=== PATIENT | male | born 1960 | race Caucasian/White ===

== ENCOUNTER 2019-05-14 07:06 | Inpatient (IN) | payer MEDICARE, MEDICAID ==
[~2019-05-14] VITALS: Ht 177.8 cm; Wt 61.2 kg
[~2019-05-14 07:06] MED LIST: ABILIFY5 MG ORAL; AMBIEN10 MG ORAL; ATORVASTATIN CA10 MG ORAL; BENZTROPINE MESY2 MG PO; CALCIUM 500 +1 EAC3 PO; CARNITINE ORAL; COLACE100 MG ORAL; DEPAKOTE SPRIN125 M1 ORAL; DULCOLAX10 MG RECTAL; DUONEB 0.5 MG-33 ML IH; FLUPHENAZINE HCL1 MG ORAL; KLONOPIN0.5 MG ORAL; LORAZEPAM1 MG ORAL; METOPROLOL SUCC25 MG ORAL; MILK OF MA400 MG/51 ORAL; MYLANTA30 M1 ORAL; QUETIAPINE FUMA50 MG ORAL; ROBITUSSIN DM5 ML PO; SERTRALINE HCL50 MG ORAL; TRAVATAN Z5 ML BOTH EYES; TYLENOL100 MG/11 PO
[2019-05-14] MEDS ORDERED: FERROUS SULFAT325 MG ORAL (07:19)
[2019-05-14] MEDS ORDERED: ACTOS15 MG ORAL (07:19)
[2019-05-14] MEDS ORDERED: ASPIRIN81 MG ORAL (07:19)
[2019-05-14] MEDS ORDERED: LACTULOSE20 GM/301 ORAL (07:19)
[2019-05-14] MEDS ORDERED: MIDODRINE HCL5 MG ORAL (07:19)
[2019-05-14] MEDS ORDERED: FLEET ENEMA133 ML RECTAL (07:19)
[2019-05-14] MEDS ORDERED: NOVOLIN R100 UNIT/1 SUBQ (07:19)
[2019-05-14] MEDS ORDERED: Sodium Chloride 550 ML IV SCH (07:30)
[2019-05-14] MEDS ORDERED: Albuterol ud Inhalation HHN ONE (07:30)
[2019-05-14] MEDS ORDERED: Ipratropium 0.02% Inh Soln 2.5ml UD HHN ONE (07:30)
[2019-05-14] MEDS ORDERED: Lidocaine 1% 10mg/ml/Epi 0.005mg/ml 30ml vial INJ ONE (07:30)
[2019-05-14] MEDS ORDERED: Bacitracin Oint UD TOPIC ONE (07:30)
[2019-05-14] MEDS ORDERED: Solu-MEDROL 125mg Inj IVP ONE (07:30)
[2019-05-14 07:45] VITALS: BP 98/76
--- NOTE | 2019-05-14 07:45 | Emergency Room Report ---
History of Present Illness General Chief Complaint: Multiple Trauma/Fall Source: Medical Record, EMS Present Illness HPI The patient fell and hit his left eyebrow. The patient is unable to give medical history at this time. Apparently has a history of COPD. In addition to that as O2 saturation was 89% at the [facility] facility. They increased his oxygen saturation by increase his oxygen to 5 L by nasal cannula. EMS transported the patient on a mask and stated that O2 sat saturation was 96%. History of bipolar disorder, diabetes, seizures. The patient is supposed be on valproic acid. The patient was admitted in 2012. Discharge diagnoses: 1. Encephalopathy. 2. Dehydration. 3. Scabies. 4. Psychiatric history. 5. Dysphagia. 6. Leukocytosis. 7. Sepsis. Allergies: Coded Allergies: NO KNOWN DRUG ALLERGIES (Verified Allergy, Unknown, 05/14/19) Patient History Limited by: medical condition Past Medical History: see triage record, old chart reviewed Past Surgical History: other - g tube [facility] Nursing Documentation: PMH: Agreed; PSxH: Agreed Nursing Documentation-PMH Past Medical History: No History, Except For Hx Cardiac Problems: Yes Hx Hypertension: Yes Hx COPD: Yes Hx Diabetes: Yes Hx Cancer: No Hx Gastrointestinal Problems: No History Of Psychiatric Problem: Yes - dementia Hx Neurological Problems: No Hx Seizures: Yes Review of Systems All Other Systems: limited Physical Exam Vital Signs Date Time Temp Pulse Resp B/P (MAP) Pulse Ox O2 Delivery O2 Flow Rate FiO2 05/14/19 07:14 97.5 87 20 96/61 (73) 91 Room Air 05/14/19 07:37 21 Sp02 EP Interpretation: reviewed, abnormal - Interpreted as low by me General Appearance: alert, other - rambling speech, Chronically Ill Head: normocephalic, other - Laceration left eyebrow Eyes: right eye other - large dilated pupil, L = small; bilateral eye EOMI ENT: dry mucus membranes Neck: supple, no bony tend Respiratory: chest non-tender, rhonchi, wheezing, expiration Cardiovascular #1: regular rate, rhythm Cardiovascular #2: 2+ radial (L) Gastrointestinal: non tender, soft, other - g tube, decreased bowel sounds Genitourinary: no CVA tenderness Musculoskeletal: digits/nails normal, normal range of motion Neurologic: alert, DTRs symmetric, sensory intact - not respond to pain LE, no Babinski, other - Random grumbling and unintelligible speech, moves all 4 Psychiatric: mood/affect normal Skin: warm/dry, laceration - Left eyebrow 2 cm Procedures Laceration/Wound Repair Laceration/Wound Repair : Consent: Verbal Wound Location: face Wound's Depth, Shape: superficial Wound Length (cm): 2 Wound Explored: clean Irrigated w/ Saline (ccs): 20 Betadine Prep?: Yes Anesthesia: Lidocaine w/ Epi Volume Anesthetic (ccs): 1 Wound Debrided: minimal Wound Repaired With: sutures Suture Size/Type: 6:0, proline Layer Closure?: No Sterile Dressing Applied?: Yes Patient Tolerated: Well Complications: None Medical Decision Making Diagnostic Impression: Primary Impression: Hypoxia Additional Impressions: LLL pneumonia Qualified Codes: J18.9 - Pneumonia, unspecified organism COPD exacerbation Laceration Head injury Qualified Codes: S09.90XA - Unspecified injury of head, initial encounter Elevated lactic acid level Dehydration [facility] ER Course Patient presents post head injury with history of C OPD and hypoxia. Differential includes brain bleed, laceration, pneumonia, exacerbation of COPD amongst others. Evaluation with EKG, CT of the head, chest x-ray and labs. Tetanus is indicated. The laceration needs to be sutured. Breathing treatments are ordered along with Solu-Medrol. EKG with sinus rhythm nonspecific ST-T wave changes and P pulmonale. Chest x- ray with COPD and new left lower lobe infiltrate. Based on the x-ray blood cultures and antibiotics are ordered. WBC normal but left shift. Elevated CO2. Lactic acid 2.1. Bolus NS ordered. O2 sats improved after breathing treatment. Laceration repaired. Repeat lactic acid improved and normal. Contact Dr. Ng for admission. Valproic acid late return is low. Laboratory Tests Test 05/14/19 07:50 05/14/19 08:30 05/14/19 09:30 White Blood Count 7.2 K/UL (4.8-10.8) Red Blood Count 4.56 M/UL (4.70-6.10) L Hemoglobin 13.7 G/DL (14.2-18.0) L Hematocrit 42.8 % (42.0-52.0) Mean Corpuscular Volume 94 FL (80-99) Mean Corpuscular Hemoglobin 30.0 PG (27.0-31.0) Mean Corpuscular Hemoglobin Concent 32.0 G/DL (32.0-36.0) Red Cell Distribution Width 13.1 % (11.6-14.8) Platelet Count 249 K/UL (150-450) Mean Platelet Volume 5.0 FL (6.5-10.1) L Neutrophils (%) (Auto) % (45.0-75.0) Lymphocytes (%) (Auto) % (20.0-45.0) Monocytes (%) (Auto) % (1.0-10.0) Eosinophils (%) (Auto) % (0.0-3.0) Basophils (%) (Auto) % (0.0-2.0) Differential Total Cells Counted 100 Neutrophils % (Manual) 85 % (45-75) H Lymphocytes % (Manual) 7 % (20-45) L Monocytes % (Manual) 7 % (1-10) Eosinophils % (Manual) 1 % (0-3) Basophils % (Manual) 0 % (0-2) Band Neutrophils 0 % (0-8) Platelet Estimate Adequate Platelet Morphology Normal Red Blood Cell Morphology Normal Prothrombin Time 10.0 SEC (9.30-11.50) Prothrombin Time INR 0.9 (0.9-1.1) PTT 22 SEC (23-33) L Sodium Level 140 MMOL/L (136-145) Potassium Level 4.3 MMOL/L (3.5-5.1) Chloride Level 106 MMOL/L (98-107) Carbon Dioxide Level 34 MMOL/L (21-32) H Anion Gap 0 mmol/L (5-15) L Blood Urea Nitrogen 24 mg/dL (7-18) H Creatinine 0.9 MG/DL (0.55-1.30) Estimate Glomerular Filtration Rate > 60 mL/min (>60) Glucose Level 114 MG/DL (74-106) H Lactic Acid Level 2.10 mmol/L (0.4-2.0) H 2.00 mmol/L (0.66-2.22) Calcium Level 8.2 MG/DL (8.5-10.1) L Total Bilirubin 0.2 MG/DL (0.2-1.0) Aspartate Amino Transferase (AST) 18 U/L (15-37) Alanine Aminotransferase (ALT) 17 U/L (12-78) Alkaline Phosphatase 82 U/L (46-116) Total Creatine Kinase 41 U/L (26-308) Troponin I 0.000 ng/mL (0.000-0.056) Pro-B-Type Natriuretic Peptide 48 pg/mL (0-125) Total Protein 7.3 G/DL (6.4-8.2) Albumin 3.3 G/DL (3.4-5.0) L Globulin 4.0 g/dL Albumin/Globulin Ratio 0.8 (1.0-2.7) L Valproic Acid Level 10 MCG/ML (50-100) L Urine Color Yellow Urine Appearance Clear Urine pH 7 (4.5-8.0) Urine Specific [place] 1.010 (1.005-1.035) Urine Protein 1+ (NEGATIVE) H Urine Glucose (UA) Negative (NEGATIVE) Urine Ketones Negative (NEGATIVE) Urine Blood Negative (NEGATIVE) Urine Nitrite Negative (NEGATIVE) Urine Bilirubin Negative (NEGATIVE) Urine Urobilinogen 1 MG/DL (0.0-1.0) H Urine Leukocyte Esterase 1+ (NEGATIVE) H Urine RBC 0 /HPF (0 - 0) Urine WBC 0-2 /HPF (0 - 0) Urine Squamous Epithelial Cells Occasional /LPF Urine Bacteria Occasional /HPF (NONE) Microbiology Date/Time Source Procedure Growth Status 05/14/19 07:50 Nasal Nares - Final Complete 05/14/19 07:50 Nasal Nares - Final Complete EKG Diagnostic Results Rate: normal Rhythm: NSR ST Segments: no acute changes - Nonspecific ST-T wave changes P pulmonale Rhythm Strip Diag. Results EP Interpretation: yes Rhythm: NSR, no PVC's, no ectopy Chest X-Ray Diagnostic Results Chest X-Ray Diagnostic Results : Chest X-Ray Ordered: Yes # of Views/Limited/Complete: 1 View Indication: Other EP Interpretation: Yes Interpretation: no effusion, no pneumothorax, other - COPD and LLL infiltrate = new Impression: Other Electronically Signed by: Electronically signed by Natanael Caputo MD CT/MRI/US Diagnostic Results CT/MRI/US Diagnostic Results : Imaging Test Ordered: head Impression L frontal infarct Last Vital Signs Date Time Temp Pulse Resp B/P (MAP) Pulse Ox O2 Delivery O2 Flow Rate FiO2 05/14/19 09:42 111/55 05/14/19 09:11 98.0 95 18 97 Room Air 05/14/19 08:00 97 Status: improved Disposition: ADMITTED INPATIENT Condition: Serious Referrals: Silas Ng DO (PCP) Natanael Caputo MD May 14, 2019 07:45
--- NOTE | 2019-05-14 07:45 | NUR ---
ED Nurse Note: Pt arrived by ambulance Am Pr 170. EMT states pt has history of DM. EMT states pt had a fall last night at SNF and got a laceration above L eye. Pt vital signs 98/60, R 22, HR 87. 98% RA. Patient is put on ECG monitor. Patient is A&ox2. Pt is inconent. Pt has G tube.
[2019-05-14] MEDS ORDERED: Vancomycin 1 GM in NS 275 ML IVPB ONE (08:00)
[2019-05-14] MEDS ORDERED: Piperacillin/Tazobactam 3.375 GM in NS 110 ML IVPB ONE (08:00)
--- NOTE | 2019-05-14 08:05 | NUR ---
Pt left for CT via gurney.
--- NOTE | 2019-05-14 08:15 | NUR ---
Pt returned from CT via [facility].
[2019-05-14 08:21] LABS: HEMATOCRIT 42.8 % (42.0-52.0); HEMOGLOBIN 13.7 G/DL (14.2-18.0); MEAN CORPUSCULAR VOLUME 94 FL (80-99); PLATELET COUNT 249 K/UL (150-450); RED BLOOD COUNT 4.56 M/UL (4.70-6.10); RED CELL DISTRIBUTION WIDTH 13.1 % (11.6-14.8); WHITE BLOOD COUNT 7.2 K/UL (4.8-10.8)
[2019-05-14 08:28] LABS: INR 0.9 (0.9-1.1)
--- NOTE | 2019-05-14 08:40 | NUR ---
Dr. Caputo saw pt and put sutures above pt's R eye.
[2019-05-14 08:44] LABS: ALANINE AMINOTRANSFERASE 17 U/L (12-78); ALBUMIN 3.3 G/DL (3.4-5.0); ALBUMIN/GLOBULIN RATIO 0.8 (1.0-2.7); ALKALINE PHOSPHATASE 82 U/L (46-116); ANION GAP 0 mmol/L (5-15); ASPARTATE AMINO TRANSFERASE 18 U/L (15-37); BILIRUBIN,TOTAL 0.2 MG/DL (0.2-1.0); CALCIUM 8.2 MG/DL (8.5-10.1); CARBON DIOXIDE 34 MMOL/L (21-32); CHLORIDE 106 MMOL/L (98-107); CREATINE KINASE 41 U/L (26-308); CREATININE 0.9 MG/DL (0.55-1.30); POTASSIUM 4.3 MMOL/L (3.5-5.1); SODIUM 140 MMOL/L (136-145)
--- NOTE | 2019-05-14 08:47 | Diagnostic Imaging Report ---
Indication: Headache. Head trauma Technique: Contiguous 5 mm thick transaxial imaging of the head obtained in a Siemens Sensation [address] scanner. Soft tissue and bone windows generated. Automatic Exposure Control was utilized. Total Dose length Product (DLP): 1489.[address] Dose Index Volume (CTDIvol): 62.7 mGy Comparison: 03/14/2013 Findings: There is mild prominence of the ventricles, basal cisterns, and cerebral sulci consistent with cerebral atrophy. Moderate cerebellar atrophy demonstrated also. Mild, nonspecific, white matter hypoattenuation is noted throughout the brain consistent with chronic small vessel disease. Focus of encephalomalacia demonstrated in the left frontal lobe. There is a mild compensatory dilatation of the anterior horn of the left lateral ventricle. There is no midline shift, edema, acute hemorrhage, mass effect, or abnormal extra-axial fluid collections. Bones are unremarkable. Impression: No acute intracranial bleed, mass effect or edema. Left frontal encephalomalacia probably on the basis of previous infarct. Mild atrophy of the brain. Nonspecific white matter hypoattenuation probably due to chronic small vessel disease. No change from the previous study The CT scanner at [facility] is accredited by the [employer] and the scans are performed using dose optimization techniques as appropriate to a performed exam including Automatic Exposure control.
[2019-05-14 08:53] LABS: BLOOD UREA NITROGEN 24 mg/dL (7-18)
[2019-05-14 08:59] LABS: APPEARANCE,URINE CLEAR; BILIRUBIN, URINE NEGATIVE (NEGATIVE); GLUCOSE, URINE (UA) NEGATIVE (NEGATIVE); KETONES,URINE NEGATIVE (NEGATIVE); LEUKOCYTE ESTERASE ,URINE 1+ (NEGATIVE); NITRITE,URINE NEGATIVE (NEGATIVE); PH,URINE 7 (4.5-8.0); PROTEIN,URINE 1+ (NEGATIVE); UROBILINOGEN,URINE 1 MG/DL (0.0-1.0)
[2019-05-14 09:09] LABS: COLOR,URINE YELLOW
[2019-05-14 09:11] VITALS: BP 109/60
[2019-05-14] MEDS ORDERED: Vancomycin 1gm vial IVPB ONE (09:13)
[2019-05-14] MEDS ORDERED: NS 275 ML ONE (09:15)
[2019-05-14] MEDS ORDERED: Albuterol/Ipratropium 3ml neb HHN PRN (09:15)
[2019-05-14] MEDS ORDERED: Morphine Sulfate 4mg/ml Inj (IV USE ONLY) IVP PRN (09:15)
[2019-05-14] MEDS ORDERED: Miralax 17gm pkt ORAL PRN (09:15)
--- NOTE | 2019-05-14 09:36 | NUR ---
ED Nurse Note: pt pulling out intial iv site, bleeding controlled. iv restarted as noted. pt with ns and abx infusion restarted. pt tolerates well. iv site wrapped to discourage dislodgement.
--- NOTE | 2019-05-14 09:37 | NUR ---
ED Nurse Note: pictures done and to be uploaded. dr suha arcos here to delbert pt.
[2019-05-14 09:42] VITALS: BP 111/55
--- NOTE | 2019-05-14 10:30 | NUR ---
NURSE NOTES: Received patient from [facility] Patient transported via gurney from ED. patient is lethargic but arousable. VSS>. transferred to bed without difficulty. oriented to room and safety call bourgeois within patients reached. bed locked to lowest position side rails X3 up for safety. initial assessment initiated. patient denies pain or discomfort at this time. will follow.
[2019-05-14 12:00] VITALS: BP 120/68
[2019-05-14] MEDS ORDERED: Metoprolol Tartrate 12.5mg TAB ORAL PRN (12:00)
[2019-05-14] MEDS: Cefepime HCl 2 GM in D5W 110 ML IV SCH ×2 (12:00→20:02)
[2019-05-14] MEDS: Heparin 5000 units/ml inj SUBQ SCH ×2 (12:01→20:45)
--- NOTE | 2019-05-14 12:10 | Consultation ---
History of Present Illness General Date patient seen: May 14, 2019 Chief Complaint: Multiple Trauma/Fall Present Illness HPI 59 year old male with a history of bipolar disorder, diabetes, seizures, COPD., Gtube, senior care resident He fell and hit his left eyebrow in the senior care The patient is unable to give medical history at this time. His O2 saturation was 89% at the senior care facility. EMS transported the patient on a mask and stated that O2 sat saturation was 96%. He is admitted for exacerbation of COPD and failure to thrive. Allergies: Coded Allergies: NO KNOWN DRUG ALLERGIES (Verified Allergy, Unknown, 05/14/19) Medication History Scheduled Acetaminophen (Tylenol), 325 MG PO NEEDED, (Reported) Al Hydroxide/mg Hydroxide (Mag-Al Liquid), 30 ML ORAL NEEDED, (Reported) Aripiprazole* (Abilify*), 5 MG ORAL BID, (Reported) Aspirin* (Aspirin*), 81 MG ORAL DAILY, (Reported) Atorvastatin Calcium* (Lipitor*), 10 MG ORAL BEDTIME, (Reported) Benztropine Mesylate* (Benztropine Mesylate*), 2 MG PO BID, (Reported) Bisacodyl (Dulcolax), 10 MG RECTAL NEEDED, (Reported) Clonazepam* (Klonopin*), 0.5 MG ORAL EVERY 8 HOURS, (Reported) Divalproex Sodium (Divalproex Sodium), 750 MG ORAL THREE TIMES A DAY, (Reported) Docusate Sodium* (Colace*), 100 MG ORAL BEDTIME, (Reported) Ferrous Sulfate* (Ferrous Sulfate*), 325 MG ORAL DAILY, (Reported) Fluphenazine HCl (Fluphenazine HCl), 5 MG ORAL THREE TIMES A DAY, (Reported) Insulin Regular, Human* (Novolin R*), 0 SUBQ .SLIDING SCALE, (Reported) Levocarnitine (Carnitor), 330 MG ORAL THREE TIMES A DAY, (Reported) Lorazepam* (Lorazepam*), 1 MG ORAL NEEDED, (Reported) Magnesium Hydroxide* (Milk Of Magnesia*), 30 ML ORAL DAILY, (Reported) Midodrine* (Proamatine*), 5 MG ORAL THREE TIMES A DAY, (Reported) Na Phos,M-B/Na Phos,Di-Ba* (Fleet Enema*), 133 ML RECTAL DAILY, (Reported) Pioglitazone Hcl* (Actos*), 15 MG ORAL DAILY, (Reported) Quetiapine Fumarate* (Quetiapine Fumarate*), 50 MG ORAL DAILY, (Reported) Scheduled PRN Metoprolol Succinate* (Metoprolol Succinate*), 12.5 MG ORAL BID PRN, (Reported) Sertraline Hcl* (Zoloft*), 50 MG ORAL BID PRN, (Reported) Zolpidem Tartrate* (Ambien*), 10 MG ORAL BEDTIME PRN for Insomnia, (Reported) Miscellaneous Medications Calcium Carbonate/Vitamin D3 (Calcium 500 + D Tablet), 1 EACH PO, (Reported) Guaifenesin/Dextromethorphan (Guaifenesin Dm Syrup), 10 ML PO, (Reported) Ipratropium/Albuterol Sulfate (Duoneb 0.5 Mg-3 Mg/3 Ml Soln), 3 ML IH, (Reported ) Lactulose (Lactulose*), 30 ML ORAL, (Reported) Travoprost (Travatan Z), 5 ML BOTH EYES, (Reported) Patient History Healthcare decision maker Resuscitation status Advanced Directive on File Past Medical/Surgical History Past Medical/Surgical History: (1) COPD exacerbation (2) Feeding by G-tube (3) At high risk for aspiration (4) Diabetes mellitus (5) Schizophrenia (6) CAD (coronary artery disease) (7) Alzheimer's dementia (8) COPD (chronic obstructive pulmonary disease) Review of Systems Constitutional: Reports: no symptoms All Other Systems: negative except mentioned in HPI Physical Exam General Appearance: WD/WN, no apparent distress Lines, tubes and drains: peripheral HEENT: normocephalic, atraumatic Neck: non-tender, normal alignment, normal inspection Respiratory/Chest: chest wall non-tender, lungs clear, normal breath sounds Breasts: no masses Cardiovascular/Chest: normal peripheral pulses, normal rate Abdomen: normal bowel sounds Genitourinary/Rectal: normal genital exam Extremities: non-tender Last 24 Hour Vital Signs Date Time Temp Pulse Resp B/P (MAP) Pulse Ox O2 Delivery O2 Flow Rate FiO2 05/14/19 09:42 111/55 05/14/19 09:11 98.0 95 18 109/60 97 Room Air 05/14/19 08:50 98.6 68 17 111/55 97 Room Air 05/14/19 08:00 68 18 Room Air 97 05/14/19 07:45 98.7 87 18 98/76 98 Room Air 05/14/19 07:37 89 18 100 Room Air 21 84 22 96 05/14/19 07:37 84 22 96 Room Air 21 05/14/19 07:14 97.5 87 20 96/61 (73) 91 Room Air Laboratory Tests Test 05/14/19 07:50 05/14/19 08:30 05/14/19 09:30 White Blood Count 7.2 K/UL (4.8-10.8) Red Blood Count 4.56 M/UL (4.70-6.10) L Hemoglobin 13.7 G/DL (14.2-18.0) L Hematocrit 42.8 % (42.0-52.0) Mean Corpuscular Volume 94 FL (80-99) Mean Corpuscular Hemoglobin 30.0 PG (27.0-31.0) Mean Corpuscular Hemoglobin Concent 32.0 G/DL (32.0-36.0) Red Cell Distribution Width 13.1 % (11.6-14.8) Platelet Count 249 K/UL (150-450) Mean Platelet Volume 5.0 FL (6.5-10.1) L Neutrophils (%) (Auto) % (45.0-75.0) Lymphocytes (%) (Auto) % (20.0-45.0) Monocytes (%) (Auto) % (1.0-10.0) Eosinophils (%) (Auto) % (0.0-3.0) Basophils (%) (Auto) % (0.0-2.0) Differential Total Cells Counted 100 Neutrophils % (Manual) 85 % (45-75) H Lymphocytes % (Manual) 7 % (20-45) L Monocytes % (Manual) 7 % (1-10) Eosinophils % (Manual) 1 % (0-3) Basophils % (Manual) 0 % (0-2) Band Neutrophils 0 % (0-8) Platelet Estimate Adequate Platelet Morphology Normal Red Blood Cell Morphology Normal Prothrombin Time 10.0 SEC (9.30-11.50) Prothromb Time International Ratio 0.9 (0.9-1.1) Activated Partial Thromboplast Time 22 SEC (23-33) L Sodium Level 140 MMOL/L (136-145) Potassium Level 4.3 MMOL/L (3.5-5.1) Chloride Level 106 MMOL/L (98-107) Carbon Dioxide Level 34 MMOL/L (21-32) H Anion Gap 0 mmol/L (5-15) L Blood Urea Nitrogen 24 mg/dL (7-18) H Creatinine 0.9 MG/DL (0.55-1.30) Estimat Glomerular Filtration Rate > 60 mL/min (>60) Glucose Level 114 MG/DL (74-106) H Lactic Acid Level 2.10 mmol/L (0.4-2.0) H 2.00 mmol/L (0.66-2.22) Calcium Level 8.2 MG/DL (8.5-10.1) L Total Bilirubin 0.2 MG/DL (0.2-1.0) Aspartate Amino Transf (AST/SGOT) 18 U/L (15-37) Alanine Aminotransferase (ALT/SGPT) 17 U/L (12-78) Alkaline Phosphatase 82 U/L (46-116) Total Creatine Kinase 41 U/L (26-308) Troponin I 0.000 ng/mL (0.000-0.056) Pro-B-Type Natriuretic Peptide 48 pg/mL (0-125) Total Protein 7.3 G/DL (6.4-8.2) Albumin 3.3 G/DL (3.4-5.0) L Globulin 4.0 g/dL Albumin/Globulin Ratio 0.8 (1.0-2.7) L Valproic Acid (Depakene) Level 10 MCG/ML (50-100) L Urine Color Yellow Urine Appearance Clear Urine pH 7 (4.5-8.0) Urine Specific [place] 1.010 (1.005-1.035) Urine Protein 1+ (NEGATIVE) H Urine Glucose (UA) Negative (NEGATIVE) Urine Ketones Negative (NEGATIVE) Urine Blood Negative (NEGATIVE) Urine Nitrite Negative (NEGATIVE) Urine Bilirubin Negative (NEGATIVE) Urine Urobilinogen 1 MG/DL (0.0-1.0) H Urine Leukocyte Esterase 1+ (NEGATIVE) H Urine RBC 0 /HPF (0 - 0) Urine WBC 0-2 /HPF (0 - 0) Urine Squamous Epithelial Cells Occasional /LPF Urine Bacteria Occasional /HPF (NONE) Microbiology Date/Time Source Procedure Growth Status 05/14/19 07:50 Nasal Nares - Final Complete 05/14/19 07:50 Nasal Nares - Final Complete 05/14/19 00:00 Rectum Ordered Height (Feet): 5 Height (Inches): 10.00 Weight (Pounds): 160 Medications Current Medications Medications (Trade) Dose Ordered Sig/Barry Route PRN Reason Start Time Stop Time Status Last Admin Dose Admin Acetaminophen (Tylenol) 650 mg Q4H PRN ORAL FEVER 05/14/19 09:15 06/13/19 09:14 Albuterol/ Ipratropium (Albuterol/ Ipratropium) 3 ml Q4H PRN HHN Shortness of Breath 05/14/19 09:15 05/19/19 09:14 Cefepime HCl 2 gm/ Dextrose 110 ml @ 220 mls/hr EVERY 12 HOURS IV 05/14/19 10:00 05/21/19 09:59 Dextrose (Dextrose 50%) 25 ml Q30M PRN IV Hypoglycemia 05/14/19 09:15 06/13/19 09:14 Dextrose (Dextrose 50%) 50 ml Q30M PRN IV Hypoglycemia 05/14/19 09:15 06/13/19 09:14 Heparin Sodium (Porcine) (Heparin 5000 units/ml) 5,000 units EVERY 12 HOURS SUBQ 05/14/19 10:00 06/13/19 09:59 Morphine Sulfate (Morphine Sulfate) 2 mg Q4H PRN IVP Severe Pain (Pain Scale 7-10) 05/14/19 09:15 05/21/19 09:14 Ondansetron HCl (Zofran) 4 mg Q6H PRN IVP Nausea & Vomiting 05/14/19 09:15 06/13/19 09:14 Polyethylene Glycol (Miralax) 17 gm DAILYPRN PRN ORAL Constipation 05/14/19 09:15 06/13/19 09:14 Sodium Chloride 550 ml @ 150 mls/hr Q3H40M IV 05/14/19 07:30 06/13/19 07:29 05/14/19 08:25 Vancomycin HCl (Vanco rx to dose) 1 ea DAILY PRN MISC . 05/14/19 09:30 06/13/19 09:29 Vancomycin/Sodium Chloride 275 ml @ 183.333 mls/hr Q12HR IVPB 05/14/19 21:00 05/19/19 20:59 Assessment/Plan Problem List: (1) COPD exacerbation ICD Codes: J44.1 - Chronic obstructive pulmonary disease with (acute) exacerbation SNOMED: 778231368 (2) At high risk for aspiration ICD Codes: Z91.89 - Other specified personal risk factors, not elsewhere classified SNOMED: 047447393 (3) Alzheimer's dementia ICD Codes: G30.9 - Alzheimer's disease, unspecified; F02.80 - Dementia in other diseases classified elsewhere without behavioral disturbance SNOMED: 86047746 (4) CAD (coronary artery disease) ICD Codes: I25.10 - Atherosclerotic heart disease of [place] coronary artery without angina pectoris SNOMED: 47894703 (5) Seizure disorder ICD Codes: G40.909 - Epilepsy, unspecified, not intractable, without status epilepticus SNOMED: 968265201 (6) Schizophrenia ICD Codes: F20.9 - Schizophrenia, unspecified SNOMED: 81374725 (7) Diabetes mellitus ICD Codes: E11.9 - Type 2 diabetes mellitus without complications SNOMED: 78409561 (8) Feeding by G-tube ICD Codes: Z93.1 - Gastrostomy status SNOMED: 702300917, 013089560, 658501043 (9) COPD (chronic obstructive pulmonary disease) ICD Codes: J44.9 - Chronic obstructive pulmonary disease, unspecified SNOMED: 62995978 Assessment/Plan: senior care meds reviewed, essential ones reordered respiratory treatment check sputum iv abx swallow evaluation. Anusha Richmond MD May 14, 2019 12:10
--- NOTE | 2019-05-14 12:58 | NUR ---
ST NOTES: REFERRAL FOR SWALLOW EVALUATION RECEIVED, PATIENT NEEDS MOD BARIUM SWALLOW STUDY PRIOR TO PO GIVEN HIS H/O OLD CVAS, HEAD TRAUMA, COPD WITH EXACERBATION, AND ACUTE LEFT LOWER LOBE PNA AND RECENT FALL. PER RN, THE PATIENT IS LETHARGIC AND NOT READY FOR SWALLOW EVAL. D/W RN, HANG WHO SAID HE HAS A GT AND HAS BEEN ON A PO DIET. REFERRED RN TO [facility] DIETITIAN ABOUT TUBE FEEDING FORMULA. PLAN: SEE TOMORROW FOR SWALLOW EVAL AND MOD BARIUM SWALLOW STUDY IF READY AND ALERT.
[2019-05-14] MEDS: clonazePAM 0.5mg tab ORAL SCH ×2 (13:52→21:05)
--- NOTE | 2019-05-14 13:55 | Diagnostic Imaging Report ---
Indication: Dyspnea Comparison: 03/14/2013 A single view chest radiograph was obtained. Findings: There is a ill-defined density at the left lung base which may be pneumonia. Correlate clinically. I size is normal. Bones are osteopenic. No pleural effusion seen. IMPRESSION: Suspected infiltrate left lung base. Correlate clinically
[2019-05-14] MEDS: LORazepam 1mg tab ORAL PRN ×2 (14:22→21:05)
--- NOTE | 2019-05-14 15:00 | NUR ---
NURSE NOTES: Patient very restless getting up in bed unable to redirect patient. PRN ativan given. will follow
--- NOTE | 2019-05-14 15:42 | Consultation ---
Consult Note Consult Note HPI: 59yo gentleman with PMH below presents from retirement after fall. Pt was very agitated and getting out of bed, pulling IVs so nurse gave him benzo. Pt unable to provide history. ROS: per HPI PMH: Bipolar DM Seizure COPD Schizophrenia Alzheimer CAD h/o scabies 2102 Meds: reviewed All: NKDA Shx: retirement resident Fhx: noncontributory VS: reviewed Gen: NAD CV: RRR. no rubs or gallop Resp: RRR. coarse. no wheezes or crackles. Abd: soft. nondistended. normoactive BS+ Neuro: sedated Skin: warm and dry Labs: reviewed Assessment: Afebrile No leukocytosis Lactic acidosis, SP Unlikely UTI UA negative Possible PNA flu swab negative CXR: Suspected infiltrate left lung base. Correlate clinically Bipolar DM Seizure COPD Schizophrenia Alzheimer CAD h/o scabies 2102 Plan: continue cefepime and vancomycin #1 05/14 SP Zosyn #1 sputum cx blood cx Thank you for this consult. [facility] will continue to follow the patient with you. Craig Song MD May 14, 2019 15:42
[2019-05-14 16:00] VITALS: BP 125/72
--- NOTE | 2019-05-14 16:00 | NUR ---
NURSE NOTES: Patient resting comfortably at this time. will follow.
[2019-05-14] MEDS: D5 1/2NS 1,000 ML IV SCH (16:23)
--- NOTE | 2019-05-14 17:00 | History and Physical Report ---
DATE OF ADMISSION: 05/14/2019 TIME SEEN: 9 a.m. CONSULTANTS: 1. Antony Berger M.D. 2. Anusha Richmond M.D. 3. Shyla Fleming M.D. CHIEF COMPLAINT: COPD exacerbation, pneumonia, left brow laceration. BRIEF HISTORY: This is a 59-year-old male from [facility], presented with above-mentioned diagnoses. Apparently he says he tripped and stuck his left side of head and sustained left brow laceration, came to [place], diagnosed with the above and repaired. He also found to have COPD exacerbation, pneumonia, and sepsis, and being admitted to medical floor for further treatment. Currently, slightly confused in bed. No complaint. REVIEW OF SYSTEMS: No chest pain. Slight short of breath. No nausea, vomiting, or diarrhea. PAST MEDICAL HISTORY: Include COPD, altered mental status. PAST SURGICAL HISTORY: Unknown. MEDICATIONS: Include vancomycin, heparin, cefepime, Zofran, Tylenol, ibuprofen, and Zosyn. ALLERGIES: Denies. SOCIAL HISTORY: Unable to obtain secondary to the patient not very forthcoming. OBJECTIVE: GENERAL: Calm in bed, oriented x1, in no acute distress. VITAL SIGNS: Temperature 98 degrees, pulse 95, respiratory rate 18, blood pressure 101/60. CARDIOVASCULAR: No murmurs. LUNGS: Distant and clear. ABDOMEN: Bowel sound positive. Nontender. Nondistended. EXTREMITIES: No cyanosis, clubbing, or edema. NEUROLOGIC: The patient moves all extremities, slightly weak. Slight tremors bilateral upper extremity. SKIN: Left brow area laceration repaired, clean and dry. LABORATORY AND DIAGNOSTIC DATA: Labs at this time show hemoglobin 13.7 otherwise CBC is normal. CO2 34, BUN and creatinine 24 and 0.9, glucose 114. Troponin 0.00. Albumin 3.3. INR is 0.9. PTT is 22. Urine tox, valproic is 10. Urinalysis show 1+ leukocyte esterase. ASSESSMENT: 1. COPD exacerbation. 2. UTI. 3. Pneumonia. 4. Sepsis. 5. Left brow laceration, repaired. 6. Malnutrition. 7. Altered mental status. 8. PLAN: 1. O2 and pulmonary treatment. 2. Antibiotics per Infectious Disease. 3. Wound care. 4. Blood pressure and pain control. 5. Dietary followup. 6. PT and dietary evaluation. 7. Check laboratories in the morning. 8. Continue to follow the patient medically . Silas Ng D.O. DR: Je JOB#: [id number] CC:
--- NOTE | 2019-05-14 17:45 | NUR ---
NURSE NOTES:WOUND CARE NOTES:Pt presented on admission with non-blanching erythema without induration sacrum. R heel boggy with non-blanching erythema. Non-blanching erythema without fluctuance L heel. No other areas of skin concerns noted. Tx.plan: Apply Moisture Barrier Paste to sacrum. Cover with Optifoam drsg. Change every 3 days and prn. Apply Cavilon Skin Barrier to both heels. Cover each heel with Optifoam drsg.Changee very 7 days and prn. Reposition at least every 2hours or as tolerated. Off-load heels with pillow
--- NOTE | 2019-05-14 19:09 | NUR ---
NURSE NOTE: Patient very restless and agitated unable to redirect. getting up in bed and pulling tubings and ressings out. Dr. Fleming made aware new order obtained to put patient on B/L wrist restraints will follow protocol.
--- NOTE | 2019-05-14 19:21 | NUR ---
HAND-OFF: Report given to Vazquez Quiros. Plan of care endorsed
--- NOTE | 2019-05-14 19:30 | NUR ---
NURSE NOTES: Received patient in no apparent distress. PIV in right forearm intact and patent. Condom catheter in place. Soft wrist restraints on bilat wrists, skin is warm. Patient denies pain at this time. Bed rails up x2 for safety. Call light is within reach.
[2019-05-14 20:00] VITALS: BP 98/67
[2019-05-14] MEDS: Vancomycin 1.25gm/NS Premix q24h IVPB SCH (20:38)
--- NOTE | 2019-05-14 22:19 | NUR ---
NURSE NOTES: Collected sputum and sent to the lab.
[2019-05-14] MEDS ORDERED: Vancomycin 1 GM in D5W 275 ML IV SCH (23:00)
[2019-05-15] VITALS (7 sets, daily range): BP systolic 103–125; BP diastolic 67–114
[2019-05-15] MEDS: LORazepam 1mg tab ORAL PRN ×2 (04:04→18:06)
[2019-05-15] MEDS: clonazePAM 0.5mg tab ORAL SCH ×3 (05:04→21:43)
--- NOTE | 2019-05-15 07:26 | NUR ---
HAND-OFF: Report given to Rene LEUNG.
--- NOTE | 2019-05-15 07:30 | NUR ---
NURSE NOTES: Received pt in bed, awake, confused and agitated. Room air. No s/s of distress/pain. IV on R FA 22g intact and patent, running D5 1/2 NS @ 60 ml/hr. Bilateral restraints noted. Pulse present. Side rail padded for seizure precaution. Bed in the lowest, locked, and alarm on. Call light within reach. Will continue to monitor
--- NOTE | 2019-05-15 07:34 | NUR ---
RD ASSESSMENT & RECOMMENDATIONS SEE CARE ACTIVITY FOR COMPLETE ASSESSMENT DAILY ESTIMATED NEEDS: Needs based on Pulmonary 62 25-30 kcals/kg 6744-4423 total kcals 1-1.5 g protein/kg 62-93 g total protein 25-30 mL/kg 7478-5945 total fluid mLs NUTRITION DIAGNOSIS: Swallowing difficulty r/t dysphagia as evidenced by pt is GT dep. ENTERAL NUTRITION RECOMMENDATIONS: TwoCal: BOLUS FEEDS, 150ml /hr x2 hrs TID to provide 900ml, 1800 kcal, 75g pro, 630ml free H2O - FOR BOLUS FEEDS rec Two Krzysztof goal of 150ml/hr for 2 hrs TID (recommended start times of @0600, 1200, 1800). - TF to meet 100% est needs - Flush per MD/ HOB over 30 degrees ALTERNATIVELY FOR A 24 HR INFUSION: - Rec Osmolite 1.5 @50ml/hr x24 hrs to provide 1200ml, 1800 kcal, 75g pro, 914ml free H2O. - Will meet 100% est needs. ADDITIONAL RECOMMENDATIONS: 1) TF recs as above 2) Monitor lytes / BG w/ TF 3) F/up w/ NECK BAND SETTER eval and ability to take po and / or reduce TF 4) PER SNF-->> HT: 5'7" and 136#
[2019-05-15 08:38] LABS: BASOPHILS % (AUTO) 0.3 % (0.0-2.0); EOSINOPHILS % (AUTO) 0.3 % (0.0-3.0); HEMATOCRIT 38.2 % (42.0-52.0); HEMOGLOBIN 12.7 G/DL (14.2-18.0); LYMPHOCYTES % (AUTO) 19.6 % (20.0-45.0); MEAN CORPUSCULAR VOLUME 93 FL (80-99); MONOCYTES % (AUTO) 5.9 % (1.0-10.0); NEUTROPHILS % (AUTO) 73.8 % (45.0-75.0); PLATELET COUNT 261 K/UL (150-450); RED BLOOD COUNT 4.09 M/UL (4.70-6.10); RED CELL DISTRIBUTION WIDTH 12.9 % (11.6-14.8); WHITE BLOOD COUNT 10.1 K/UL (4.8-10.8)
[2019-05-15 08:52] LABS: ALBUMIN 3.4 G/DL (3.4-5.0); ANION GAP 3 mmol/L (5-15); BLOOD UREA NITROGEN 14 mg/dL (7-18); CALCIUM 8.3 MG/DL (8.5-10.1); CARBON DIOXIDE 34 MMOL/L (21-32); CHLORIDE 104 MMOL/L (98-107); CREATININE 0.8 MG/DL (0.55-1.30); PHOSPHORUS 2.8 MG/DL (2.5-4.9); POTASSIUM 3.6 MMOL/L (3.5-5.1); SODIUM 141 MMOL/L (136-145)
[2019-05-15 08:54] LABS: ANION GAP 3 mmol/L (5-15); BLOOD UREA NITROGEN 14 mg/dL (7-18); CALCIUM 8.3 MG/DL (8.5-10.1); CARBON DIOXIDE 35 MMOL/L (21-32); CHLORIDE 104 MMOL/L (98-107); CREATININE 0.8 MG/DL (0.55-1.30); POTASSIUM 3.8 MMOL/L (3.5-5.1); SODIUM 142 MMOL/L (136-145)
[2019-05-15] MEDS: Cefepime HCl 2 GM in D5W 110 ML IV SCH ×2 (09:23→23:18)
[2019-05-15] MEDS: Vancomycin 1.25gm/NS Premix q24h IVPB SCH ×2 (09:23→23:18)
[2019-05-15] MEDS: Heparin 5000 units/ml inj SUBQ SCH ×2 (09:24→21:58)
[2019-05-15] MEDS: D5 1/2NS 1,000 ML IV SCH (09:25)
--- NOTE | 2019-05-15 09:55 | NUR ---
PT EVALUATION NOTE Patient seen for initial evaluation, see complete evaluation for details. Patient presents with generalized weakness, impaired cognition and impaired balance which affects patient's ability to perform mobility tasks safely. Patient requires min/mod assist for bed mobility and transfers with FWW. Patient able to ambulate 50 ft with mod assist to manage FWW as patient is very unsteady and impulsive. Patient will benefit from skilled inpatient PT intervention to address balance, strength and safety to improve level of functional mobility. Recommend discharge to SNF once medically cleared by MD. Addendum: 05/15/19 at 1047 by EVA SILVERMAN PT Amended: Links added.
--- NOTE | 2019-05-15 10:00 | Consultation ---
DATE OF CONSULTATION: 05/15/2019 INITIAL PSYCHIATRIC EVALUATION CONSULTING PHYSICIAN: Shyla Fleming M.D. REQUESTING PHYSICIAN: Silas Ng D.O. HISTORY OF PRESENT ILLNESS: This is a 59-year-old male patient came in with COPD, but the patient has extreme mood lability, agitation, irritability. He has been trying to get out of bed, trying to strike out at the staff, not following redirection. He is very disorganized, confused, became labile and that is why he does require daily psychiatric consultation at this time. He has got feelings of helplessness, hopelessness, low energy, poor appetite, and loss of interest in activity. mood labile, confused, disorganized. That is why, he does require acute inpatient treatment at this time. PAST MEDICAL HISTORY: He has a history of pneumonia. ALLERGIES: He has no known drug allergies. SUBSTANCE ABUSE HISTORY: Denies. PAIN ASSESSMENT: 0/10. DEVELOPMENTAL PROBLEMS: Denies. PSYCHOTROPIC MEDICATIONS ON ADMISSION: Currently, he takes daily psychotropic medication regimen consisting of Abilify, Depakote, and Seroquel. FAMILY PSYCHIATRIC HISTORY: Denies. SOCIAL HISTORY: The patient is currently living in [facility]. Financially supported by [facility] and Medicare. MENTAL STATUS EXAMINATION: This is a male patient, who is 59 years old. Appearance is disheveled. Attitude, irritable and agitated. Affect, guarded and restricted. Intellect poor. Mood, depressed and anxious. Motor activity, psychomotor agitation. Attention span is poor. Orientation x2. Speech is pressured. Thought process, disorganized. Insight and judgment is poor. DIAGNOSES: 1. Paranoid schizophrenia with acute exacerbation, rule out dementia with psychosis. 2. Medical, COPD. 3. Psychosocial stressors, financial. 4. Function impairment, severe. PLAN: I will start the patient on Risperdal 1 mg three times a day and Ativan 1 every 6 hours p.r.n. anxiety, agitation. Continue Abilify. Continue Seroquel 50 mg daily. A 20 minutes of cognitive behavioral therapy to help his identify automatic negative thoughts and help his convert those negative thoughts to more positive thoughts to reduce depression, anxiety, and suicidality. Chart reviewed. Discussed with staff. Seen and assessed at bedside. A 20 minutes of cognitive behavioral therapy provided. Shyla Fleming M.D. DR: BRIAN JOB#: [id number] CC:
--- NOTE | 2019-05-15 10:40 | NUR ---
NOTES: REFERRED FOR SWALLOW EVALUATION BY DR MELO, SEE FULL REPORT. 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 ADVANCE DIRECTIVE BLANK AND NO POLST LOCATED BUT HAS PEG ? HOW LONG. PER PATIENT, HE HAD SWALLOW TEST YEARS AGO ? RELIABLE. AT SNF ON PEG FEEDINGS AND ORAL GRAT OF PUREED AND MILDLY THICK LIQUIDS TSP LEVEL AND ENSURE SUPPLEMENT. SEEN AT [facility] [address] [place]IE DIET TYPE BUT ON CARDIAC PUREED AND NECTAR THICK LIQUIDS ENSURE SUPPLEMENTS, NOT SEEN BY BREWER HELPER. NOW THE PATIENT IS NPO UNTIL SWALLOW EVAL. HE WILL START TO GET TUBE FEEDINGS. HE IS ALERT AND ABLE TO EXPRESS BASIC NEEDS. SPEECH IS HIGHLY UNINTELLIGIBLE DUE TO REDUCED LOUDNESS AND IMPRECISE ARTICULATION. HE DOES NOT ALWAYS ANSWER SPECIFIC QUESTIONS AND WILL TALK TO HIMSELF. INITIAL IMPRESSIONS: HIGH RISK FOR A PERSISTENT SIGNIFICANT, AND WORSENED OROPHARYNGEAL DYSPHAGIA AND SILENT ASPIRATION EVEN FOR ORAL SECRETIONS. TONGUE SURFACE IS WHITISH AND NEEDS ORAL CARE. TONGUE MOVEMENTS ARE SLOW, STRENGTH FEELS MILDLY REDUCED BUT ROM IS FUNCTIONAL. LIPS ARE GROSSLY FUNCTIONAL. HE HAD A WET VOICE QUALITY AND A CONGESTED COUGH W/O PO INTAKE AND SWALLOWED SOME SECRETIONS AND ALSO REQUIRED MILD AMOUNTS OF SALIVA SUCTIONED OUT FROM THE BACK OF HIS THROAT. RECOMMENDATIONS: CONSIDER KEEPING HIM NPO AND INITIATING PEG FEEDINGS AND ORAL CARE/SUCTION PRN. GIVEN CURRENT CONGESTION AND PNA AND H/O PNEUMONIAS WILL HOLD ON PO TRIALS UNTIL MOD BARIUM SWALLOW STUDY COMPLETED. SKILLED DYSPHAGIA MANAGEMENT AND TX AND COG-COM EVAL/TX FOR HIS DYSARTHRIA AND DYSPHONIA AND COG-COM DEFICITS (COMMUNICATION TIPS) EDUCATED/TRAINED FLATBED TRUCK DRIVER JAIME IN POSTED PRECAUTIONS.
--- NOTE | 2019-05-15 11:08 | Pulmonology Progress Note ---
Assessment/Plan Problems: (1) COPD exacerbation (2) At high risk for aspiration (3) Alzheimer's dementia (4) CAD (coronary artery disease) (5) Seizure disorder (6) Schizophrenia (7) Diabetes mellitus (8) Feeding by G-tube (9) COPD (chronic obstructive pulmonary disease) Assessment/Plan doing better less short of breath check sputum continue abx f/u labs dvt prophylaxis. Subjective ROS Limited/Unobtainable: No Constitutional: Reports: no symptoms HEENT: Repors: no symptoms Respiratory: Reports: no symptoms Allergies: Coded Allergies: NO KNOWN DRUG ALLERGIES (Verified Allergy, Unknown, 05/14/19) Objective Last 24 Hour Vital Signs Date Time Temp Pulse Resp B/P (MAP) Pulse Ox O2 Delivery O2 Flow Rate FiO2 05/15/19 09:00 Room Air Room Air 05/15/19 08:15 70 21 98 Room Air 21 05/15/19 08:00 97.2 69 19 108/72 (84) 99 05/15/19 04:00 97.8 75 20 103/70 (81) 97 05/15/19 00:00 97.9 73 20 106/67 (80) 99 05/14/19 21:00 Room Air Room Air 05/14/19 20:00 97.6 78 18 98/67 (77) 97 05/14/19 16:00 98.2 89 18 125/72 (89) 95 05/14/19 12:00 97.7 85 18 120/68 (85) 95 Intake and Output 05/14/19 05/15/19 19:00 07:00 Intake Total 2410 ml 480 ml Output Total 300 ml Balance 2110 ml 480 ml Intake Oral 0 ml IV Total 2410 ml 480 ml Output Urine Total 300 ml # Voids 3 2 # Bowel Movements 1 General Appearance: WD/WN HEENT: normocephalic, atraumatic Respiratory/Chest: chest wall non-tender, lungs clear Cardiovascular: normal peripheral pulses, regular rhythm Abdomen: normal bowel sounds, soft, non tender Genitourinary: normal external genitalia Extremities: no clubbing Skin: no rash Microbiology Date/Time Source Procedure Growth Status 05/14/19 07:50 Nasal Nares - Final Complete 05/14/19 07:50 Nasal Nares - Final Complete 05/14/19 09:30 Rectum Received Laboratory Tests 05/15/19 08:05: White Blood Count 10.1, Red Blood Count 4.09L, Hemoglobin 12.7L, Hematocrit 38.2L, Mean Corpuscular Volume 93, Mean Corpuscular Hemoglobin 31.0, Mean Corpuscular Hemoglobin Concent 33.2, Red Cell Distribution Width 12.9, Platelet Count 261, Mean Platelet Volume 5.6L, Neutrophils (%) (Auto) 73.8, Lymphocytes ( %) (Auto) 19.6L, Monocytes (%) (Auto) 5.9, Eosinophils (%) (Auto) 0.3, Basophils (%) (Auto) 0.3, Sodium Level 142, Potassium Level 3.8, Chloride Level 104, Carbon Dioxide Level 35H, Anion Gap 3L, Blood Urea Nitrogen 14, Creatinine 0.8, Estimat Glomerular Filtration Rate > 60, Glucose Level 83, Calcium Level 8.3L, Phosphorus Level 2.8, Albumin 3.4 Current Medications Medications (Trade) Dose Ordered Sig/Barry Route PRN Reason Start Time Stop Time Status Last Admin Dose Admin Acetaminophen (Tylenol) 650 mg Q4H PRN ORAL FEVER 05/14/19 09:15 06/13/19 09:14 Albuterol/ Ipratropium (Albuterol/ Ipratropium) 3 ml Q4H PRN HHN Shortness of Breath 05/14/19 09:15 05/19/19 09:14 Aripiprazole (Abilify) 5 mg BID ORAL 05/14/19 18:00 06/13/19 17:59 05/15/19 09:24 Cefepime HCl 2 gm/ Dextrose 110 ml @ 220 mls/hr EVERY 12 HOURS IV 05/14/19 10:00 05/21/19 09:59 05/15/19 09:23 Clonazepam (KlonoPIN) 0.5 mg EVERY 8 HOURS ORAL 05/14/19 14:00 05/21/19 13:59 05/15/19 05:04 Dextrose (Dextrose 50%) 25 ml Q30M PRN IV Hypoglycemia 05/14/19 09:15 06/13/19 09:14 Dextrose (Dextrose 50%) 50 ml Q30M PRN IV Hypoglycemia 05/14/19 09:15 06/13/19 09:14 Dextrose/Sodium Chloride 1,000 ml @ 60 mls/hr [id number] IV 05/14/19 16:15 06/13/19 16:14 05/15/19 09:25 Divalproex Sodium (Depakote) 750 mg Q8HR ORAL 05/14/19 14:00 06/13/19 13:59 05/15/19 05:06 Heparin Sodium (Porcine) (Heparin 5000 units/ml) 5,000 units EVERY 12 HOURS SUBQ 05/14/19 10:00 06/13/19 09:59 05/15/19 09:24 Lorazepam (Ativan 2mg/ml 1ml) 1 mg Q4H PRN IV For Anxiety 05/15/19 11:00 05/22/19 10:59 Lorazepam (Ativan) 1 mg Q6H PRN ORAL agitation 05/14/19 12:15 05/21/19 12:14 05/15/19 04:04 Metoprolol Tartrate (Lopressor) 12.5 mg BIDPRN PRN ORAL heart rate more than 120 05/14/19 12:00 06/13/19 11:59 Morphine Sulfate (Morphine Sulfate) 2 mg Q4H PRN IVP Severe Pain (Pain Scale 7-10) 05/14/19 09:15 05/21/19 09:14 Ondansetron HCl (Zofran) 4 mg Q6H PRN IVP Nausea & Vomiting 05/14/19 09:15 06/13/19 09:14 Polyethylene Glycol (Miralax) 17 gm DAILYPRN PRN ORAL Constipation 05/14/19 09:15 06/13/19 09:14 Quetiapine Fumarate (SEROquel) 50 mg DAILY ORAL 05/15/19 09:00 06/14/19 08:59 05/15/19 09:24 Risperidone (RisperDAL) 1 mg TID ORAL 05/15/19 09:00 06/14/19 08:59 05/15/19 09:24 Vancomycin HCl (Vanco rx to dose) 1 ea DAILY PRN MISC . 05/14/19 09:30 06/13/19 09:29 Vancomycin/Sodium Chloride 275 ml @ 183.333 mls/hr Q12HR IVPB 05/14/19 21:00 05/19/19 20:59 05/15/19 09:23 Anusha Richmond MD May 15, 2019 11:08
--- NOTE | 2019-05-15 13:58 | Infectious Diseases Prog Note ---
Assessment/Plan Assessment/Plan 59yo gentleman with PMH below [facility]. Pt was very agitated and getting out of bed, pulling IVs so nurse gave him benzo. Pt unable to provide history. Afebrile No leukocytosis Lactic acidosis, SP Unlikely UTI UA negative Possible PNA flu swab negative CXR: Suspected infiltrate left lung base. Correlate clinically sputum cx: P r/o bacteremia 05/14 Bcx: P Bipolar DM Seizure COPD Schizophrenia Alzheimer CAD h/o scabies 2102 Plan: continue cefepime and vancomycin #2 05/14 SP Zosyn #1 f/u sputum cx f/u blood cx f/u MRSA screen aspiration precaution, elevate HOB Thank you for this consult. [facility] will continue to follow the patient with you. Subjective Allergies: Coded Allergies: NO KNOWN DRUG ALLERGIES (Verified Allergy, Unknown, 05/14/19) Subjective Afebrile. RA. No leukocytosis. Per nurse, pt is coughing and speech pathologist says lots of secretions in the back of his mouth Agitated and cannot follow commands Objective Vital Signs Last 24 Hour Vital Signs Date Time Temp Pulse Resp B/P (MAP) Pulse Ox O2 Delivery O2 Flow Rate FiO2 05/15/19 12:09 97.0 64 16 118/75 (89) 96 05/15/19 12:00 97.2 64 16 118/75 (89) 96 05/15/19 11:35 Room Air Room Air Room Air 05/15/19 09:00 Room Air Room Air 05/15/19 08:15 70 21 98 Room Air 21 05/15/19 08:00 97.2 69 19 108/72 (84) 99 05/15/19 04:00 97.8 75 20 103/70 (81) 97 05/15/19 00:00 97.9 73 20 106/67 (80) 99 05/14/19 21:00 Room Air Room Air 05/14/19 20:00 97.6 78 18 98/67 (77) 97 05/14/19 16:00 98.2 89 18 125/72 (89) 95 Height (Feet): 5 Height (Inches): 10.00 Weight (Pounds): 137 Objective Gen: NAD CV: RRR. no rubs or gallop Resp: RRR. coarse. no wheezes or crackles. Abd: soft. nondistended. normoactive BS+ Neuro: sedated Skin: warm and dry Microbiology Date/Time Source Procedure Growth Status 05/14/19 07:50 Nasal Nares - Final Complete 05/14/19 07:50 Nasal Nares - Final Complete 05/14/19 09:30 Rectum Received Laboratory Tests Test 05/15/19 08:05 White Blood Count 10.1 K/UL (4.8-10.8) Red Blood Count 4.09 M/UL (4.70-6.10) L Hemoglobin 12.7 G/DL (14.2-18.0) L Hematocrit 38.2 % (42.0-52.0) L Mean Corpuscular Volume 93 FL (80-99) Mean Corpuscular Hemoglobin 31.0 PG (27.0-31.0) Mean Corpuscular Hemoglobin Concent 33.2 G/DL (32.0-36.0) Red Cell Distribution Width 12.9 % (11.6-14.8) Platelet Count 261 K/UL (150-450) Mean Platelet Volume 5.6 FL (6.5-10.1) L Neutrophils (%) (Auto) 73.8 % (45.0-75.0) Lymphocytes (%) (Auto) 19.6 % (20.0-45.0) L Monocytes (%) (Auto) 5.9 % (1.0-10.0) Eosinophils (%) (Auto) 0.3 % (0.0-3.0) Basophils (%) (Auto) 0.3 % (0.0-2.0) Sodium Level 142 MMOL/L (136-145) Potassium Level 3.8 MMOL/L (3.5-5.1) Chloride Level 104 MMOL/L (98-107) Carbon Dioxide Level 35 MMOL/L (21-32) H Anion Gap 3 mmol/L (5-15) L Blood Urea Nitrogen 14 mg/dL (7-18) Creatinine 0.8 MG/DL (0.55-1.30) Estimat Glomerular Filtration Rate > 60 mL/min (>60) Glucose Level 83 MG/DL (74-106) Calcium Level 8.3 MG/DL (8.5-10.1) L Phosphorus Level 2.8 MG/DL (2.5-4.9) Albumin 3.4 G/DL (3.4-5.0) Current Medications Medications (Trade) Dose Ordered Sig/Barry Route PRN Reason Start Time Stop Time Status Last Admin Dose Admin Acetaminophen (Tylenol) 650 mg Q4H PRN ORAL FEVER 05/14/19 09:15 06/13/19 09:14 Albuterol/ Ipratropium (Albuterol/ Ipratropium) 3 ml Q4H PRN HHN Shortness of Breath 05/14/19 09:15 05/19/19 09:14 Aripiprazole (Abilify) 5 mg BID ORAL 05/14/19 18:00 06/13/19 17:59 05/15/19 09:24 Cefepime HCl 2 gm/ Dextrose 110 ml @ 220 mls/hr EVERY 12 HOURS IV 05/14/19 10:00 05/21/19 09:59 05/15/19 09:23 Clonazepam (KlonoPIN) 0.5 mg EVERY 8 HOURS ORAL 05/14/19 14:00 05/21/19 13:59 05/15/19 13:20 Dextrose (Dextrose 50%) 25 ml Q30M PRN IV Hypoglycemia 05/14/19 09:15 06/13/19 09:14 Dextrose (Dextrose 50%) 50 ml Q30M PRN IV Hypoglycemia 05/14/19 09:15 06/13/19 09:14 Dextrose/Sodium Chloride 1,000 ml @ 60 mls/hr [id number] IV 05/14/19 16:15 06/13/19 16:14 05/15/19 09:25 Divalproex Sodium (Depakote) 750 mg Q8HR ORAL 05/14/19 14:00 06/13/19 13:59 05/15/19 13:20 Heparin Sodium (Porcine) (Heparin 5000 units/ml) 5,000 units EVERY 12 HOURS SUBQ 05/14/19 10:00 06/13/19 09:59 05/15/19 09:24 Lorazepam (Ativan 2mg/ml 1ml) 1 mg Q4H PRN IV For Anxiety 05/15/19 11:00 05/22/19 10:59 Lorazepam (Ativan) 1 mg Q6H PRN ORAL agitation 05/14/19 12:15 05/21/19 12:14 05/15/19 04:04 Metoprolol Tartrate (Lopressor) 12.5 mg BIDPRN PRN ORAL heart rate more than 120 05/14/19 12:00 06/13/19 11:59 Morphine Sulfate (Morphine Sulfate) 2 mg Q4H PRN IVP Severe Pain (Pain Scale 7-10) 05/14/19 09:15 05/21/19 09:14 Ondansetron HCl (Zofran) 4 mg Q6H PRN IVP Nausea & Vomiting 05/14/19 09:15 06/13/19 09:14 Polyethylene Glycol (Miralax) 17 gm DAILYPRN PRN ORAL Constipation 05/14/19 09:15 06/13/19 09:14 Quetiapine Fumarate (SEROquel) 50 mg DAILY ORAL 05/15/19 09:00 06/14/19 08:59 05/15/19 09:24 Risperidone (RisperDAL) 1 mg TID ORAL 05/15/19 09:00 06/14/19 08:59 05/15/19 12:18 Vancomycin HCl (Vanco rx to dose) 1 ea DAILY PRN MISC . 05/14/19 09:30 06/13/19 09:29 Vancomycin/Sodium Chloride 275 ml @ 183.333 mls/hr Q12HR IVPB 05/14/19 21:00 05/19/19 20:59 05/15/19 09:23 Craig Song MD May 15, 2019 13:58
[2019-05-15] MEDS: LORazepam Inj 2mg/ml 1ml IV PRN (14:09)
--- NOTE | 2019-05-15 14:27 | General Progress Note ---
Assessment/Plan Problem List: (1) Laceration SNOMED: 221518606 (2) Head injury ICD Codes: S09.90XA - Unspecified injury of head, initial encounter SNOMED: 36458703 Qualifiers: Qualified Codes: S09.90XA - Unspecified injury of head, initial encounter (3) Altered mental status (4) COPD exacerbation ICD Codes: J44.1 - Chronic obstructive pulmonary disease with (acute) exacerbation SNOMED: 975447302 (5) LLL pneumonia ICD Codes: J18.9 - Pneumonia, unspecified organism SNOMED: 087039985 Qualifiers: Qualified Codes: J18.9 - Pneumonia, unspecified organism (6) Feeding by G-tube ICD Codes: Z93.1 - Gastrostomy status SNOMED: 437034675, 015595357, 214844633 (7) COPD (chronic obstructive pulmonary disease) ICD Codes: J44.9 - Chronic obstructive pulmonary disease, unspecified SNOMED: 29097163 Status: stable, progressing Assessment/Plan: o2 pulm tx abx opt diet cbc bmp am psyc transfer Subjective Constitutional: Reports: weakness Allergies: Coded Allergies: NO KNOWN DRUG ALLERGIES (Verified Allergy, Unknown, 05/14/19) All Systems: reviewed and negative except above Subjective confused in bed Objective Last 24 Hour Vital Signs Date Time Temp Pulse Resp B/P (MAP) Pulse Ox O2 Delivery O2 Flow Rate FiO2 05/15/19 12:09 97.0 64 16 118/75 (89) 96 05/15/19 12:00 97.2 64 16 118/75 (89) 96 05/15/19 11:35 Room Air Room Air Room Air 05/15/19 09:00 Room Air Room Air 05/15/19 08:15 70 21 98 Room Air 21 05/15/19 08:00 97.2 69 19 108/72 (84) 99 05/15/19 04:00 97.8 75 20 103/70 (81) 97 05/15/19 00:00 97.9 73 20 106/67 (80) 99 05/14/19 21:00 Room Air Room Air 05/14/19 20:00 97.6 78 18 98/67 (77) 97 05/14/19 16:00 98.2 89 18 125/72 (89) 95 Intake and Output 05/14/19 05/15/19 19:00 07:00 Intake Total 2410 ml 480 ml Output Total 300 ml Balance 2110 ml 480 ml Intake Oral 0 ml IV Total 2410 ml 480 ml Output Urine Total 300 ml # Voids 3 2 # Bowel Movements 1 Laboratory Tests 05/15/19 08:05: White Blood Count 10.1, Red Blood Count 4.09L, Hemoglobin 12.7L, Hematocrit 38.2L, Mean Corpuscular Volume 93, Mean Corpuscular Hemoglobin 31.0, Mean Corpuscular Hemoglobin Concent 33.2, Red Cell Distribution Width 12.9, Platelet Count 261, Mean Platelet Volume 5.6L, Neutrophils (%) (Auto) 73.8, Lymphocytes ( %) (Auto) 19.6L, Monocytes (%) (Auto) 5.9, Eosinophils (%) (Auto) 0.3, Basophils (%) (Auto) 0.3, Sodium Level 142, Potassium Level 3.8, Chloride Level 104, Carbon Dioxide Level 35H, Anion Gap 3L, Blood Urea Nitrogen 14, Creatinine 0.8, Estimat Glomerular Filtration Rate > 60, Glucose Level 83, Calcium Level 8.3L, Phosphorus Level 2.8, Albumin 3.4 Height (Feet): 5 Height (Inches): 10.00 Weight (Pounds): 137 General Appearance: lethargic EENT: normal ENT inspection Neck: normal alignment Cardiovascular: normal peripheral pulses, normal rate, regular rhythm Respiratory/Chest: chest wall non-tender, lungs clear, normal breath sounds Abdomen: normal bowel sounds, non tender, soft Extremities: normal inspection Edema: no edema noted Arm (L), no edema noted Arm (R), no edema noted Leg (L), no edema noted Leg (R), no edema noted Pedal (L), no edema noted Pedal (R), no edema noted Generalized Neurologic: motor weakness Skin: normal pigmentation, warm/dry Silas Ng DO May 15, 2019 14:27
--- NOTE | 2019-05-15 19:00 | NUR ---
NURSE NOTES: Pt lost IV access. RNs and charge nurse tried but was not able to get it. made aware. Will endorse PM nurse to get IV access
--- NOTE | 2019-05-15 19:30 | NUR ---
NURSE NOTES: Received patient in no apparent distress. Soft wrist restraints intact bilaterally. Call light within reach. Patient denies pain at this time.
--- NOTE | 2019-05-15 20:06 | NUR ---
HAND-OFF: Report given to XOCHITL Krueger and XOCHITL Lassiter.
[2019-05-15] MEDS ORDERED: Lidocaine 1% Plain 30 ml INJ PRN (20:15)
[2019-05-15] MEDS ORDERED: Heparin1,000 units/500ml Premix(Conc:2 units/ml) IV PRN (20:15)
--- NOTE | 2019-05-15 20:15 | NUR ---
NURSE NOTES: Got order to get PRN PICC line
--- NOTE | 2019-05-15 23:30 | NUR ---
NURSE NOTES: Able to get IV access successfully.
[2019-05-16] VITALS: BP_SYST 131; BP_SYST 137; BP_DIAS 70; BP_DIAS 78
[2019-05-16] MEDS: LORazepam Inj 2mg/ml 1ml IV PRN ×3 (01:14→19:33)
[2019-05-16] MEDS: D5 1/2NS 1,000 ML IV SCH ×2 (01:35→17:19)
[2019-05-16 04:00] VITALS: BP 137/70
[2019-05-16] MEDS: clonazePAM 0.5mg tab ORAL SCH ×3 (05:07→22:15)
--- NOTE | 2019-05-16 07:15 | NUR ---
NURSE NOTES: Received patient in bed , patient awake, confused , no sign of distress, no fascial grimace noted , On bilateral soft wrist restraint noted to prevent from pulling necessary device, IV on Right FA 22g intact and patent, running D5 1/2 NS @ 60 ml/hr. on fall aspiration , seizure precautions maintained, side rails padded for seizure precaution. Bed in the lowest, locked, and alarm on. Call light within reach. Will continue to monitor wilbur deshpande
--- NOTE | 2019-05-16 07:32 | NUR ---
HAND-OFF: Report given to XOCHITL Saldana.
[2019-05-16 08:00] VITALS: BP 143/53
[2019-05-16 08:26] LABS: BASOPHILS % (AUTO) 0.5 % (0.0-2.0); EOSINOPHILS % (AUTO) 1.8 % (0.0-3.0); HEMATOCRIT 42.8 % (42.0-52.0); HEMOGLOBIN 14.1 G/DL (14.2-18.0); LYMPHOCYTES % (AUTO) 23.1 % (20.0-45.0); MEAN CORPUSCULAR VOLUME 93 FL (80-99); MONOCYTES % (AUTO) 9.8 % (1.0-10.0); NEUTROPHILS % (AUTO) 64.7 % (45.0-75.0); PLATELET COUNT 275 K/UL (150-450); RED BLOOD COUNT 4.61 M/UL (4.70-6.10); RED CELL DISTRIBUTION WIDTH 12.7 % (11.6-14.8); WHITE BLOOD COUNT 5.1 K/UL (4.8-10.8)
[2019-05-16 08:32] LABS: ANION GAP 3 mmol/L (5-15); BLOOD UREA NITROGEN 11 mg/dL (7-18); CALCIUM 8.7 MG/DL (8.5-10.1); CARBON DIOXIDE 34 MMOL/L (21-32); CHLORIDE 99 MMOL/L (98-107); CREATININE 0.6 MG/DL (0.55-1.30); POTASSIUM 4.2 MMOL/L (3.5-5.1); SODIUM 136 MMOL/L (136-145)
--- NOTE | 2019-05-16 09:12 | General Progress Note ---
Assessment/Plan Problem List: (1) Laceration SNOMED: 693082071 (2) Head injury ICD Codes: S09.90XA - Unspecified injury of head, initial encounter SNOMED: 07340281 Qualifiers: Qualified Codes: S09.90XA - Unspecified injury of head, initial encounter (3) Altered mental status (4) COPD exacerbation ICD Codes: J44.1 - Chronic obstructive pulmonary disease with (acute) exacerbation SNOMED: 573881889 (5) LLL pneumonia ICD Codes: J18.9 - Pneumonia, unspecified organism SNOMED: 259466094 Qualifiers: Qualified Codes: J18.9 - Pneumonia, unspecified organism (6) Feeding by G-tube ICD Codes: Z93.1 - Gastrostomy status SNOMED: 099381033, 547477989, 227483378 (7) COPD (chronic obstructive pulmonary disease) ICD Codes: J44.9 - Chronic obstructive pulmonary disease, unspecified SNOMED: 82212325 Status: stable, progressing Assessment/Plan: o2 pulm tx abx opt diet cbc bmp am psyc transfer Subjective Allergies: Coded Allergies: NO KNOWN DRUG ALLERGIES (Verified Allergy, Unknown, 05/14/19) All Systems: reviewed and negative except above Subjective confused in bed Objective Last 24 Hour Vital Signs Date Time Temp Pulse Resp B/P (MAP) Pulse Ox O2 Delivery O2 Flow Rate FiO2 05/16/19 08:20 Room Air Room Air Room Air 05/16/19 08:00 97.1 75 12 143/53 (83) 97 05/16/19 04:00 98.0 75 21 137/70 (92) 97 05/16/19 00:00 96.9 71 21 131/78 (95) 96 05/15/19 20:51 Room Air Room Air Room Air 05/15/19 20:00 97.0 68 19 125/114 (118) 95 05/15/19 16:00 97.8 69 18 120/77 (91) 97 05/15/19 12:09 97.0 64 16 118/75 (89) 96 05/15/19 12:00 97.2 64 16 118/75 (89) 96 05/15/19 11:35 Room Air Room Air Room Air Intake and Output 05/15/19 05/16/19 19:00 07:00 Intake Total 240 ml 2485 ml Output Total 300 ml Balance 240 ml 2185 ml Intake Oral 0 ml IV Total 2435 ml Tube Feeding 240 ml 50 ml Output Urine Total 300 ml # Bowel Movements 1 Laboratory Tests 05/16/19 08:00: White Blood Count 5.1, Red Blood Count 4.61L, Hemoglobin 14.1L, Hematocrit 42.8 , Mean Corpuscular Volume 93, Mean Corpuscular Hemoglobin 30.6, Mean Corpuscular Hemoglobin Concent 33.0, Red Cell Distribution Width 12.7, Platelet Count 275, Mean Platelet Volume 5.7L, Neutrophils (%) (Auto) 64.7, Lymphocytes ( %) (Auto) 23.1, Monocytes (%) (Auto) 9.8, Eosinophils (%) (Auto) 1.8, Basophils (%) (Auto) 0.5, Sodium Level 136, Potassium Level 4.2, Chloride Level 99, Carbon Dioxide Level 34H, Anion Gap 3L, Blood Urea Nitrogen 11, Creatinine 0.6, Estimat Glomerular Filtration Rate > 60, Glucose Level 129H, Calcium Level 8.7, Vancomycin Level Trough 16.8H Height (Feet): 5 Height (Inches): 10.00 Weight (Pounds): 135 General Appearance: lethargic EENT: normal ENT inspection Neck: normal alignment Cardiovascular: normal peripheral pulses, normal rate, regular rhythm Respiratory/Chest: chest wall non-tender, lungs clear, normal breath sounds Abdomen: normal bowel sounds, non tender, soft Extremities: normal inspection Edema: no edema noted Arm (L), no edema noted Arm (R), no edema noted Leg (L), no edema noted Leg (R), no edema noted Pedal (L), no edema noted Pedal (R), no edema noted Generalized Neurologic: motor weakness Skin: normal pigmentation, warm/dry Silas Ng DO May 16, 2019 09:12
[2019-05-16] MEDS: Heparin 5000 units/ml inj SUBQ SCH ×2 (09:35→22:20)
[2019-05-16] MEDS: Vancomycin 1.25gm/NS Premix q24h IVPB SCH (09:37)
[2019-05-16] MEDS: Cefepime HCl 2 GM in D5W 110 ML IV SCH ×2 (09:38→20:08)
[2019-05-16 12:14] VITALS: BP 125/62
--- NOTE | 2019-05-16 12:16 | Pulmonology Progress Note ---
Assessment/Plan Problems: (1) COPD exacerbation (2) At high risk for aspiration (3) Alzheimer's dementia (4) CAD (coronary artery disease) (5) Seizure disorder (6) Schizophrenia (7) Diabetes mellitus (8) Feeding by G-tube (9) COPD (chronic obstructive pulmonary disease) Assessment/Plan doing better less short of breath check sputum continue abx f/u labs dvt prophylaxis. Subjective ROS Limited/Unobtainable: No Interval Events: comfortable Allergies: Coded Allergies: NO KNOWN DRUG ALLERGIES (Verified Allergy, Unknown, 05/14/19) Objective Last 24 Hour Vital Signs Date Time Temp Pulse Resp B/P (MAP) Pulse Ox O2 Delivery O2 Flow Rate FiO2 05/16/19 11:00 Room Air Room Air Room Air 05/16/19 08:20 Room Air Room Air Room Air 05/16/19 08:00 97.1 75 12 143/53 (83) 97 05/16/19 04:00 98.0 75 21 137/70 (92) 97 05/16/19 00:00 96.9 71 21 131/78 (95) 96 05/15/19 20:51 Room Air Room Air Room Air 05/15/19 20:00 97.0 68 19 125/114 (118) 95 05/15/19 16:00 97.8 69 18 120/77 (91) 97 Intake and Output 05/15/19 05/16/19 19:00 07:00 Intake Total 240 ml 2485 ml Output Total 300 ml Balance 240 ml 2185 ml Intake Oral 0 ml IV Total 2435 ml Tube Feeding 240 ml 50 ml Output Urine Total 300 ml # Bowel Movements 1 General Appearance: WD/WN HEENT: normocephalic, atraumatic Respiratory/Chest: chest wall non-tender, lungs clear Cardiovascular: normal peripheral pulses, normal rate Abdomen: normal bowel sounds, soft, non tender Extremities: no cyanosis Skin: no rash Microbiology Date/Time Source Procedure Growth Status 05/14/19 08:30 Blood Blood Culture - Preliminary NO GROWTH AFTER 24 HOURS Resulted 05/14/19 07:50 Blood Blood Culture - Preliminary NO GROWTH AFTER 24 HOURS Resulted 05/14/19 22:05 Sputum Gram Stain - Final Resulted 05/14/19 22:05 Sputum Sputum Culture Pending Resulted 05/14/19 08:50 Nasal Nares MRSA Culture - Final Staphylococcus Aureus - Mrsa Complete 05/14/19 07:50 Nasal Nares - Final Complete 05/14/19 07:50 Nasal Nares - Final Complete 05/14/19 09:30 Rectum VRE Culture - Final NO VANCOMYCIN RESISTANT ENTEROCOCCUS ... Complete 05/14/19 09:30 Rectum - Final NO CARBAPENEM-RESISTANT ENTEROBACTERI... Complete Laboratory Tests 05/16/19 08:00: White Blood Count 5.1, Red Blood Count 4.61L, Hemoglobin 14.1L, Hematocrit 42.8 , Mean Corpuscular Volume 93, Mean Corpuscular Hemoglobin 30.6, Mean Corpuscular Hemoglobin Concent 33.0, Red Cell Distribution Width 12.7, Platelet Count 275, Mean Platelet Volume 5.7L, Neutrophils (%) (Auto) 64.7, Lymphocytes ( %) (Auto) 23.1, Monocytes (%) (Auto) 9.8, Eosinophils (%) (Auto) 1.8, Basophils (%) (Auto) 0.5, Sodium Level 136, Potassium Level 4.2, Chloride Level 99, Carbon Dioxide Level 34H, Anion Gap 3L, Blood Urea Nitrogen 11, Creatinine 0.6, Estimat Glomerular Filtration Rate > 60, Glucose Level 129H, Calcium Level 8.7, Vancomycin Level Trough 16.8H Current Medications Medications (Trade) Dose Ordered Sig/Barry Route PRN Reason Start Time Stop Time Status Last Admin Dose Admin Acetaminophen (Tylenol) 650 mg Q4H PRN ORAL FEVER 05/14/19 09:15 06/13/19 09:14 Albuterol/ Ipratropium (Albuterol/ Ipratropium) 3 ml Q4H PRN HHN Shortness of Breath 05/14/19 09:15 05/19/19 09:14 Aripiprazole (Abilify) 5 mg BID ORAL 05/14/19 18:00 06/13/19 17:59 05/16/19 09:27 Cefepime HCl 2 gm/ Dextrose 110 ml @ 220 mls/hr EVERY 12 HOURS IV 05/14/19 10:00 05/21/19 09:59 05/16/19 09:38 Chlorhexidine Gluconate (Aptricia-Hex 2%) 1 applic DAILY@2000 TOPIC 05/16/19 20:00 06/15/19 19:59 Clonazepam (KlonoPIN) 0.5 mg EVERY 8 HOURS ORAL 05/14/19 14:00 05/21/19 13:59 05/16/19 05:07 Dextrose (Dextrose 50%) 25 ml Q30M PRN IV Hypoglycemia 05/14/19 09:15 06/13/19 09:14 Dextrose (Dextrose 50%) 50 ml Q30M PRN IV Hypoglycemia 05/14/19 09:15 06/13/19 09:14 Dextrose/Sodium Chloride 1,000 ml @ 60 mls/hr [id number] IV 05/14/19 16:15 06/13/19 16:14 05/15/19 09:25 Divalproex Sodium (Depakote) 750 mg Q8HR ORAL 05/14/19 14:00 06/13/19 13:59 05/16/19 05:07 Heparin Sodium (Porcine) (Heparin 5000 units/ml) 5,000 units EVERY 12 HOURS SUBQ 05/14/19 10:00 06/13/19 09:59 05/16/19 09:35 Heparin Sodium/ Sodium Chloride (Heparin 1000 units/500ml Premix) 1,000 unit ONCE PRN IV PICC LINE 05/15/19 20:15 05/16/19 23:59 Lidocaine HCl (Xylocaine 1% 30ml) 30 ml ONCE PRN INJ PICC LINE 05/15/19 20:15 05/16/19 23:59 Lorazepam (Ativan 2mg/ml 1ml) 1 mg Q4H PRN IV For Anxiety 05/15/19 11:00 05/22/19 10:59 05/16/19 05:23 Lorazepam (Ativan) 1 mg Q6H PRN ORAL agitation 05/14/19 12:15 05/21/19 12:14 05/15/19 18:06 Metoprolol Tartrate (Lopressor) 12.5 mg BIDPRN PRN ORAL heart rate more than 120 05/14/19 12:00 06/13/19 11:59 Morphine Sulfate (Morphine Sulfate) 2 mg Q4H PRN IVP Severe Pain (Pain Scale 7-10) 05/14/19 09:15 05/21/19 09:14 Ondansetron HCl (Zofran) 4 mg Q6H PRN IVP Nausea & Vomiting 05/14/19 09:15 06/13/19 09:14 Polyethylene Glycol (Miralax) 17 gm DAILYPRN PRN ORAL Constipation 05/14/19 09:15 06/13/19 09:14 Quetiapine Fumarate (SEROquel) 50 mg DAILY ORAL 05/15/19 09:00 06/14/19 08:59 05/16/19 09:29 Risperidone (RisperDAL) 1 mg TID ORAL 05/15/19 09:00 06/14/19 08:59 05/16/19 09:28 Vancomycin HCl (Vanco rx to dose) 1 ea DAILY PRN MISC . 05/14/19 09:30 06/13/19 09:29 Vancomycin/Sodium Chloride 275 ml @ 183.333 mls/hr Q12HR IVPB 05/14/19 21:00 05/19/19 20:59 05/16/19 09:37 Anusha Richmond MD May 16, 2019 12:16
--- NOTE | 2019-05-16 13:29 | NUR ---
DISCHARGE PLANNING Discharge order noted Patient has been referred to: [facility] Acceptance denied
--- NOTE | 2019-05-16 14:36 | Infectious Diseases Prog Note ---
Assessment/Plan Assessment/Plan 59yo gentleman with PMH below presents from retirement after fall. Pt was very agitated and getting out of bed, pulling IVs so nurse gave him benzo. Pt unable to provide history. Afebrile No leukocytosis Lactic acidosis, SP Unlikely UTI UA negative Possible PNA flu swab negative CXR: Suspected infiltrate left lung base. Correlate clinically sputum cx: P MRSA nares positive r/o bacteremia 05/14 Bcx: P Bipolar DM Seizure COPD Schizophrenia Alzheimer CAD h/o scabies 2102 Plan: continue cefepime and vancomycin #3/5-7 05/14 SP Zosyn #1 f/u sputum cx f/u blood cx aspiration precaution, elevate HOB Thank you for this consult. [facility] will continue to follow the patient with you. Subjective Allergies: Coded Allergies: NO KNOWN DRUG ALLERGIES (Verified Allergy, Unknown, 05/14/19) Subjective Afebrile. RA. No leukocytosis. Pt is coughing. Agitated. Does not follow commands. Objective Vital Signs Last 24 Hour Vital Signs Date Time Temp Pulse Resp B/P (MAP) Pulse Ox O2 Delivery O2 Flow Rate FiO2 05/16/19 12:14 97.7 77 18 125/62 (83) 96 05/16/19 11:00 Room Air Room Air Room Air 05/16/19 08:20 Room Air Room Air Room Air 05/16/19 08:00 97.1 75 12 143/53 (83) 97 05/16/19 04:00 98.0 75 21 137/70 (92) 97 05/16/19 00:00 96.9 71 21 131/78 (95) 96 05/15/19 20:51 Room Air Room Air Room Air 05/15/19 20:00 97.0 68 19 125/114 (118) 95 05/15/19 16:00 97.8 69 18 120/77 (91) 97 Height (Feet): 5 Height (Inches): 10.00 Weight (Pounds): 135 Objective Gen: NAD CV: RRR. no rubs or gallop Resp: RRR. coarse. no wheezes or crackles. Abd: soft. nondistended. normoactive BS+ Neuro: sedated Skin: warm and dry Microbiology Date/Time Source Procedure Growth Status 05/14/19 08:30 Blood Blood Culture - Preliminary NO GROWTH AFTER 24 HOURS Resulted 05/14/19 07:50 Blood Blood Culture - Preliminary NO GROWTH AFTER 24 HOURS Resulted 05/14/19 22:05 Sputum Gram Stain - Final Resulted 05/14/19 22:05 Sputum Sputum Culture Pending Resulted 05/14/19 08:50 Nasal Nares MRSA Culture - Final Staphylococcus Aureus - Mrsa Complete 05/14/19 07:50 Nasal Nares - Final Complete 05/14/19 07:50 Nasal Nares - Final Complete 05/14/19 09:30 Rectum VRE Culture - Final NO VANCOMYCIN RESISTANT ENTEROCOCCUS ... Complete 05/14/19 09:30 Rectum - Final NO CARBAPENEM-RESISTANT ENTEROBACTERI... Complete Laboratory Tests Test 05/16/19 08:00 White Blood Count 5.1 K/UL (4.8-10.8) Red Blood Count 4.61 M/UL (4.70-6.10) L Hemoglobin 14.1 G/DL (14.2-18.0) L Hematocrit 42.8 % (42.0-52.0) Mean Corpuscular Volume 93 FL (80-99) Mean Corpuscular Hemoglobin 30.6 PG (27.0-31.0) Mean Corpuscular Hemoglobin Concent 33.0 G/DL (32.0-36.0) Red Cell Distribution Width 12.7 % (11.6-14.8) Platelet Count 275 K/UL (150-450) Mean Platelet Volume 5.7 FL (6.5-10.1) L Neutrophils (%) (Auto) 64.7 % (45.0-75.0) Lymphocytes (%) (Auto) 23.1 % (20.0-45.0) Monocytes (%) (Auto) 9.8 % (1.0-10.0) Eosinophils (%) (Auto) 1.8 % (0.0-3.0) Basophils (%) (Auto) 0.5 % (0.0-2.0) Sodium Level 136 MMOL/L (136-145) Potassium Level 4.2 MMOL/L (3.5-5.1) Chloride Level 99 MMOL/L (98-107) Carbon Dioxide Level 34 MMOL/L (21-32) H Anion Gap 3 mmol/L (5-15) L Blood Urea Nitrogen 11 mg/dL (7-18) Creatinine 0.6 MG/DL (0.55-1.30) Estimat Glomerular Filtration Rate > 60 mL/min (>60) Glucose Level 129 MG/DL (74-106) H Calcium Level 8.7 MG/DL (8.5-10.1) Vancomycin Level Trough 16.8 ug/mL (5.0-12.0) H Current Medications Medications (Trade) Dose Ordered Sig/Barry Route PRN Reason Start Time Stop Time Status Last Admin Dose Admin Acetaminophen (Tylenol) 650 mg Q4H PRN ORAL FEVER 05/14/19 09:15 06/13/19 09:14 Albuterol/ Ipratropium (Albuterol/ Ipratropium) 3 ml Q4H PRN HHN Shortness of Breath 05/14/19 09:15 05/19/19 09:14 Aripiprazole (Abilify) 5 mg BID ORAL 05/14/19 18:00 06/13/19 17:59 05/16/19 09:27 Cefepime HCl 2 gm/ Dextrose 110 ml @ 220 mls/hr EVERY 12 HOURS IV 05/14/19 10:00 05/21/19 09:59 05/16/19 09:38 Chlorhexidine Gluconate (Patricia-Hex 2%) 1 applic DAILY@2000 TOPIC 05/16/19 20:00 06/15/19 19:59 Clonazepam (KlonoPIN) 0.5 mg EVERY 8 HOURS ORAL 05/14/19 14:00 05/21/19 13:59 05/16/19 13:31 Dextrose (Dextrose 50%) 25 ml Q30M PRN IV Hypoglycemia 05/14/19 09:15 06/13/19 09:14 Dextrose (Dextrose 50%) 50 ml Q30M PRN IV Hypoglycemia 05/14/19 09:15 06/13/19 09:14 Dextrose/Sodium Chloride 1,000 ml @ 60 mls/hr [id number] IV 05/14/19 16:15 06/13/19 16:14 05/15/19 09:25 Divalproex Sodium (Depakote) 750 mg Q8HR ORAL 05/14/19 14:00 06/13/19 13:59 05/16/19 13:31 Heparin Sodium (Porcine) (Heparin 5000 units/ml) 5,000 units EVERY 12 HOURS SUBQ 05/14/19 10:00 06/13/19 09:59 05/16/19 09:35 Heparin Sodium/ Sodium Chloride (Heparin 1000 units/500ml Premix) 1,000 unit ONCE PRN IV PICC LINE 05/15/19 20:15 05/16/19 23:59 Lidocaine HCl (Xylocaine 1% 30ml) 30 ml ONCE PRN INJ PICC LINE 05/15/19 20:15 05/16/19 23:59 Lorazepam (Ativan 2mg/ml 1ml) 1 mg Q4H PRN IV For Anxiety 05/15/19 11:00 05/22/19 10:59 05/16/19 05:23 Lorazepam (Ativan) 1 mg Q6H PRN ORAL agitation 05/14/19 12:15 05/21/19 12:14 05/15/19 18:06 Metoprolol Tartrate (Lopressor) 12.5 mg BIDPRN PRN ORAL heart rate more than 120 05/14/19 12:00 06/13/19 11:59 Morphine Sulfate (Morphine Sulfate) 2 mg Q4H PRN IVP Severe Pain (Pain Scale 7-10) 05/14/19 09:15 05/21/19 09:14 Ondansetron HCl (Zofran) 4 mg Q6H PRN IVP Nausea & Vomiting 05/14/19 09:15 06/13/19 09:14 Polyethylene Glycol (Miralax) 17 gm DAILYPRN PRN ORAL Constipation 05/14/19 09:15 06/13/19 09:14 Quetiapine Fumarate (SEROquel) 50 mg DAILY ORAL 05/15/19 09:00 06/14/19 08:59 05/16/19 09:29 Risperidone (RisperDAL) 1 mg TID ORAL 05/15/19 09:00 06/14/19 08:59 05/16/19 12:27 Vancomycin HCl (Vanco rx to dose) 1 ea DAILY PRN MISC . 05/14/19 09:30 06/13/19 09:29 Vancomycin/Sodium Chloride 275 ml @ 183.333 mls/hr Q12HR IVPB 05/14/19 21:00 05/19/19 20:59 05/16/19 09:37 Craig Song MD May 16, 2019 14:36
[2019-05-16 16:00] VITALS: BP 139/72
--- NOTE | 2019-05-16 16:45 | Progress Note ---
DATE: 05/16/2019 SUBJECTIVE: This is a 59-year-old male with COPD, still has some confusion, altered mental status, disorganized thought process. He has lot of psychomotor agitation as well, very irritable, slightly combative with nurses. DIAGNOSIS: Paranoid schizophrenia with acute exacerbation, rule out dementia with psychosis. PLAN: Treat this patient with medication regimen consisting of Risperdal 1 mg three times a day, Seroquel 50 mg daily, Ativan 1 mg every 6 hours p.r.n. anxiety and agitation, Depakote 750 mg q.8 h, Klonopin 0.5 mg q.8 hours, Abilify 5 mg twice a day. A 20 minutes of cognitive behavioral therapy to help him identify automatic negative thoughts and help him convert those negative thoughts to more positive thoughts to reduce depression, anxiety, and mood lability. Chart reviewed. Discussed with staff. Seen and assessed at bedside. Shyla Fleming M.D. DR: Kirt JOB#: [id number] CC:
--- NOTE | 2019-05-16 17:15 | NUR ---
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 97.6 HR 87 RR 20 B/P 96/[address]= NO ACUTE BLEED OR EDEMA CXR= SUSPECT INFILTRATION LEFT LUNG IS: SOLU MEDROL IV IV BOLUS NS X 500ML ZOSYN IV VANCO IV ALB HHN ADMITTED TO MED/SURG@ 0950 MED/SURG STATUS DCP RETURN TO [facility]
--- NOTE | 2019-05-16 19:16 | NUR ---
HAND-OFF: Report given to XOCHITL Krueger PATIENT RESTING COMFORTABLY, FREE FROM INJURY XOCHITL CHILEL.
--- NOTE | 2019-05-16 19:18 | NUR ---
NURSE NOTES: Received patient in bed in no apparent distress. Left upper arm IV site intact and patent, right upper arm IV site intact and patent. GT feeding running. Patient is laying supine in semi-Fitzpatrick's. Soft wrist restraints in place bilaterally, skin is warm.
[2019-05-16 20:00] VITALS: BP 129/56
[2019-05-16] MEDS ORDERED: Dyna-Hex 2% Top Sol 2oz TOPIC SCH (20:00)
[2019-05-17] VITALS: BP 140/50
[2019-05-17] MEDS: Vancomycin 1.25gm/NS Premix q24h IVPB SCH ×2 (00:36→09:47)
[2019-05-17] MEDS: LORazepam Inj 2mg/ml 1ml IV PRN (02:11)
[2019-05-17 04:00] VITALS: BP 145/60
[2019-05-17] MEDS: clonazePAM 0.5mg tab ORAL SCH ×2 (05:40→14:27)
--- NOTE | 2019-05-17 07:22 | NUR ---
HAND-OFF: Report given to XOCHITL Pak.
--- NOTE | 2019-05-17 07:59 | NUR ---
NURSE NOTES: received report from XOCHITL Byrnes. patient in bed. alert/ confused, limited verbal communication. no respiratory distress noted. no facial grimacing during care. two IV's on lt upper arm 24g. intact. GTF @50/hr. HOB at all times. gt site intact. no s/sx of infection. non behavioral restraint on both wrists for prevention pulling out medical devices. skin intact. aspiration precaution. fall precaution. the bed in the lowest position. call light within reach. alarm on. will continue to provide plan of care.
[2019-05-17 08:00] VITALS: BP 130/56
[2019-05-17 08:00] LABS: BASOPHILS % (AUTO) 0.4 % (0.0-2.0); EOSINOPHILS % (AUTO) 4.3 % (0.0-3.0); HEMOGLOBIN 13.4 G/DL (14.2-18.0); LYMPHOCYTES % (AUTO) 16.1 % (20.0-45.0); MEAN CORPUSCULAR VOLUME 90 FL (80-99); MONOCYTES % (AUTO) 6.7 % (1.0-10.0); NEUTROPHILS % (AUTO) 72.5 % (45.0-75.0); PLATELET COUNT 267 K/UL (150-450); RED BLOOD COUNT 4.42 M/UL (4.70-6.10); RED CELL DISTRIBUTION WIDTH 12.5 % (11.6-14.8); WHITE BLOOD COUNT 7.5 K/UL (4.8-10.8)
[2019-05-17 08:10] LABS: ANION GAP 7 mmol/L (5-15); BLOOD UREA NITROGEN 10 mg/dL (7-18); CALCIUM 8.5 MG/DL (8.5-10.1); CARBON DIOXIDE 28 MMOL/L (21-32); CHLORIDE 105 MMOL/L (98-107); CREATININE 0.5 MG/DL (0.55-1.30); POTASSIUM 4.1 MMOL/L (3.5-5.1); SODIUM 140 MMOL/L (136-145)
[2019-05-17] MEDS: Heparin 5000 units/ml inj SUBQ SCH (08:44)
[2019-05-17] MEDS: Cefepime HCl 2 GM in D5W 110 ML IV SCH (08:44)
[2019-05-17 12:00] VITALS: BP 125/80
--- NOTE | 2019-05-17 12:03 | NUR ---
RD ASSESSMENT & RECOMMENDATIONS SEE CARE ACTIVITY FOR COMPLETE ASSESSMENT DAILY ESTIMATED NEEDS: Needs based on Pulmonary 62 25-30 kcals/kg 2700-0522 total kcals 1-1.5 g protein/kg 62-93 g total protein 25-30 mL/kg 7996-1093 total fluid mLs NUTRITION DIAGNOSIS: Swallowing difficulty r/t dysphagia as evidenced by pt is GT dep. ENTERAL NUTRITION RECOMMENDATIONS: Osmolite 1.5 @50ml/hr x24 hrs to provide 1200ml, 1800 kcal, 75g pro, 914ml free H2O. Maintain Osmolite 1.5 @50ml/hr x24 hrs to meet 100% est needs. * Flush per . HOB over 30 degrees. * With continued elevated BG rec TF change to Glucerna 1.5 w/ goal of 50ml/hr x24 hrs to provide 1200ml, 1800 kcal, 99g pro, 911ml free H2O. ------ ADDITIONAL RECOMMENDATIONS: 1) TF recs as above 2) Monitor lytes / BG w/ TF 3) F/up w/ AIR [facility] [facility] eval and ability to take po and / or reduce TF 4) PER SNF-->> HT: 5'7" and 136#
[2019-05-17] MEDS: D5 1/2NS 1,000 ML IV SCH (12:10)
--- NOTE | 2019-05-17 13:58 | General Progress Note ---
Assessment/Plan Problem List: (1) Laceration SNOMED: 941721584 (2) Head injury ICD Codes: S09.90XA - Unspecified injury of head, initial encounter SNOMED: 71563100 Qualifiers: Qualified Codes: S09.90XA - Unspecified injury of head, initial encounter (3) Altered mental status (4) COPD exacerbation ICD Codes: J44.1 - Chronic obstructive pulmonary disease with (acute) exacerbation SNOMED: 781884033 (5) LLL pneumonia ICD Codes: J18.9 - Pneumonia, unspecified organism SNOMED: 246820729 Qualifiers: Qualified Codes: J18.9 - Pneumonia, unspecified organism (6) Feeding by G-tube ICD Codes: Z93.1 - Gastrostomy status SNOMED: 290925133, 045111829, 864656028 (7) COPD (chronic obstructive pulmonary disease) ICD Codes: J44.9 - Chronic obstructive pulmonary disease, unspecified SNOMED: 15323032 Status: stable, progressing Assessment/Plan: o2 pulm tx abx pt diet dc if clear Subjective Constitutional: Reports: weakness Allergies: Coded Allergies: NO KNOWN DRUG ALLERGIES (Verified Allergy, Unknown, 05/14/19) All Systems: reviewed and negative except above Subjective confused in bed Objective Last 24 Hour Vital Signs Date Time Temp Pulse Resp B/P (MAP) Pulse Ox O2 Delivery O2 Flow Rate FiO2 05/17/19 12:00 97.0 90 20 125/80 (95) 99 05/17/19 09:00 Room Air Room Air Room Air 05/17/19 08:00 97.5 79 21 130/56 (80) 94 05/17/19 04:00 97.3 84 18 145/60 (88) 99 05/17/19 00:00 97.3 83 20 140/50 (80) 97 05/16/19 21:54 76 18 96 Room Air 21 05/16/19 21:00 Room Air Room Air Room Air 05/16/19 20:00 97.3 92 20 129/56 (80) 95 05/16/19 16:00 97.9 82 20 139/72 (94) 99 Intake and Output 05/16/19 05/17/19 19:00 07:00 Intake Total 1645.00 ml 800 ml Balance 1645.00 ml 800 ml Free Water 200 ml 200 ml IV Total 845.00 ml Tube Feeding 600 ml 600 ml # Voids 4 Laboratory Tests 05/17/19 07:50: White Blood Count 7.5, Red Blood Count 4.42L, Hemoglobin 13.4L, Hematocrit 40.0L , Mean Corpuscular Volume 90, Mean Corpuscular Hemoglobin 30.3, Mean Corpuscular Hemoglobin Concent 33.5, Red Cell Distribution Width 12.5, Platelet Count 267, Mean Platelet Volume 5.4L, Neutrophils (%) (Auto) 72.5, Lymphocytes ( %) (Auto) 16.1L, Monocytes (%) (Auto) 6.7, Eosinophils (%) (Auto) 4.3H, Basophils (%) (Auto) 0.4, Sodium Level 140, Potassium Level 4.1, Chloride Level 105, Carbon Dioxide Level 28, Anion Gap 7, Blood Urea Nitrogen 10, Creatinine 0.5L, Estimat Glomerular Filtration Rate > 60, Glucose Level 152H, Calcium Level 8.5 Height (Feet): 5 Height (Inches): 10.00 Weight (Pounds): 135 General Appearance: lethargic EENT: normal ENT inspection Neck: normal alignment Cardiovascular: normal peripheral pulses, normal rate, regular rhythm Respiratory/Chest: chest wall non-tender, lungs clear, normal breath sounds Abdomen: normal bowel sounds, non tender, soft Extremities: normal inspection Edema: no edema noted Arm (L), no edema noted Arm (R), no edema noted Leg (L), no edema noted Leg (R), no edema noted Pedal (L), no edema noted Pedal (R), no edema noted Generalized Neurologic: motor weakness Skin: normal pigmentation, warm/dry Silas Ng DO May 17, 2019 13:58
[2019-05-17] MEDS ORDERED: Varibar Nectar 240ml MC PRN (14:15)
[2019-05-17] MEDS ORDERED: Varibar Pudding 230ml MC PRN (14:15)
[2019-05-17] MEDS ORDERED: Varibar Honey 250ml MC PRN (14:15)
--- NOTE | 2019-05-17 15:03 | NUR ---
ST NOTES: COMPLETED MODIFIED BARIUM SWALLOW STUDY, SEE FULL REPORT TO FOLLOW. LIMITED STUDY DUE TO PATIENT'S POOR ABILITY TO FOLLOW COMMANDS. FIRST 3 SWALLOWS ( THIN LIQUID TSP X2 AND NECTAR THICK LIQUID TSP) NOT RECORDED, ONLY ONE IMAGE OF NECTAR THICK TSP RECORDED. AFTER THESE TRIALS THE PT THEN BEGAN TO GET MORE AGITATED AND TALK A LOT OR FALL ASLEEP AT TIMES. STUDY TERMINATED SINCE HE HAD SIGNIFICANT ASPIRATION ON ALL 4 TRIALS. INITIAL IMPRESSIONS: SEVERE OROPHARYNGEAL DYSPHAGIA (LEVEL 1 ON THE DYSPHAGIA OUTCOME SEVERITY SCALE OR JADON) WITH SIGNIFICANT INCREASE IN OVERALL OROPHARYNGEAL TRANSIT TIMES DUE TO SENSORIMOTOR DEFICITS AND COMPOUNDED BY ESOPHAGEAL DYSPHAGIA (BACKFLOW THROUGH THE PHARYNGOESOPHAGEAL SEGMENT OPENING). AUDIBLE AND SIGNFICANT (10% OR MORE) ASPIRATION WITH ALL TRIALS OF THIN LIQUIDS (TSP X2) AND NECTAR THICK LIQUIDS (TSP X2) DUE TO DELAYED SWALLOW AND PHARYNGEAL DYSMOTILITY AND STRENGTH (REDUCED HYOLARYNGEAL EXCURSION, REDUCED TONGUE BASE RETRACTION, AND REDUCED PHARYNGEAL STRIPPING WAVE),AND POOR POSTERIOR LINGUAL PROPULSION. HIGH RISK FOR SIGNIFICANT ASPIRATION/PENETRATION DUE TO THE FOLLOWING COMPONENTS AND DEFICITS: Oral Impairment Lip Closure Posterior Lingual Propulsion (Tongue Control amd Bolus transport/lingual motion) Oral residue with poor sensation Initiation pharyngeal swallow (cued and delayed consecutive swallows to clear oropharyngeal residue) Pharyngeal Impairment Laryngeal elevation (LE) Ant. hyoid excursion Epiglottic movement Laryngeal vestibule closure Pharyngeal stripping wave Pharyngoesophageal segment opening Tongue base retraction Pharyngeal residue Decreased pharyngeal sensation Esophageal Impairment Esophageal Clearance retrograde flow through the pes opening TRIAL TX: SOME BENEFIT WITH EXTRA SWALLOWS BUT POOR ABILITY TO FOLLOW COMMANDS. REQUIRED OROPHARYNGEAL SUCTION FOR MILD RESIDUE AFTER THE STUDY AND 10 MINUTES LATER REMOVED ADDITIONAL AND MILD RESIDUE FROM THE BACK OF HIS THROAT (? ESOPHAGEAL BACKFLOW RELATED). RECOMMENDATIONS: CONTINUE WITH NONORAL FEEDINGS AND ORAL CARE/SUCTION PRN. SKILLED DYSPHAGIA MANAGEMENT AND TRIAL TX. IF TX APPEARS SUCCESSFUL AND PO CONSIDERED IN FUTURE , MUST HAVE A REPEAT MODIFIED BARIUM SWALLOW STUDY PRIOR TO ANY PO TRIALS AND MEALS GIVEN HIS HISTORY OF RECURRENT ASPIRATION PNA. CONSIDER GI CONSULT REGARDING ESOPHAGEAL RETENTION WITH BACKFLOW THROUGH THE PES OPENING. D/W DR MELO, RN QUIRINO, AND PATIENT (WHO IS CONFUSED).
[2019-05-17] MEDS ORDERED: RISPERDAL1 MG ORAL (15:09)
--- NOTE | 2019-05-17 15:10 | Pulmonology Progress Note ---
Assessment/Plan Problems: (1) COPD exacerbation (2) At high risk for aspiration (3) Alzheimer's dementia (4) CAD (coronary artery disease) (5) Seizure disorder (6) Schizophrenia (7) Diabetes mellitus (8) Feeding by G-tube (9) COPD (chronic obstructive pulmonary disease) Assessment/Plan doing better less short of breath check sputum continue abx f/u labs dvt prophylaxis. ok to dc dc meds done Subjective ROS Limited/Unobtainable: No Constitutional: Reports: no symptoms HEENT: Repors: no symptoms Respiratory: Reports: no symptoms Allergies: Coded Allergies: NO KNOWN DRUG ALLERGIES (Verified Allergy, Unknown, 05/14/19) Objective Last 24 Hour Vital Signs Date Time Temp Pulse Resp B/P (MAP) Pulse Ox O2 Delivery O2 Flow Rate FiO2 05/17/19 12:00 97.0 90 20 125/80 (95) 99 05/17/19 09:00 Room Air Room Air Room Air 05/17/19 08:00 97.5 79 21 130/56 (80) 94 05/17/19 04:00 97.3 84 18 145/60 (88) 99 05/17/19 00:00 97.3 83 20 140/50 (80) 97 05/16/19 21:54 76 18 96 Room Air 21 05/16/19 21:00 Room Air Room Air Room Air 05/16/19 20:00 97.3 92 20 129/56 (80) 95 05/16/19 16:00 97.9 82 20 139/72 (94) 99 Intake and Output 05/16/19 05/17/19 19:00 07:00 Intake Total 1645.00 ml 800 ml Balance 1645.00 ml 800 ml Free Water 200 ml 200 ml IV Total 845.00 ml Tube Feeding 600 ml 600 ml # Voids 4 General Appearance: WD/WN HEENT: normocephalic, atraumatic Respiratory/Chest: chest wall non-tender, lungs clear Cardiovascular: normal peripheral pulses, normal rate Abdomen: normal bowel sounds, no organomegaly Genitourinary: normal external genitalia Skin: no lesions Neurologic/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: 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 normal Microbiology Date/Time Source Procedure Growth Status 05/14/19 22:05 Sputum Gram Stain - Final Resulted 05/14/19 22:05 Sputum Culture - Preliminary Staphylococcus Aureus Streptococcus Group B Usual Respiratory Hodan Resulted Laboratory Tests 05/17/19 07:50: White Blood Count 7.5, Red Blood Count 4.42L, Hemoglobin 13.4L, Hematocrit 40.0L , Mean Corpuscular Volume 90, Mean Corpuscular Hemoglobin 30.3, Mean Corpuscular Hemoglobin Concent 33.5, Red Cell Distribution Width 12.5, Platelet Count 267, Mean Platelet Volume 5.4L, Neutrophils (%) (Auto) 72.5, Lymphocytes ( %) (Auto) 16.1L, Monocytes (%) (Auto) 6.7, Eosinophils (%) (Auto) 4.3H, Basophils (%) (Auto) 0.4, Sodium Level 140, Potassium Level 4.1, Chloride Level 105, Carbon Dioxide Level 28, Anion Gap 7, Blood Urea Nitrogen 10, Creatinine 0.5L, Estimat Glomerular Filtration Rate > 60, Glucose Level 152H, Calcium Level 8.5 Current Medications Medications (Trade) Dose Ordered Sig/Barry Route PRN Reason Start Time Stop Time Status Last Admin Dose Admin Acetaminophen (Tylenol) 650 mg Q4H PRN ORAL FEVER 05/14/19 09:15 06/13/19 09:14 Albuterol/ Ipratropium (Albuterol/ Ipratropium) 3 ml Q4H PRN HHN Shortness of Breath 05/14/19 09:15 05/19/19 09:14 Aripiprazole (Abilify) 5 mg BID ORAL 05/14/19 18:00 06/13/19 17:59 05/17/19 08:43 Barium Sulfate (Varibar Honey) 250 ml NOW PRN RAD 05/17/19 14:15 05/20/19 14:07 Barium Sulfate (Varibar [place]) 240 ml NOW PRN MC RAD 05/17/19 14:15 05/20/19 14:07 Barium Sulfate (Varibar Pudding) 230 ml NOW PRN RAD 05/17/19 14:15 05/20/19 14:07 Cefepime HCl 2 gm/ Dextrose 110 ml @ 220 mls/hr EVERY 12 HOURS IV 05/14/19 10:00 05/21/19 09:59 05/17/19 08:44 Chlorhexidine Gluconate (Patricia-Hex 2%) 1 applic DAILY@2000 TOPIC 05/16/19 20:00 06/15/19 19:59 Clonazepam (KlonoPIN) 0.5 mg EVERY 8 HOURS ORAL 05/14/19 14:00 05/21/19 13:59 05/17/19 14:27 Dextrose (Dextrose 50%) 25 ml Q30M PRN IV Hypoglycemia 05/14/19 09:15 06/13/19 09:14 Dextrose (Dextrose 50%) 50 ml Q30M PRN IV Hypoglycemia 05/14/19 09:15 06/13/19 09:14 Dextrose/Sodium Chloride 1,000 ml @ 60 mls/hr [id number] IV 05/14/19 16:15 06/13/19 16:14 05/17/19 12:10 Divalproex Sodium (Depakote) 750 mg Q8HR ORAL 05/14/19 14:00 06/13/19 13:59 05/17/19 14:27 Heparin Sodium (Porcine) (Heparin 5000 units/ml) 5,000 units EVERY 12 HOURS SUBQ 05/14/19 10:00 06/13/19 09:59 05/17/19 08:44 Lorazepam (Ativan 2mg/ml 1ml) 1 mg Q4H PRN IV For Anxiety 05/15/19 11:00 05/22/19 10:59 05/17/19 02:11 Lorazepam (Ativan) 1 mg Q6H PRN ORAL agitation 05/14/19 12:15 05/21/19 12:14 05/15/19 18:06 Metoprolol Tartrate (Lopressor) 12.5 mg BIDPRN PRN ORAL heart rate more than 120 05/14/19 12:00 06/13/19 11:59 Morphine Sulfate (Morphine Sulfate) 2 mg Q4H PRN IVP Severe Pain (Pain Scale 7-10) 05/14/19 09:15 05/21/19 09:14 Ondansetron HCl (Zofran) 4 mg Q6H PRN IVP Nausea & Vomiting 05/14/19 09:15 06/13/19 09:14 Polyethylene Glycol (Miralax) 17 gm DAILYPRN PRN ORAL Constipation 05/14/19 09:15 06/13/19 09:14 Quetiapine Fumarate (SEROquel) 50 mg DAILY ORAL 05/15/19 09:00 06/14/19 08:59 05/17/19 08:42 Risperidone (RisperDAL) 1 mg TID ORAL 05/15/19 09:00 06/14/19 08:59 05/17/19 12:41 Vancomycin HCl (Vanco rx to dose) 1 ea DAILY PRN MISC . 05/14/19 09:30 06/13/19 09:29 Vancomycin/Sodium Chloride 275 ml @ 183.333 mls/hr Q12HR IVPB 05/14/19 21:00 05/19/19 20:59 05/17/19 09:47 Anusha Richmond MD May 17, 2019 15:10
[2019-05-17] MEDS ORDERED: MAXIPIME2 G1 IV (15:20)
[2019-05-17] MEDS ORDERED: VANCOMYCIN1.5 GM/300 IV (15:22)
--- NOTE | 2019-05-17 15:24 | NUR ---
NURSE NOTES: patient cleared by DAYDAY Song for discharge with cefepime 2gm q12hrs x4days. vanco 1.25mg q12hrs x4days. order noted and carried out.
[2019-05-17 16:00] VITALS: BP 113/69
--- NOTE | 2019-05-17 16:01 | Progress Note ---
DATE: 05/17/2019 SUBJECTIVE: This is a 59-year-old male patient. The patient does have COPD. He has got some confusion, some disorganized thought process, and he has got chronic obstructive pulmonary disease at this time. That is why, he does require inpatient treatment at this time. loss of interest in activity. This patient is a 59-year-old male with COPD, confusion, altered mental status, disorganized thought process, psychomotor agitation, very irritable, slightly combative with the nurses as well. MENTAL STATUS EXAMINATION: This is a 59-year-old male. His appearance is disheveled. Attitude, irritable and agitated. Affect, guarded and restricted. Intellect poor. Mood, depressed and anxious. Motor activity, psychomotor agitation. Attention span is poor. Orientation x2. Speech is pressured. Thought process, disorganized and illogical. Insight and judgment is poor. DIAGNOSIS: Paranoid schizophrenia with acute exacerbation, rule out dementia with psychosis. PLAN: For this patient, treat him with Seroquel 50 mg at bedtime, Risperdal 1 mg three times a day, Ativan 1 every 6 hours p.r.n. anxiety and agitation, Abilify 5 mg twice a day. A 20 minutes of cognitive behavioral therapy to help identify his automatic negative thoughts, help him convert those negative thoughts to more positive thoughts to reduce depression, anxiety, and mood lability. Transfer this patient to and see Psych when medically cleared for agitation and combativeness. Chart reviewed. Discussed with staff. Seen and assessed at the bedside. Shyla Fleming M.D. DR: SOBEIDA JOB#: [id number] CC:
--- NOTE | 2019-05-17 16:08 | NUR ---
DISCHARGE PLANNING DISCHARGE ORDER NOTED Patient has been accepted to; [facility] [address] [place] [address] Bed: 8b Skilled [phone] for Nurse to Nurse report [facility] ETA for transportation: 17:30
--- NOTE | 2019-05-17 16:34 | NUR ---
NURSE NOTES: per [facility] [place] , they did not give flu shot , spoke meño ho for flu, aware , received order, conservator cannot be reached
--- NOTE | 2019-05-17 16:40 | NUR ---
NURSE NOTES: RN notified discharge plan to the family. spoke to Maria Del Carmen Tinsley,Mother.
--- NOTE | 2019-05-17 16:56 | NUR ---
NURSE NOTES: RN gave patient report to Andrea Hicks. spoke to Gladys Cox RN
--- NOTE | 2019-05-17 17:43 | NUR ---
NURSE NOTES: RN administered flu shot 0.5ml on left deltoid IM.
--- NOTE | 2019-05-17 18:14 | Infectious Diseases Prog Note ---
Assessment/Plan Assessment/Plan 59yo gentleman with PMH below [facility]. Pt was very agitated and getting out of bed, pulling IVs. Afebrile No leukocytosis Lactic acidosis, SP Unlikely UTI UA negative Possible PNA flu swab negative CXR: Suspected infiltrate left lung base. Correlate clinically sputum cx: Staph aureus, GBS MRSA nares positive r/o bacteremia 05/14 Bcx: P Bipolar DM Seizure COPD Schizophrenia Alzheimer CAD h/o scabies 2102 Plan: continue cefepime and vancomycin #/. pt is at high risk for aspiration pneumonitis/pneumonia. recommend exercising caution. 05/14 SP Zosyn #1 f/u sputum cx f/u blood cx aspiration precaution, elevate HOB Thank you for this consult. [facility] will continue to follow the patient with you. Subjective Allergies: Coded Allergies: NO KNOWN DRUG ALLERGIES (Verified Allergy, Unknown, 05/14/19) Subjective Afebrile. RA. No leukocytosis. Pt is calmer today but still not following commands Objective Vital Signs Last 24 Hour Vital Signs Date Time Temp Pulse Resp B/P (MAP) Pulse Ox O2 Delivery O2 Flow Rate FiO2 05/17/19 16:00 96.6 84 20 113/69 (84) 97 05/17/19 12:00 97.0 90 20 125/80 (95) 99 05/17/19 09:00 Room Air Room Air Room Air 05/17/19 08:00 97.5 79 21 130/56 (80) 94 05/17/19 04:00 97.3 84 18 145/60 (88) 99 05/17/19 00:00 97.3 83 20 140/50 (80) 97 05/16/19 21:54 76 18 96 Room Air 21 05/16/19 21:00 Room Air Room Air Room Air 05/16/19 20:00 97.3 92 20 129/56 (80) 95 Height (Feet): 5 Height (Inches): 10.00 Weight (Pounds): 135 Objective Gen: NAD CV: RRR. no rubs or gallop Resp: RRR. coarse. no wheezes or crackles. Abd: soft. nondistended. normoactive BS+ Neuro: sedated Skin: warm and dry Microbiology Date/Time Source Procedure Growth Status 05/14/19 22:05 Sputum Gram Stain - Final Resulted 05/14/19 22:05 Sputum Culture - Preliminary Staphylococcus Aureus Streptococcus Group B Usual Respiratory Hodan Resulted Laboratory Tests Test 05/17/19 07:50 White Blood Count 7.5 K/UL (4.8-10.8) Red Blood Count 4.42 M/UL (4.70-6.10) L Hemoglobin 13.4 G/DL (14.2-18.0) L Hematocrit 40.0 % (42.0-52.0) L Mean Corpuscular Volume 90 FL (80-99) Mean Corpuscular Hemoglobin 30.3 PG (27.0-31.0) Mean Corpuscular Hemoglobin Concent 33.5 G/DL (32.0-36.0) Red Cell Distribution Width 12.5 % (11.6-14.8) Platelet Count 267 K/UL (150-450) Mean Platelet Volume 5.4 FL (6.5-10.1) L Neutrophils (%) (Auto) 72.5 % (45.0-75.0) Lymphocytes (%) (Auto) 16.1 % (20.0-45.0) L Monocytes (%) (Auto) 6.7 % (1.0-10.0) Eosinophils (%) (Auto) 4.3 % (0.0-3.0) H Basophils (%) (Auto) 0.4 % (0.0-2.0) Sodium Level 140 MMOL/L (136-145) Potassium Level 4.1 MMOL/L (3.5-5.1) Chloride Level 105 MMOL/L (98-107) Carbon Dioxide Level 28 MMOL/L (21-32) Anion Gap 7 mmol/L (5-15) Blood Urea Nitrogen 10 mg/dL (7-18) Creatinine 0.5 MG/DL (0.55-1.30) L Estimat Glomerular Filtration Rate > 60 mL/min (>60) Glucose Level 152 MG/DL (74-106) H Calcium Level 8.5 MG/DL (8.5-10.1) Current Medications Medications (Trade) Dose Ordered Sig/Barry Route PRN Reason Start Time Stop Time Status Last Admin Dose Admin Acetaminophen (Tylenol) 650 mg Q4H PRN ORAL FEVER 05/14/19 09:15 06/13/19 09:14 Albuterol/ Ipratropium (Albuterol/ Ipratropium) 3 ml Q4H PRN HHN Shortness of Breath 05/14/19 09:15 05/19/19 09:14 Aripiprazole (Abilify) 5 mg BID ORAL 05/14/19 18:00 06/13/19 17:59 05/17/19 17:35 Barium Sulfate (Varibar Honey) 250 ml NOW PRN RAD 05/17/19 14:15 05/20/19 14:07 Barium Sulfate (Varibar [place]) 240 ml NOW PRN RAD 05/17/19 14:15 05/20/19 14:07 Barium Sulfate (Varibar Pudding) 230 ml NOW PRN RAD 05/17/19 14:15 05/20/19 14:07 Cefepime HCl 2 gm/ Dextrose 110 ml @ 220 mls/hr EVERY 12 HOURS IV 05/14/19 10:00 05/21/19 09:59 05/17/19 08:44 Chlorhexidine Gluconate (Patricia-Hex 2%) 1 applic DAILY@2000 TOPIC 05/16/19 20:00 06/15/19 19:59 Clonazepam (KlonoPIN) 0.5 mg EVERY 8 HOURS ORAL 05/14/19 14:00 05/21/19 13:59 05/17/19 14:27 Dextrose (Dextrose 50%) 25 ml Q30M PRN IV Hypoglycemia 05/14/19 09:15 06/13/19 09:14 Dextrose (Dextrose 50%) 50 ml Q30M PRN IV Hypoglycemia 05/14/19 09:15 06/13/19 09:14 Dextrose/Sodium Chloride 1,000 ml @ 60 mls/hr [id number] IV 05/14/19 16:15 06/13/19 16:14 05/17/19 12:10 Divalproex Sodium (Depakote) 750 mg Q8HR ORAL 05/14/19 14:00 06/13/19 13:59 05/17/19 14:27 Heparin Sodium (Porcine) (Heparin 5000 units/ml) 5,000 units EVERY 12 HOURS SUBQ 05/14/19 10:00 06/13/19 09:59 05/17/19 08:44 Lorazepam (Ativan 2mg/ml 1ml) 1 mg Q4H PRN IV For Anxiety 05/15/19 11:00 05/22/19 10:59 05/17/19 02:11 Lorazepam (Ativan) 1 mg Q6H PRN ORAL agitation 05/14/19 12:15 05/21/19 12:14 05/15/19 18:06 Metoprolol Tartrate (Lopressor) 12.5 mg BIDPRN PRN ORAL heart rate more than 120 05/14/19 12:00 06/13/19 11:59 Morphine Sulfate (Morphine Sulfate) 2 mg Q4H PRN IVP Severe Pain (Pain Scale 7-10) 05/14/19 09:15 05/21/19 09:14 Ondansetron HCl (Zofran) 4 mg Q6H PRN IVP Nausea & Vomiting 05/14/19 09:15 06/13/19 09:14 Polyethylene Glycol (Miralax) 17 gm DAILYPRN PRN ORAL Constipation 05/14/19 09:15 06/13/19 09:14 Quetiapine Fumarate (SEROquel) 50 mg DAILY ORAL 05/15/19 09:00 06/14/19 08:59 05/17/19 08:42 Risperidone (RisperDAL) 1 mg TID ORAL 05/15/19 09:00 06/14/19 08:59 05/17/19 17:35 Vancomycin HCl (Vanco rx to dose) 1 ea DAILY PRN MISC . 05/14/19 09:30 06/13/19 09:29 Vancomycin/Sodium Chloride 275 ml @ 183.333 mls/hr Q12HR IVPB 05/14/19 21:00 05/19/19 20:59 05/17/19 09:47 Craig Song MD May 17, 2019 18:13
--- NOTE | 2019-05-17 18:57 | NUR ---
NURSE NOTES: Patient discharged to [facility] with stable condition via ambulance. No respiratory distress noted. no facial grimacing noted. two IVs on left upper arm intact. will keep the IVs for continuous IV [facility]B tx [facility]. Rn removed ID band. dc packet provided to ambulance personnel. patient is not able to sign. no belongings. GT intact. tube in place. flushed with water as ordered. Abdominal binder in place.
--- NOTE | 2019-05-18 13:18 | Discharge Summary ---
Discharge Summary Discharge Summary _ DATE OF ADMISSION: 05/14/2019 DATE OF DISCHARGE: 05/17/2019 DISCHARGED BY: Dr. Ng REASON FOR ADMISSION: 59 years old male, [facility] the prison facility, with past medical history of COPD, diabetes mellitus, seizure disorder, bipolar disorder, apparently fell and hit his left eyebrow. Patient was not able to provide any medical history. Patient apparently was hypoxic at the facility . Paramedics placed patient on mask, and oxygen saturation was 96%. Upon evaluation patient was afebrile, pulse oximeter on room air was 91%. Blood pressure was on the low side 96/61. Laboratory work-up revealed no leukocytosis , stable hemoglobin and hematocrit. Stable electrolytes . BUN 24, creatinine 0.9. CO2 - 34 . Glucose 114. Lactic acid 2.1 , repeated 2.0. Stable LFT . Valproic acid subtherapeutic -10 . Urinalysis revealed no evidence of urinary tract infection. EKG reveals sinus rhythm with nonspecific ST-T wave changes. Troponin negative. CT of the head revealed no acute intracranial bleeding , mass-effect or edema. Left frontal encephalomalacia, probably in the basis of previous infarct noted along with a mild atrophy of the brain. Chest x-ray revealed evidence of COPD and suspected new left lower lobe infiltrate. In the emergency department patient received nebulizing treatment with bronchodilator and one dose of Solumedrol. Tetanus prophylaxis given. Laceration of the left eyebrow was repaired. Patient subsequently admitted for further management. CONSULTANTS: pulmonary Dr. Richmond ID specialist Dr. Song psychiatrist Dr. Fleming [facility] COURSE: [] Patient admitted . Shampoo Technician closely follow. Supplemental oxygen titrated d to keep pulse oximetry above 90%. Pulmonary toilet via hand held nebulizing therapy with bronchodilators provided around the clock and as needed. DVT prophylaxis provided Bedside swallow evaluation revealed high risk for silent aspiration. Diet texture provided as per speech therapist recommendation with strict aspiration /reflux precautions. Tube feeding formula with goal rate and protein supplements implemented in plan of care as per emergency room registered nurse recommendation. ID specialist followed. Blood cultures were negative. Influenza swab was negative. Sputum culture revealed MRSA and Strep group B. Patient remained afebrile , no leukocytosis . Antibiotic regimen for pneumonia provided as per ID specialist recommendation. Patient will need to continue antibiotic at the facility to complete the course. Influenza vaccine was given prior to discharge. Blood pressure was managed with the current antihypertensive regimen and remained stable. Seizure precaution maintained. No evidence of seizure activity while in the hospital. Depakote continued. Psychiatrist follow. Psychotic medication regimen was optimized. Patient clinically stabilized and was ready for transfer back to prison facility for continuation of care. FINAL DIAGNOSES: COPD exacerbation High aspiration risk Possible pneumonia Lactic acidosis Left brow laceration , status post repair Protein calorie malnutrition Dysphagia, feeding by G tube Alzheimer dementia Seizure disorder Paranoid schizophrenia with acute exacerbation DISCHARGE MEDICATIONS: See Medication Reconciliation list. DISCHARGE INSTRUCTIONS: Patient was discharged to the prison facility. Follow up with medical doctor at the facility. I have been assigned to dictate discharge summary for this account. I was not involved in the patient's management. Radha Lerma NP May 18, 2019 13:18
== END 2019-05-17 18:57 | DRG 190 ==
LOC: EDBD 07:06 → EMR 07:30 → 4E 08:03 → EDBEDREQ 08:37 → 4E 10:13
PROC: 0HQ1XZZ Repair Face Skin, External Approach (ICD-10-PCS; principal; 2019-05-14)
DX: J44.0 Chronic obstructive pulmonary disease with (acute) lower respiratory infection (principal); J18.9 Pneumonia, unspecified organism; E87.2 Acidosis; E46 Unspecified protein-calorie malnutrition; Z68.1 Body mass index [BMI] 19.9 or less, adult; F20.0 Paranoid schizophrenia; Z43.1 Encounter for attention to gastrostomy; J44.1 Chronic obstructive pulmonary disease with (acute) exacerbation; G30.9 Alzheimer's disease, unspecified; F02.80 Dementia in other diseases classified elsewhere, unspecified severity, without behavioral disturbance, psychotic disturbance, mood disturbance, and anxiety; S01.112A Laceration without foreign body of left eyelid and periocular area, initial encounter; W01.0XXA Fall on same level from slipping, tripping and stumbling without subsequent striking against object, initial encounter; R13.10 Dysphagia, unspecified; R62.7 Adult failure to thrive; I25.10 Atherosclerotic heart disease of native coronary artery without angina pectoris; G40.909 Epilepsy, unspecified, not intractable, without status epilepticus; F31.9 Bipolar disorder, unspecified; E11.9 Type 2 diabetes mellitus without complications
CPT/HCPCS: 36415; 70450; 71045; 74230; 80048; 80053; 80069; 80164; 80202; 81003; 82550; 82962; 83605; 83880; 84484; 85007; 85025; 85610; 85730; 86710; 87040; 87070; 87081; 87181; 87205; 90689; 93005; 94640; 94664; 96361; 96365; 96368; 96375; 97803; 99285; J7030; J7620

== ENCOUNTER 2019-09-02 11:38 | Emergency (ER) | payer MEDICARE, OTHER ==
[~2019-09-02] VITALS: Ht 167.6 cm; Wt 64.9 kg
[~2019-09-02 11:38] MED LIST changes: +ACTOS15 MG ORAL; +ASPIRIN81 MG ORAL; +FERROUS SULFAT325 MG ORAL; +FLEET ENEMA133 ML RECTAL; +LACTULOSE20 GM/301 ORAL; +MAXIPIME2 G1 IV; +MIDODRINE HCL5 MG ORAL; +NOVOLIN R100 UNIT/1 SUBQ; +RISPERDAL1 MG ORAL; +VANCOMYCIN1.5 GM/300 IV
--- NOTE | 2019-09-02 11:50 | NUR ---
ED Nurse Note: G tube placed at [address] Mathew. 18 F. XR notified.
--- NOTE | 2019-09-02 11:51 | NUR ---
ED Nurse Note: Pt brought into ED by ambulance from SNF. Pt G tube was displaced per ambulance and SNF replaced g tube w/ f/c temporarily. Pt came w/ 18F butler in g tube site. Pt is alert and orientedx3, ambulatory with assist. Pt has cognitive impairment, but is cooperative. has seen pt.
[2019-09-02 11:55] VITALS: BP 119/84
--- NOTE | 2019-09-02 12:42 | NUR ---
ED Nurse Note: report given to radu from [facility]
[2019-09-02 12:50] VITALS: BP 124/85
--- NOTE | 2019-09-02 12:50 | NUR ---
ER DISCHARGE NOTE: Patient is cleared to be discharged per ERMD, pt is confused, on room air, with stable vital signs. ambulance personnel was given dc instructions,report given to radu from [facility]
--- NOTE | 2019-09-02 13:30 | Diagnostic Imaging Report ---
EXAM: XR Abdomen, 2 Views CLINICAL HISTORY: TUBE PLCMT TECHNIQUE: Frontal view of the abdomen/pelvis with upright view of the abdomen. COMPARISON: None FINDINGS: Hardware: G-tube projected over the left upper quadrant. Abdomen: Nonobstructive bowel gas pattern. No free air. Contrast injected through the G-tube is noted in the stomach and proximal duodenum. Moderate to large amount of stool. Bones: Normal. Soft tissues: Normal. Lower chest: Mild elevation of the right hemidiaphragm. IMPRESSION: Contrast injected through the G-tube is noted in the stomach and proximal duodenum, suggesting correct placement.
--- NOTE | 2019-09-02 13:42 | Emergency Room Report ---
History of Present Illness General Chief Complaint: Malfunctioning Gastric Tube Source: EMS Present Illness HPI Patient was sent from alf after G-tube was accidentally removed. The patient was sent in for G-tube replacement. There was no drainage from the G- tube. Patient had not been vomiting. There was no fever. Patient had a Norman catheter placed. Allergies: Coded Allergies: NO KNOWN DRUG ALLERGIES (Verified Allergy, Unknown, 05/14/19) Patient History Past Medical History: see triage record Reviewed Nursing Documentation: PMH: Agreed; PSxH: Agreed Nursing Documentation-PMH Hx Cardiac Problems: Yes Hx Hypertension: Yes Hx COPD: Yes Hx Diabetes: Yes Hx Cancer: No Hx Gastrointestinal Problems: No Hx Neurological Problems: No Hx Cerebrovascular Accident: Yes Hx Dementia: Yes Hx Seizures: Yes Hx Dysphasia: Yes Review of Systems All Other Systems: negative except mentioned in HPI Physical Exam Vital Signs Date Time Temp Pulse Resp B/P (MAP) Pulse Ox O2 Delivery O2 Flow Rate FiO2 09/02/19 11:40 98.1 77 18 114/77 (89) 100 Room Air General Appearance: well appearing, no apparent distress, alert Head: normocephalic, atraumatic ENT: hearing grossly normal, normal voice Neck: full range of motion, supple Respiratory: no respiratory distress, speaking full sentences Cardiovascular #1: normal inspection, regular rate, rhythm, no edema Gastrointestinal: normal inspection, normal bowel sounds, non tender, other - Stoma site patent. Musculoskeletal: normal inspection Neurologic: alert, motor strength/tone normal, agronomy technician III-XII nml as tested, oriented x3, normal gait Psychiatric: mood/affect normal Skin: no rash Medical Decision Making Diagnostic Impression: Primary Impression: PEG (percutaneous endoscopic gastrostomy) adjustment/replaceme... ER Course Patient presented for G-tube replacement. Gastrostomy tube was replaced with sterile technique. Tube is secured at 4 cm, balloon was inflated to 10cc of with sterile water post procedure x-ray showed adequate gastrostomy tube placement. Patient tolerated well without complications. The patient was discharged back to alf. Patient was return for persistent vomiting, other concerns. Last Vital Signs Date Time Temp Pulse Resp B/P (MAP) Pulse Ox O2 Delivery O2 Flow Rate FiO2 09/02/19 12:50 98.0 78 20 124/85 99 Room Air Status: improved Disposition: [facility] Condition: Stable Patient Instructions: Gastrostomy Tube Home Guide, Adult Pato Mathew MD Sep 02, 2019 13:42
== END 2019-09-02 12:50 ==
LOC: EDBD 11:38 → EMR 11:59
DX: Z43.1 Encounter for attention to gastrostomy (principal); J44.9 Chronic obstructive pulmonary disease, unspecified; E11.9 Type 2 diabetes mellitus without complications; G40.909 Epilepsy, unspecified, not intractable, without status epilepticus; R13.10 Dysphagia, unspecified; I11.9 Hypertensive heart disease without heart failure; Z86.73 Personal history of transient ischemic attack (TIA), and cerebral infarction without residual deficits
CPT/HCPCS: 74018; 99284

== ENCOUNTER 2020-03-13 00:23 | Inpatient (IN) | payer MEDICARE, OTHER ==
[~2020-03-13] VITALS: Ht 180.3 cm; Wt 68.0 kg
--- NOTE | 2020-03-13 00:25 | NUR ---
ED Nurse Note: Pt brought in by ambulance from [facility] for coffee ground emesis x2 starting at 2300. Pt is not actively vomiting. Pt with soft non-tender abdomen, g tube upper quad. Pt is awake, uncomprehensible speech, audible gurgling heard, spo2 94% on room air. pt with weak intermittent cough, pt placed on sheet hanger.
[2020-03-13] MEDS ORDERED: cefTRIAXone 1 GM in NS 55 ML IVPB ONE (00:30)
[2020-03-13] MEDS ORDERED: Pantoprazole 80 MG in NS 250 ML IV ONE (00:30)
--- NOTE | 2020-03-13 00:35 | Emergency Room Report ---
History of Present Illness General Chief Complaint: Vomiting Source: Patient, EMS Present Illness HPI Disclaimer: Please note that this report is being documented using DRAGON technology. This can lead to erroneous entry secondary to incorrect interpretation by the dictating instrument. HPI: 60-year-old male history of COPD, diabetes, seizure disorder, bipolar disorder, PEG dependent presents for evaluation of cough and hematemesis. Per EMS, [facility] staff witnessed 2 episodes of coffee-ground emesis earlier today as well as a worsening productive cough. Denied fever. No recent COVID test. The patient is denying any complaints at this time. He states he has not sick and does not know why he is in the ED. He is calm and cooperative. Denies pain, palpitations, abdominal pain, recent diarrhea, vomiting. It appears he takes 81 mg aspirin no other anticoagulants. PMH: Bipolar disorder, seizure disorder, diabetes, COPD PSH: PEG tube Allergies: Reviewed Social Hx: Reviewed Allergies: Coded Allergies: NO KNOWN DRUG ALLERGIES (Verified Allergy, Unknown, 05/14/19) COVID-19 Screening Contact w/high risk pt: Yes Experienced COVID-19 symptoms?: Yes COVID-19 Testing Source: UNK Nursing Documentation-PMH Hx Cardiac Problems: Yes Hx Hypertension: Yes Hx COPD: Yes Hx Diabetes: Yes Hx Cancer: No Hx Gastrointestinal Problems: No Hx Neurological Problems: No Hx Cerebrovascular Accident: Yes Hx Dementia: Yes Hx Seizures: Yes Hx Dysphasia: Yes Review of Systems All Other Systems: negative except mentioned in HPI Physical Exam Vital Signs Date Time Temp Pulse Resp B/P (MAP) Pulse Ox O2 Delivery O2 Flow Rate FiO2 03/13/20 00:18 91 20 129/64 (85) 91 Room Air General: Awake, Pleasant, cooperative, no acute distress HEENT: NC/AT. EOMI. edentulous. Cardiovascular: RRR. S1 and S2 normal. No murmur appreciated Resp: Productive cough in the room. No respiratory distress. Abdomen: Abdomen is soft, nondistended. Nontender. PEG tube in place. No evidence surrounding edema erythema or infection Skin: Intact. No abrasions, laceration or rash over the exposed skin MSK: Normal tone and bulk. Moving all extremities. No obvious deformity. Neuro: Awake and alert. Somewhat confused but pleasant and cooperative. Able to hold a conversation provide some history. Medical Decision Making Diagnostic Impression: Primary Impression: Bloody emesis ER Course 58-year-old male presents for evaluation of productive cough and reported hematemesis. There is a stable vital signs. Oxygenation in the low 90s however the history of COPD is likely patient baseline. No respiratory distress. He does have a cough. Concern for pneumonia, COVID-19, GI bleed, peptic ulcer, gastritis, post tussive emesis among others. Labs were obtained showing stable hemoglobin. No indication for transfusion at this time. Other labs within normal limits. Chest x-ray does not show infiltrate. No evidence of obstruction or other significant findings on abdominal x-ray. Patient be admitted to his PMD, Dr. Ng 0410: Patient found out of bed and having ripped out his IV line. Agitated and combative with staff. Ordered his nightly Seroquel however this was ineffective. Ordered intramuscular Haldol for sedation. Laboratory Tests Test 03/13/20 01:25 03/13/20 01:40 White Blood Count 16.9 K/UL (4.8-10.8) H Red Blood Count 4.66 M/UL (4.70-6.10) L Hemoglobin 14.0 G/DL (14.2-18.0) L Hematocrit 42.3 % (42.0-52.0) Mean Corpuscular Volume 91 FL (80-99) Mean Corpuscular Hemoglobin 30.0 PG (27.0-31.0) Mean Corpuscular Hemoglobin Concent 33.0 G/DL (32.0-36.0) Red Cell Distribution Width 13.0 % (11.6-14.8) Platelet Count 291 K/UL (150-450) Mean Platelet Volume 5.5 FL (6.5-10.1) L Neutrophils (%) (Auto) % (45.0-75.0) Lymphocytes (%) (Auto) % (20.0-45.0) Monocytes (%) (Auto) % (1.0-10.0) Eosinophils (%) (Auto) % (0.0-3.0) Basophils (%) (Auto) % (0.0-2.0) Prothrombin Time 10.7 SEC (9.30-11.50) Prothrombin Time INR 1.0 (0.9-1.1) Activated Partial Thromboplast Time 24 SEC (23-33) Sodium Level 141 MMOL/L (136-145) Potassium Level 3.6 MMOL/L (3.5-5.1) Chloride Level 106 MMOL/L (98-107) Carbon Dioxide Level 30 MMOL/L (21-32) Anion Gap 5 mmol/L (5-15) Blood Urea Nitrogen 12 mg/dL (7-18) Creatinine 1.0 MG/DL (0.55-1.30) Estimated Glomerular Filtration Rate > 60 mL/min (>60) Glucose Level 134 MG/DL (74-106) H Calcium Level 9.0 MG/DL (8.5-10.1) Total Bilirubin 0.3 MG/DL (0.2-1.0) Aspartate Amino Transferase (AST) 20 U/L (15-37) Alanine Aminotransferase (ALT) 20 U/L (12-78) Alkaline Phosphatase 107 U/L (46-116) Troponin I 0.000 ng/mL (0.000-0.056) Total Protein 8.2 G/DL (6.4-8.2) Albumin 3.9 G/DL (3.4-5.0) Globulin 4.3 g/dL Albumin/Globulin Ratio 0.9 (1.0-2.7) L Lipase 82 U/L (73-393) Urine Color Yellow Urine Appearance Clear Urine pH 8 (4.5-8.0) Urine Specific [place] 1.010 (1.005-1.035) Urine Protein Negative (NEGATIVE) Urine Glucose (UA) Negative (NEGATIVE) Urine Ketones 1+ (NEGATIVE) H Urine Blood Negative (NEGATIVE) Urine Nitrite Negative (NEGATIVE) Urine Bilirubin Negative (NEGATIVE) Urine Urobilinogen 1 MG/DL (0.0-1.0) H Urine Leukocyte Esterase Negative (NEGATIVE) Microbiology Date/Time Source Procedure Growth Status 03/13/20 01:40 Nasopharynx SARS-CoV-2 RdRp Gene Assay - Final Complete EKG Diagnostic Results EKG Time: 01:13 Rate: normal Rhythm: NSR ST Segments: no acute changes Other Impression Sinus rhythm, left axis, normal intervals, no ST segment changes Rhythm Strip Diag. Results Rhythm Strip Time: 01:13 EP Interpretation: yes Rate: 90s Rhythm: NSR, no PVC's, no ectopy Chest X-Ray Diagnostic Results Chest X-Ray Diagnostic Results : Chest X-Ray Ordered: Yes # of Views/Limited/Complete: 1 View Indication: Shortness of Breath EP Interpretation: Yes Interpretation: no consolidation, no effusion, no pneumothorax, no acute cardiopulmonary disease Impression: No acute disease Electronically Signed by: Electronically signed by Dr. Chai Bueno Other X-Ray Diagnostic Results Other X-Ray Diagnostic Results : X-Ray ordered: Abdomen # of Views/Limited Vs Complete: 1 View Indication: Pain Interpretation: nonspecific bowel gas, no sbo, other Impression: No acute disease Electronically Signed by: Electronically signed by Dr. Chai Bueno Last Vital Signs Date Time Temp Pulse Resp B/P (MAP) Pulse Ox O2 Delivery O2 Flow Rate FiO2 03/13/20 00:18 91 20 129/64 (85) 91 Room Air Disposition: ADMITTED INPATIENT Condition: Stable Chai Bueno MD Mar 13, 2020 00:35
[2020-03-13] MEDS ORDERED: ASPIRIN81 MG GT (00:39)
[2020-03-13] MEDS ORDERED: RISPERDAL1 MG GT ×2 (00:39→09:26)
[2020-03-13] MEDS ORDERED: KLONOPIN0.5 MG GT (00:39)
[2020-03-13] MEDS ORDERED: ACTOS15 MG GT ×3 (00:39→08:30)
[2020-03-13] MEDS ORDERED: FERROUS SULFAT325 MG GT (00:39)
[2020-03-13] MEDS ORDERED: VALPROATE500 MG/5 M GT (00:39)
[2020-03-13] MEDS ORDERED: SENNA8.6 M2 GT (00:39)
[2020-03-13] MEDS ORDERED: METOPROLOL TART25 MG GT (00:39)
[2020-03-13] MEDS ORDERED: ABILIFY2 MG GT (00:39)
[2020-03-13] MEDS ORDERED: HUMULIN R100 UNIT/1 SUBQ (00:39)
[2020-03-13] MEDS ORDERED: ACIDOPHILUS1 EAC6 GT (00:39)
[2020-03-13] MEDS ORDERED: LACTULOSE20 GM/301 GT ×2 (00:39→09:22)
[2020-03-13 01:50] VITALS: BP 129/64
[2020-03-13 01:58] LABS: APPEARANCE,URINE CLEAR; BILIRUBIN, URINE NEGATIVE (NEGATIVE); GLUCOSE, URINE (UA) NEGATIVE (NEGATIVE); KETONES,URINE 1+ (NEGATIVE); LEUKOCYTE ESTERASE ,URINE NEGATIVE (NEGATIVE); NITRITE,URINE NEGATIVE (NEGATIVE); PH,URINE 8 (4.5-8.0); PROTEIN,URINE NEGATIVE (NEGATIVE); UROBILINOGEN,URINE 1 MG/DL (0.0-1.0)
[2020-03-13 01:58] LABS: HEMATOCRIT 42.3 % (42.0-52.0); MEAN CORPUSCULAR VOLUME 91 FL (80-99); PLATELET COUNT 291 K/UL (150-450); RED BLOOD COUNT 4.66 M/UL (4.70-6.10); WHITE BLOOD COUNT 16.9 K/UL (4.8-10.8)
[2020-03-13 01:59] LABS: COLOR,URINE YELLOW
--- NOTE | 2020-03-13 02:00 | NUR ---
ED Nurse Note: xray at bedside
[2020-03-13 02:10] LABS: ANION GAP 5 mmol/L (5-15); BLOOD UREA NITROGEN 12 mg/dL (7-18); CARBON DIOXIDE 30 MMOL/L (21-32); CHLORIDE 106 MMOL/L (98-107); POTASSIUM 3.6 MMOL/L (3.5-5.1); SODIUM 141 MMOL/L (136-145)
[2020-03-13 02:15] LABS: ALANINE AMINOTRANSFERASE 20 U/L (12-78); ALBUMIN 3.9 G/DL (3.4-5.0); ALBUMIN/GLOBULIN RATIO 0.9 (1.0-2.7); ALKALINE PHOSPHATASE 107 U/L (46-116); ASPARTATE AMINO TRANSFERASE 20 U/L (15-37); BILIRUBIN,TOTAL 0.3 MG/DL (0.2-1.0)
[2020-03-13 03:00] VITALS: BP 132/68
[2020-03-13] MEDS ORDERED: Haloperidol 5mg/ml Inj ONE (03:59)
[2020-03-13] MEDS ORDERED: Haloperidol 5mg/ml Inj IM ONE (04:00)
--- NOTE | 2020-03-13 04:35 | NUR ---
ED Nurse Note: Pt with multiple episodes of removing leads and trying to get out of bed, medications given effective, pt not resting in bed with eyes closed, no signs of distress, within sight of this RN, will continue to monitor
[2020-03-13 05:00] VITALS: BP 128/65
--- NOTE | 2020-03-13 06:15 | NUR ---
ED Nurse Note: pt changed and repositioned for comfort
--- NOTE | 2020-03-13 06:30 | NUR ---
TRANSFER TO FLOOR: Patient transferred to as ordered, per DR Ng. Report given to XOCHITL Raymundo. Belongings and medications given to . Family and or S/O informed of transfer.
--- NOTE | 2020-03-13 06:40 | NUR ---
Received pt from ER via [facility]. Transferred to bed from [facility]. Pt. awake, eyes open, No resp distress noted. nuclear monitoring technician in place. Noted slight gurgling. Belongings list checked, body check done. Left fore arm 20 G IV saline locked in place &patent. Bed in low position & locked, side rails up x3. Bed alarm on. Call light with in reach. V/S 127/67, p 88, temp 99.5, RR 20, O2 sat at room air 95%. No s./s pain noted.
[2020-03-13] MEDS ORDERED: Nitroglycerin Subl 0.4mg tab SL PRN (07:15)
[2020-03-13] MEDS ORDERED: clonazePAM 0.5mg tab GT PRN ×2 (07:15→09:00)
[2020-03-13] MEDS ORDERED: DiphenhydrAMINE 25mg/10ml Elixir GT PRN (07:45)
[2020-03-13] MEDS ORDERED: Acetaminophen 650mg/20.3ml GT PRN (07:45)
--- NOTE | 2020-03-13 08:11 | NUR ---
NURSE NOTES: received report from XOCHITL Kimble. Pt is AOx0, stable, and on RA. Nonverbal. pt has no s/s or complaints of distress at this time. Pt IV on LFA 20g SL, asymptomatic and intact. Pt bed low and locked, call light in reach and bed alarm on. Pt instructed to call for help when getting up. pt could not verbalize understanding. Will continue to monitor.
[2020-03-13] MEDS ORDERED: ABILIFY5 MG ORAL (08:17)
[2020-03-13] MEDS ORDERED: FERROUS SU300 MG/5 M ORAL (08:27)
[2020-03-13] MEDS ORDERED: DUONEB 0.5-3(2.53 ML HHN (08:55)
[2020-03-13] MEDS ORDERED: levOCARNitine 330mg tab ORAL SCH (09:00)
[2020-03-13] MEDS ORDERED: Valproic Acid 250mg/5ml Liquid GT SCH (09:00)
[2020-03-13] MEDS ORDERED: KLONOPIN0.5 MG ORAL (09:20)
[2020-03-13] MEDS ORDERED: MILK OF MA400 MG/51 ORAL (09:24)
[2020-03-13] MEDS ORDERED: MULTI-DELYN237 ML GT (09:25)
[2020-03-13] MEDS ORDERED: SEN-O-TAB8.6 MG ORAL (09:31)
[2020-03-13] MEDS ORDERED: ACETAMINOP160 MG/5 M GT (09:33)
[2020-03-13] MEDS: Metoprolol Tartrate 12.5mg TAB ORAL SCH ×2 (09:56→21:16)
[2020-03-13] MEDS: Ferrous Sulfate 300 MG/5 ML UDC GT SCH (09:57)
[2020-03-13] MEDS: D5 1/2NS 1,000 ML IV SCH ×2 (10:02→20:50)
[2020-03-13] MEDS ORDERED: Pantoprazole 80 MG in NS 250ml IV SCH (10:30)
[2020-03-13] MEDS: NovoLOG Insulin Flexpen SUBQ SCH ×3 (11:30→21:00)
--- NOTE | 2020-03-13 11:33 | Diagnostic Imaging Report ---
EXAM: XRAY Abdomen 1v HISTORY: Reason For Exam: ABD PAIN COMPARISON: None. TECHNIQUE: Frontal view of the abdomen obtained. FINDINGS: There is a G-tube in place. There is a nonobstructive bowel gas pattern. Mild increased stool lucencies noted in the descending and sigmoid colon. There is no mass or mass effect noted. No definite pathologic calcifications identified. There is no sign of free air. Degenerative changes of the right hip noted. IMPRESSION: G-TUBE IN PLACE. NO SIGN OF ACUTE DISEASE.
--- NOTE | 2020-03-13 11:34 | Diagnostic Imaging Report ---
Procedure: XRAY Chest 1v Reason for study: Chest pain. Comparison films: None. FINDINGS: A single one view chest is obtained. Vascularity is normal. The lung macdonald are clear bilaterally. Cardiac and mediastinal silhouette are within normal limits. CP angles are sharp. The bony thorax appear unremarkable. IMPRESSION: NO ACUTE CARDIOPULMONARY DISEASE.
[2020-03-13 12:00] VITALS: BP 124/83
--- NOTE | 2020-03-13 13:14 | Consultation ---
History of Present Illness General Chief Complaint: Vomiting Present Illness HPI 59 year old male with a history of bipolar disorder, diabetes, seizures, COPD., Gtube, [facility] resident, unable to give medical history at this time. EMS transported the patient to ER because of reported upper GI Bleeding. Patient looks comfortable and awake. Allergies: Coded Allergies: NO KNOWN DRUG ALLERGIES (Verified Allergy, Unknown, 05/14/19) Medication History Scheduled Al Hydroxide/mg Hydroxide (Mag-Al Liquid), 30 ML ORAL NEEDED, (Reported) Aripiprazole* (Abilify*), 5 MG ORAL BID, (Reported) Aspirin* (Aspirin*), 81 MG GT DAILY, (Reported) Bisacodyl (Dulcolax), 10 MG RECTAL NEEDED, (Reported) Clonazepam* (Klonopin*), 0.5 MG ORAL Q12H, (Reported) Docusate Sodium* (Colace*), 100 MG ORAL BEDTIME, (Reported) Ferrous Sulfate (Ferrous Sulfate), 5 ML ORAL DAILY, (Reported) Insulin Regular, Human* (Novolin R*), 0 SUBQ .SLIDING SCALE, (Reported) Ipratropium/Albuterol Sulfate (DuoNeb 0.5-3(2.5)mg/3ml), 3 ML HHN Q4H, (Reported ) Lactulose (Lactulose*), 30 ML GT DAILY, (Reported) Magnesium Hydroxide* (Milk Of Magnesia*), 30 ML ORAL DAILY, (Reported) Metoprolol Tartrate* (Metoprolol Tartrate*), 12.5 MG GT EVERY 12 HOURS, ( Reported) Multivitamin Liquid* (Multi-Delyn*), 5 ML GT DAILY, (Reported) Pioglitazone Hcl* (Actos*), 15 MG GT DAILY, (Reported) Risperidone* (Risperdal*), 1 MG GT TWICE A DAY, (Reported) Scheduled PRN Acetaminophen 160MG/5ML* (Acetaminophen*), 650 MG GT Q4HR PRN for MILD PAIN/T> 100.5, (Reported) Sennosides* (Sen-O-Tab*), 17.2 MG ORAL DAILY PRN for Constipation, (Reported) Miscellaneous Medications Lactobacillus Acidophilus (Acidophilus), 1 EACH GT, (Reported) Discontinued Medications Acetaminophen (Tylenol), 325 MG PO NEEDED, (Reported) Discontinued Reason: Medication dose changed Aripiprazole* (Abilify*), 5 MG ORAL BID, (Reported) Discontinued Reason: Medication dose changed Aripiprazole* (Abilify*), 5 MG GT DAILY, (Reported) Discontinued Reason: Medication dose changed Aspirin* (Aspirin*), 81 MG ORAL DAILY, (Reported) Discontinued Reason: Medication dose changed Atorvastatin Calcium* (Lipitor*), 10 MG ORAL BEDTIME, (Reported) Discontinued Reason: Pt stopped taking med Benztropine Mesylate* (Benztropine Mesylate*), 2 MG PO BID, (Reported) Discontinued Reason: MD discontinued med Calcium Carbonate/Vitamin D3 (Calcium 500 + D Tablet), 1 EACH PO, (Reported) Discontinued Reason: Pt stopped taking med Cefepime Hcl (Maxipime), 2 GM IV Q12HR, (Reported) Discontinued Reason: Pt stopped taking med Clonazepam* (Klonopin*), 0.5 MG ORAL EVERY 8 HOURS, (Reported) Discontinued Reason: Medication dose changed Clonazepam* (Klonopin*), 0.5 MG GT Q6H, (Reported) Discontinued Reason: Medication dose changed Divalproex Sodium (Divalproex Sodium), 750 MG ORAL THREE TIMES A DAY, (Reported) Discontinued Reason: Pt stopped taking med Ferrous Sulfate* (Ferrous Sulfate*), 325 MG ORAL DAILY, (Reported) Discontinued Reason: Pt stopped taking med Ferrous Sulfate* (Ferrous Sulfate*), 325 MG GT DAILY, (Reported) Discontinued Reason: Pt stopped taking med Fluphenazine HCl (Fluphenazine HCl), 5 MG ORAL THREE TIMES A DAY, (Reported) Discontinued Reason: Therapy completed Guaifenesin/Dextromethorphan (Guaifenesin Dm Syrup), 10 ML PO, (Reported) Discontinued Reason: Pt stopped taking med Insulin Regular, Human (Humulin R), 0 SUBQ, (Reported) Discontinued Reason: Therapy completed Ipratropium/Albuterol Sulfate (Duoneb 0.5 Mg-3 Mg/3 Ml Soln), 3 ML IH, (Reported ) Discontinued Reason: Medication dose changed Lactulose (Lactulose*), 30 ML ORAL, (Reported) Discontinued Reason: Medication dose changed Lactulose (Lactulose*), 30 ML GT, (Reported) Discontinued Reason: Medication dose changed Levocarnitine (Carnitor), 330 MG ORAL THREE TIMES A DAY, (Reported) Discontinued Reason: Pt stopped taking med Lorazepam* (Lorazepam*), 1 MG ORAL NEEDED, (Reported) Discontinued Reason: Pt stopped taking med Magnesium Hydroxide* (Milk Of Magnesia*), 30 ML ORAL DAILY, (Reported) Discontinued Reason: Medication dose changed Metoprolol Succinate* (Metoprolol Succinate*), 12.5 MG ORAL BID PRN, (Reported) Discontinued Reason: Medication dose changed Midodrine* (Proamatine*), 5 MG ORAL THREE TIMES A DAY, (Reported) Discontinued Reason: Pt stopped taking med Na Phos,M-B/Na Phos,Di-Ba* (Fleet Enema*), 133 ML RECTAL DAILY, (Reported) Discontinued Reason: Pt stopped taking med Pioglitazone Hcl* (Actos*), 15 MG ORAL DAILY, (Reported) Discontinued Reason: Medication dose changed Pioglitazone Hcl* (Actos*), 15 MG GT DAILY, (Reported) Discontinued Reason: Medication dose changed Pioglitazone Hcl* (Actos*), 15 MG GT DAILY, (Reported) Discontinued Reason: Medication dose changed Quetiapine Fumarate* (Quetiapine Fumarate*), 50 MG ORAL DAILY, (Reported) Discontinued Reason: Pt stopped taking med Risperidone* (Risperdal*), 1 MG ORAL TID Discontinued Reason: Medication dose changed Risperidone* (Risperdal*), 1 MG GT DAILY, (Reported) Discontinued Reason: Medication dose changed Sennosides (Senna), 8.6 MG GT, (Reported) Discontinued Reason: Medication dose changed Sertraline Hcl* (Zoloft*), 50 MG ORAL BID PRN, (Reported) Discontinued Reason: Pt stopped taking med Travoprost (Travatan Z), 5 ML BOTH EYES, (Reported) Discontinued Reason: Therapy completed Valproate Sodium (Valproate Sodium), 1,000 MG GT BID, (Reported) Discontinued Reason: Pt stopped taking med Vancomycin/Water For Inj (Vancomycin 1.5 Gram/300 ml Bag), 1.25 GM IV Q12HR, ( Reported) Discontinued Reason: Therapy completed Zolpidem Tartrate* (Ambien*), 10 MG ORAL BEDTIME PRN for Insomnia, (Reported) Discontinued Reason: Pt stopped taking med Patient History Healthcare decision maker Resuscitation status Advanced Directive on File Past Medical/Surgical History Past Medical/Surgical History: (1) Feeding by G-tube (2) Diabetes mellitus (3) Schizophrenia (4) Seizure disorder (5) Alzheimer's dementia (6) CAD (coronary artery disease) (7) COPD (chronic obstructive pulmonary disease) (8) PEG (percutaneous endoscopic gastrostomy) adjustment/replacement/removal Review of Systems All Other Systems: negative except mentioned in HPI Physical Exam General Appearance: thin Lines, tubes and drains: peripheral HEENT: normocephalic, atraumatic Neck: non-tender, normal alignment Respiratory/Chest: chest wall non-tender, lungs clear Cardiovascular/Chest: normal peripheral pulses, normal rate Abdomen: normal bowel sounds, non tender Genitourinary/Rectal: normal rectal exam, normal prostate exam Extremities: non-tender Skin Exam: normal pigmentation Neurologic: treater helper II-XII grossly normal Last 24 Hour Vital Signs Date Time Temp Pulse Resp B/P (MAP) Pulse Ox O2 Delivery O2 Flow Rate FiO2 03/13/20 12:00 97.6 86 19 124/83 (97) 98 03/13/20 12:00 78 03/13/20 10:27 97.9 03/13/20 09:56 97 128/65 03/13/20 06:30 99.4 97 18 128/65 97 Room Air 03/13/20 05:00 99.4 97 18 128/65 97 Room Air 03/13/20 03:00 99.0 102 22 132/68 94 Room Air 03/13/20 01:50 91 20 Room Air 03/13/20 01:50 91 20 129/64 91 Room Air 03/13/20 00:18 91 20 129/64 (85) 91 Room Air Laboratory Tests Test 03/13/20 01:25 03/13/20 01:40 03/13/20 11:42 White Blood Count 16.9 K/UL (4.8-10.8) H Red Blood Count 4.66 M/UL (4.70-6.10) L Hemoglobin 14.0 G/DL (14.2-18.0) L Hematocrit 42.3 % (42.0-52.0) Mean Corpuscular Volume 91 FL (80-99) Mean Corpuscular Hemoglobin 30.0 PG (27.0-31.0) Mean Corpuscular Hemoglobin Concent 33.0 G/DL (32.0-36.0) Red Cell Distribution Width 13.0 % (11.6-14.8) Platelet Count 291 K/UL (150-450) Mean Platelet Volume 5.5 FL (6.5-10.1) L Neutrophils (%) (Auto) % (45.0-75.0) Lymphocytes (%) (Auto) % (20.0-45.0) Monocytes (%) (Auto) % (1.0-10.0) Eosinophils (%) (Auto) % (0.0-3.0) Basophils (%) (Auto) % (0.0-2.0) Prothrombin Time 10.7 SEC (9.30-11.50) Prothromb Time International Ratio 1.0 (0.9-1.1) Activated Partial Thromboplast Time 24 SEC (23-33) Sodium Level 141 MMOL/L (136-145) Potassium Level 3.6 MMOL/L (3.5-5.1) Chloride Level 106 MMOL/L (98-107) Carbon Dioxide Level 30 MMOL/L (21-32) Anion Gap 5 mmol/L (5-15) Blood Urea Nitrogen 12 mg/dL (7-18) Creatinine 1.0 MG/DL (0.55-1.30) Estimat Glomerular Filtration Rate > 60 mL/min (>60) Glucose Level 134 MG/DL (74-106) H Calcium Level 9.0 MG/DL (8.5-10.1) Total Bilirubin 0.3 MG/DL (0.2-1.0) Aspartate Amino Transf (AST/SGOT) 20 U/L (15-37) Alanine Aminotransferase (ALT/SGPT) 20 U/L (12-78) Alkaline Phosphatase 107 U/L (46-116) Troponin I 0.000 ng/mL (0.000-0.056) Total Protein 8.2 G/DL (6.4-8.2) Albumin 3.9 G/DL (3.4-5.0) Globulin 4.3 g/dL Albumin/Globulin Ratio 0.9 (1.0-2.7) L Lipase 82 U/L (73-393) Urine Color Yellow Urine Appearance Clear Urine pH 8 (4.5-8.0) Urine Specific [place] 1.010 (1.005-1.035) Urine Protein Negative (NEGATIVE) Urine Glucose (UA) Negative (NEGATIVE) Urine Ketones 1+ (NEGATIVE) H Urine Blood Negative (NEGATIVE) Urine Nitrite Negative (NEGATIVE) Urine Bilirubin Negative (NEGATIVE) Urine Urobilinogen 1 MG/DL (0.0-1.0) H Urine Leukocyte Esterase Negative (NEGATIVE) POC Whole Blood Glucose 105 MG/DL (74-106) Microbiology Date/Time Source Procedure Growth Status 03/13/20 01:40 Nasopharynx SARS-CoV-2 RdRp Gene Assay - Final Complete Height (Feet): 6 Height (Inches): 0.00 Weight (Pounds): 170 Medications Current Medications Medications (Trade) Dose Ordered Sig/Barry Route PRN Reason Start Time Stop Time Status Last Admin Dose Admin Acetaminophen (Tylenol) 650 mg Q4H PRN GT T>100.5 03/13/20 07:45 04/12/20 07:44 03/13/20 09:57 Aripiprazole (Abilify) 5 mg BID ORAL 03/13/20 10:00 04/27/20 09:59 03/13/20 10:09 Clonazepam (KlonoPIN) 0.5 mg Q12H PRN GT ANXIETY 03/13/20 09:00 03/20/20 08:59 Dextrose (Dextrose 50%) 25 ml Q30M PRN IV Hypoglycemia 03/13/20 08:00 06/11/20 07:59 Dextrose (Dextrose 50%) 50 ml Q30M PRN IV Hypoglycemia 03/13/20 07:15 06/11/20 07:14 Dextrose/Sodium Chloride 1,000 ml @ 75 mls/hr [id number] IV 03/13/20 07:30 04/12/20 07:29 03/13/20 10:02 Diphenhydramine HCl (Benadryl) 25 mg Q6H PRN GT Itching 03/13/20 07:45 04/12/20 07:44 Ferrous Sulfate (Feosol) 300 mg DAILY GT 03/13/20 09:00 06/11/20 08:59 03/13/20 09:57 Insulin Aspart (NovoLOG) BEFORE MEALS AND HS SUBQ 03/13/20 11:30 06/11/20 11:29 Metoprolol Tartrate (Lopressor) 12.5 mg Q12HR ORAL 03/13/20 09:00 06/11/20 08:59 03/13/20 09:56 Nitroglycerin (Ntg) 0.4 mg Q5M X 3 DOSES PRN SL Prn Chest Pain 03/13/20 07:15 04/12/20 07:14 Ondansetron HCl (Zofran) 4 mg Q6H PRN IVP Nausea & Vomiting 03/13/20 07:15 04/12/20 07:14 Pantoprazole (Protonix) 40 mg EVERY 12 HOURS IV 03/13/20 21:00 04/12/20 20:59 UNV Pantoprazole 80 mg/Sodium Chloride 250 ml @ 25 mls/hr Q10H IV 03/13/20 10:30 04/12/20 10:29 03/13/20 10:01 Pioglitazone HCl (Actos) 15 mg DAILY GT 03/13/20 09:00 04/12/20 08:59 03/13/20 09:58 Polyethylene Glycol (Miralax) 17 gm HSPRN PRN GT Constipation 03/13/20 21:00 04/12/20 20:59 Risperidone (RisperDAL) 1 mg Q12HR GT 03/13/20 09:00 04/27/20 08:59 03/13/20 10:02 Assessment/Plan Problem List: (1) Upper GI bleeding ICD Codes: K92.2 - Gastrointestinal hemorrhage, unspecified SNOMED: 78953800 (2) COPD (chronic obstructive pulmonary disease) ICD Codes: J44.9 - Chronic obstructive pulmonary disease, unspecified SNOMED: 51273634 (3) CAD (coronary artery disease) ICD Codes: I25.10 - Atherosclerotic heart disease of [place] coronary artery without angina pectoris SNOMED: 10703589 (4) Alzheimer's dementia ICD Codes: G30.9 - Alzheimer's disease, unspecified; F02.80 - Dementia in other diseases classified elsewhere without behavioral disturbance SNOMED: 54135818 (5) Seizure disorder ICD Codes: G40.909 - Epilepsy, unspecified, not intractable, without status epilepticus SNOMED: 487849474 (6) Schizophrenia ICD Codes: F20.9 - Schizophrenia, unspecified SNOMED: 84301430 (7) Diabetes mellitus ICD Codes: E11.9 - Type 2 diabetes mellitus without complications SNOMED: 34569198 (8) Feeding by G-tube ICD Codes: Z93.1 - Gastrostomy status SNOMED: 884847975, 674070024, 714135224 Assessment/Plan: NPO iv fluids H2 blockers watch h/h check electrolytes sliding scale GI evaluation dvt prophylaxis. Anusha Richmond MD Mar 13, 2020 13:13
--- NOTE | 2020-03-13 14:38 | Consultation ---
History of Present Illness General Date patient seen: Mar 13, 2020 Chief Complaint: Vomiting Present Illness HPI 60 y/o M with hx of Bipolar disorder, CVA, Dementia, Dm2, CAD, scabies 2012, HTN , seizure disorder, COPD, dysphagia s/p GT, [place] resident (Tawanda Ackerman) presented to ED on 03/13/20 with productive cough and hematemesis (2 episodes of cofee-ground emesis) No fever Allergies: Coded Allergies: NO KNOWN DRUG ALLERGIES (Verified Allergy, Unknown, 05/14/19) Medication History Scheduled Al Hydroxide/mg Hydroxide (Mag-Al Liquid), 30 ML ORAL NEEDED, (Reported) Aripiprazole* (Abilify*), 5 MG ORAL BID, (Reported) Aspirin* (Aspirin*), 81 MG GT DAILY, (Reported) Bisacodyl (Dulcolax), 10 MG RECTAL NEEDED, (Reported) Clonazepam* (Klonopin*), 0.5 MG ORAL Q12H, (Reported) Docusate Sodium* (Colace*), 100 MG ORAL BEDTIME, (Reported) Ferrous Sulfate (Ferrous Sulfate), 5 ML ORAL DAILY, (Reported) Insulin Regular, Human* (Novolin R*), 0 SUBQ .SLIDING SCALE, (Reported) Ipratropium/Albuterol Sulfate (DuoNeb 0.5-3(2.5)mg/3ml), 3 ML HHN Q4H, (Reported ) Lactulose (Lactulose*), 30 ML GT DAILY, (Reported) Magnesium Hydroxide* (Milk Of Magnesia*), 30 ML ORAL DAILY, (Reported) Metoprolol Tartrate* (Metoprolol Tartrate*), 12.5 MG GT EVERY 12 HOURS, ( Reported) Multivitamin Liquid* (Multi-Delyn*), 5 ML GT DAILY, (Reported) Pioglitazone Hcl* (Actos*), 15 MG GT DAILY, (Reported) Risperidone* (Risperdal*), 1 MG GT TWICE A DAY, (Reported) Scheduled PRN Acetaminophen 160MG/5ML* (Acetaminophen*), 650 MG GT Q4HR PRN for MILD PAIN/T> 100.5, (Reported) Sennosides* (Sen-O-Tab*), 17.2 MG ORAL DAILY PRN for Constipation, (Reported) Miscellaneous Medications Lactobacillus Acidophilus (Acidophilus), 1 EACH GT, (Reported) Discontinued Medications Acetaminophen (Tylenol), 325 MG PO NEEDED, (Reported) Discontinued Reason: Medication dose changed Aripiprazole* (Abilify*), 5 MG ORAL BID, (Reported) Discontinued Reason: Medication dose changed Aripiprazole* (Abilify*), 5 MG GT DAILY, (Reported) Discontinued Reason: Medication dose changed Aspirin* (Aspirin*), 81 MG ORAL DAILY, (Reported) Discontinued Reason: Medication dose changed Atorvastatin Calcium* (Lipitor*), 10 MG ORAL BEDTIME, (Reported) Discontinued Reason: Pt stopped taking med Benztropine Mesylate* (Benztropine Mesylate*), 2 MG PO BID, (Reported) Discontinued Reason: MD discontinued med Calcium Carbonate/Vitamin D3 (Calcium 500 + D Tablet), 1 EACH PO, (Reported) Discontinued Reason: Pt stopped taking med Cefepime Hcl (Maxipime), 2 GM IV Q12HR, (Reported) Discontinued Reason: Pt stopped taking med Clonazepam* (Klonopin*), 0.5 MG ORAL EVERY 8 HOURS, (Reported) Discontinued Reason: Medication dose changed Clonazepam* (Klonopin*), 0.5 MG GT Q6H, (Reported) Discontinued Reason: Medication dose changed Divalproex Sodium (Divalproex Sodium), 750 MG ORAL THREE TIMES A DAY, (Reported) Discontinued Reason: Pt stopped taking med Ferrous Sulfate* (Ferrous Sulfate*), 325 MG ORAL DAILY, (Reported) Discontinued Reason: Pt stopped taking med Ferrous Sulfate* (Ferrous Sulfate*), 325 MG GT DAILY, (Reported) Discontinued Reason: Pt stopped taking med Fluphenazine HCl (Fluphenazine HCl), 5 MG ORAL THREE TIMES A DAY, (Reported) Discontinued Reason: Therapy completed Guaifenesin/Dextromethorphan (Guaifenesin Dm Syrup), 10 ML PO, (Reported) Discontinued Reason: Pt stopped taking med Insulin Regular, Human (Humulin R), 0 SUBQ, (Reported) Discontinued Reason: Therapy completed Ipratropium/Albuterol Sulfate (Duoneb 0.5 Mg-3 Mg/3 Ml Soln), 3 ML IH, (Reported ) Discontinued Reason: Medication dose changed Lactulose (Lactulose*), 30 ML ORAL, (Reported) Discontinued Reason: Medication dose changed Lactulose (Lactulose*), 30 ML GT, (Reported) Discontinued Reason: Medication dose changed Levocarnitine (Carnitor), 330 MG ORAL THREE TIMES A DAY, (Reported) Discontinued Reason: Pt stopped taking med Lorazepam* (Lorazepam*), 1 MG ORAL NEEDED, (Reported) Discontinued Reason: Pt stopped taking med Magnesium Hydroxide* (Milk Of Magnesia*), 30 ML ORAL DAILY, (Reported) Discontinued Reason: Medication dose changed Metoprolol Succinate* (Metoprolol Succinate*), 12.5 MG ORAL BID PRN, (Reported) Discontinued Reason: Medication dose changed Midodrine* (Proamatine*), 5 MG ORAL THREE TIMES A DAY, (Reported) Discontinued Reason: Pt stopped taking med Na Phos,M-B/Na Phos,Di-Ba* (Fleet Enema*), 133 ML RECTAL DAILY, (Reported) Discontinued Reason: Pt stopped taking med Pioglitazone Hcl* (Actos*), 15 MG ORAL DAILY, (Reported) Discontinued Reason: Medication dose changed Pioglitazone Hcl* (Actos*), 15 MG GT DAILY, (Reported) Discontinued Reason: Medication dose changed Pioglitazone Hcl* (Actos*), 15 MG GT DAILY, (Reported) Discontinued Reason: Medication dose changed Quetiapine Fumarate* (Quetiapine Fumarate*), 50 MG ORAL DAILY, (Reported) Discontinued Reason: Pt stopped taking med Risperidone* (Risperdal*), 1 MG ORAL TID Discontinued Reason: Medication dose changed Risperidone* (Risperdal*), 1 MG GT DAILY, (Reported) Discontinued Reason: Medication dose changed Sennosides (Senna), 8.6 MG GT, (Reported) Discontinued Reason: Medication dose changed Sertraline Hcl* (Zoloft*), 50 MG ORAL BID PRN, (Reported) Discontinued Reason: Pt stopped taking med Travoprost (Travatan Z), 5 ML BOTH EYES, (Reported) Discontinued Reason: Therapy completed Valproate Sodium (Valproate Sodium), 1,000 MG GT BID, (Reported) Discontinued Reason: Pt stopped taking med Vancomycin/Water For Inj (Vancomycin 1.5 Gram/300 ml Bag), 1.25 GM IV Q12HR, ( Reported) Discontinued Reason: Therapy completed Zolpidem Tartrate* (Ambien*), 10 MG ORAL BEDTIME PRN for Insomnia, (Reported) Discontinued Reason: Pt stopped taking med Patient History Healthcare decision maker Resuscitation status Advanced Directive on File Patient History Narrative Pmhx: as above Shx: reviewed Fhx: non contributory Review of Systems All Other Systems: negative except mentioned in HPI Physical Exam Physical Exam Narrative General: Awake, Pleasant, cooperative, no acute distress HEENT: NC/AT. EOMI. edentulous. Cardiovascular: RRR. S1 and S2 normal. No murmur appreciated Resp: Productive cough in the room. No respiratory distress. Abdomen: Abdomen is soft, nondistended. Nontender. PEG tube in place. No evidence surrounding edema erythema or infection Skin: Intact. No abrasions, laceration or rash over the exposed skin Last 24 Hour Vital Signs Date Time Temp Pulse Resp B/P (MAP) Pulse Ox O2 Delivery O2 Flow Rate FiO2 03/13/20 12:00 97.6 86 19 124/83 (97) 98 03/13/20 12:00 78 03/13/20 11:30 Room Air 03/13/20 10:27 97.9 03/13/20 09:56 97 128/65 03/13/20 06:30 99.4 97 18 128/65 97 Room Air 03/13/20 05:00 99.4 97 18 128/65 97 Room Air 03/13/20 03:00 99.0 102 22 132/68 94 Room Air 03/13/20 01:50 91 20 Room Air 03/13/20 01:50 91 20 129/64 91 Room Air 03/13/20 00:18 91 20 129/64 (85) 91 Room Air Laboratory Tests Test 03/13/20 01:25 03/13/20 01:40 03/13/20 11:42 White Blood Count 16.9 K/UL (4.8-10.8) H Red Blood Count 4.66 M/UL (4.70-6.10) L Hemoglobin 14.0 G/DL (14.2-18.0) L Hematocrit 42.3 % (42.0-52.0) Mean Corpuscular Volume 91 FL (80-99) Mean Corpuscular Hemoglobin 30.0 PG (27.0-31.0) Mean Corpuscular Hemoglobin Concent 33.0 G/DL (32.0-36.0) Red Cell Distribution Width 13.0 % (11.6-14.8) Platelet Count 291 K/UL (150-450) Mean Platelet Volume 5.5 FL (6.5-10.1) L Neutrophils (%) (Auto) % (45.0-75.0) Lymphocytes (%) (Auto) % (20.0-45.0) Monocytes (%) (Auto) % (1.0-10.0) Eosinophils (%) (Auto) % (0.0-3.0) Basophils (%) (Auto) % (0.0-2.0) Prothrombin Time 10.7 SEC (9.30-11.50) Prothromb Time International Ratio 1.0 (0.9-1.1) Activated Partial Thromboplast Time 24 SEC (23-33) Sodium Level 141 MMOL/L (136-145) Potassium Level 3.6 MMOL/L (3.5-5.1) Chloride Level 106 MMOL/L (98-107) Carbon Dioxide Level 30 MMOL/L (21-32) Anion Gap 5 mmol/L (5-15) Blood Urea Nitrogen 12 mg/dL (7-18) Creatinine 1.0 MG/DL (0.55-1.30) Estimat Glomerular Filtration Rate > 60 mL/min (>60) Glucose Level 134 MG/DL (74-106) H Calcium Level 9.0 MG/DL (8.5-10.1) Total Bilirubin 0.3 MG/DL (0.2-1.0) Aspartate Amino Transf (AST/SGOT) 20 U/L (15-37) Alanine Aminotransferase (ALT/SGPT) 20 U/L (12-78) Alkaline Phosphatase 107 U/L (46-116) Troponin I 0.000 ng/mL (0.000-0.056) Total Protein 8.2 G/DL (6.4-8.2) Albumin 3.9 G/DL (3.4-5.0) Globulin 4.3 g/dL Albumin/Globulin Ratio 0.9 (1.0-2.7) L Lipase 82 U/L (73-393) Urine Color Yellow Urine Appearance Clear Urine pH 8 (4.5-8.0) Urine Specific Donora 1.010 (1.005-1.035) Urine Protein Negative (NEGATIVE) Urine Glucose (UA) Negative (NEGATIVE) Urine Ketones 1+ (NEGATIVE) H Urine Blood Negative (NEGATIVE) Urine Nitrite Negative (NEGATIVE) Urine Bilirubin Negative (NEGATIVE) Urine Urobilinogen 1 MG/DL (0.0-1.0) H Urine Leukocyte Esterase Negative (NEGATIVE) POC Whole Blood Glucose 105 MG/DL (74-106) Microbiology Date/Time Source Procedure Growth Status 03/13/20 01:40 Nasopharynx SARS-CoV-2 RdRp Gene Assay - Final Complete Height (Feet): 6 Height (Inches): 0.00 Weight (Pounds): 170 Medications Current Medications Medications (Trade) Dose Ordered Sig/Barry Route PRN Reason Start Time Stop Time Status Last Admin Dose Admin Acetaminophen (Tylenol) 650 mg Q4H PRN GT T>100.5 03/13/20 07:45 04/12/20 07:44 03/13/20 09:57 Aripiprazole (Abilify) 5 mg BID ORAL 03/13/20 10:00 04/27/20 09:59 03/13/20 10:09 Clonazepam (KlonoPIN) 0.5 mg Q12H PRN GT ANXIETY 03/13/20 09:00 03/20/20 08:59 Dextrose (Dextrose 50%) 25 ml Q30M PRN IV Hypoglycemia 03/13/20 08:00 06/11/20 07:59 Dextrose (Dextrose 50%) 50 ml Q30M PRN IV Hypoglycemia 03/13/20 07:15 06/11/20 07:14 Dextrose/Sodium Chloride 1,000 ml @ 75 mls/hr [id number] IV 03/13/20 07:30 04/12/20 07:29 03/13/20 10:02 Diphenhydramine HCl (Benadryl) 25 mg Q6H PRN GT Itching 03/13/20 07:45 04/12/20 07:44 Ferrous Sulfate (Feosol) 300 mg DAILY GT 03/13/20 09:00 06/11/20 08:59 03/13/20 09:57 Insulin Aspart (NovoLOG) BEFORE MEALS AND HS SUBQ 03/13/20 11:30 06/11/20 11:29 Metoprolol Tartrate (Lopressor) 12.5 mg Q12HR ORAL 03/13/20 09:00 06/11/20 08:59 03/13/20 09:56 Nitroglycerin (Ntg) 0.4 mg Q5M X 3 DOSES PRN SL Prn Chest Pain 03/13/20 07:15 04/12/20 07:14 Ondansetron HCl (Zofran) 4 mg Q6H PRN IVP Nausea & Vomiting 03/13/20 07:15 04/12/20 07:14 Pantoprazole (Protonix) 40 mg EVERY 12 HOURS IV 03/13/20 21:00 04/12/20 20:59 Pioglitazone HCl (Actos) 15 mg DAILY GT 03/13/20 09:00 04/12/20 08:59 03/13/20 09:58 Polyethylene Glycol (Miralax) 17 gm HSPRN PRN GT Constipation 03/13/20 21:00 04/12/20 20:59 Risperidone (RisperDAL) 1 mg Q12HR GT 03/13/20 09:00 04/27/20 08:59 03/13/20 10:02 Assessment/Plan Assessment/Plan: Abx: Ceftriaxone 03/13 x1 Assessment: COVID 19 neg x1 (03/13 Rapid COVID PCR neg) Sepsis vs SIRS Afebrile leukocytosis -?reactive -CXR: no acute disease -u/a neg Coffee-ground emesis Bipolar disorder CVA Dementia Dm2 CAD scabies 2012 HTN seizure disorde COPD dysphagia s/p [place] resident (Tawanda Ackerman) Plan: -Continue empiric Ceftriaxone #1 for now -f/u cx -Monitor CBC/CMP, temperatures -GI f/u -aspiration precautions Thank you for this consultation. Will continue to follow along with you. Discussed with Teri Perkins M.D. Mar 13, 2020 14:38
--- NOTE | 2020-03-13 14:45 | Consultation ---
DATE OF CONSULTATION: 03/13/2020 CONSULTING PHYSICIAN: Prince Hines MD. CHIEF COMPLAINT: Coffee-ground emesis. HISTORY OF PRESENT ILLNESS: Most of history per chart. This is a 60-year-old male with past medical history of COPD, diabetes, seizure disorder, bipolar disorder, status post PEG placement, came to the [facility] for coffee-ground emesis. PAST MEDICAL HISTORY: 1. COPD. 2. Diabetes. 3. Seizure disorder. 4. Bipolar disorder. 5. History of dysphagia requiring PEG placement. ALLERGIES: No known allergies. MEDICATIONS: Please see medication reconciliation list. FAMILY HISTORY: Noncontributory. SOCIAL HISTORY: Currently lives in a [facility]. No history of recent tobacco, alcohol, or drug abuse. REVIEW OF SYSTEMS: Limited. PHYSICAL EXAMINATION: VITAL SIGNS: Temperature 97.6, pulse 78, respirations 19, blood pressure is 124/83. HEENT: Normocephalic, atraumatic. Sclerae anicteric. NECK: Supple. No evidence of obvious lymphadenopathy. CARDIOVASCULAR: Rhythm rate and rhythm. Plus S1 and S2. LUNGS: Decreased breath sounds bilaterally and diffusely based on the supine exam. ABDOMEN: Soft, nontender. No rebound. No guarding. No peritoneal sign. G-tube in place. EXTREMITIES: No cyanosis. No clubbing. No edema. LABORATORY DATA: White count 16,000, hemoglobin 14, hematocrit 42, platelet count is 291. ASSESSMENT AND PLAN: This is a 60-year-old male with numerous medical problems admitted to the hospital with coffee-ground emesis. Plan to keep him NPO for today, start him on Protonix 40 mg q.12h. Plan to do an endoscopy tomorrow for evaluation of upper GI bleeding. Prince Hines M.D. DR: ROCKY JOB#: [id number] CC:
[2020-03-13] MEDS ORDERED: LORazepam 1mg tab GT PRN (15:00)
--- NOTE | 2020-03-13 15:44 | History and Physical Report ---
DATE OF ADMISSION: 03/13/2020 TIME SEEN: At 12 noon. CONSULTANTS: 1. Prince Hines MD. 2. Antony Berger MD. 3. Anusha Richmond MD. 4. Shyla Fleming MD. CHIEF COMPLAINT: Coffee-ground emesis, cough. BRIEF HISTORY: This is a 60-year-old male from [facility], who presented with above-mentioned diagnoses, diagnosed with GI bleed and cough, admitted to telemetry for further care. Currently, slightly confused in bed, calm, not talking much. REVIEW OF SYSTEMS: Unavailable. PAST MEDICAL HISTORY: Includes epilepsy, diabetes, hypertension, weakness, schizophrenia, COPD, asthma, dementia, GERD, and failure to thrive. PAST SURGICAL HISTORY: Unknown. ALLERGIES: Denies. MEDICATIONS: Include MiraLAX, Protonix, NovoLog, pantoprazole, Abilify, Risperdal, Klonopin, Lopressor, ferrous sulfate, pioglitazone, and Tylenol. SOCIAL HISTORY: Positive smoke. Positive alcohol. No intravenous drug abuse. FAMILY HISTORY: Noncontributory. PHYSICAL EXAMINATION: GENERAL: Calm in bed, oriented x2, in no acute distress. VITAL SIGNS: Temperature is 97 degrees, pulse 78, respirations 19, and blood pressure 124/83. CARDIOVASCULAR: No murmurs. LUNGS: Distant and clear. ABDOMEN: Bowel sound positive. Nontender. Nondistended. EXTREMITIES: No cyanosis, clubbing, or edema. NEUROLOGIC: The patient moves all extremities, but very weak. LABORATORY AND DIAGNOSTIC DATA: Labs at this time show white count 16.9, hemoglobin and hematocrit 14/42, and platelets 291,000. BMP shows glucose 134. Troponin 0.00, otherwise normal. Urinalysis show 1+ ketone. ASSESSMENT: 1. GI bleed. 2. Cough. 3. Epilepsy. 4. Diabetes. 5. Hypertension. 6. Weakness. 7. Schizophrenia. 8. COPD. 9. Dementia. 10. GERD. 11. Failure to thrive. PLAN: 1. NPO. 2. IV fluids. 3. Diet per GI. 4. Blood pressure, blood sugar, and pain control. 5. Dietary followup. 6. Resume home medications. 7. CBC and BMP in the morning. 8. PT and dietary evaluation. Silas Ng D.O. DR: RACHEL JOB#: [id number] CC:
[2020-03-13 16:00] VITALS: BP 128/82
--- NOTE | 2020-03-13 16:29 | Consultation ---
DATE OF CONSULTATION: 03/13/2020 CONSULTING PHYSICIAN: Shyla Fleming MD. HISTORY OF PRESENT ILLNESS: This is a 60-year-old male patient who has a history of GI bleeding. This patient actually came to the hospital because of GI bleeding, but he has lot of other medical problems. Because he has a diagnosis of paranoid schizophrenia, rule out schizoaffective bipolar type, daily psychiatric consultation requested by this patient's attending physician. I saw and assessed the patient at bedside. He does have some mood lability paranoia. He is slightly resistant to interview; however, he has some psychomotor agitation while interview. MEDICAL PROBLEMS: He has history of COPD, diabetes, seizure disorder. This patient has overlying diagnosis of upper GI bleed, Alzheimer's, coronary artery disease, dehydration. ALLERGIES: No known drug allergies. PSYCHOTROPIC MEDICATIONS ON ADMISSION: According to the documentation, he is on Abilify 5 mg twice a day and he is on a medication regimen of Risperdal 1 mg per G-tube twice a day. PAIN ASSESSMENT: 09/10 pain. SUBSTANCE ABUSE HISTORY: Patient is denying use of any drugs or alcohol at this time. DEVELOPMENTAL PROBLEMS: Denies. FAMILY PSYCHIATRIC HISTORY: Denies. SOCIAL HISTORY: Patient lives in [facility]. Financially supported by [employer] and Medicare. PSYCHIATRIC HISTORY: Paranoid schizophrenia. Patient denies any previous psychiatric admissions. STRENGTHS: He is motivated to get better and he is healthy. WEAKNESSES: He is impulsive, minimal support system. MENTAL STATUS EXAMINATION: This is a 60-year-old male. Appearance is disheveled. Attitude, irritable and agitated. Affect, guarded and restricted. Intellect poor. Mood, depressed and anxious. Motor activity, psychomotor agitation. Attention span is poor because he cannot do serial sevens or spell world backwards. Orientation x2. He is oriented to person and place, not time or situation. Speech is pressured, nonsensical. Thought process, disorganized and illogical. Thought content, auditory hallucinations and paranoid delusions. Perception is poor because of perceptual disturbance such as auditory hallucinations and paranoid delusions. Abstract reasoning is poor because he does not understand proverbs and only has concrete thinking. Insight is poor because he does not recognize having any psychiatric disorder. Judgment is poor. He does not accept consequences for his actions. He denies any current suicidal or homicidal thoughts. Short-term memory, 0/3 of 3-word recall, so poor short-term memory. Long-term memory is intact based on the knowledge of long-term events in his life such as high school that he went to. DIAGNOSES: 1. Paranoid schizophrenia with acute exacerbation, rule out schizoaffective bipolar type. 2. There is no secondary. 3. Medical diagnoses include COPD, diabetes, seizure disorder. 4. Psychosocial stressors, financial. 5. Function impairment, severe. PLAN: Plan for this patient is I am going to start this patient on a medication regimen of Risperdal 1 mg per G-tube twice a day and Abilify 5 mg twice a day. Also I am going to add a dose of Ativan at a dose of 1 mg every 6 hours p.r.n. anxiety and agitation. Twenty minutes of cognitive behavioral therapy to help him identify his automatic negative thoughts, help him convert his negative thoughts to more positive thoughts to reduce depression, anxiety, and mood lability. Chart reviewed. Discussed with staff. Seen and assessed at the bedside. Twenty minutes of cognitive behavioral therapy provided. Shyla Fleming M.D. DR: SOBEIDA JOB#: [id number] CC:
--- NOTE | 2020-03-13 19:20 | NUR ---
NURSE NOTES: Report received from Sharon LEUNG. Patient is awake alert and oriented x2. No SOB or acute distress. Patient makes garbled inappropriate noises. Received endorsement from Sharon that Dr. Hines unable to contact [facility] to explain procedure and obtain consent for EGD with possible biopsy for AM, stating that office is now closed. Charge nurse, [place] made aware. Bed at lowest position locked with side rails up and bed alarm activated. Call light and bed side table within reach. cafeteria monitor intact. Will continue to follow with patient's plan of care.
--- NOTE | 2020-03-13 19:30 | NUR ---
NURSE HAND-OFF REPORT: Important Events on Shift: admitted from ER , EGD w possible biopsy planned for tmr Patient Status: fc, stable Diet: NPO except meds Pending Orders: Pending Results/Labs: Pending MD notification: AWAITING MD TO CALL CONSERVATOR TO EXPLAIN PROCEDURE TO GET CONSENT. Latest Vital Signs: Temperature 97.5 , Pulse 70 , B/P 128 /82 , Respiratory Rate 18 , O2 SAT 98 , Room Air, O2 Flow Rate . Vital Sign Comment: EKG Rhythm: Sinus Rhythm Rhythm change?: N MD Notified?: - MD Response: Latest Vargas Fall Score: 95 Fall Risk: High Risk Safety Measures: Call light Within Reach, Bed Alarm Zone 2, Side Rails Side Rails x2, Bed position Low and Locked. Fall Precautions: Yellow Socks Yellow Gown Door Sign Patient Fall Education Report given to []. Addendum: 03/13/20 at 1946 by Sharon Saeed RN RN report given to Slime LEUNG
[2020-03-13 20:00] VITALS: BP 153/82
[2020-03-13] MEDS ORDERED: Miralax 17gm pkt GT PRN (21:00)
[2020-03-13] MEDS: Pantoprazole Inj IV SCH (21:16)
[2020-03-14] VITALS (7 sets, daily range): BP systolic 118–160; BP diastolic 68–91
[2020-03-14] MEDS: NovoLOG Insulin Flexpen SUBQ SCH ×4 (06:30→21:00)
--- NOTE | 2020-03-14 06:55 | Anethesia Preoperative Eval ---
Anesthesia Pre-op PMH/ROS General Date of Evaluation: Mar 14, 2020 Anesthesiologist: Andres ASA Score: ASA 4 Mallampati Score Class I : Soft palate, uvula, fauces, pillars visible Class II: Soft palate, uvula, fauces visible Class III: Soft palate, base of uvula visible Class IV: Only hard plate visible Mallampati Classification: Class II Surgeon: Donny Diagnosis: Rule out GI bleed Surgical Procedure: EGD Anesthesia History: none Family History: no anesthesia problems Allergies: Coded Allergies: NO KNOWN DRUG ALLERGIES (Verified Allergy, Unknown, 05/14/19) Medications: see eMAR Patient NPO?: Yes NPO Date: Mar 14, 2020 NPO Time: 00:00 Past Medical History Cardiovascular: Reports: HTN, CAD; Denies: [place], valve dz, arrhythmia, other Pulmonary: Reports: COPD; Denies: asthma, DENISE, other Gastrointestinal/Genitourinary: Reports: GERD; Denies: CRI, ESRD, other Neurologic/Psychiatric: Reports: dementia - alzheimers, CVA, other - Bipolar, h /o seizures; Denies: depression/anxiety, TIA Endocrine: Reports: DM; Denies: hypothyroidism, steroids, other HEENT: Reports: cataract (L), cataract (R), glaucoma; Denies: [place] (L), [place] (R), other Hematology/Immune: Reports: anemia - acute on chronic; Denies: DVT, bleeding disorder, other Musculoskeletal/Integumentary: Denies: OA, RA, DJD, DDD, edema, other PSxH Narrative: Unable to assess Anesthesia Pre-op Phys. Exam Physician Exam Last Vital Signs Date Time Temp Pulse Resp B/P (MAP) Pulse Ox O2 Delivery O2 Flow Rate FiO2 03/14/20 04:00 71 03/14/20 04:00 97.9 20 152/91 (111) 98 03/13/20 21:00 Room Air Constitutional: NAD Cardiovascular: RRR Respiratory: CTA Airway Exam Mallampati Score: Class II MO: full ROM: full Anesthesia Pre-op A/P Labs Chemistry Test 03/13/20 11:42 03/13/20 17:04 POC Whole Blood Glucose 105 MG/DL (74-106) 104 MG/DL (74-106) Risk Assessment & Plan Assessment: ASA IV Plan: MAC Status Change Before Surgery: No Pre-Antibiotics Drug: N/A Marisa Campos MD Mar 14, 2020 06:55
[2020-03-14] MEDS ORDERED: DiphenhydrAMINE 50mg/ml Inj IVP PRN (07:00)
[2020-03-14] MEDS ORDERED: LORazepam Inj 2mg/ml 1ml IV PRN (07:00)
--- NOTE | 2020-03-14 07:15 | NUR ---
NURSE HAND-OFF REPORT: Important Events on Shift:[No consent received yet from [facility]. Dr. Hines aware, Spoke with GI lab, Slim, stated that she will contact Dr. Hines, Patient has been NPO since midnight. Left EJ IV line started, by nursing staff because patient removed previous IV site. IV site intact.] Patient Status: [Alert oriented x2, periods of confusion and rambling, Stable] Diet: [NPO midnight] Pending Orders: [Consent for EGD with possible biopsy] Pending Results/Labs:[] Pending MD notification:[] Latest Vital Signs: Temperature 97.9 , Pulse 71 , B/P 152 /91 , Respiratory Rate 20 , O2 SAT 98 , Room Air, O2 Flow Rate . Vital Sign Comment: [] EKG Rhythm: Sinus Rhythm Rhythm change?: N MD Notified?: - MD Response: Latest Vargas Fall Score: 95 Fall Risk: High Risk Safety Measures: Call light Within Reach, Bed Alarm Zone 2, Side Rails Side Rails x2, Bed position Low and Locked. Fall Precautions: Yellow Socks Yellow Gown Door Sign Patient Fall Education Report given to [XOCHITL Ojeda].
--- NOTE | 2020-03-14 07:30 | NUR ---
NURSE NOTES: Received report from XOCHITL Palencia. Patient AAO x1, speech delayed, garbled. Patient opens eyes spontaneously. Denies pain. No acute distress. Breathing regular, unlabored. Patient has intermittent cough, orally suctioned thin, white secretions. Radial pulses palpable, equal. Abdomen soft, non-tender. IV patent, no redness or edema. Sacrum, bilateral heel, and scrotal redness noted. Sacrum and heels covered with optifoam. Side rails raised x3, bed low and locked, alarm on, call light in reach.
[2020-03-14] MEDS ORDERED: cefTRIAXone 1 GM in D5W 55 ML IVPB SCH (09:00)
--- NOTE | 2020-03-14 09:08 | General Progress Note ---
Assessment/Plan Problem List: (1) Upper GI bleeding ICD Codes: K92.2 - Gastrointestinal hemorrhage, unspecified SNOMED: 00818005 (2) Leukocytosis ICD Codes: D72.829 - Elevated white blood cell count, unspecified SNOMED: 246239839, [id number] (3) Schizophrenia ICD Codes: F20.9 - Schizophrenia, unspecified SNOMED: 16682908 (4) Diabetes mellitus ICD Codes: E11.9 - Type 2 diabetes mellitus without complications SNOMED: 64721386 (5) Seizure disorder ICD Codes: G40.909 - Epilepsy, unspecified, not intractable, without status epilepticus SNOMED: 520224345 (6) Alzheimer's dementia ICD Codes: G30.9 - Alzheimer's disease, unspecified; F02.80 - Dementia in other diseases classified elsewhere without behavioral disturbance SNOMED: 59310267 (7) COPD (chronic obstructive pulmonary disease) ICD Codes: J44.9 - Chronic obstructive pulmonary disease, unspecified SNOMED: 95430505 Status: unchanged Assessment/Plan: pt diet abx gi f/u cbc bmp am aru eval Subjective Constitutional: Reports: weakness Allergies: Coded Allergies: NO KNOWN DRUG ALLERGIES (Verified Allergy, Unknown, 05/14/19) All Systems: reviewed and negative except above Subjective sleepy calm Objective Last 24 Hour Vital Signs Date Time Temp Pulse Resp B/P (MAP) Pulse Ox O2 Delivery O2 Flow Rate FiO2 03/14/20 08:00 96.8 87 20 132/79 (96) 96 03/14/20 08:00 Room Air 03/14/20 04:00 71 03/14/20 04:00 97.9 83 20 152/91 (111) 98 03/14/20 00:00 98.1 81 20 118/76 (90) 97 03/14/20 00:00 71 03/13/20 21:16 81 151/87 03/13/20 21:00 Room Air 03/13/20 20:00 97.9 81 20 153/82 (105) 97 03/13/20 20:00 83 03/13/20 16:00 70 03/13/20 16:00 97.5 86 18 128/82 (97) 98 03/13/20 12:00 97.6 86 19 124/83 (97) 98 9/10/20 12:00 78 03/13/20 11:30 Room Air 03/13/20 10:27 97.9 03/13/20 09:56 97 128/65 Intake and Output 03/13/20 03/14/20 19:00 07:00 Intake Total 150 ml 100 ml Output Total 750 ml Balance -600 ml 100 ml Intake Oral 0 ml 100 ml Free Water 150 ml Output Urine Total 750 ml # Voids 4 1 Laboratory Tests 03/13/20 11:42: POC Whole Blood Glucose 105 03/13/20 17:04: POC Whole Blood Glucose 104 03/14/20 08:20: White Blood Count [Pending], Red Blood Count [Pending], Hemoglobin [Pending], Hematocrit [Pending], Mean Corpuscular Volume [Pending], Mean Corpuscular Hemoglobin [Pending], Mean Corpuscular Hemoglobin Concent [Pending], Red Cell Distribution Width [Pending], Platelet Count [Pending], Mean Platelet Volume [ Pending], Neutrophils (%) (Auto) [Pending], Lymphocytes (%) (Auto) [Pending], Monocytes (%) (Auto) [Pending], Eosinophils (%) (Auto) [Pending], Basophils (%) (Auto) [Pending], Prothrombin Time [Pending], Prothromb Time International Ratio [Pending], Activated Partial Thromboplast Time [Pending], Sodium Level [ Pending], Potassium Level [Pending], Chloride Level [Pending], Carbon Dioxide Level [Pending], Blood Urea Nitrogen [Pending], Creatinine [Pending], Estimat Glomerular Filtration Rate [Pending], Glucose Level [Pending], Calcium Level [ Pending], Total Bilirubin [Pending], Aspartate Amino Transf (AST/SGOT) [Pending] , Alanine Aminotransferase (ALT/SGPT) [Pending], Alkaline Phosphatase [Pending] , Total Protein [Pending], Albumin [Pending], Globulin [Pending], Amylase Level [Pending], Lipase [Pending] Height (Feet): 5 Height (Inches): 11.00 Weight (Pounds): 151 General Appearance: lethargic EENT: normal ENT inspection Neck: normal alignment Cardiovascular: normal peripheral pulses, normal rate, regular rhythm Respiratory/Chest: chest wall non-tender, lungs clear, normal breath sounds Abdomen: normal bowel sounds, non tender, soft Extremities: normal inspection Edema: no edema noted Arm (L), no edema noted Arm (R), no edema noted Leg (L), no edema noted Leg (R), no edema noted Pedal (L), no edema noted Pedal (R), no edema noted Generalized Neurologic: motor weakness Skin: normal pigmentation, warm/dry Silas Ng DO Mar 14, 2020 09:08
[2020-03-14 09:11] LABS: BASOPHILS % (AUTO) 1.5 % (0.0-2.0); EOSINOPHILS % (AUTO) 1.3 % (0.0-3.0); HEMATOCRIT 38.8 % (42.0-52.0); HEMOGLOBIN 12.8 G/DL (14.2-18.0); LYMPHOCYTES % (AUTO) 7.9 % (20.0-45.0); MEAN CORPUSCULAR VOLUME 90 FL (80-99); MONOCYTES % (AUTO) 7.1 % (1.0-10.0); NEUTROPHILS % (AUTO) 82.2 % (45.0-75.0); PLATELET COUNT 238 K/UL (150-450); RED BLOOD COUNT 4.29 M/UL (4.70-6.10); RED CELL DISTRIBUTION WIDTH 12.7 % (11.6-14.8); WHITE BLOOD COUNT 10.9 K/UL (4.8-10.8)
[2020-03-14] MEDS: Ferrous Sulfate 300 MG/5 ML UDC GT SCH (09:16)
[2020-03-14] MEDS: Pantoprazole Inj IV SCH ×2 (09:16→21:14)
[2020-03-14] MEDS: Metoprolol Tartrate 12.5mg TAB ORAL SCH ×2 (09:17→21:15)
[2020-03-14 09:39] LABS: ALANINE AMINOTRANSFERASE 18 U/L (12-78); ALBUMIN 3.1 G/DL (3.4-5.0); ALBUMIN/GLOBULIN RATIO 0.8 (1.0-2.7); ALKALINE PHOSPHATASE 93 U/L (46-116); AMYLASE 85 U/L (25-115); ANION GAP 8 mmol/L (5-15); ASPARTATE AMINO TRANSFERASE 21 U/L (15-37); BILIRUBIN,TOTAL 0.4 MG/DL (0.2-1.0); BLOOD UREA NITROGEN 4 mg/dL (7-18); CALCIUM 8.9 MG/DL (8.5-10.1); CARBON DIOXIDE 26 MMOL/L (21-32); CHLORIDE 106 MMOL/L (98-107); CREATININE 0.6 MG/DL (0.55-1.30); POTASSIUM 3.6 MMOL/L (3.5-5.1); SODIUM 140 MMOL/L (136-145)
--- NOTE | 2020-03-14 09:48 | General Progress Note ---
Assessment/Plan Status: unchanged Assessment/Plan: 1. COPD. 2. Diabetes. 3. Seizure disorder. 4. Bipolar disorder. 5. History of dysphagia requiring PEG placement. 6. GIB unable to get consent for EGD given stable H&H will hold ogg resume GTF ppi EGD on Tuesday if needed Subjective ROS Limited/Unobtainable: No Allergies: Coded Allergies: NO KNOWN DRUG ALLERGIES (Verified Allergy, Unknown, 05/14/19) Objective Last 24 Hour Vital Signs Date Time Temp Pulse Resp B/P (MAP) Pulse Ox O2 Delivery O2 Flow Rate FiO2 03/14/20 09:17 87 132/79 03/14/20 08:00 96.8 87 20 132/79 (96) 96 03/14/20 08:00 Room Air 03/14/20 04:00 71 03/14/20 04:00 97.9 83 20 152/91 (111) 98 03/14/20 00:00 98.1 81 20 118/76 (90) 97 03/14/20 00:00 71 03/13/20 21:16 81 151/87 03/13/20 21:00 Room Air 03/13/20 20:00 97.9 81 20 153/82 (105) 97 03/13/20 20:00 83 03/13/20 16:00 70 03/13/20 16:00 97.5 86 18 128/82 (97) 98 03/13/20 12:00 97.6 86 19 124/83 (97) 98 03/13/20 12:00 78 03/13/20 11:30 Room Air 03/13/20 10:27 97.9 03/13/20 09:56 97 128/65 Intake and Output 03/13/20 03/14/20 19:00 07:00 Intake Total 150 ml 100 ml Output Total 750 ml Balance -600 ml 100 ml Intake Oral 0 ml 100 ml Free Water 150 ml Output Urine Total 750 ml # Voids 4 1 Laboratory Tests 03/13/20 11:42: POC Whole Blood Glucose 105 03/13/20 17:04: POC Whole Blood Glucose 104 03/14/20 08:20: White Blood Count 10.9H, Red Blood Count 4.29L, Hemoglobin 12.8L, Hematocrit 38.8L, Mean Corpuscular Volume 90, Mean Corpuscular Hemoglobin 29.7, Mean Corpuscular Hemoglobin Concent 32.9, Red Cell Distribution Width 12.7, Platelet Count 238, Mean Platelet Volume 5.2L, Neutrophils (%) (Auto) 82.2H, Lymphocytes (%) (Auto) 7.9L, Monocytes (%) (Auto) 7.1, Eosinophils (%) (Auto) 1.3, Basophils (%) (Auto) 1.5, Prothrombin Time 11.2, Prothromb Time International Ratio 1.0, Activated Partial Thromboplast Time 27, Sodium Level 140, Potassium Level 3.6, Chloride Level 106, Carbon Dioxide Level 26, Anion Gap 8, Blood Urea Nitrogen 4L, Creatinine 0.6, Estimat Glomerular Filtration Rate > 60, Glucose Level 133H, Calcium Level 8.9, Total Bilirubin 0.4, Aspartate Amino Transf (AST/ SGOT) 21, Alanine Aminotransferase (ALT/SGPT) 18, Alkaline Phosphatase 93, Total Protein 7.1, Albumin 3.1L, Globulin 4.0, Albumin/Globulin Ratio 0.8L, Amylase Level 85, Lipase 51L Height (Feet): 5 Height (Inches): 11.00 Weight (Pounds): 151 General Appearance: no apparent distress EENT: TMs normal Neck: supple Cardiovascular: normal rate Respiratory/Chest: decreased breath sounds Abdomen: hypoactive bowel sounds Extremities: non-tender Prince Hines MD Mar 14, 2020 09:48
--- NOTE | 2020-03-14 10:03 | NUR ---
P.T Note: P.T evaluation completed and tx initiated. Pt is alert, oriented to self/person but not to time and place. Pt however able to verbalized needs and follows commands appropriately. Pt had no c/o pain nor discomfort during the entire P.T evaluation. Pt appeared generally weak and deconditioned which requires MOD A X 1 and verbal/manual cues in bed mobilities and transfer activities. Pt was able to sit unsupported , was able to stand with Mod support using the FWW however to weak to take steps. Pt will benefit from skilled P.T service to improve his strength, balance and endurance to increase mobility independence and safety. Recommend DC to prior living arrangement with continued P.T. intervention when ready to DC from this hospital. Thank you for this referral.
[2020-03-14] MEDS: D5 1/2NS 1,000 ML IV SCH (10:10)
--- NOTE | 2020-03-14 11:40 | NUR ---
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 CURRENT TF:Glucerna 1.2 @ 60ml/hr x 24 hrs ENTERAL NUTRITION RECOMMENDATIONS: Glucerna 1.2 @ 60ml/hr x 24 hrs to provide 1440ml, 1728kcal, 86g prot. 1159mL free water * Maintain current TF order, advance TF slowly as tolerated to goal -> meets 100% est kcal/prot needs * HOB over 30 degrees/ water flush per MD ADDITIONAL RECOMMENDATIONS: 1) STORAGE ARCHITECT rec for possible oral diet: pt on pureed w/ mildly thick liquids GRINDING WHEEL DRESSER GT used for water flushes only GRINDING WHEEL DRESSER 2) Per SNF: HT=5'7", last Wt on 01/082=708xoh -> monitor wt trend, h/o significant wt gain -> wt gain of 15lbs/9.9% in 3 months, 32lbs/23.7% in 6 months 3) Monitor lytes, replete as needed 4) Rec WC eval: sacral wound photo TF @ goal provides 100% RDI
--- NOTE | 2020-03-14 11:44 | Progress Note ---
DATE: 03/14/2020 SUBJECTIVE: This is a 60-year-old male patient with GI bleeding, but he is very confused, disorganized, and continues to have some mood lability. He seems to have poor insight into his medical and psychiatric condition. He has altered mental status and confusion. He admits to having some auditory hallucinations and paranoid delusions. MENTAL STATUS EXAMINATION: This is a 60-year-old male. His appearance is disheveled. Attitude, irritable and agitated. Affect, guarded and restricted. Intellect, poor. Mood, depressed and anxious. Motor activity, psychomotor agitation. Attention span is poor. Orientation x2. Speech is pressured. Thought process, disorganized and illogical. Thought content, auditory hallucinations and paranoid delusions. Insight and judgment is poor. DIAGNOSIS: Major depressive disorder, mild, recurrent with psychotic features, rule out dementia with psychosis. PLAN: Continue titrating up on his medications to stabilize his mood. Continue Abilify. Provide him with 20 minutes of cognitive behavioral therapy will help him identify his automatic negative thoughts and help convert those negative thoughts to more positive thoughts to reduce depression, anxiety, and mood lability. Chart reviewed. Discussed with staff. Seen and assessed in his room. Shyla Fleming M.D. DR: CHAPIS JOB#: [id number] CC:
--- NOTE | 2020-03-14 12:00 | NUR ---
NURSE NOTES: I was alerted by [place] Wolfe for assistance. Found patient crawling on hands and knees in hallway with IV removed. No trauma observed. Patient denies pain. Assisted patient to bed with wildlife biology technician Joel, [place] Wolfe, and XOCHITL Arias. Patient remains at neurological baseline: eyes open spontaneously, moves all extremities spontaneously without difficulty. AAO x1, patient unable to state time, place or purpose. Vitals stable: HR 78, BP 136/81. Provided redirection to patient, TV on for distraction, bilateral soft wrist restraints applied. Bed low and locked, call light in reach, side rails raised x3. MD Richmond at bedside, updated that pt. requires frequent oral/deep suction, adventitious lung sounds. Per , d/c IV fluids. Addendum: 03/14/20 at 1655 by Lynette Samuels RN NURSE NOTES: Per wildlife biology technician Joel, will not proceed with completing fall intervention as there was no indication of fall and patient was found crawling on the floor.
[2020-03-14] MEDS ORDERED: Varibar Pudding 230ml MC PRN (12:15)
[2020-03-14] MEDS ORDERED: Varibar Nectar 240ml MC PRN (12:15)
[2020-03-14] MEDS ORDERED: Varibar Thin Liquid powder 148gm MC PRN (12:15)
[2020-03-14] MEDS ORDERED: Varibar Honey 250ml MC PRN (12:15)
--- NOTE | 2020-03-14 13:00 | NUR ---
NURSE NOTES: Observed patient with legs hanging over side rails. Repositioned patient and redirected. TV on for distraction. Bilateral soft wrist restraints in place. Addendum: 03/14/20 at 1656 by Lynette Samuels RN NURSE NOTES: Patient talkative, AAO to person, place, time, and location. Follows commands. Equal grasps bilaterally. Moves all extremities equally.
--- NOTE | 2020-03-14 13:00 | Pulmonology Progress Note ---
Subjective ROS Limited/Unobtainable: No Allergies: Coded Allergies: NO KNOWN DRUG ALLERGIES (Verified Allergy, Unknown, 05/14/19) All Systems: reviewed and negative except above Objective Last 24 Hour Vital Signs Date Time Temp Pulse Resp B/P (MAP) Pulse Ox O2 Delivery O2 Flow Rate FiO2 03/14/20 09:17 87 132/79 03/14/20 08:00 89 03/14/20 08:00 96.8 87 20 132/79 (96) 96 03/14/20 08:00 Room Air 03/14/20 04:00 71 03/14/20 04:00 97.9 83 20 152/91 (111) 98 03/14/20 00:00 98.1 81 20 118/76 (90) 97 03/14/20 00:00 71 03/13/20 21:16 81 151/87 03/13/20 21:00 Room Air 03/13/20 20:00 97.9 81 20 153/82 (105) 97 03/13/20 20:00 83 03/13/20 16:00 70 03/13/20 16:00 97.5 86 18 128/82 (97) 98 Intake and Output 03/13/20 03/14/20 19:00 07:00 Intake Total 150 ml 100 ml Output Total 750 ml Balance -600 ml 100 ml Intake Oral 0 ml 100 ml Free Water 150 ml Output Urine Total 750 ml # Voids 4 1 General Appearance: WD/WN Respiratory: chest wall non-tender, lungs clear Cardiovascular: normal peripheral pulses, normal rate Abdomen: normal bowel sounds, soft, non tender Genitourinary: normal external genitalia Skin: no rash Neurologic: 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 organ 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 and 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 II-XII grossly normal Microbiology Date/Time Source Procedure Growth Status 03/13/20 01:40 Nasopharynx SARS-CoV-2 RdRp Gene Assay - Final Complete Laboratory Tests 03/13/20 17:04: POC Whole Blood Glucose 104 03/13/20 21:25: POC Whole Blood Glucose [Pending] 03/14/20 05:45: POC Whole Blood Glucose 110H 03/14/20 08:20: White Blood Count 10.9H, Red Blood Count 4.29L, Hemoglobin 12.8L, Hematocrit 38.8L, Mean Corpuscular Volume 90, Mean Corpuscular Hemoglobin 29.7, Mean Corpuscular Hemoglobin Concent 32.9, Red Cell Distribution Width 12.7, Platelet Count 238, Mean Platelet Volume 5.2L, Neutrophils (%) (Auto) 82.2H, Lymphocytes (%) (Auto) 7.9L, Monocytes (%) (Auto) 7.1, Eosinophils (%) (Auto) 1.3, Basophils (%) (Auto) 1.5, Prothrombin Time 11.2, Prothromb Time International Ratio 1.0, Activated Partial Thromboplast Time 27, Sodium Level 140, Potassium Level 3.6, Chloride Level 106, Carbon Dioxide Level 26, Anion Gap 8, Blood Urea Nitrogen 4L, Creatinine 0.6, Estimat Glomerular Filtration Rate > 60, Glucose Level 133H, Calcium Level 8.9, Total Bilirubin 0.4, Aspartate Amino Transf (AST/ SGOT) 21, Alanine Aminotransferase (ALT/SGPT) 18, Alkaline Phosphatase 93, Total Protein 7.1, Albumin 3.1L, Globulin 4.0, Albumin/Globulin Ratio 0.8L, Amylase Level 85, Lipase 51L 03/14/20 10:36: POC Whole Blood Glucose 114H Current Medications Medications (Trade) Dose Ordered Sig/Barry Route PRN Reason Start Time Stop Time Status Last Admin Dose Admin Acetaminophen (Tylenol) 650 mg Q4H PRN GT T>100.5 03/13/20 07:45 04/12/20 07:44 03/13/20 09:57 Acetaminophen (Tylenol) 650 mg Q4H PRN ORAL Mild Pain (Pain Scale 1-3) 03/14/20 07:00 03/14/20 15:00 Aripiprazole (Abilify) 5 mg BID ORAL 03/13/20 10:00 04/27/20 09:59 03/14/20 09:16 Barium Sulfate (Varibar Honey) 250 ml NOW PRN MC RAD 03/14/20 12:15 03/17/20 12:05 Barium Sulfate (Varibar Enlow) 240 ml NOW PRN MC RAD 03/14/20 12:15 03/17/20 12:05 Barium Sulfate (Varibar Pudding) 230 ml NOW PRN MC RAD 03/14/20 12:15 03/17/20 12:05 Barium Sulfate (Varibar Thin Liquid powder) 148 gm NOW PRN MC RAD 03/14/20 12:15 03/17/20 12:05 Ceftriaxone Sodium 1 gm/ Dextrose 55 ml @ 110 mls/hr Q24H IVPB 03/14/20 09:00 03/21/20 08:59 03/14/20 09:16 Clonazepam (KlonoPIN) 0.5 mg Q12H PRN GT ANXIETY 03/13/20 09:00 03/20/20 08:59 Dextrose (Dextrose 50%) 25 ml Q30M PRN IV Hypoglycemia 03/13/20 08:00 06/11/20 07:59 Dextrose (Dextrose 50%) 50 ml Q30M PRN IV Hypoglycemia 03/13/20 07:15 06/11/20 07:14 Dextrose/Sodium Chloride 1,000 ml @ 75 mls/hr [id number] IV 03/13/20 07:30 04/12/20 07:29 03/13/20 20:50 Diphenhydramine HCl (Benadryl) 25 mg Q15M PRN IVP Itching 03/14/20 07:00 03/14/20 15:00 Diphenhydramine HCl (Benadryl) 25 mg Q6H PRN GT Itching 03/13/20 07:45 04/12/20 07:44 Ferrous Sulfate (Feosol) 300 mg DAILY GT 03/13/20 09:00 06/11/20 08:59 03/14/20 09:16 Hydralazine HCl (Apresoline) 5 mg Q30M PRN IV SBP>160 OR___/DBP>90 OR___ 03/14/20 07:00 03/14/20 15:00 Insulin Aspart (NovoLOG) BEFORE MEALS AND HS SUBQ 03/13/20 11:30 06/11/20 11:29 Lorazepam (Ativan 2mg/ml 1ml) 0.5 mg Q15M PRN IV For Anxiety 03/14/20 07:00 03/14/20 15:00 Lorazepam (Ativan) 1 mg Q6H PRN GT For Anxiety 03/13/20 15:00 03/20/20 14:59 Metoprolol Tartrate (Lopressor) 12.5 mg Q12HR ORAL 03/13/20 09:00 06/11/20 08:59 03/14/20 09:17 Nitroglycerin (Ntg) 0.4 mg Q5M X 3 DOSES PRN SL Prn Chest Pain 03/13/20 07:15 04/12/20 07:14 Ondansetron HCl (Zofran) 4 mg Q1H PRN IVP Nausea & Vomiting 03/14/20 07:00 03/14/20 15:00 Ondansetron HCl (Zofran) 4 mg Q6H PRN IVP Nausea & Vomiting 03/13/20 07:15 04/12/20 07:14 Pantoprazole (Protonix) 40 mg EVERY 12 HOURS IV 03/13/20 21:00 04/12/20 20:59 03/14/20 09:16 Pioglitazone HCl (Actos) 15 mg DAILY GT 03/13/20 09:00 04/12/20 08:59 03/14/20 09:16 Polyethylene Glycol (Miralax) 17 gm HSPRN PRN GT Constipation 03/13/20 21:00 04/12/20 20:59 Risperidone (RisperDAL) 1 mg Q12HR GT 03/13/20 09:00 04/27/20 08:59 03/14/20 09:16 Assessment/Plan Problems: (1) Upper GI bleeding (2) COPD (chronic obstructive pulmonary disease) (3) CAD (coronary artery disease) (4) Alzheimer's dementia (5) Seizure disorder (6) Schizophrenia (7) Diabetes mellitus (8) Feeding by G-tube Assessment/Plan family refused EGD NPO iv fluids, H2 blockers watch h/h check electrolytes sliding scale GI evaluation dvt prophylaxis. Anusha Richmond MD Mar 14, 2020 13:00
--- NOTE | 2020-03-14 13:18 | NUR ---
FLEXBOARD OPERATOR SWALLOW EVALUATION PATIENT REFERRED TO FLEXBOARD OPERATOR BY DR. RIVERA. DYSPHAGIA RISK FACTORS FOR THIS 60 Y.O. MALE: ACUTE: Upper GI Bleed, Leukocytosis, Cough, Major depressive disorder, recurrent with psychotic features, COPD. H/O: Hypertension, weakness, Schizophrenia, Asthma, Alzheimer's dementia, GERD, and failure to thrive, Epilepsy, DM2, Dysphagia, Bipolar d/o, GIB, polyneuropathy, anxiety. RAD: CXR 03/13/20; FINDINGS: A single one view chest is obtained. Vascularity is normal. The lung macdonald are clear bilaterally. Cardiac and mediastinal silhouette are within normal limits. CP angles are sharp. The bony thorax appear unremarkable. IMPRESSION: NO ACUTE CARDIOPULMONARY DISEASE. PLOF: Patient has PEG for primary means of nutrition/hydration. Patient does also consume oral gratification of puree solids and takes PO mediations crushed in apple sauce at [facility]. VITALS ON ROOM AIR: HR: 87; RR: 20; SP02 96% PER RN: recommended initiation PEG feedings, family/conservator denied EGD procedure. Patient has been having excessive secretions which require deep oral and deep nasal suctioning. Patient seen at bedside, has bilateral UE restraints due to Patient being found crawling on the ground out of bed right before swallow evaluation. Patient seen moaning, vocal quality is wet and gurgled due to poor secretion management. Patient is able to verbally communication simple wants and needs with cues and assistance from communication partner. Patient is able to follow simple 1-step directions with visual cues. Patient's communication characterized by echolalia, poor lingual ROM/coordination during speech resulting in speech being intelligible in context with approx 55%. Patient was re-positioned for PO trials, noted with baseline open-mouth position and provided verbal and tactile cues to close lips for swallowing. Provided oral hygiene. INITIAL IMPRESSIONS: Moderately Severe Oropharyngeal Dysphagia (oral phase appears worse due to oral apraxia) compounded by cognitive behavioral deficits (Alzheimer's dementia, Schizophrenia, psychotic features) and exacerbated by h/o dysphagia with need for PEG placement. Patient's swallowing ability also likely impacted by GI bleed. Patient is a high risk for aspiration at this time, even with NPO and PEG due to poor and ineffective secretion management. Patient attempted to complete secretion management s/p laryngeal tactile/verbal cues which resulted in increasingly wet gurgled vocal quality, coughing, and appears ineffective. Patient given trace PO trial of thin liquids (<2cc) to determine if this would facilitate Patient in initiating a effective swallow for secretion management. Oral phase characterized by adequate labial seal around the spoon, functional labial closure, lingual pumping x5, moderate to severely prolonged A-P bolus transit. Upon palpation, Patient noted with multiple attempts to initiation swallow prior to having success. Laryngeal elevation upon palpation appears moderately delayed, and incomplete in elevation feel. Patient presented with ongoing wet gurgled vocal quality, coughing, and FLEXBOARD OPERATOR suctioned PO trial from Patient's oral cavity/BOT. Patient is not safe for PO intake given poor ability to manage own secretions at this time and severity of dysphagia compounded by cognitive behavioral deficits, Patient is a high aspiration risk. RECOMMENDATIONS: 1.Patient remained NPO with PEG as primary means of nutrition/hydration. 2. FLEXBOARD OPERATOR will f/u with Patient for dysphagia tx and management 3-5x per week with jail goal for safety with oral gratification of puree solids (Baseline diet). 3. Patient require FREQUENT oral suctioning due to inability to safely manage own secretions. FLEXBOARD OPERATOR will f/u per POC. Educated RN on results and recommendations. Thank you for this referral! FLEXBOARD OPERATOR [phone]
--- NOTE | 2020-03-14 14:00 | NUR ---
NURSE NOTES: Patient talkative, AAO to person, place, time, and location. Follows commands. Equal grasps bilaterally. Moves all extremities equally.
--- NOTE | 2020-03-14 15:27 | NUR ---
NURSE NOTES: Left message for MD Ng with [facility]/Answering Service to update that pt. in restraints for safety and pulling devices. Patient R pupil ovoid, dilated, fixed. L pupil 2 mm, reactive, brisk. No other change in baseline neurological status. Patient talkative, AAO to person, place, time, and location. Follows commands. Equal grasps bilaterally. Moves all extremities equally. Awaiting call back.
--- NOTE | 2020-03-14 15:27 | NUR ---
CASE MANAGEMENT: INITIAL REVIEW 60YR OLD MALE BIBA FROM [facility] CC:VOMITING ; COFFEE GROUND EMESIS ; WEAKNESS PMHX:TRACH T-PIECE; COPD, diabetes, seizure disorder, bipolar disorder, PEG dependent SI:GI BLEED 99.0 102 22 132/68 94% ON RA WBC 16.9 BG 134 Hgb 14 IS:IV ROCEPHIN X1 IV PROTONIX X1 CHEST X-RAY-NO ACUTE CARDIOPULMONARY DISEASE. XRAY [id number] IN PLACE. NO SIGN OF ACUTE DISEASE. \: 2E TELE UNIT DCP: [facility] WHEN STABLE PLAN: PT EVAL ~HX FALL GI CONSULT CASE MANAGEMENT:REVIEW 03/14/20 SI:GI BLEED 96.8 87 20 132/79 96% ON RA WBC 10.9 H/H 12.8/38.8 ALB 133 ALB 3.1 IS:IV ROCEPHIN QD IVF NS @10ML/HR LOPRESSOR GT BID RISPERDAL GT BID ACTOS GT QD \: 2E TELE UNIT DCP: [facility] WHEN STABLE PLAN: PT EVAL GI CONSULT NEURO CHECKS MONITOR ON RESTRAINTS ~NON COMPLIANT REFER TO ACUTE REHAB OXYGEN THERAPY NPO ~SPEECH EVAL
--- NOTE | 2020-03-14 16:12 | NUR ---
NURSE NOTES: Francisco/motor and generator assembler aware of pupil change and that message was left for MD Ng, response from pending. Addendum: 03/14/20 at 1659 by Lynette Samuels RN NURSE NOTES: Patient talkative, AAO to person, place, time, and location. Follows commands. Equal grasps bilaterally. Moves all extremities equally.
--- NOTE | 2020-03-14 16:52 | NUR ---
*-*DISCHARGE PLANNED*-* PATIENT HAS BEEN BEEN ACCEPTED AND WILL BE DISCHARGE TO: [facility] P: [phone] FOR NURSE TO NURSE REPORT ROOM# 405.SKILLED [facility]SP[facility] SET FOR 1850PM S/W INOCENCIO [id number]
--- NOTE | 2020-03-14 16:52 | Infectious Diseases Prog Note ---
Assessment/Plan Assessment: COVID 19 neg x1 (03/13 Rapid COVID PCR neg) Sepsis vs SIRS Afebrile leukocytosis; resolving -?reactive -CXR: no acute disease -u/a neg Coffee-ground emesis Bipolar disorder CVA Dementia Dm2 CAD scabies 2012 HTN seizure disorde COPD dysphagia s/p GT [place] resident (Tawanda Ackerman) Plan: -Continue empiric Ceftriaxone #2 for now -f/u cx -Monitor CBC/CMP, temperatures -GI f/u -aspiration precautions Thank you for this consultation. Will continue to follow along with you. Discussed with RN. Subjective Allergies: Coded Allergies: NO KNOWN DRUG ALLERGIES (Verified Allergy, Unknown, 05/14/19) All Systems: reviewed and negative except above afebrile leukocytosis resolving Objective Last 24 Hour Vital Signs Date Time Temp Pulse Resp B/P (MAP) Pulse Ox O2 Delivery O2 Flow Rate FiO2 03/14/20 12:30 98.1 78 18 136/81 (99) 96 03/14/20 12:00 86 03/14/20 09:17 87 132/79 03/14/20 08:00 89 03/14/20 08:00 96.8 87 20 132/79 (96) 96 03/14/20 08:00 Room Air 03/14/20 04:00 71 03/14/20 04:00 97.9 83 20 152/91 (111) 98 03/14/20 00:00 98.1 81 20 118/76 (90) 97 03/14/20 00:00 71 03/13/20 21:16 81 151/87 03/13/20 21:00 Room Air 03/13/20 20:00 97.9 81 20 153/82 (105) 97 03/13/20 20:00 83 Height (Feet): 5 Height (Inches): 11.00 Weight (Pounds): 151 General: Awake, Pleasant, cooperative, no acute distress HEENT: NC/AT. EOMI. edentulous. Cardiovascular: RRR. S1 and S2 normal. No murmur appreciated Resp: Productive cough in the room. No respiratory distress. Abdomen: Abdomen is soft, nondistended. Nontender. PEG tube in place. No evidence surrounding edema erythema or infection Skin: Intact. No abrasions, laceration or rash over the exposed skin Microbiology Date/Time Source Procedure Growth Status 03/13/20 01:40 Nasopharynx SARS-CoV-2 RdRp Gene Assay - Final Complete Laboratory Tests Test 03/13/20 17:04 03/13/20 21:25 03/14/20 05:45 03/14/20 08:20 POC Whole Blood Glucose 104 MG/DL (74-106) Pending 110 MG/DL (74-106) H White Blood Count 10.9 K/UL (4.8-10.8) H Red Blood Count 4.29 M/UL (4.70-6.10) L Hemoglobin 12.8 G/DL (14.2-18.0) L Hematocrit 38.8 % (42.0-52.0) L Mean Corpuscular Volume 90 FL (80-99) Mean Corpuscular Hemoglobin 29.7 PG (27.0-31.0) Mean Corpuscular Hemoglobin Concent 32.9 G/DL (32.0-36.0) Red Cell Distribution Width 12.7 % (11.6-14.8) Platelet Count 238 K/UL (150-450) Mean Platelet Volume 5.2 FL (6.5-10.1) L Neutrophils (%) (Auto) 82.2 % (45.0-75.0) H Lymphocytes (%) (Auto) 7.9 % (20.0-45.0) L Monocytes (%) (Auto) 7.1 % (1.0-10.0) Eosinophils (%) (Auto) 1.3 % (0.0-3.0) Basophils (%) (Auto) 1.5 % (0.0-2.0) Prothrombin Time 11.2 SEC (9.30-11.50) Prothromb Time International Ratio 1.0 (0.9-1.1) Activated Partial Thromboplast Time 27 SEC (23-33) Sodium Level 140 MMOL/L (136-145) Potassium Level 3.6 MMOL/L (3.5-5.1) Chloride Level 106 MMOL/L (98-107) Carbon Dioxide Level 26 MMOL/L (21-32) Anion Gap 8 mmol/L (5-15) Blood Urea Nitrogen 4 mg/dL (7-18) L Creatinine 0.6 MG/DL (0.55-1.30) Estimat Glomerular Filtration Rate > 60 mL/min (>60) Glucose Level 133 MG/DL (74-106) H Calcium Level 8.9 MG/DL (8.5-10.1) Total Bilirubin 0.4 MG/DL (0.2-1.0) Aspartate Amino Transf (AST/SGOT) 21 U/L (15-37) Alanine Aminotransferase (ALT/SGPT) 18 U/L (12-78) Alkaline Phosphatase 93 U/L (46-116) Total Protein 7.1 G/DL (6.4-8.2) Albumin 3.1 G/DL (3.4-5.0) L Globulin 4.0 g/dL Albumin/Globulin Ratio 0.8 (1.0-2.7) L Amylase Level 85 U/L (25-115) Lipase 51 U/L (73-393) L Test 03/14/20 10:36 03/14/20 16:24 POC Whole Blood Glucose 114 MG/DL (74-106) H 93 MG/DL (74-106) Current Medications Medications (Trade) Dose Ordered Sig/Barry Route PRN Reason Start Time Stop Time Status Last Admin Dose Admin Acetaminophen (Tylenol) 650 mg Q4H PRN GT T>100.5 03/13/20 07:45 04/12/20 07:44 03/13/20 09:57 Aripiprazole (Abilify) 5 mg BID ORAL 03/13/20 10:00 04/27/20 09:59 03/14/20 09:16 Barium Sulfate (Varibar Honey) 250 ml NOW PRN MC RAD 03/14/20 12:15 03/17/20 12:05 Barium Sulfate (Varibar [place]) 240 ml NOW PRN MC RAD 03/14/20 12:15 03/17/20 12:05 Barium Sulfate (Varibar Pudding) 230 ml NOW PRN MC RAD 03/14/20 12:15 03/17/20 12:05 Barium Sulfate (Varibar Thin Liquid powder) 148 gm NOW PRN RAD 03/14/20 12:15 03/17/20 12:05 Ceftriaxone Sodium 1 gm/ Dextrose 55 ml @ 110 mls/hr Q24H IVPB 03/14/20 09:00 03/21/20 08:59 03/14/20 09:16 Clonazepam (KlonoPIN) 0.5 mg Q12H PRN GT ANXIETY 03/13/20 09:00 03/20/20 08:59 Dextrose (Dextrose 50%) 25 ml Q30M PRN IV Hypoglycemia 03/13/20 08:00 06/11/20 07:59 Dextrose (Dextrose 50%) 50 ml Q30M PRN IV Hypoglycemia 03/13/20 07:15 06/11/20 07:14 Diphenhydramine HCl (Benadryl) 25 mg Q6H PRN GT Itching 03/13/20 07:45 04/12/20 07:44 Ferrous Sulfate (Feosol) 300 mg DAILY GT 03/13/20 09:00 06/11/20 08:59 03/14/20 09:16 Insulin Aspart (NovoLOG) BEFORE MEALS AND HS SUBQ 03/13/20 11:30 06/11/20 11:29 Lorazepam (Ativan) 1 mg Q6H PRN GT For Anxiety 03/13/20 15:00 03/20/20 14:59 Metoprolol Tartrate (Lopressor) 12.5 mg Q12HR ORAL 03/13/20 09:00 06/11/20 08:59 03/14/20 09:17 Nitroglycerin (Ntg) 0.4 mg Q5M X 3 DOSES PRN SL Prn Chest Pain 03/13/20 07:15 04/12/20 07:14 Ondansetron HCl (Zofran) 4 mg Q6H PRN IVP Nausea & Vomiting 03/13/20 07:15 04/12/20 07:14 Pantoprazole (Protonix) 40 mg EVERY 12 HOURS IV 03/13/20 21:00 04/12/20 20:59 03/14/20 09:16 Pioglitazone HCl (Actos) 15 mg DAILY GT 03/13/20 09:00 04/12/20 08:59 03/14/20 09:16 Polyethylene Glycol (Miralax) 17 gm HSPRN PRN GT Constipation 03/13/20 21:00 04/12/20 20:59 Risperidone (RisperDAL) 1 mg Q12HR GT 03/13/20 09:00 04/27/20 08:59 03/14/20 09:16 Teri aJuregui M.D. Mar 14, 2020 16:52
--- NOTE | 2020-03-14 17:02 | NUR ---
NURSE NOTES: Left message for MD Ng with Brandon/Answering Service re: incident in which patient was found crawling on all fours on the floor without obvious trauma. Informed Brandon that pt. experienced pupillary change with no further change in baseline neurological status. Brandon updated that the pt. is due to be transferred to [facility] today. Awaiting response from
--- NOTE | 2020-03-14 17:15 | NUR ---
NURSE NOTES: Spoke with MD Ng via phone. Received TORB for STAT CT Head w/o contrast and to consult with MD Wells. Kathleen/KARAN aware. Per Kathleen, if CT Head negative, likely ok to proceed with transfer to [facility]. hay sorter Francisco aware.
--- NOTE | 2020-03-14 17:21 | NUR ---
NURSE NOTES: Left message for MD Wells with Barb/Answering Service. Updated Barb that pt. got out of bed (unwitnessed) this afternoon, and was found by staff crawling on all fours on the floor. No obvious trauma. Currently, AAO x4. R pupil dilated, fixed. L pupil 2 mm, brisk. Movement equal on all extremities. Equal hand grasps. No facial droop. No N/V. Denies pain. Hemodynamically stable. Barb states to call MD Wells with CT Head results: [phone]. Addendum: 03/14/20 at 1726 by Lynette Samuels RN NURSE NOTES: supervisor counseling and guidance Joel updated on the above.
--- NOTE | 2020-03-14 17:38 | NUR ---
NURSE NOTES: Per MD Wells, hold off on CT Head until he sees patient. MD Wells ETA to hospital 10 minutes. Updated December in [place].
--- NOTE | 2020-03-14 18:04 | NUR ---
NURSE NOTES: Called [facility] and spoke to Katalina they stated they have not received any paper work yet and left them out number to call us back, rescheduled [facility] for 2000hrs
--- NOTE | 2020-03-14 18:24 | NUR ---
NURSE NOTES: Gave report to Nerissa Darden, pt is ready for discharge, Md Wells stated that the patient has some type of nastigmas of left eye and has cleared the pt to go regardless of CT. Stated that he seems normal or at his baseline.
--- NOTE | 2020-03-14 19:02 | Diagnostic Imaging Report ---
EXAM: CT Head Without Intravenous Contrast CLINICAL HISTORY: ALOC TECHNIQUE: Axial computed tomography images of the head/brain without intravenous contrast. CTDI is 53.4 mGy and DLP is 1098.9 mGy-cm. One or more of the following dose reduction techniques were used: automated exposure control, adjustment of the mA and/or kV according to patient size, use of iterative reconstruction technique. COMPARISON: 05/14/2019. FINDINGS: Brain: Area of chronic infarction with encephalomalacia of the left frontal lobe is again noted. No abnormal extra-axial collection. No hemorrhage. Ventricles: There is prominence of the ventricular system, cortical sulci, basilar cisterns, compatible with age related atrophy. Bones/joints: Calvarium is unremarkable. No acute fracture. Soft tissues: Unremarkable. Vasculature: Atherosclerotic disease. Sinuses: Moderate chronic ethmoid and right maxillary sinusitis. Mild chronic sphenoid and left maxillary sinusitis. Mastoid air cells: Mastoid air cells are well pneumatized. Other findings: Axial and coronal images are provided. IMPRESSION: 1. Chronic sinusitis. 2. Chronic infarct left frontal lobe, unchanged from the previous study. 3. Age-related changes and small vessel disease of aging. 4. No acute intracranial pathology is detected. 5. If there is concern for etiology such as early acute lacunar infarcts, magnetic resonance imaging of the brain with diffusion-weighted sequences should be performed.
--- NOTE | 2020-03-14 19:04 | NUR ---
NURSE NOTES: CT Head completed.
--- NOTE | 2020-03-14 19:39 | NUR ---
NURSE HAND-OFF REPORT: Important Events on Shift: Patient found crawling on hands on knees in hallway. No trauma observed. Denies pain, no headache, nausea or vomiting. R pupil dilated, fixed. L pupil 2 mm brisk. AAO x4. Bilateral upper extremity and lower extremity spontaneous movement. Bilateral hand grasps, equal. CT head completed, report pending. Patient seen by MD Wells. Per machine cloth examiner Joel, patient cleared by Neurology to [facility]. Plan is to discharge to [facility] this evening. Patient Status: See above Diet: Tube feeding Pending Orders: N/A Pending Results/Labs:CT Head Pending notification:N/A Latest Vital Signs: Temperature 98.7 , Pulse 87 , B/P 138 /68 , Respiratory Rate 20 , O2 SAT 98 , Room Air, O2 Flow Rate . Vital Sign Comment: N/A EKG Rhythm: Sinus Rhythm Rhythm change?: N MD Notified?: - MD Response: Latest Vargas Fall Score: 95 Fall Risk: High Risk Safety Measures: Call light Within Reach, Bed Alarm Zone 2, Side Rails Side Rails x2, Bed position Low and Locked. Fall Precautions: Yellow Socks Yellow Gown Door Sign Patient Fall Education Report given to XOCHITL Kaplan.
--- NOTE | 2020-03-14 19:50 | NUR ---
NURSE NOTES: Received pt from XOCHITL Ojeda. Pt awake, alert, and coughing/crying. Bed in lowest position. GTF running at 10 cc/hr. Call light within reach. One restraint on R. wrist. Will continue to monitor.
--- NOTE | 2020-03-14 22:15 | NUR ---
HAND-OFF: Report given to Ambulance julian. Pt in route to [facility].
--- NOTE | 2020-03-15 22:29 | Consultation ---
DATE OF CONSULTATION: 03/14/2020 CONSULTING PHYSICIAN: Dane Padron PsyD TREATING ATTENDING: Silas Ng DO HISTORY OF PRESENT ILLNESS: The patient is a 60-year-old male patient. This patient is from [facility]. The patient was brought to the hospital for GI bleed and cough. The patient has been confused, restless, and anxious, and for these reasons was referred for psychotherapeutic services. He has a history of schizophrenia. I assessed this patient. The patient is able to communicate, speaking very slowly. He takes some time to communicate his words. However, he is very confused and disorganized. Extensive review of records was also done as the patient is a poor historian. The patient indicated he is feeling anxious and restless. There is no indication of auditory or visual hallucinations at this time. There is no indication of suicidal or homicidal thoughts or ideation at this time. He does require assistance from nursing staff as well for treatment. PAST MEDICAL HISTORY: History of GERD, COPD, asthma, hypertension, diabetes, and failure to thrive. ALLERGIES: The patient has no known drug allergies. SUBSTANCE HISTORY: The patient has a history of alcohol use and smoking cigarettes. There is no indication of illicit substance use. PSYCHIATRIC HISTORY: The patient has a history of schizophrenia. He has been taking psychotrophic medications in the past. SOCIAL HISTORY: The patient is a 60-year-old male patient from [facility]. Financially sustained through [facility]. MENTAL STATUS EXAMINATION: He is alert and oriented to person. Mood is irritable. Affect is congruent. Thought process is disorganized. Poor attention and concentration. Poor insight, judgment, and impulse control. The patient is in care home facility and appears to be disorganized and anxious. DIAGNOSES: 1. Schizophrenia. 2. Diabetes. 3. Hypertension. 4. Weakness. 5. COPD. 6. Asthma. 7. GERD. 8. Failure to thrive. 9. Psychosocial stressors are moderate. I assessed the patient and provided the patient with reality orientation, which is focused on improving the cognitive level of function as the patient is very confused and disorganized, oriented to person, place, time, and situation. I attempted to provide the patient with supportive psychotherapy, encouraging positive thoughts and and positive communication skills. Plan is to maintain medication compliance with positive coping skills with an extensive review of records. Psychotherapy service 45 minutes. Dane Padron PsyD. DR: CLAUDIO JOB#: [id number] CC:
--- NOTE | 2020-03-16 15:36 | Discharge Summary ---
Discharge Summary Discharge Summary _ DATE OF ADMISSION: 03/13/2020 DATE OF DISCHARGE: 03/14/2020 DISCHARGED BY: Dr. Silas Ng CONSULTANTS: Dr. Teri Padron [facility] BRIEF HOSPITAL COURSE: The patient is a 60-year-old male, from [facility], who presented to ED due to coffee-ground emesis and cough. He has medical history of diabetes, epilepsy, hypertension, weakness, schizophrenia, COPD, asthma, dementia, GERD and failure to thrive. Upon evaluation at ED, vital signs were stable. He was agitated and combative with staff. He was given IM Haldol for sedation. Blood work showed WBC elevated to 17. Hemoglobin and hematocrit were stable. CMP negative. Urinalysis essentially negative. EKG showed sinus rhythm with no ST segment changes. Chest x-ray did not show any acute disease. KUB showed nonspecific bowel gas pattern. Rapid COVID-19 was negative. He was then admitted for evaluation of GI bleed. He was placed on n.p.o. He was given IV fluid. He was given proton pump inhibitors. H&H was trended. He was given empiric ceftriaxone. He was planned to undergo EGD. Patient had mood lability and paranoia. He has some psychomotor agitation. He was diagnosed with paranoid schizophrenia. He was given Risperdal and Abilify. He was given Ativan for anxiety and agitation. He was given cognitive behavioral therapy. Family refused EGD. H&H was stable. There was no recurrence of bleeding. [facility]. FINAL DIAGNOSES: Coffee-ground emesis Leukocytosis, possible reactive; SIRS versus sepsis Paranoid schizophrenia Bipolar disorder CVA Dementia Type 2 diabetes mellitus CAD Hypertension Seizure disorder COPD Dysphagia with G-tube long-term resident DISPOSITION: [facility] was [facility] to [facility]. DISCHARGE MEDICATIONS: Refer to Discharge Medication List. I have been assigned to complete a discharge summary on this account, I was not involved with the patient's management.--TYLER Tyler Jacqueline Robles NP Mar 16, 2020 15:36
--- NOTE | 2020-03-17 07:15 | Consultation ---
DATE OF CONSULTATION: 03/14/2020 NEUROLOGIC CONSULTATION CONSULTING PHYSICIAN: Valdemar Wells MD HISTORY OF PRESENT ILLNESS: The patient is a 60-year-old man who was transferred from [facility] with a history of coffee-ground emesis and cough. He was diagnosed with GI bleed and admitted to telemetry for further care. I was asked to see the patient because he was found on the floor. There was no specific head injury and his right pupil was dilated. He has had a history of epilepsy, hypertension, AODM type 2, schizophrenia, COPD, asthma, dementia, GERD, and "failure to thrive." Patient himself cannot history. The patient was brought to this hospital. CBC revealed white count of almost 17,000, slightly low hemoglobin, with normal platelets. Today, his white count is almost 11,000. His hemoglobin has dropped to 12.8 and 13. His PT and PTT were normal. Chemistries were normal although he had a low BUN . The albumin was low . Urinalysis was normal except for +1 urine ketones and +1 urobilinogen. His 12-lead was negative. Chest x-ray revealed no acute cardiopulmonary disease. His abdominal x-ray again done on 07/13/2019. There was a G-tube in place. No any acute finding of any disease. The patient was admitted on 03/14/2013 for altered mental status. A brain MRI done on 03/14/2013 for altered mental status noted in the left frontal lobe, likely from an old infarct. atrophy. Moderate periventricular chronic ischemic changes. There was a questionable infarct in the left cerebellum. Head CT on 05/14/2019 revealed no acute infarction encephalomalacia, mild atrophy in the brain, nonspecific white matter hypoattenuation with chronic small vessel disease. No change from previous study. The patient did have a on 05/17/2019. aspiration . However, no currently not achieved. There is no known family history. . The patient was placed on Abilify, clonazepam, Benadryl, and ferrous sulfate. He also was given hydralazine, insulin, lorazepam, metoprolol, Zofran, nitroglycerin, Protonix, , and Risperdal 1 mg. There is no family history of neurologic disease. PAST MEDICAL HISTORY/PAST MEDICAL ILLNESSES: 1. Schizophrenia. 2. See above. 3. He was diagnosed acute exacerbation, rule out schizoaffective bipolar type. 4. Acute GI bleed. Dr. Hines before. The patient had an endoscopy today for GI bleeding . 5. in 2012. 6. COPD. 7. AODM type 2. 8. Hyperlipidemia. . 9. Seizure disorder. Currently on no anticonvulsant. ALLERGIES: No known allergies. HABITS: The patient apparently is not a drinker or a smoker. He cannot give a history. FAMILY HISTORY: Unavailable. REVIEW OF SYSTEMS: Cannot be obtained. MEDICATIONS: See the reconciled medications. He is also on lactulose for constipation. PHYSICAL EXAMINATION: GENERAL: He is a well-developed obese man, lying in bed. He is alert, somewhat agitated, otherwise in no acute distress. VITAL SIGNS: Temperature 98.7 degrees, pulse is 77, respiratory rate 20 with a lot of coughing, blood pressure 138/68. HEENT: Examination of the head reveals he is edentulous. RESPIRATORY: Generally, he continued to cough . NEUROLOGIC EXAMINATION: MENTAL STATUS: He is awake. Date, he did not know the date. Place, he thought he was in the hospital. Person, he knows name. He could follow 1-step commands such as stick out his tongue, close his eyes. . His speech was nonfluent, unintelligible, probably due to dysarthria, but there is . CRANIAL NERVE EXAMINATION: CRANIAL NERVE II: Visual macdonald intact to confrontation. CRANIAL NERVES III, IV, AND : Extraocular motility was full. nonreactive. Left pupil is 4 mm, round, reactive to light. CRANIAL NERVE V: Corneals appear to be intact bilaterally. CRANIAL NERVE VII: Facial strength appeared to be symmetrical. CRANIAL NERVE VIII: Auditory acuity is partially intact. CRANIAL NERVES IX AND X: Not tested. CRANIAL NERVE XI: Could not be tested. CRANIAL NERVE XII: His tongue did protrude in the midline. MUSCLE EXAMINATION: Muscle bulk is slightly decreased. Tone, there is paratonia. Strength, he can move all 4 extremities. He had good on air director strength bilaterally. The patient has basically good leg movement, especially proximally. REFLEXES: +2 in upper extremities, knees, +1.5 at the ankles. He had probably downgoing toe on the right and on the left. GAIT AND STATION: Could not be tested. SENSORY EXAMINATION: . IMPRESSION: The patient has paranoid schizophrenia with previous evidence of stroke. due to his stroke. on exam, there is no evidence of at this point; however, it will be noncontrast CT scan of the brain. to me with regular borders, the cause of which cannot be determined. Left pupil is reactive. PLAN: CT scan of the brain. Thank you for this interesting case. Valdemar Wells MD DR: FAUSTINO JOB#: [id number] CC:
--- NOTE | 2020-03-21 12:15 | Cardiology Report ---
APPROVED REPORT EKG Measurement Heart [id number] ID [id number] <Conclusion> Normal sinus rhythm Normal ECG
--- NOTE | 2020-03-26 21:22 | Coder Physician Query ---
Clarification is required for compliance, coding accuracy, and to reflect severity of illness for this patient. Dear Dr. Silas Ng Date:03/26/20 BRIEF HOSPITAL COURSE: The patient is a 60-year-old male, from [facility], who presented to ED due to coffee-ground emesis and cough. He has medical history of diabetes, epilepsy, hypertension, weakness, schizophrenia, COPD, asthma, dementia, GERD and failure to thrive. There is a stable vital signs. Oxygenation in the low 90s however the history of COPD is likely patient baseline. No respiratory distress Afebrile leukocytosis; resolving -?reactive -CXR: no acute disease -u/a neg Abx: Ceftriaxone 03/13 x1 White count 16.9 03/13 White count 10.9 03/14 FINAL DIAGNOSES: Coffee-ground emesis Leukocytosis, possible reactive; SIRS versus sepsis A posssible diagnois of_SEPSIS_VS SIRS ( REACTIVE) was made in the medical record. Upon review, it is difficult to determine whether this diagnosis has been ruled in, ruled out,or is still being worked up. Please indicate below the status of the aforementioned diagnosis. [] SEPSIS Ruled out, likely SIRS reaction [] Treated and resolve [] Presumed and treated [] Currently under treatment [] Still being worked-up Physician signature Date Please also document in your Progress Notes and/or Discharge Summary and indicate if the condition was present on admission. JOSE ROBERTO
== END 2020-03-14 22:30 | DRG 378 ==
LOC: EDBD 00:23 → EMR 00:44 → 2E 00:50 → EDBEDREQ 04:29 → 2E 05:56
DX: K92.2 Gastrointestinal hemorrhage, unspecified (principal); F20.0 Paranoid schizophrenia; Z43.1 Encounter for attention to gastrostomy; F33.0 Major depressive disorder, recurrent, mild; R65.10 Systemic inflammatory response syndrome (SIRS) of non-infectious origin without acute organ dysfunction; G40.909 Epilepsy, unspecified, not intractable, without status epilepticus; E11.9 Type 2 diabetes mellitus without complications; I10 Essential (primary) hypertension; F20.9 Schizophrenia, unspecified; J44.9 Chronic obstructive pulmonary disease, unspecified; F03.90 Unspecified dementia, unspecified severity, without behavioral disturbance, psychotic disturbance, mood disturbance, and anxiety; K21.9 Gastro-esophageal reflux disease without esophagitis; J45.909 Unspecified asthma, uncomplicated; Z79.4 Long term (current) use of insulin; F02.80 Dementia in other diseases classified elsewhere, unspecified severity, without behavioral disturbance, psychotic disturbance, mood disturbance, and anxiety; R13.10 Dysphagia, unspecified
CPT/HCPCS: 36415; 70450; 71045; 74018; 80053; 81003; 82150; 82962; 83690; 84484; 85025; 85610; 85730; 86850; 86900; 86901; 87081; 92610; 93005; 96365; 96366; 96368; 96372; 97803; 99285; J1815; J7030; U0002

== ENCOUNTER 2020-06-09 20:15 | Inpatient (IN) | payer MEDICARE, OTHER ==
[~2020-06-09] VITALS: Ht 182.9 cm; Wt 63.5 kg
[~2020-06-09 20:15] MED LIST changes: +ABILIFY2 MG GT; +ABILIFY5 MG GT; +ACETAMINOP160 MG/5 M GT; +ACIDOPHILUS1 EAC6 GT; +ACTOS15 MG GT; +ASPIRIN81 MG GT; +DUONEB 0.5-3(2.53 ML HHN; +FERROUS SU300 MG/5 M ORAL; +FERROUS SULFAT325 MG GT; +HUMULIN R100 UNIT/1 SUBQ; +KLONOPIN0.5 MG GT; +LACTULOSE20 GM/301 GT; +METOPROLOL TART25 MG GT; +MULTI-DELYN237 ML GT; +RISPERDAL1 MG GT; +SEN-O-TAB8.6 MG ORAL; +SENNA8.6 M2 GT; +VALPROATE500 MG/5 M GT
--- NOTE | 2020-06-09 20:15 | NUR ---
ED Nurse Note: PT BROUGHT IN BY RA 66 FROM [facility] CO SOB WITH SPO2 88% ON RA, 98% ON 6L WITH NEW ONSET OF PNEUMONIA. CHANGED INTO GOWN; ATTACHED TO MONITOR. PATIENT AO3 WITH NO ACUTE DISTRESS. VITALS STABLE. ALL SAFETY MEASURES MET.
[2020-06-09 20:30] VITALS: BP 102/59
--- NOTE | 2020-06-09 20:30 | NUR ---
ED Nurse Note: IV ACCESS ESTABLISHED. BLOOD, INITIAL LACTIC, BLOOD CULTURES, URINE, MRSA VRE CRE COVID SWAB COLLECTED; SENT DOWN TO LAB.
[2020-06-09 21:13] LABS: APPEARANCE,URINE CLEAR; BASOPHILS % (AUTO) 0.9 % (0.0-2.0); BILIRUBIN, URINE NEGATIVE (NEGATIVE); EOSINOPHILS % (AUTO) 0.1 % (0.0-3.0); GLUCOSE, URINE (UA) NEGATIVE (NEGATIVE); HEMATOCRIT 36.7 % (42.0-52.0); HEMOGLOBIN 12.3 G/DL (14.2-18.0); KETONES,URINE 3+ (NEGATIVE); LEUKOCYTE ESTERASE ,URINE NEGATIVE (NEGATIVE); MEAN CORPUSCULAR VOLUME 90 FL (80-99); MONOCYTES % (AUTO) 8.4 % (1.0-10.0); NEUTROPHILS % (AUTO) 82.7 % (45.0-75.0); NITRITE,URINE NEGATIVE (NEGATIVE); PH,URINE 6 (4.5-8.0); PLATELET COUNT 311 K/UL (150-450); PROTEIN,URINE 2+ (NEGATIVE); RED BLOOD COUNT 4.06 M/UL (4.70-6.10); RED CELL DISTRIBUTION WIDTH 14.7 % (11.6-14.8); UROBILINOGEN,URINE 12 MG/DL (0.0-1.0)
[2020-06-09 21:15] LABS: COLOR,URINE YELLOW
[2020-06-09] MEDS ORDERED: Azithromycin 500 MG in NS 275 ML IV ONE (21:30)
[2020-06-09] MEDS ORDERED: Piperacillin/Tazobactam 3.375 GM in NS 110 ML IVPB ONE (21:30)
[2020-06-09 21:33] LABS: INR 1.1 (0.9-1.1)
[2020-06-09 21:34] LABS: ANION GAP 4 mmol/L (5-15); BLOOD UREA NITROGEN 17 mg/dL (7-18); CALCIUM 8.8 MG/DL (8.5-10.1); CARBON DIOXIDE 34 MMOL/L (21-32); CHLORIDE 103 MMOL/L (98-107); CREATININE 0.8 MG/DL (0.55-1.30); POTASSIUM 4.8 MMOL/L (3.5-5.1); SODIUM 140 MMOL/L (136-145)
[2020-06-09 21:51] LABS: ALANINE AMINOTRANSFERASE 12 U/L (12-78); ALBUMIN 2.1 G/DL (3.4-5.0); ALBUMIN/GLOBULIN RATIO 0.4 (1.0-2.7); ALKALINE PHOSPHATASE 90 U/L (46-116); ASPARTATE AMINO TRANSFERASE 17 U/L (15-37); BILIRUBIN,TOTAL 0.5 MG/DL (0.2-1.0); FERRITIN 347 NG/ML (8-388); LACTATE DEHYDROGENASE 200 U/L (81-234)
[2020-06-09] MEDS ORDERED: LORazepam Inj 2mg/ml 1ml IV PRN (22:00)
[2020-06-09] MEDS ORDERED: Miralax 17gm pkt ORAL PRN (22:00)
[2020-06-09] MEDS ORDERED: Albuterol/Ipratropium 3ml neb HHN PRN (22:00)
--- NOTE | 2020-06-09 22:26 | Emergency Room Report ---
History of Present Illness General Chief Complaint: Dyspnea/Respdistress Source: Patient, Medical Record Present Illness HPI 60-year-old male presents for evaluation. [facility]2 sat today. Recently diagnosed with pneumonia. O2 sat low. Started on oxygen. Patient has dementia. Limited history provided. No signs of distress on arrival. No reported fevers or chills. Recent Covid negative. No other aggravating relieving factors. 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 COVID-19 Screening: Negative COVID-19 COVID-19 Testing Source: NO 06/02/2020 Patient History Past Medical History: DM, COPD, CVA/TIA, dementia Social History: Denies: smoking, alcohol use, drug use Immunizations: UTD Reviewed Nursing Documentation: PMH: Agreed; PSxH: Agreed Nursing Documentation-PMH Past Medical History: No History, Except For Hx Cardiac Problems: No Hx Hypertension: Yes Hx COPD: Yes Hx Diabetes: Yes Hx Cancer: No Hx Gastrointestinal Problems: No Hx Neurological Problems: Yes Hx Cerebrovascular Accident: Yes Hx Dementia: Yes Hx Alzheimer's Disease: Yes Hx Seizures: Yes Hx Dysphasia: Yes Hx Weakness: Yes Review of Systems All Other Systems: limited Physical Exam Vital Signs Date Time Temp Pulse Resp B/P (MAP) Pulse Ox O2 Delivery O2 Flow Rate FiO2 06/09/20 20:08 97.9 88 18 102/59 (73) 98 Nasal Cannula 2.0 Sp02 EP Interpretation: reviewed, normal General Appearance: no apparent distress, other - nonverbal Head: normocephalic, atraumatic Eyes: bilateral eye normal inspection, bilateral eye PERRL ENT: hearing grossly normal, normal pharynx, no angioedema, normal voice Neck: full range of motion, supple/symm/no masses Respiratory: chest non-tender, crackles, speaking full sentences Cardiovascular #1: regular rate, rhythm, no edema Cardiovascular #2: 2+ carotid (R), 2+ carotid (L), 2+ radial (R), 2+ radial (L), 2+ dorsalis pedis (R), 2+ dorsalis pedis (L) Gastrointestinal: normal bowel sounds, non tender, soft, non-distended, no guarding, no rebound Rectal: deferred Genitourinary: normal inspection, no CVA tenderness Musculoskeletal: back normal, normal range of motion, non-tender Neurologic: other - nonverbal Psychiatric: other - nonverbal Reflexes: 3+ bicep (R), 3+ bicep (L), 3+ tricep (R), 3+ tricep (L), 3+ knee (R), 3+ knee (L) Skin: other - see nursing notes Lymphatic: no adenopathy Procedures Critical Care Time Critical Care Time i. I feel this is a highly complex case requiring extensive working including EKG/Rhythm strip, Xray/CT/US, Blood/urine lab work, repeat exams while in ED, and administration of strong opiates/narcotics for pain control, admission to hospital or close patient follow up. Total time: 30 min bedside evaluation and treatment excludes procedures (EKG). Reason for critical care: hypoxia, PNA Possible complications: hypotension, hypertension, IN, shock, arrhythmias, metabolic acidosis, end organ damage, respiratory failure. Interventions: labs, EKG, CXR, IVFS, abx, oxygen, cardiac monitoring Course: Patient with shortness of breath. O2 sat low. Placed on oxygen. Chest x-ray shows right-sided infiltrate. Recent Covid test negative. Rapid Covid here negative. Noted leukocytosis. Lactic okay. Given broad-spectrum antibiotics. O2 sats improved with oxygen. Given IV fluids. Consultations: nursing staff, EMS, family Performed by: Dr Luo Tolerated well condition = serious j. because of unstable vital signs this patient had a condition that could potentially threaten life or limb. I feel this is a critical patient who required my full attention while patient was considered critical. Total Critical Care Time excluding procedures was greater than 35 minutes Medical Decision Making Diagnostic Impression: Primary Impression: Pneumonia Qualified Codes: J18.9 - Pneumonia, unspecified organism Additional Impressions: Schizophrenia Qualified Codes: F20.9 - Schizophrenia, unspecified Respiratory distress ER Course Hospital Course 60 year-old male presents with recent diagnosis of pneumonia. O2 sats low Differential diagnoses include: Pneumonia, CHF exacerbation, pneumothorax, fluid overload Clinical course Patient placed on stretcher. In isolation. I wore full PPE. On electronic device monitor with hypoxia on room air. After initial history and physical, I ordered labs, IV fluids, EKG, chest x-ray, blood cultures, UA. Patient placed on nasal cannula with O2 saturation improving Labs -leukocytosis noted, hemoglobin/hematocrit stable, electrolytes okay, lactate okay troponins negative CXR - R lobe infiltrate EKG - NSR no acute ischemic change sinterpreted by me Patient O2 sat remains above 90% on nasal cannula. give 30 cc/kg fluid bolus. Given broad-spectrum antibiotics. Case discussed with Dr. Ng and he agreed to the patient to his service for further care and support I feel this is a highly complex case requiring extensive working including EKG/Rhythm strip, Xray/CT/US, Blood/urine lab work, repeat exams while in ED, and administration of strong opiates/narcotics for pain control, admission to hospital or close patient follow up. Diagnosis - pneumonia, schizphrenia, respiratory distress Patient admitted to telemetry in serious condition Laboratory Tests Test 06/09/20 20:30 White Blood Count 16.0 K/UL (4.8-10.8) H Red Blood Count 4.06 M/UL (4.70-6.10) L Hemoglobin 12.3 G/DL (14.2-18.0) L Hematocrit 36.7 % (42.0-52.0) L Mean Corpuscular Volume 90 FL (80-99) Mean Corpuscular Hemoglobin 30.2 PG (27.0-31.0) Mean Corpuscular Hemoglobin Concent 33.5 G/DL (32.0-36.0) Red Cell Distribution Width 14.7 % (11.6-14.8) Platelet Count 311 K/UL (150-450) Mean Platelet Volume 5.6 FL (6.5-10.1) L Neutrophils (%) (Auto) 82.7 % (45.0-75.0) H Lymphocytes (%) (Auto) 8.0 % (20.0-45.0) L Monocytes (%) (Auto) 8.4 % (1.0-10.0) Eosinophils (%) (Auto) 0.1 % (0.0-3.0) Basophils (%) (Auto) 0.9 % (0.0-2.0) Prothrombin Time 11.7 SEC (9.30-11.50) H Prothromb Time International Ratio 1.1 (0.9-1.1) Activated Partial Thromboplast Time 27 SEC (23-33) D-Dimer 1.39 mg/L FEU (0.00-0.49) H Urine Color Yellow Urine Appearance Clear Urine pH 6 (4.5-8.0) Urine Specific [place] 1.020 (1.005-1.035) Urine Protein 2+ (NEGATIVE) H Urine Glucose (UA) Negative (NEGATIVE) Urine Ketones 3+ (NEGATIVE) H Urine Blood Negative (NEGATIVE) Urine Nitrite Negative (NEGATIVE) Urine Bilirubin Negative (NEGATIVE) Urine Urobilinogen 12 MG/DL (0.0-1.0) H Urine Leukocyte Esterase Negative (NEGATIVE) Urine RBC 0-2 /HPF (0 - 0) H Urine WBC 0-2 /HPF (0 - 0) Urine Squamous Epithelial Cells Occasional /LPF Urine Bacteria Few /HPF (NONE) Urine Mucus Few /LPF (NONE/OCC) H Sodium Level 140 MMOL/L (136-145) Potassium Level 4.8 MMOL/L (3.5-5.1) Chloride Level 103 MMOL/L (98-107) Carbon Dioxide Level 34 MMOL/L (21-32) H Anion Gap 4 mmol/L (5-15) L Blood Urea Nitrogen 17 mg/dL (7-18) Creatinine 0.8 MG/DL (0.55-1.30) Estimat Glomerular Filtration Rate > 60 mL/min (>60) Glucose Level 107 MG/DL (74-106) H Lactic Acid Level 1.10 mmol/L (0.4-2.0) Calcium Level 8.8 MG/DL (8.5-10.1) Ferritin 347 NG/ML (8-388) Total Bilirubin 0.5 MG/DL (0.2-1.0) Aspartate Amino Transf (AST/SGOT) 17 U/L (15-37) Alanine Aminotransferase (ALT/SGPT) 12 U/L (12-78) Alkaline Phosphatase 90 U/L (46-116) Lactate Dehydrogenase 200 U/L (81-234) Troponin I 0.000 ng/mL (0.000-0.056) C-Reactive Protein, Quantitative Pending Pro-B-Type Natriuretic Peptide 378 pg/mL (0-125) H Total Protein 7.2 G/DL (6.4-8.2) Albumin 2.1 G/DL (3.4-5.0) L Globulin 5.1 g/dL Albumin/Globulin Ratio 0.4 (1.0-2.7) L Lipase 67 U/L (73-393) L EKG Diagnostic Results Troponin ordered: Yes Rate: normal Rhythm: NSR ST Segments: no acute changes ASA given to the pt in ED: No Rhythm Strip Diag. Results EP Interpretation: yes Rhythm: NSR, no PVC's, no ectopy Chest X-Ray Diagnostic Results Chest X-Ray Diagnostic Results : Chest X-Ray Ordered: Yes # of Views/Limited/Complete: 1 View Indication: Shortness of Breath EP Interpretation: Yes Interpretation: no pneumothorax, other - R sided infiltrate Impression: Other - PNA Electronically Signed by: Electronically signed by Riccardo Luo MD Last Vital Signs Date Time Temp Pulse Resp B/P (MAP) Pulse Ox O2 Delivery O2 Flow Rate FiO2 06/09/20 20:30 97.9 76 18 102/59 98 Nasal Cannula 6.0 Status: improved Disposition: ADMITTED INPATIENT Condition: Serious Referrals: Silas Ng DO (PCP) Riccardo Luo MD Jun 09, 2020 22:26
[2020-06-09 23:00] VITALS: BP 115/61
[2020-06-10] VITALS (7 sets, daily range): BP systolic 92–106; BP diastolic 56–61
--- NOTE | 2020-06-10 00:50 | NUR ---
TRANSFER TO FLOOR: Patient transferred to med surg 404-2 as ordered, per isrrael quigley. Report given to wilbur sanchez. patient stable for transport. transferred to er via gurney with jennifer and rn. belongings and admission packet sent with patient.
--- NOTE | 2020-06-10 01:30 | NUR ---
NURSE NOTES: Pt admitted from ED at 0100. Patient confused but able to follow simple commands. Noted GT. Sacral redness, wound care protocol initiated. On o2 via NC at 6LPM sat 96%. Productive cough oral suction provided. Made comfortable in bed. High fall risk. Communicated with charge nurse. [id number], frequent rounding. Patient currently on-off asleep and awake,grabbing siderails but to weak to get out of bed at this time. Therapeutic communication to calm patient down. Unable to give ativan d/t BP of 97/60. Patient asymptomatic. Will continue plan of care. Left message to Dr. Ng re: GT feed order. Awaiting call back.
[2020-06-10] MEDS ORDERED: VITAMIN C500 M1 GT (02:10)
[2020-06-10] MEDS ORDERED: MULTIVITAMINS1 EAC8 GT (02:10)
[2020-06-10] MEDS ORDERED: ACETAMINOPHEN325 M1 GT (02:10)
[2020-06-10] MEDS ORDERED: PANTOPRAZOLE SO40 M2 GT (02:10)
[2020-06-10] MEDS ORDERED: ROCEPHIN250 MG IM (02:10)
[2020-06-10] MEDS ORDERED: ZITHROMAX250 MG ORAL (02:10)
[2020-06-10] MEDS ORDERED: ROBITUSSIN COU237 M2 GT (02:10)
[2020-06-10] MEDS ORDERED: TRIAMCINOLONE A15 G2 TP (02:10)
[2020-06-10] MEDS ORDERED: VALPROIC A250 MG/5 M GT (02:10)
[2020-06-10] MEDS: Vancomycin 1 GM in NS 275 ML IVPB SCH ×2 (03:05→14:52)
--- NOTE | 2020-06-10 05:55 | NUR ---
NURSE NOTES: Patient pulled out IV, removing nasal canula and attempted to get out of bed multiple times. RN attempted to redirect patient, siderailsx3 up, bed alarm on, diversional activities not effective. Unable to give ativan prn for anxiety because systolic BP runs in the 90's. Dr. Ng made aware. Received order for nonviolent restraints of soft wrist on bilateral wrist. Restraints applied as order. Skin on wrist is intact, pulses present, patient able to actively move arms as well. New IV access obtained, resumed IVF. Addendum: 06/10/20 at 0652 by SIN FOSTER RN RN New IV became infiltrated. Charge nurse to attempt to re-start IV.
[2020-06-10] MEDS: NovoLOG Insulin Flexpen SUBQ SCH ×5 (06:02→21:00)
--- NOTE | 2020-06-10 07:44 | NUR ---
NURSE HAND-OFF: Important Events on Shift:[new admit, restraints applied, BP on the low side, BS low juice given, asymptomatic, need IV access] Patient Status: [stable] Diet: [2cal q4hr] Pending Orders: [] Pending Results/Labs:[] Pending MD notification:[need to continue valproic acid from SNF for sz] Latest Vital Signs: Temperature 96.7 , Pulse 72 , B/P 92 /57 , Respiratory Rate 22 , O2 SAT 97 , Nasal Cannula, O2 Flow Rate 6.0 . Vital Sign Comment: [] Latest Vargas Fall Score: 75 Fall Risk: High Risk Safety Measures: Call light Within Reach, Bed Alarm Zone 2, Side Rails Side Rails x3, Bed position Low and Locked. Fall Precautions: Yellow Socks Yellow Gown Door Sign Patient Fall Education Report given to [Gemma Esqueda RN].
--- NOTE | 2020-06-10 08:30 | NUR ---
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 * Swallowing difficulty r/t dysphagia as evidenced by PEG dep. CURRENT TF:SENIOR HEALTH EDUCATOR TF ORDER -> 2cal HN 1 can 6x/day, not yet initiated, bolus cans not available ENTERAL NUTRITION RECOMMENDATIONS: Glucerna 1.5 @ 65ml/hr x 24 hrs to provide 1560ml, 2340kcal, 129g prot, 1134ml free water * Rec continuous TF at this time, monitor TF tolerance closely. Rec carb controlled TF given h/o DM. * Initiate Glucerna 1.5 @ 35ml/hr x 6hrs, advance 10ml q 4-6 hrs as tolerated to goal rate * HOB over 30 degrees * Without IVF, H2O flush of 120ml q 4hrs ADDITIONAL RECOMMENDATIONS: 1) Maintain calibrated bedscale wt Monitor wt trend to assess adequacy of TF- h/o wt loss 2) Per SNF: HT=5'7" 3) D5 IVF when NPO to prevent hypoglycemia 4) Monitor lytes, replete as needed 5) WC eval for sacral wound photo/ TF @ goal provides 100% RDI 6) Check A1C for eval of BG control .
--- NOTE | 2020-06-10 08:51 | Consultation ---
History of Present Illness General Date patient seen: Jun 10, 2020 Time patient seen: 12:16 Chief Complaint: Dyspnea/Respdistress Referring physician: Dr. Ng Reason for Consultation: Sepsis Present Illness HPI 60yo M who presents from SNF with low O2 sat, recently diagnosed w/ pna, started on O2. Per ED notes, "No signs of distress on arrival. No reported fevers or chills. Recent Covid negative." Pt is awake and alert, interactive. On NC. Denies any issues breathing, no pain. No fevers/chills. Reports "I'm getting out of here". Allergies: Coded Allergies: NO KNOWN DRUG ALLERGIES (Verified Allergy, Unknown, 05/14/19) Medication History Scheduled Aripiprazole* (Abilify*), 5 MG GT BID, (Reported) Ascorbic Acid* (Vitamin C*), 500 MG GT DAILY, (Reported) Aspirin* (Aspirin*), 81 MG GT DAILY, (Reported) Azithromycin* (Zithromax*), 250 MG ORAL DAILY, (Reported) Ceftriaxone Sod (Rocephin), 1 MG IM DAILY, (Reported) Clonazepam* (Klonopin*), 0.5 MG ORAL Q12H, (Reported) Ferrous Sulfate (Ferrous Sulfate), 330 ML ORAL DAILY, (Reported) Guaifenesin/Dextromethorphan (Robitussin Cough-Chest Dm Liq), 15 ML GT TID, (Reported) Lactobacillus Acidophilus (Acidophilus), 1 EACH GT DAILY, (Reported) Lactulose (Lactulose*), 30 ML GT DAILY, (Reported) Metoprolol Tartrate* (Metoprolol Tartrate*), 12.5 MG GT EVERY 12 HOURS, (Reported) Multivitamin With Minerals (Multivitamins With Minerals*), 1 TAB GT DAILY, (Reported) Pantoprazole Sodium (Pantoprazole Sodium), 40 MG GT DAILY, (Reported) Pioglitazone Hcl* (Actos*), 15 MG GT DAILY, (Reported) Risperidone* (Risperdal*), 1 MG GT TWICE A DAY, (Reported) Triamcinolone Acetonide (Triamcinolone Acetonide 0.1% Oint*), 0 TP DAILY, (Reported) Valproate Sodium (Valproic Acid), 1,000 MG GT BID, (Reported) Scheduled PRN Acetaminophen* (Acetaminophen 325MG Tablet*), 650 MG GT Q4H PRN for Mild Pain (Pain Scale 1-3), (Reported) Acetaminophen* (Acetaminophen 325MG Tablet*), 650 MG GT Q4H PRN for Temp >100.5, (Reported) Ipratropium/Albuterol Sulfate (DuoNeb 0.5-3(2.5)mg/3ml), 3 ML HHN Q4H PRN for Shortness of Breath, (Reported) Sennosides* (Sen-O-Tab*), 17.2 MG ORAL DAILY PRN for Constipation, (Reported) Discontinued Medications Al Hydroxide/mg Hydroxide (Mag-Al Liquid), 30 ML ORAL NEEDED, (Reported) Discontinued Reason: MD discontinued med Bisacodyl (Dulcolax), 10 MG RECTAL NEEDED, (Reported) Discontinued Reason: MD discontinued med Docusate Sodium* (Colace*), 100 MG ORAL BEDTIME, (Reported) Discontinued Reason: MD discontinued med Patient History Limited by: medical condition Healthcare decision maker Resuscitation status Advanced Directive on File Review of Systems ROS Narrative 10-point ROS neg except as noted in HPI Physical Exam Physical Exam Narrative Gen: NAD HEENT: NCAT Pulm: BL chest rise on NC Abd: Soft, NTND Ext: No c/c/e Skin: No visible rashes Neuro: Awake, interactive Last 24 Hour Vital Signs Date Time Temp Pulse Resp B/P (MAP) Pulse Ox O2 Delivery O2 Flow Rate FiO2 06/10/20 04:00 96.7 72 22 92/57 (69) 97 06/10/20 01:30 97.0 73 22 97/60 (72) 99 06/10/20 01:30 Nasal Cannula 6.0 06/10/20 00:50 97.9 72 16 115/61 98 Nasal Cannula 6.0 06/09/20 23:00 97.9 72 16 115/61 98 Nasal Cannula 6.0 06/09/20 20:30 97.9 76 18 102/59 98 Nasal Cannula 6.0 06/09/20 20:30 88 18 Nasal Cannula 6.0 06/09/20 20:08 97.9 88 18 102/59 (73) 98 Nasal Cannula 2.0 Intake and Output 06/09/20 06/10/20 19:00 07:00 Intake Total 445.000 ml Balance 445.000 ml Intake Oral 120 ml IV Total 325.000 ml # Voids 1 Laboratory Tests Test 06/09/20 20:30 06/10/20 05:56 06/10/20 06:01 06/10/20 06:43 White Blood Count 16.0 K/UL (4.8-10.8) H Red Blood Count 4.06 M/UL (4.70-6.10) L Hemoglobin 12.3 G/DL (14.2-18.0) L Hematocrit 36.7 % (42.0-52.0) L Mean Corpuscular Volume 90 FL (80-99) Mean Corpuscular Hemoglobin 30.2 PG (27.0-31.0) Mean Corpuscular Hemoglobin Concent 33.5 G/DL (32.0-36.0) Red Cell Distribution Width 14.7 % (11.6-14.8) Platelet Count 311 K/UL (150-450) Mean Platelet Volume 5.6 FL (6.5-10.1) L Neutrophils (%) (Auto) 82.7 % (45.0-75.0) H Lymphocytes (%) (Auto) 8.0 % (20.0-45.0) L Monocytes (%) (Auto) 8.4 % (1.0-10.0) Eosinophils (%) (Auto) 0.1 % (0.0-3.0) Basophils (%) (Auto) 0.9 % (0.0-2.0) Prothrombin Time 11.7 SEC (9.30-11.50) H Prothromb Time International Ratio 1.1 (0.9-1.1) Activated Partial Thromboplast Time 27 SEC (23-33) D-Dimer 1.39 mg/L FEU (0.00-0.49) H Urine Color Yellow Urine Appearance Clear Urine pH 6 (4.5-8.0) Urine Specific [place] 1.020 (1.005-1.035) Urine Protein 2+ (NEGATIVE) H Urine Glucose (UA) Negative (NEGATIVE) Urine Ketones 3+ (NEGATIVE) H Urine Blood Negative (NEGATIVE) Urine Nitrite Negative (NEGATIVE) Urine Bilirubin Negative (NEGATIVE) Urine Urobilinogen 12 MG/DL (0.0-1.0) H Urine Leukocyte Esterase Negative (NEGATIVE) Urine RBC 0-2 /HPF (0 - 0) H Urine WBC 0-2 /HPF (0 - 0) Urine Squamous Epithelial Cells Occasional /LPF Urine Bacteria Few /HPF (NONE) Urine Mucus Few /LPF (NONE/OCC) H Sodium Level 140 MMOL/L (136-145) Potassium Level 4.8 MMOL/L (3.5-5.1) Chloride Level 103 MMOL/L (98-107) Carbon Dioxide Level 34 MMOL/L (21-32) H Anion Gap 4 mmol/L (5-15) L Blood Urea Nitrogen 17 mg/dL (7-18) Creatinine 0.8 MG/DL (0.55-1.30) Estimat Glomerular Filtration Rate > 60 mL/min (>60) Glucose Level 107 MG/DL (74-106) H Lactic Acid Level 1.10 mmol/L (0.4-2.0) Calcium Level 8.8 MG/DL (8.5-10.1) Ferritin 347 NG/ML (8-388) Total Bilirubin 0.5 MG/DL (0.2-1.0) Aspartate Amino Transf (AST/SGOT) 17 U/L (15-37) Alanine Aminotransferase (ALT/SGPT) 12 U/L (12-78) Alkaline Phosphatase 90 U/L (46-116) Lactate Dehydrogenase 200 U/L (81-234) Troponin I 0.000 ng/mL (0.000-0.056) C-Reactive Protein, Quantitative 31.9 mg/dL (0.00-0.90) H Pro-B-Type Natriuretic Peptide 378 pg/mL (0-125) H Total Protein 7.2 G/DL (6.4-8.2) Albumin 2.1 G/DL (3.4-5.0) L Globulin 5.1 g/dL Albumin/Globulin Ratio 0.4 (1.0-2.7) L Lipase 67 U/L (73-393) L POC Whole Blood Glucose 60 MG/DL (74-106) L 56 MG/DL (74-106) L 73 MG/DL (74-106) L Microbiology Date/Time Source Procedure Growth Status 06/09/20 21:25 Nasopharynx SARS-CoV-2 RdRp Gene Assay - Final Complete Height (Feet): 6 Height (Inches): 0.00 Weight (Pounds): 140 Medications Current Medications Medications (Trade) Dose Ordered Sig/Barry Route PRN Reason Start Time Stop Time Status Last Admin Dose Admin Acetaminophen (Tylenol) 650 mg Q4H PRN ORAL FEVER 06/09/20 22:00 07/09/20 21:59 Albuterol/ Ipratropium (Albuterol/ Ipratropium) 3 ml Q4H PRN HHN Shortness of Breath 06/09/20 22:00 06/14/20 21:59 Aripiprazole (Abilify) 5 mg BID ORAL 06/10/20 09:00 07/25/20 08:59 Cefepime HCl 2 gm/ Dextrose 110 ml @ 220 mls/hr EVERY 12 HOURS IV 06/10/20 09:00 06/17/20 08:59 Dextrose (Dextrose 50%) 25 ml Q30M PRN IV Hypoglycemia 06/09/20 22:00 09/07/20 21:59 Dextrose (Dextrose 50%) 50 ml Q30M PRN IV Hypoglycemia 06/09/20 22:00 09/07/20 21:59 Heparin Sodium (Porcine) (Heparin 5000 units/ml) 5,000 units EVERY 12 HOURS SUBQ 06/10/20 09:00 07/25/20 08:59 Insulin Aspart (NovoLOG) BEFORE MEALS AND HS SUBQ 06/10/20 06:30 09/08/20 06:29 Lorazepam (Ativan 2mg/ml 1ml) 2 mg Q2H PRN IV For Anxiety 06/09/20 22:00 06/16/20 21:59 Metoprolol Tartrate (Lopressor) 12.5 mg EVERY 12 HOURS GT 06/10/20 09:00 09/08/20 08:59 Ondansetron HCl (Zofran) 4 mg Q6H PRN IVP Nausea & Vomiting 06/09/20 22:00 07/09/20 21:59 Polyethylene Glycol (Miralax) 17 gm DAILYPRN PRN ORAL Constipation 06/09/20 22:00 07/09/20 21:59 Promethazine HCl/ Codeine (Phenergan with Codeine) 5 ml Q4H PRN ORAL For Cough 06/09/20 22:00 07/09/20 21:59 Risperidone (RisperDAL) 1 mg TWICE A DAY GT 06/10/20 09:00 07/25/20 08:59 UNV Sodium Chloride 1,000 ml @ 50 mls/hr Q20H IV 06/09/20 23:00 07/09/20 22:59 06/10/20 01:25 Vancomycin HCl 1 gm/Sodium Chloride 275 ml @ 183.299 mls/hr Q12H IVPB 06/10/20 03:00 06/15/20 02:59 06/10/20 03:05 Assessment/Plan Assessment/Plan: 60yo M with: Afebrile Leukocytosis to 16 Lymphopenia Hypoxia on 6L NC Pneumonia 06/09 BCx p UA neg Resp cx p COVID rapid test neg, PCR p MRSA nares p CXR: p Bipolar disorder CVA Dementia DM2 CAD Scabies 2012 HTN Seizure disorde COPD Dysphagia s/p GT [facility] resident Plan: Cont empiric cefepime/vanco IV #2 F/u BCx, Resp cx, COVID PCR Monitor CBC/CMP Monitor temp curve, hemodynamics Monitor resp status D/w RN Thank you for this consult. [facility] will continue to follow. Nicole Casillas M.D. Jun 10, 2020 08:51
[2020-06-10] MEDS: Metoprolol Tartrate 12.5mg TAB GT SCH ×2 (09:00→21:00)
--- NOTE | 2020-06-10 10:10 | NUR ---
NURSE NOTES: RN spoke to RD regarding bolus feeding. per RD, formula in cans not available and RD recommended glucerna 1.5 @65cc/hr continuous feeding. RN relayed RD's recommendation to Dr. Ng who agreed. Carried out the order and endorsed to the primary nurse.
[2020-06-10] MEDS: Cefepime HCl 2 GM in D5W 110 ML IV SCH ×2 (10:32→21:14)
[2020-06-10] MEDS: Heparin 5000 units/ml inj SUBQ SCH ×2 (10:35→21:16)
--- NOTE | 2020-06-10 10:51 | NUR ---
NURSE NOTES: Patient alert to name, respirations unlabored 02 on 2L N/C .Noted bilateral soft wrist restraints, will provide ROM and skin care.Condom catheter on with ayaz color urine noted.Patient has G-tube in place.Clarification needed on G-tube feedings will followup. Bed alarm on,call light within reach.
--- NOTE | 2020-06-10 10:59 | Diagnostic Imaging Report ---
Procedure: XRAY Chest 1v Reason for study: Reason For Exam: SOB Comparison films: 03/13/2020. FINDINGS: A single one view chest is obtained. Vascularity is normal. There is right upper lobe infiltrate. Cardiac and mediastinal silhouette are within normal limits. CP angles are sharp. The bony thorax appear unremarkable. IMPRESSION: Right upper lobe infiltrate.
[2020-06-10 12:39] LABS: HEMATOCRIT 36.9 % (42.0-52.0); HEMOGLOBIN 11.6 G/DL (14.2-18.0); MEAN CORPUSCULAR VOLUME 94 FL (80-99); PLATELET COUNT 303 K/UL (150-450); RED BLOOD COUNT 3.91 M/UL (4.70-6.10); RED CELL DISTRIBUTION WIDTH 14.3 % (11.6-14.8); WHITE BLOOD COUNT 14.4 K/UL (4.8-10.8)
[2020-06-10 12:59] LABS: ALBUMIN 1.8 G/DL (3.4-5.0); ANION GAP 3 mmol/L (5-15); BLOOD UREA NITROGEN 13 mg/dL (7-18); CALCIUM 8.2 MG/DL (8.5-10.1); CARBON DIOXIDE 31 MMOL/L (21-32); CHLORIDE 107 MMOL/L (98-107); CREATININE 0.6 MG/DL (0.55-1.30); PHOSPHORUS 2.7 MG/DL (2.5-4.9); POTASSIUM 4.1 MMOL/L (3.5-5.1); SODIUM 141 MMOL/L (136-145)
--- NOTE | 2020-06-10 12:59 | NUR ---
NURSE NOTES:WOUND CARE NOTES:Pt. presented on admission with multiple Pressure Injuries.Non-Blanching erythema L ear (L)1cm x (W)0.3cm. Non-Blanching erythema R ear.(L)1.5cm x (W)0.4cm. Sacrum is pink and Blanchable. Non erythema R Heel and Plantar R heel.(L)5.5cm (W)5.6cm. Non- Blanchable erythema L Heel (L)3cm x (W)5cm. No other skin concerns noted. Tx.Plan:Apply Cavilon to both ears Daily. Apply Moisture Barrier Paste to Sacrum. Cover with Optifoam drsg. Change every 3 days and prn. Apply Cavilon Skin Barrier to both heels. Cover each heel with Optifoam drsg.Change every 3 days and prn. Reposition at least every 2hours or as tolerated. Off-load heels with pillow.
--- NOTE | 2020-06-10 13:20 | Consultation ---
History of Present Illness General Date patient seen: Jun 10, 2020 Chief Complaint: Dyspnea/Respdistress Referring physician: Dr. Ng Reason for Consultation: Sepsis Present Illness HPI 60-year-old male with hx of DM, COPD, CVA/TIA, dementia, schizophrenia, seizures, G-tube, [facility] resident presented to ER for evaluation of low O2 sat today. Patient was recently diagnosed with pneumonia. Recent Covid negative. His CXR on admission showed extensive RML infiltrate. He is awake an d comfortable. Very poor historian. He is admitted for further evaluation and treatment. Allergies: Coded Allergies: NO KNOWN DRUG ALLERGIES (Verified Allergy, Unknown, 05/14/19) Medication History Scheduled Aripiprazole* (Abilify*), 5 MG GT BID, (Reported) Ascorbic Acid* (Vitamin C*), 500 MG GT DAILY, (Reported) Aspirin* (Aspirin*), 81 MG GT DAILY, (Reported) Azithromycin* (Zithromax*), 250 MG ORAL DAILY, (Reported) Ceftriaxone Sod (Rocephin), 1 MG IM DAILY, (Reported) Clonazepam* (Klonopin*), 0.5 MG ORAL Q12H, (Reported) Ferrous Sulfate (Ferrous Sulfate), 330 ML ORAL DAILY, (Reported) Guaifenesin/Dextromethorphan (Robitussin Cough-Chest Dm Liq), 15 ML GT TID, (Reported) Lactobacillus Acidophilus (Acidophilus), 1 EACH GT DAILY, (Reported) Lactulose (Lactulose*), 30 ML GT DAILY, (Reported) Metoprolol Tartrate* (Metoprolol Tartrate*), 12.5 MG GT EVERY 12 HOURS, (Reported) Multivitamin With Minerals (Multivitamins With Minerals*), 1 TAB GT DAILY, (Reported) Pantoprazole Sodium (Pantoprazole Sodium), 40 MG GT DAILY, (Reported) Pioglitazone Hcl* (Actos*), 15 MG GT DAILY, (Reported) Risperidone* (Risperdal*), 1 MG GT TWICE A DAY, (Reported) Triamcinolone Acetonide (Triamcinolone Acetonide 0.1% Oint*), 0 TP DAILY, (Reported) Valproate Sodium (Valproic Acid), 1,000 MG GT BID, (Reported) Scheduled PRN Acetaminophen* (Acetaminophen 325MG Tablet*), 650 MG GT Q4H PRN for Mild Pain (Pain Scale 1-3), (Reported) Acetaminophen* (Acetaminophen 325MG Tablet*), 650 MG GT Q4H PRN for Temp >100.5, (Reported) Ipratropium/Albuterol Sulfate (DuoNeb 0.5-3(2.5)mg/3ml), 3 ML HHN Q4H PRN for Shortness of Breath, (Reported) Sennosides* (Sen-O-Tab*), 17.2 MG ORAL DAILY PRN for Constipation, (Reported) Discontinued Medications Al Hydroxide/mg Hydroxide (Mag-Al Liquid), 30 ML ORAL NEEDED, (Reported) Discontinued Reason: MD discontinued med Bisacodyl (Dulcolax), 10 MG RECTAL NEEDED, (Reported) Discontinued Reason: MD discontinued med Docusate Sodium* (Colace*), 100 MG ORAL BEDTIME, (Reported) Discontinued Reason: MD discontinued med Patient History Healthcare decision maker Resuscitation status Advanced Directive on File Past Medical/Surgical History Past Medical/Surgical History: (1) COPD (chronic obstructive pulmonary disease) (2) CAD (coronary artery disease) (3) Alzheimer's dementia (4) Schizophrenia (5) Diabetes mellitus (6) Feeding by G-tube Review of Systems All Other Systems: negative except mentioned in HPI Physical Exam General Appearance: cachetic, thin Lines, tubes and drains: peripheral HEENT: normocephalic, atraumatic Neck: non-tender, normal alignment, supple Respiratory/Chest: chest wall non-tender, lungs clear, normal breath sounds Cardiovascular/Chest: normal peripheral pulses, regular rhythm Abdomen: normal bowel sounds, non tender Genitourinary/Rectal: normal genital exam, normal rectal exam Extremities: normal range of motion Last 24 Hour Vital Signs Date Time Temp Pulse Resp B/P (MAP) Pulse Ox O2 Delivery O2 Flow Rate FiO2 06/10/20 12:00 97.7 79 18 106/58 (74) 99 06/10/20 10:30 78 105/56 (72) 06/10/20 09:00 78 105/56 06/10/20 09:00 Nasal Cannula 2.0 06/10/20 08:00 97.9 77 18 99/59 (72) 100 06/10/20 07:55 76 16 96 Nasal Cannula 3.0 32 06/10/20 04:00 96.7 72 22 92/57 (69) 97 06/10/20 01:30 97.0 73 22 97/60 (72) 99 06/10/20 01:30 Nasal Cannula 6.0 06/10/20 00:50 97.9 72 16 115/61 98 Nasal Cannula 6.0 06/09/20 23:00 97.9 72 16 115/61 98 Nasal Cannula 6.0 06/09/20 20:30 97.9 76 18 102/59 98 Nasal Cannula 6.0 06/09/20 20:30 88 18 Nasal Cannula 6.0 06/09/20 20:08 97.9 88 18 102/59 (73) 98 Nasal Cannula 2.0 Intake and Output 06/09/20 06/10/20 19:00 07:00 Intake Total 445.000 ml Balance 445.000 ml Intake Oral 120 ml IV Total 325.000 ml # Voids 1 Laboratory Tests Test 06/09/20 20:30 06/10/20 05:56 06/10/20 06:01 06/10/20 06:43 White Blood Count 16.0 K/UL (4.8-10.8) H Red Blood Count 4.06 M/UL (4.70-6.10) L Hemoglobin 12.3 G/DL (14.2-18.0) L Hematocrit 36.7 % (42.0-52.0) L Mean Corpuscular Volume 90 FL (80-99) Mean Corpuscular Hemoglobin 30.2 PG (27.0-31.0) Mean Corpuscular Hemoglobin Concent 33.5 G/DL (32.0-36.0) Red Cell Distribution Width 14.7 % (11.6-14.8) Platelet Count 311 K/UL (150-450) Mean Platelet Volume 5.6 FL (6.5-10.1) L Neutrophils (%) (Auto) 82.7 % (45.0-75.0) H Lymphocytes (%) (Auto) 8.0 % (20.0-45.0) L Monocytes (%) (Auto) 8.4 % (1.0-10.0) Eosinophils (%) (Auto) 0.1 % (0.0-3.0) Basophils (%) (Auto) 0.9 % (0.0-2.0) Prothrombin Time 11.7 SEC (9.30-11.50) H Prothromb Time International Ratio 1.1 (0.9-1.1) Activated Partial Thromboplast Time 27 SEC (23-33) D-Dimer 1.39 mg/L FEU (0.00-0.49) H Urine Color Yellow Urine Appearance Clear Urine pH 6 (4.5-8.0) Urine Specific [place] 1.020 (1.005-1.035) Urine Protein 2+ (NEGATIVE) H Urine Glucose (UA) Negative (NEGATIVE) Urine Ketones 3+ (NEGATIVE) H Urine Blood Negative (NEGATIVE) Urine Nitrite Negative (NEGATIVE) Urine Bilirubin Negative (NEGATIVE) Urine Urobilinogen 12 MG/DL (0.0-1.0) H Urine Leukocyte Esterase Negative (NEGATIVE) Urine RBC 0-2 /HPF (0 - 0) H Urine WBC 0-2 /HPF (0 - 0) Urine Squamous Epithelial Cells Occasional /LPF Urine Bacteria Few /HPF (NONE) Urine Mucus Few /LPF (NONE/OCC) H Sodium Level 140 MMOL/L (136-145) Potassium Level 4.8 MMOL/L (3.5-5.1) Chloride Level 103 MMOL/L (98-107) Carbon Dioxide Level 34 MMOL/L (21-32) H Anion Gap 4 mmol/L (5-15) L Blood Urea Nitrogen 17 mg/dL (7-18) Creatinine 0.8 MG/DL (0.55-1.30) Estimat Glomerular Filtration Rate > 60 mL/min (>60) Glucose Level 107 MG/DL (74-106) H Lactic Acid Level 1.10 mmol/L (0.4-2.0) Calcium Level 8.8 MG/DL (8.5-10.1) Ferritin 347 NG/ML (8-388) Total Bilirubin 0.5 MG/DL (0.2-1.0) Aspartate Amino Transf (AST/SGOT) 17 U/L (15-37) Alanine Aminotransferase (ALT/SGPT) 12 U/L (12-78) Alkaline Phosphatase 90 U/L (46-116) Lactate Dehydrogenase 200 U/L (81-234) Troponin I 0.000 ng/mL (0.000-0.056) C-Reactive Protein, Quantitative 31.9 mg/dL (0.00-0.90) H Pro-B-Type Natriuretic Peptide 378 pg/mL (0-125) H Total Protein 7.2 G/DL (6.4-8.2) Albumin 2.1 G/DL (3.4-5.0) L Globulin 5.1 g/dL Albumin/Globulin Ratio 0.4 (1.0-2.7) L Lipase 67 U/L (73-393) L POC Whole Blood Glucose 60 MG/DL (74-106) L 56 MG/DL (74-106) L 73 MG/DL (74-106) L Test 06/10/20 11:49 06/10/20 12:30 POC Whole Blood Glucose 81 MG/DL (74-106) White Blood Count 14.4 K/UL (4.8-10.8) H Red Blood Count 3.91 M/UL (4.70-6.10) L Hemoglobin 11.6 G/DL (14.2-18.0) L Hematocrit 36.9 % (42.0-52.0) L Mean Corpuscular Volume 94 FL (80-99) Mean Corpuscular Hemoglobin 29.8 PG (27.0-31.0) Mean Corpuscular Hemoglobin Concent 31.5 G/DL (32.0-36.0) L Red Cell Distribution Width 14.3 % (11.6-14.8) Platelet Count 303 K/UL (150-450) Mean Platelet Volume 5.7 FL (6.5-10.1) L Neutrophils (%) (Auto) % (45.0-75.0) Lymphocytes (%) (Auto) % (20.0-45.0) Monocytes (%) (Auto) % (1.0-10.0) Eosinophils (%) (Auto) % (0.0-3.0) Basophils (%) (Auto) % (0.0-2.0) Neutrophils % (Manual) Pending Lymphocytes % (Manual) Pending Platelet Estimate Pending Platelet Morphology Pending Sodium Level 141 MMOL/L (136-145) Potassium Level 4.1 MMOL/L (3.5-5.1) Chloride Level 107 MMOL/L (98-107) Carbon Dioxide Level 31 MMOL/L (21-32) Anion Gap 3 mmol/L (5-15) L Blood Urea Nitrogen 13 mg/dL (7-18) Creatinine 0.6 MG/DL (0.55-1.30) Estimat Glomerular Filtration Rate > 60 mL/min (>60) Glucose Level 112 MG/DL (74-106) H Calcium Level 8.2 MG/DL (8.5-10.1) L Phosphorus Level 2.7 MG/DL (2.5-4.9) Albumin 1.8 G/DL (3.4-5.0) L Microbiology Date/Time Source Procedure Growth Status 06/09/20 21:25 Nasopharynx SARS-CoV-2 RdRp Gene Assay - Final Complete Height (Feet): 6 Height (Inches): 0.00 Weight (Pounds): 140 Medications Current Medications Medications (Trade) Dose Ordered Sig/Barry Route PRN Reason Start Time Stop Time Status Last Admin Dose Admin Acetaminophen (Tylenol) 650 mg Q4H PRN ORAL FEVER 06/09/20 22:00 07/09/20 21:59 Albuterol/ Ipratropium (Albuterol/ Ipratropium) 3 ml Q4H PRN HHN Shortness of Breath 06/09/20 22:00 06/14/20 21:59 Aripiprazole (Abilify) 5 mg BID ORAL 06/10/20 09:00 07/25/20 08:59 Cefepime HCl 2 gm/ Dextrose 110 ml @ 220 mls/hr EVERY 12 HOURS IV 06/10/20 09:00 06/17/20 08:59 06/10/20 10:32 Dextrose (Dextrose 50%) 25 ml Q30M PRN IV Hypoglycemia 06/09/20 22:00 09/07/20 21:59 Dextrose (Dextrose 50%) 50 ml Q30M PRN IV Hypoglycemia 06/09/20 22:00 09/07/20 21:59 Heparin Sodium (Porcine) (Heparin 5000 units/ml) 5,000 units EVERY 12 HOURS SUBQ 06/10/20 09:00 07/25/20 08:59 06/10/20 10:35 Insulin Aspart (NovoLOG) BEFORE MEALS AND HS SUBQ 06/10/20 06:30 09/08/20 06:29 Lorazepam (Ativan 2mg/ml 1ml) 2 mg Q2H PRN IV For Anxiety 06/09/20 22:00 06/16/20 21:59 Metoprolol Tartrate (Lopressor) 12.5 mg EVERY 12 HOURS GT 06/10/20 09:00 09/08/20 08:59 Ondansetron HCl (Zofran) 4 mg Q6H PRN IVP Nausea & Vomiting 06/09/20 22:00 07/09/20 21:59 Polyethylene Glycol (Miralax) 17 gm DAILYPRN PRN ORAL Constipation 06/09/20 22:00 07/09/20 21:59 Promethazine HCl/ Codeine (Phenergan with Codeine) 5 ml Q4H PRN ORAL For Cough 06/09/20 22:00 07/09/20 21:59 Risperidone (RisperDAL) 1 mg TWICE A DAY GT 06/10/20 09:00 07/25/20 08:59 Sodium Chloride 1,000 ml @ 50 mls/hr Q20H IV 06/09/20 23:00 07/09/20 22:59 06/10/20 01:25 Vancomycin HCl 1 gm/Sodium Chloride 275 ml @ 183.299 mls/hr Q12H IVPB 06/10/20 03:00 06/15/20 02:59 06/10/20 03:05 Assessment/Plan Problem List: (1) Nosocomial pneumonia ICD Codes: J18.9 - Pneumonia, unspecified organism; Y95 - Nosocomial condition SNOMED: 782083320 (2) COPD (chronic obstructive pulmonary disease) ICD Codes: J44.9 - Chronic obstructive pulmonary disease, unspecified SNOMED: 32816579 (3) Schizophrenia ICD Codes: F20.9 - Schizophrenia, unspecified SNOMED: 55882355 Qualifiers: Qualified Codes: F20.9 - Schizophrenia, unspecified (4) Seizure disorder ICD Codes: G40.909 - Epilepsy, unspecified, not intractable, without status epilepticus SNOMED: 446536876 (5) Diabetes mellitus ICD Codes: E11.9 - Type 2 diabetes mellitus without complications SNOMED: 29846732 (6) Feeding by G-tube ICD Codes: Z93.1 - Gastrostomy status SNOMED: 410147288, 489826522, 946247076 (7) Alzheimer's dementia ICD Codes: G30.9 - Alzheimer's disease, unspecified; F02.80 - Dementia in other diseases classified elsewhere without behavioral disturbance SNOMED: 84523717 Assessment/Plan: sputum for c/s iv abx by ID titrate fio2 to sat of 92% sliding scale neuro evaluation to review seizure meds dvt prophylaxis Anusha Richmond MD Jun 10, 2020 13:20
--- NOTE | 2020-06-10 15:00 | History and Physical Report ---
DATE OF ADMISSION: 06/09/2020 DATE AND TIME SEEN: 06/10/2020 at 2 p.m. CONSULTANTS: 1. Antony Berger MD 2. Anusha Richmond MD 3. Shyla Fleming MD CHIEF COMPLAINT: Shortness of breath, fever, pneumonia. BRIEF HISTORY: This is a 60-year-old male from [facility], presented with increased shortness of breath and fever for about 2 days, came to [place], diagnosed with pneumonia, elevated white count. COVID was negative. Patient was admitted to medical floor. Currently O2 NC, calm in bed, slight short of breath. No complaint. REVIEW OF SYSTEMS: No chest pain. Slight short of breath. No nausea, vomiting, or diarrhea. PAST MEDICAL HISTORY: Includes COPD, polyneuropathy, weakness, schizophrenia, seizure, diabetes, GERD. PAST SURGICAL HISTORY: Brain. ALLERGIES: Denies. MEDICATIONS: Include risperidone, cefepime, heparin, metoprolol, aripiprazole, insulin, vancomycin, Tylenol, polyethylene glycol, Zofran, lorazepam, promethazine. SOCIAL HISTORY: Positive smoking. No alcohol. No intravenous drug abuse. FAMILY HISTORY: Noncontributory. PHYSICAL EXAMINATION: GENERAL: O2 NC, slight short of breath, in bed, oriented x1, in no acute distress. VITAL SIGNS: Temperature 97 degrees, pulse 89, respirations 18, blood pressure 106/58. CARDIOVASCULAR: No murmur. LUNGS: Poor air exchange. ABDOMEN: Bowel sounds distant. EXTREMITIES: No cyanosis, clubbing, or edema. NEUROLOGIC: Patient moves all extremities, slightly weak. LABORATORY AND DIAGNOSTIC DATA: Labs at this time show white count 14.4, hemoglobin/hematocrit 11/36, platelets 303. BMP show glucose 112, calcium 8.2; otherwise normal. Albumin is 1.8. INR is 1.1. Urinalysis show 3+ ketone, 2+ protein; otherwise normal. ASSESSMENT: 1. Shortness of breath. 2. Fever. 3. Pneumonia. 4. Leukocytosis. 5. Seizure. 6. Diabetes. 7. Malnutrition. 8. Weakness. 9. Schizophrenia. 10. COPD. 11. Polyneuropathy. 12. GERD. PLAN: 1. O2, pulmonary treatment. 2. Antibiotics per Infectious Disease. 3. Blood pressure, blood sugar, seizure, pain control. 4. Dietary followup. 5. Psych treatment. 6. CBC, BMP in the morning. Silas Ng D.O. DR: JOSE GUADALUPE JOB#: [id number] CC:
--- NOTE | 2020-06-10 17:12 | NUR ---
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 97.9 HR 88 RR 18 B/P 102/59 N/C 5L/MIN WBC 16.0 CXR=Right upper lobe infiltrate. IS: IV BOLUS NS X 1 LITER AZITHROMAX IV ZOSYN IV ADMITTED TO MED/SURG STATUS MED/SURG STATUS DCP RETURN TO [facility]
--- NOTE | 2020-06-10 18:06 | NUR ---
NURSE NOTES: Patient tolerating G-tube feedings abdomen soft.IV fluids continue to infuse as ordered Bilateral wrist restraints remains in place.HOB is elevated.Bed alarm on,call light within reach.
--- NOTE | 2020-06-10 19:20 | NUR ---
NURSE NOTES: Received report from XOCHITL Vicente. Pt VSS, bed locked in lowest position, call light within reach. Little no residual in g-tube, increased feeding to 50cc/hr from 45cc/hr in an attempt to meet the goal of 65cc/hr. Pt has optifoam in sacral area and buttocks.
--- NOTE | 2020-06-10 19:20 | NUR ---
NURSE HAND-OFF: SUZANNA RN Important Events on Shift:[] Patient Status: [] Diet: Glucerna 1.5 goal rate 65cc/hr[] Pending Orders: [labs 06/11/20] Pending Results/Labs:[] Pending MD notification:[] Latest Vital Signs: Temperature 98.2 , Pulse 72 , B/P 105 /60 , Respiratory Rate 18 , O2 SAT 96 , Nasal Cannula, O2 Flow Rate 3.0 . Vital Sign Comment: [] Latest Vargas Fall Score: 75 Fall Risk: High Risk Safety Measures: Call light Within Reach, Bed Alarm Zone 2, Side Rails Side Rails x2, Bed position Low and Locked. Fall Precautions: Yellow Socks Yellow Gown Door Sign y Patient Fall Education Report given to [].
--- NOTE | 2020-06-10 23:45 | NUR ---
NURSE NOTES: Suctioned and turned pt, condom catheter came off, attached a new one which is draining well to gravity. Checked residual once again with little to no residual, increased g tube feeding from 50cc/hr to 55cc/hr.
[2020-06-11] VITALS: BP 116/56
[2020-06-11] MEDS: Vancomycin 1 GM in NS 275 ML IVPB SCH ×2 (03:34→15:56)
[2020-06-11 04:00] VITALS: BP 112/67
[2020-06-11] MEDS: NovoLOG Insulin Flexpen SUBQ SCH ×4 (06:30→20:28)
--- NOTE | 2020-06-11 07:40 | NUR ---
NURSE HAND-OFF: Important Events on Shift: Oral suction, NC 2L O2 remains 94-95%, g-tube feeding at goal 65ml/hr, patient is tolerating well. Patient Status: Stable Diet: G-tube Glucerna 1.5 at 65ml/hr Pending Orders: N/A Pending Results/Labs:CBC, CMP Pending MD notification: increase crackles in lungs Latest Vital Signs: Temperature 98.5 , Pulse 110 , B/P 112 /67 , Respiratory Rate 20 , O2 SAT 100 , Nasal Cannula, O2 Flow Rate 2.0 . Vital Sign Comment: Stable Latest Vargas Fall Score: 75 Fall Risk: High Risk Safety Measures: Call light Within Reach, Bed Alarm Zone 1, Side Rails Side Rails x2, Bed position Low and Locked. Fall Precautions: Yellow Socks Yellow Gown Door Sign Patient Fall Education Report given to XOCHITL Pak.
[2020-06-11 07:49] LABS: BASOPHILS % (AUTO) 1.3 % (0.0-2.0); EOSINOPHILS % (AUTO) 0.3 % (0.0-3.0); HEMATOCRIT 34.9 % (42.0-52.0); HEMOGLOBIN 11.8 G/DL (14.2-18.0); LYMPHOCYTES % (AUTO) 7.2 % (20.0-45.0); MEAN CORPUSCULAR VOLUME 89 FL (80-99); MONOCYTES % (AUTO) 10.3 % (1.0-10.0); NEUTROPHILS % (AUTO) 80.9 % (45.0-75.0); PLATELET COUNT 339 K/UL (150-450); RED CELL DISTRIBUTION WIDTH 14.6 % (11.6-14.8); WHITE BLOOD COUNT 10.8 K/UL (4.8-10.8)
[2020-06-11 07:57] LABS: ANION GAP 2 mmol/L (5-15); BLOOD UREA NITROGEN 15 mg/dL (7-18); CALCIUM 8.4 MG/DL (8.5-10.1); CARBON DIOXIDE 33 MMOL/L (21-32); CHLORIDE 106 MMOL/L (98-107); CREATININE 0.7 MG/DL (0.55-1.30); POTASSIUM 4.1 MMOL/L (3.5-5.1); SODIUM 141 MMOL/L (136-145)
[2020-06-11 08:00] VITALS: BP 105/64
--- NOTE | 2020-06-11 08:45 | NUR ---
NURSE NOTES: received report from XOCHITL Baeza. patient in bed. non verbal at this time. no respiratory distress on 2L via NC. o2sat 98%. no facial grimacing noted. GTF @65. no residual. flushed with water. HOB@30 degree. IV on THANIA running 1/2ns@50. IV on RFA intact. flushed. condom cath draining. yellow. no odor. soft restraints on both wrists. prevention pulling device and safety. hx of fall. bed in the lowest position and locked. call light within reach. alarm on. PUI COVID. result pending. seizure precaution. side rails are padded. will continue to provide plan of care.
--- NOTE | 2020-06-11 08:52 | Infectious Diseases Prog Note ---
Assessment/Plan 60yo M with: Afebrile Leukocytosis to 16, improving Lymphopenia Hypoxia on 6L NC Pneumonia GPC bacteremia, r/o contaminant 06/09 BCx 1/2 +GPCs UA neg Resp cx p COVID rapid test neg, PCR p MRSA nares p CXR: RUL infiltrate 06/11 BCx ordered Bipolar disorder CVA Dementia DM2 CAD Scabies 2012 HTN Seizure disorde COPD Dysphagia s/p GT [facility] resident Plan: Cont empiric cefepime/vanco IV #3 Repeat BCx today F/u GPCs in BCx 06/09 F/u resp cx F/u COVID PCR Monitor CBC/CMP Monitor temp curve, hemodynamics Monitor resp status D/w RN Thank you for this consult. [facility] will continue to follow. Subjective Allergies: Coded Allergies: NO KNOWN DRUG ALLERGIES (Verified Allergy, Unknown, 05/14/19) AF WBC 10, improving Down to 2L NC GPCs in 1/2 BCx from admission NAD in bed Objective Last 24 Hour Vital Signs Date Time Temp Pulse Resp B/P (MAP) Pulse Ox O2 Delivery O2 Flow Rate FiO2 06/11/20 04:00 98.5 110 20 112/67 (82) 100 06/11/20 00:00 98.8 90 19 116/56 (76) 95 06/10/20 21:00 Nasal Cannula 2.0 06/10/20 21:00 89 106/61 06/10/20 20:00 97.7 89 20 106/61 (76) 97 06/10/20 19:40 72 18 96 Nasal Cannula 3.0 32 06/10/20 16:00 98.2 81 18 105/60 (75) 96 06/10/20 12:00 97.7 79 18 106/58 (74) 99 06/10/20 10:30 78 105/56 (72) 06/10/20 09:00 78 105/56 06/10/20 09:00 Nasal Cannula 2.0 Height (Feet): 6 Height (Inches): 0.00 Weight (Pounds): 140 Gen: NAD HEENT: NCAT Pulm: BL chest rise Abd: Non-distended Ext: No c/c/e Skin: No visible rashes Neuro: Awake Microbiology Date/Time Source Procedure Growth Status 06/10/20 01:30 Sputum Gram Stain - Final Resulted 06/10/20 01:30 Sputum Sputum Culture Pending Resulted 06/09/20 21:25 Nasopharynx SARS-CoV-2 RdRp Gene Assay - Final Complete 06/09/20 20:45 Blood Blood Culture - Preliminary Gram Positive Cocci Resulted 06/09/20 20:30 Blood Blood Culture - Preliminary NO GROWTH AFTER 24 HOURS Resulted Laboratory Tests Test 06/10/20 11:49 06/10/20 12:30 06/10/20 16:34 06/10/20 21:22 POC Whole Blood Glucose 81 MG/DL (74-106) 108 MG/DL (74-106) H 98 MG/DL (74-106) White Blood Count 14.4 K/UL (4.8-10.8) H Red Blood Count 3.91 M/UL (4.70-6.10) L Hemoglobin 11.6 G/DL (14.2-18.0) L Hematocrit 36.9 % (42.0-52.0) L Mean Corpuscular Volume 94 FL (80-99) Mean Corpuscular Hemoglobin 29.8 PG (27.0-31.0) Mean Corpuscular Hemoglobin Concent 31.5 G/DL (32.0-36.0) L Red Cell Distribution Width 14.3 % (11.6-14.8) Platelet Count 303 K/UL (150-450) Mean Platelet Volume 5.7 FL (6.5-10.1) L Neutrophils (%) (Auto) % (45.0-75.0) Lymphocytes (%) (Auto) % (20.0-45.0) Monocytes (%) (Auto) % (1.0-10.0) Eosinophils (%) (Auto) % (0.0-3.0) Basophils (%) (Auto) % (0.0-2.0) Differential Total Cells Counted 100 Neutrophils % (Manual) 86 % (45-75) H Lymphocytes % (Manual) 5 % (20-45) L Monocytes % (Manual) 9 % (1-10) Eosinophils % (Manual) 0 % (0-3) Basophils % (Manual) 0 % (0-2) Band Neutrophils 0 % (0-8) Platelet Estimate Adequate Platelet Morphology Normal Hypochromasia 1+ Sodium Level 141 MMOL/L (136-145) Potassium Level 4.1 MMOL/L (3.5-5.1) Chloride Level 107 MMOL/L (98-107) Carbon Dioxide Level 31 MMOL/L (21-32) Anion Gap 3 mmol/L (5-15) L Blood Urea Nitrogen 13 mg/dL (7-18) Creatinine 0.6 MG/DL (0.55-1.30) Estimat Glomerular Filtration Rate > 60 mL/min (>60) Glucose Level 112 MG/DL (74-106) H Calcium Level 8.2 MG/DL (8.5-10.1) L Phosphorus Level 2.7 MG/DL (2.5-4.9) Albumin 1.8 G/DL (3.4-5.0) L Test 06/11/20 06:45 White Blood Count 10.8 K/UL (4.8-10.8) Red Blood Count 3.90 M/UL (4.70-6.10) L Hemoglobin 11.8 G/DL (14.2-18.0) L Hematocrit 34.9 % (42.0-52.0) L Mean Corpuscular Volume 89 FL (80-99) Mean Corpuscular Hemoglobin 30.3 PG (27.0-31.0) Mean Corpuscular Hemoglobin Concent 33.9 G/DL (32.0-36.0) Red Cell Distribution Width 14.6 % (11.6-14.8) Platelet Count 339 K/UL (150-450) Mean Platelet Volume 5.4 FL (6.5-10.1) L Neutrophils (%) (Auto) 80.9 % (45.0-75.0) H Lymphocytes (%) (Auto) 7.2 % (20.0-45.0) L Monocytes (%) (Auto) 10.3 % (1.0-10.0) H Eosinophils (%) (Auto) 0.3 % (0.0-3.0) Basophils (%) (Auto) 1.3 % (0.0-2.0) Sodium Level 141 MMOL/L (136-145) Potassium Level 4.1 MMOL/L (3.5-5.1) Chloride Level 106 MMOL/L (98-107) Carbon Dioxide Level 33 MMOL/L (21-32) H Anion Gap 2 mmol/L (5-15) L Blood Urea Nitrogen 15 mg/dL (7-18) Creatinine 0.7 MG/DL (0.55-1.30) Estimat Glomerular Filtration Rate > 60 mL/min (>60) Glucose Level 129 MG/DL (74-106) H Calcium Level 8.4 MG/DL (8.5-10.1) L Current Medications Medications (Trade) Dose Ordered Sig/Barry Route PRN Reason Start Time Stop Time Status Last Admin Dose Admin Acetaminophen (Tylenol) 650 mg Q4H PRN ORAL FEVER 06/09/20 22:00 07/09/20 21:59 Albuterol/ Ipratropium (Albuterol/ Ipratropium) 3 ml Q4H PRN HHN Shortness of Breath 06/09/20 22:00 06/14/20 21:59 Aripiprazole (Abilify) 5 mg BID ORAL 06/10/20 09:00 07/25/20 08:59 06/10/20 18:03 Cefepime HCl 2 gm/ Dextrose 110 ml @ 220 mls/hr EVERY 12 HOURS IV 06/10/20 09:00 06/17/20 08:59 06/10/20 21:14 Dextrose (Dextrose 50%) 25 ml Q30M PRN IV Hypoglycemia 06/09/20 22:00 09/07/20 21:59 Dextrose (Dextrose 50%) 50 ml Q30M PRN IV Hypoglycemia 06/09/20 22:00 09/07/20 21:59 Heparin Sodium (Porcine) (Heparin 5000 units/ml) 5,000 units EVERY 12 HOURS SUBQ 06/10/20 09:00 07/25/20 08:59 06/10/20 21:16 Insulin Aspart (NovoLOG) BEFORE MEALS AND HS SUBQ 06/10/20 06:30 09/08/20 06:29 Lorazepam (Ativan 2mg/ml 1ml) 2 mg Q2H PRN IV For Anxiety 06/09/20 22:00 06/16/20 21:59 Metoprolol Tartrate (Lopressor) 12.5 mg EVERY 12 HOURS GT 06/10/20 09:00 09/08/20 08:59 Ondansetron HCl (Zofran) 4 mg Q6H PRN IVP Nausea & Vomiting 06/09/20 22:00 07/09/20 21:59 Polyethylene Glycol (Miralax) 17 gm DAILYPRN PRN ORAL Constipation 06/09/20 22:00 07/09/20 21:59 Promethazine HCl/ Codeine (Phenergan with Codeine) 5 ml Q4H PRN ORAL For Cough 06/09/20 22:00 07/09/20 21:59 Risperidone (RisperDAL) 1 mg TWICE A DAY GT 06/10/20 18:00 07/25/20 17:59 06/10/20 18:04 Sodium Chloride 1,000 ml @ 50 mls/hr Q20H IV 06/09/20 23:00 07/09/20 22:59 06/10/20 01:25 Vancomycin HCl 1 gm/Sodium Chloride 275 ml @ 183.299 mls/hr Q12H IVPB 06/10/20 03:00 06/15/20 02:59 06/11/20 03:34 Nicole Casillas M.D. Jun 11, 2020 08:52
[2020-06-11] MEDS: Metoprolol Tartrate 12.5mg TAB GT SCH ×3 (09:00→20:53)
--- NOTE | 2020-06-11 09:28 | General Progress Note ---
Subjective Constitutional: Reports: weakness Respiratory: Reports: shortness of breath Allergies: Coded Allergies: NO KNOWN DRUG ALLERGIES (Verified Allergy, Unknown, 05/14/19) All Systems: reviewed and negative except above Subjective o2 nc sleepy Objective Last 24 Hour Vital Signs Date Time Temp Pulse Resp B/P (MAP) Pulse Ox O2 Delivery O2 Flow Rate FiO2 06/11/20 08:00 97.0 84 20 105/64 (78) 96 06/11/20 04:00 98.5 110 20 112/67 (82) 100 06/11/20 00:00 98.8 90 19 116/56 (76) 95 06/10/20 21:00 Nasal Cannula 2.0 06/10/20 21:00 89 106/61 06/10/20 20:00 97.7 89 20 106/61 (76) 97 06/10/20 19:40 72 18 96 Nasal Cannula 3.0 32 06/10/20 16:00 98.2 81 18 105/60 (75) 96 06/10/20 12:00 97.7 79 18 106/58 (74) 99 06/10/20 10:30 78 105/56 (72) Intake and Output 06/10/20 06/11/20 19:00 07:00 Intake Total 675 ml 903.299 ml Output Total 500 ml Balance 675 ml 403.299 ml Free Water 30 ml IV Total 425 ml 903.299 ml Tube Feeding 220 ml Output Urine Total 500 ml # Voids 1 Laboratory Tests 06/10/20 11:49: POC Whole Blood Glucose 81 06/10/20 12:30: White Blood Count 14.4H, Red Blood Count 3.91L, Hemoglobin 11.6L, Hematocrit 36.9L, Mean Corpuscular Volume 94, Mean Corpuscular Hemoglobin 29.8, Mean Corpuscular Hemoglobin Concent 31.5L, Red Cell Distribution Width 14.3, Platelet Count 303, Mean Platelet Volume 5.7L, Neutrophils (%) (Auto) , Lymphocytes (%) ( Auto) , Monocytes (%) (Auto) , Eosinophils (%) (Auto) , Basophils (%) (Auto) , Differential Total Cells Counted 100, Neutrophils % (Manual) 86H, Lymphocytes % (Manual) 5L, Monocytes % (Manual) 9, Eosinophils % (Manual) 0, Basophils % (Manual) 0, Band Neutrophils 0, Platelet Estimate Adequate, Platelet Morphology Normal, Hypochromasia 1+, Sodium Level 141, Potassium Level 4.1, Chloride Level 107, Carbon Dioxide Level 31, Anion Gap 3L, Blood Urea Nitrogen 13, Creatinine 0.6, Estimat Glomerular Filtration Rate > 60, Glucose Level 112H, Calcium Level 8.2L, Phosphorus Level 2.7, Albumin 1.8L 06/10/20 16:34: POC Whole Blood Glucose 108H 06/10/20 21:22: POC Whole Blood Glucose 98 06/11/20 06:45: White Blood Count 10.8, Red Blood Count 3.90L, Hemoglobin 11.8L, Hematocrit 34.9L, Mean Corpuscular Volume 89, Mean Corpuscular Hemoglobin 30.3, Mean Corpuscular Hemoglobin Concent 33.9, Red Cell Distribution Width 14.6, Platelet Count 339, Mean Platelet Volume 5.4L, Neutrophils (%) (Auto) 80.9H, Lymphocytes (%) (Auto) 7.2L, Monocytes (%) (Auto) 10.3H, Eosinophils (%) (Auto) 0.3, Basophils (%) (Auto) 1.3, Sodium Level 141, Potassium Level 4.1, Chloride Level 106, Carbon Dioxide Level 33H, Anion Gap 2L, Blood Urea Nitrogen 15, Creatinine 0.7, Estimat Glomerular Filtration Rate > 60, Glucose Level 129H, Calcium Level 8.4L Height (Feet): 6 Height (Inches): 0.00 Weight (Pounds): 140 General Appearance: lethargic EENT: normal ENT inspection Neck: normal alignment Cardiovascular: normal peripheral pulses, normal rate, regular rhythm Respiratory/Chest: chest wall non-tender, lungs clear, normal breath sounds Abdomen: normal bowel sounds, non tender, soft Extremities: normal inspection Edema: no edema noted Arm (L), no edema noted Arm (R), no edema noted Leg (L), no edema noted Leg (R), no edema noted Pedal (L), no edema noted Pedal (R), no edema noted Generalized Neurologic: motor weakness Skin: normal pigmentation, warm/dry Assessment/Plan Problem List: (1) Nosocomial pneumonia ICD Codes: J18.9 - Pneumonia, unspecified organism; Y95 - Nosocomial condition SNOMED: 867716017 (2) Altered mental status (3) Diabetes mellitus ICD Codes: E11.9 - Type 2 diabetes mellitus without complications SNOMED: 37880587 (4) Schizophrenia ICD Codes: F20.9 - Schizophrenia, unspecified SNOMED: 41127725 Qualifiers: Qualified Codes: F20.9 - Schizophrenia, unspecified (5) Seizure disorder ICD Codes: G40.909 - Epilepsy, unspecified, not intractable, without status epilepticus SNOMED: 851215776 (6) COPD (chronic obstructive pulmonary disease) ICD Codes: J44.9 - Chronic obstructive pulmonary disease, unspecified SNOMED: 31614532 (7) Pneumonia ICD Codes: J18.9 - Pneumonia, unspecified organism SNOMED: 808505802 Qualifiers: Qualified Codes: J18.9 - Pneumonia, unspecified organism (8) Fever ICD Codes: R50.9 - Fever, unspecified SNOMED: 612648477 Status: unchanged Assessment/Plan: o2 pulm tx abx pt diet eval cbc bmp in am Silas Ng DO Jun 11, 2020 09:28
[2020-06-11] MEDS: Cefepime HCl 2 GM in D5W 110 ML IV SCH ×2 (09:43→20:53)
[2020-06-11] MEDS: Heparin 5000 units/ml inj SUBQ SCH ×2 (09:44→20:54)
--- NOTE | 2020-06-11 11:30 | NUR ---
PT EVALUATION NOTE Patient seen for initial evaluation and treatment initiated. Patient presents with generalized weakness and decreased balance which impairs patient's ability to perform mobility tasks safely. Patient required max assist to bring both of his LEs over the EOB and to bring his trunk to sitting position at the EOB. Patient required assist to maintain sitting at the EOB. Patient unable to stand at this time due to weakness. Patient will benefit from skilled inpatient PT intervention to increase strength and postural stability for improved level of functional mobility and safety. Recommend discharge back to previous living arrangement once medically cleared by MD. No DME recommended at this time. Addendum: 06/11/20 at 1255 by EVA SILVERMAN PT Amended: Links added.
[2020-06-11 12:00] VITALS: BP 125/72
--- NOTE | 2020-06-11 12:37 | Pulmonology Progress Note ---
Subjective Interval Events: comfortable Allergies: Coded Allergies: NO KNOWN DRUG ALLERGIES (Verified Allergy, Unknown, 05/14/19) All Systems: reviewed and negative except above Objective Last 24 Hour Vital Signs Date Time Temp Pulse Resp B/P (MAP) Pulse Ox O2 Delivery O2 Flow Rate FiO2 06/11/20 09:00 84 105/64 06/11/20 09:00 Nasal Cannula 2.0 06/11/20 08:00 97.0 84 20 105/64 (78) 96 06/11/20 04:00 98.5 110 20 112/67 (82) 100 06/11/20 00:00 98.8 90 19 116/56 (76) 95 06/10/20 21:00 Nasal Cannula 2.0 06/10/20 21:00 89 106/61 06/10/20 20:00 97.7 89 20 106/61 (76) 97 06/10/20 19:40 72 18 96 Nasal Cannula 3.0 32 06/10/20 16:00 98.2 81 18 105/60 (75) 96 Intake and Output 06/10/20 06/11/20 19:00 07:00 Intake Total 675 ml 903.299 ml Output Total 500 ml Balance 675 ml 403.299 ml Free Water 30 ml IV Total 425 ml 903.299 ml Tube Feeding 220 ml Output Urine Total 500 ml # Voids 1 General Appearance: cachetic HEENT: normocephalic, atraumatic Respiratory: chest wall non-tender, rhonchi - left Cardiovascular: normal peripheral pulses, normal rate, regular rhythm, JVD Abdomen: normal bowel sounds, soft, non tender, no organomegaly Genitourinary: normal external genitalia Extremities: no clubbing Skin: no rash 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 II-XII grossly normal Microbiology Date/Time Source Procedure Growth Status 06/10/20 01:30 Sputum Gram Stain - Final Resulted 06/10/20 01:30 Sputum Sputum Culture Pending Resulted 06/09/20 21:25 Nasopharynx SARS-CoV-2 RdRp Gene Assay - Final Complete 06/09/20 20:45 Blood Blood Culture - Preliminary Gram Positive Cocci Resulted 06/09/20 20:30 Nasopharynx Coronavirus COVID-19 PCR (HAO) - Final Complete 06/09/20 20:30 Blood Blood Culture - Preliminary NO GROWTH AFTER 24 HOURS Resulted Laboratory Tests 06/10/20 16:34: POC Whole Blood Glucose 108H 06/10/20 21:22: POC Whole Blood Glucose 98 06/11/20 06:45: White Blood Count 10.8, Red Blood Count 3.90L, Hemoglobin 11.8L, Hematocrit 34.9L, Mean Corpuscular Volume 89, Mean Corpuscular Hemoglobin 30.3, Mean Corpuscular Hemoglobin Concent 33.9, Red Cell Distribution Width 14.6, Platelet Count 339, Mean Platelet Volume 5.4L, Neutrophils (%) (Auto) 80.9H, Lymphocytes (%) (Auto) 7.2L, Monocytes (%) (Auto) 10.3H, Eosinophils (%) (Auto) 0.3, Basophils (%) (Auto) 1.3, Sodium Level 141, Potassium Level 4.1, Chloride Level 106, Carbon Dioxide Level 33H, Anion Gap 2L, Blood Urea Nitrogen 15, Creatinine 0.7, Estimat Glomerular Filtration Rate > 60, Glucose Level 129H, Calcium Level 8.4L Current Medications Medications (Trade) Dose Ordered Sig/Barry Route PRN Reason Start Time Stop Time Status Last Admin Dose Admin Acetaminophen (Tylenol) 650 mg Q4H PRN ORAL FEVER 06/09/20 22:00 07/09/20 21:59 Albuterol/ Ipratropium (Albuterol/ Ipratropium) 3 ml Q4H PRN HHN Shortness of Breath 06/09/20 22:00 06/14/20 21:59 Aripiprazole (Abilify) 5 mg BID ORAL 06/10/20 09:00 07/25/20 08:59 06/11/20 09:43 Cefepime HCl 2 gm/ Dextrose 110 ml @ 220 mls/hr EVERY 12 HOURS IV 06/10/20 09:00 06/17/20 08:59 06/11/20 09:43 Dextrose (Dextrose 50%) 25 ml Q30M PRN IV Hypoglycemia 06/09/20 22:00 09/07/20 21:59 Dextrose (Dextrose 50%) 50 ml Q30M PRN IV Hypoglycemia 06/09/20 22:00 09/07/20 21:59 Heparin Sodium (Porcine) (Heparin 5000 units/ml) 5,000 units EVERY 12 HOURS SUBQ 06/10/20 09:00 07/25/20 08:59 06/11/20 09:44 Insulin Aspart (NovoLOG) BEFORE MEALS AND HS SUBQ 06/10/20 06:30 09/08/20 06:29 Lorazepam (Ativan 2mg/ml 1ml) 2 mg Q2H PRN IV For Anxiety 06/09/20 22:00 06/16/20 21:59 Metoprolol Tartrate (Lopressor) 12.5 mg EVERY 12 HOURS GT 06/10/20 09:00 09/08/20 08:59 Ondansetron HCl (Zofran) 4 mg Q6H PRN IVP Nausea & Vomiting 06/09/20 22:00 07/09/20 21:59 Polyethylene Glycol (Miralax) 17 gm DAILYPRN PRN ORAL Constipation 06/09/20 22:00 07/09/20 21:59 Promethazine HCl/ Codeine (Phenergan with Codeine) 5 ml Q4H PRN ORAL For Cough 06/09/20 22:00 07/09/20 21:59 Risperidone (RisperDAL) 1 mg TWICE A DAY GT 06/10/20 18:00 07/25/20 17:59 06/11/20 09:43 Sodium Chloride 1,000 ml @ 50 mls/hr Q20H IV 06/09/20 23:00 07/09/20 22:59 06/10/20 01:25 Vancomycin HCl 1 gm/Sodium Chloride 275 ml @ 183.299 mls/hr Q12H IVPB 06/10/20 03:00 06/15/20 02:59 06/11/20 03:34 Assessment/Plan Problems: (1) Nosocomial pneumonia (2) COPD (chronic obstructive pulmonary disease) (3) Schizophrenia (4) Seizure disorder (5) Diabetes mellitus (6) Feeding by G-tube (7) Alzheimer's dementia Assessment/Plan covid negative times two sputum for c/s iv abx by ID titrate fio2 to sat of 92% sliding scale neuro evaluation to review seizure meds dvt prophylaxis Anusha Richmond MD Jun 11, 2020 12:37
--- NOTE | 2020-06-11 15:15 | NUR ---
CASE MANAGEMENT:REVIEW SI;PNEUMONIA 98.8 110 20 125/72 95% 2L NC BG 129 IS;CEFEPIME IV Q12 VANCOMYCIN IV Q12 HEPARIN SQ Q12 MED SURG STATUS DCP;FROM [facility]; NEURO EVAL
--- NOTE | 2020-06-11 15:30 | Consultation ---
DATE OF CONSULTATION: 06/11/2020 INITIAL EVALUATION CONSULTING PHYSICIAN: Shyla Fleming MD HISTORY OF PRESENT ILLNESS: This is a 60-year-old male who came into the hospital due to shortness of breath and fever, but this patient also has altered mental status. Since he has had this current shortness of breath and fever, he has been having increasing confusion and disorganized thought process. He has been unable to . He has been having significant decline in cognition below his baseline. That is why, daily psychiatric consultation requested for this patient to be seen. MEDICAL PROBLEMS: Has history of COPD, polyneuropathy, weakness, seizure disorder, diabetes, GERD. ALLERGIES: He has got no known drug allergies. PSYCHOTROPIC MEDICATIONS ON ADMISSION: This patient is on a medication regimen consisting of Risperdal 1 mg per G-tube twice a day. He is also on Abilify 5 mg p.o. twice a day, Ativan 2 mg IV q.2h. p.r.n. anxiety, agitation. SUBSTANCE ABUSE HISTORY: Patient has no history of any drug and alcohol use. FAMILY PSYCHIATRIC HISTORY: Denies. PAIN ASSESSMENT: 09/10 pain. DEVELOPMENTAL PROBLEMS: Denies. SOCIAL HISTORY: Lives in [facility]. Financially supported by [facility] and Medicare. PSYCHIATRIC HISTORY: History of paranoid schizophrenia. He has had multiple psychiatric admissions. STRENGTHS: He is motivated to get better and has a place to live. WEAKNESSES: Impulsive, minimal support system. MENTAL STATUS EXAMINATION: This is a 60-year-old male. His appearance is disheveled. His attitude is irritable and agitated. His affect is labile. Intellect poor. He does know current events, does not know last four presidents. Mood, depressed and anxious. Motor activity, psychomotor agitation. Attention span is poor because he cannot do serial sevens or spell world backwards. Orientation x2. He is oriented to person, place, not to time and situation. Speech is pressured and nonsensical. Thought process, disorganized and illogical. Thought content, auditory hallucinations, paranoid delusions. Perception is poor due to perceptual disturbances such as auditory hallucinations, paranoid delusions. Abstract reasoning is poor because he does not understand proverbs and only has concrete thinking. Insight is poor because he does not recognize having a psych disorder. Judgment is poor because he does not accept consequences for his actions and he cannot make medical decisions for himself. Short-term memory, 3/3 word recall after 5-minute delay with good short-term memory. Long-term memory is intact because he can recall long-term events in his life such as high school that he went to. DIAGNOSES: 1. Paranoid schizophrenia with acute exacerbation. 2. There is no secondary. 3. Medical includes leukocytosis, pneumonia, fever, shortness of breath, malnutrition, weakness, COPD, polyneuropathy, GERD. 4. Psychosocial stressors, financial. 5. Functional impairment is mild. PLAN: Continue him on Risperdal 1 mg per G-tube twice a day, Abilify 5 mg twice a day, Ativan 2 IV every 2 hours p.r.n. anxiety and agitation. Twenty minutes of insight-oriented psychotherapy provided to this patient to help him understand his physical and psychiatric conditions, so he has better insight and understanding of his psychiatric illness and so that he has better impulse control, less anxiety, depression. He is actually kind of pulling out his IV tubes and he does have some psychomotor agitation and irritability. That is why, another reason why there was a daily psychiatric consultation for this patient. Chart reviewed. Discussed with staff. Patient is seen and assessed at bedside. I would like to thank, Dr. Silas Ng, for this interesting consultation. Shyla Fleming M.D. DR: SOBEIDA JOB#: [id number] CC:
[2020-06-11 16:00] VITALS: BP 112/59
--- NOTE | 2020-06-11 19:02 | NUR ---
NURSE HAND-OFF: Important Events on Shift:GTF, IV fluid and ATB, congested. restraint care Patient Status: stable, restless, trying to pull out devices Diet: GTF glucerna@65 Pending Orders: n/a Pending Results/Labs:blood culture, COVID PCR Pending MD notification:n/a Latest Vital Signs: Temperature 98.1 , Pulse 88 , B/P 112 /59 , Respiratory Rate 20 , O2 SAT 93 , Nasal Cannula, O2 Flow Rate 2.0 . Vital Sign Comment: stabl Latest Vargas Fall Score: 75 Fall Risk: High Risk Safety Measures: Call light Within Reach, Bed Alarm Zone 1, Side Rails Side Rails x2, Bed position Low and Locked. Fall Precautions: Yellow Socks Yellow Gown Door Sign Patient Fall Education Report given to XOCHITL Reyes.
[2020-06-11 20:00] VITALS: BP 149/85
--- NOTE | 2020-06-11 20:00 | NUR ---
NURSE NOTES: Patient received in bed, awake, disoriented, talkative. On bilateral soft wrist restraints for pulling medical devices ie. nasal canula and IVs. On o2 via NC at 1LPM at this time. Patient consistently coughing, oral suction performed. Patient o2 sat at 89%. Increased o2 to 3LPM, saturation improved to 94%. Will continue close monitoring and frequent suctioning. Will give prn cough medicine.
--- NOTE | 2020-06-11 20:30 | NUR ---
NURSE NOTES: Noted that patient was receiving valproic acid 1000mg via gt bid in the snf for seizures. Dr. Ng and Dr. Richmond made aware. Received order to continue medication.
[2020-06-11] MEDS: Valproic Acid 250mg/5ml Liquid GT SCH (20:53)
[2020-06-11] MEDS: Promethazine/Codeine 5ml UD ORAL PRN (20:59)
[2020-06-11] MEDS: Vancomycin 1.25gm Premix q24h IVPB SCH (22:47)
--- NOTE | 2020-06-11 22:57 | NUR ---
NURSE NOTES: Dr. Ng made aware that patient is both negative for rapid and PCR covid tests. No new orders received. Continue PUI precautions.
[2020-06-12] VITALS: BP 149/85
[2020-06-12 04:00] VITALS: BP 107/57
[2020-06-12] MEDS: NovoLOG Insulin Flexpen SUBQ SCH ×4 (05:19→21:00)
[2020-06-12 07:06] LABS: BASOPHILS % (AUTO) 1.2 % (0.0-2.0); EOSINOPHILS % (AUTO) 0.9 % (0.0-3.0); HEMATOCRIT 32.7 % (42.0-52.0); HEMOGLOBIN 11.2 G/DL (14.2-18.0); LYMPHOCYTES % (AUTO) 7.6 % (20.0-45.0); MEAN CORPUSCULAR VOLUME 88 FL (80-99); MONOCYTES % (AUTO) 9.7 % (1.0-10.0); NEUTROPHILS % (AUTO) 80.7 % (45.0-75.0); PLATELET COUNT 335 K/UL (150-450); RED BLOOD COUNT 3.72 M/UL (4.70-6.10); RED CELL DISTRIBUTION WIDTH 14.6 % (11.6-14.8)
--- NOTE | 2020-06-12 07:38 | NUR ---
NURSE NOTES: Report received from Eric LEUNG, rounds made. Patient alert, aphasic, calm. O2 3LNC, respirations even/unlabored, congested cough noted, oral suction done, oral mouth care provided. NPO. TF Glucerna 1.5 chiqui at 65 ml/hr. 1/2 NS at 50 ml/hr to THANIA, site asymptomatic. Condom cath in place. Bilateral wrist restraints on, skin warm, moves fingers, pulses palpable. Skin precautions. Bed in lowest position, will continue to monitor.
[2020-06-12 07:41] LABS: ANION GAP 2 mmol/L (5-15); BLOOD UREA NITROGEN 11 mg/dL (7-18); CARBON DIOXIDE 32 MMOL/L (21-32); CHLORIDE 101 MMOL/L (98-107); CREATININE 0.6 MG/DL (0.55-1.30); POTASSIUM 4.2 MMOL/L (3.5-5.1); SODIUM 135 MMOL/L (136-145)
--- NOTE | 2020-06-12 07:44 | NUR ---
NURSE HAND-OFF: Important Events on Shift:[Frequent oral suction, wound care done during incontinence care, cough medicine given] Patient Status: [stable] Diet: [Gluc 1.5 @65/hr] Pending Orders: [] Pending Results/Labs:[] Pending MD notification:[] Latest Vital Signs: Temperature 98.1 , Pulse 103 , B/P 107 /57 , Respiratory Rate 20 , O2 SAT 96 , Nasal Cannula, O2 Flow Rate 3.0 . Vital Sign Comment: [] Latest Vargas Fall Score: 75 Fall Risk: High Risk Safety Measures: Call light Within Reach, Bed Alarm Zone 1, Side Rails Side Rails x2, Bed position Low and Locked. Fall Precautions: Yellow Socks Yellow Gown Door Sign Patient Fall Education Report given to [Yari LEUNG].
[2020-06-12 08:00] VITALS: BP 139/73
--- NOTE | 2020-06-12 08:58 | Infectious Diseases Prog Note ---
Assessment/Plan 60yo M with: Afebrile Leukocytosis to 16, improving Lymphopenia Hypoxia on 6L NC Pneumonia GPC bacteremia, r/o contaminant 06/09 BCx 1/2 +GPCs UA neg Resp cx p COVID rapid test neg, PCR neg MRSA nares p CXR: RUL infiltrate 06/10 Resp cx +GPCs 06/11 BCx +GPCs 06/12 BCx x 2 ordered Bipolar disorder CVA Dementia DM2 CAD Scabies 2012 HTN Seizure disorde COPD Dysphagia s/p GT NH resident Plan: Cont empiric cefepime/vanco IV #4 Repeat BCx x2 today TTE F/u GPCs in BCx 06/09, 06/11 F/u resp cx +GPCs Monitor CBC/CMP Monitor temp curve, hemodynamics Monitor resp status D/w RN Thank you for this consult. [facility] will continue to follow. Subjective Allergies: Coded Allergies: NO KNOWN DRUG ALLERGIES (Verified Allergy, Unknown, 05/14/19) AF WBC 13, overall improving though up from day prior 3L NC GPCs in 1/2 BCx from admission and on repeat BCx NAD in bed on NC Objective Last 24 Hour Vital Signs Date Time Temp Pulse Resp B/P (MAP) Pulse Ox O2 Delivery O2 Flow Rate FiO2 06/12/20 04:00 98.1 103 20 107/57 (74) 96 06/12/20 00:00 98.4 81 20 149/85 (106) 95 06/11/20 21:00 Nasal Cannula 3.0 06/11/20 20:53 95 133/72 06/11/20 20:00 97.9 90 19 149/85 (106) 94 06/11/20 19:38 77 18 97 Nasal Cannula 3.0 32 06/11/20 16:00 98.1 88 20 112/59 (76) 93 06/11/20 12:00 97.0 77 18 125/72 (89) 95 06/11/20 09:00 84 105/64 06/11/20 09:00 Nasal Cannula 2.0 Height (Feet): 6 Height (Inches): 0.00 Weight (Pounds): 140 Gen: NAD HEENT: NCAT Pulm: BL chest rise Abd: Non-distended Ext: No c/c/e Skin: No visible rashes Neuro: Awake Microbiology Date/Time Source Procedure Growth Status 06/11/20 10:10 Blood Blood Culture - Preliminary Resulted 06/10/20 01:30 Sputum Gram Stain - Final Resulted 06/10/20 01:30 Sputum Sputum Culture Pending Resulted 06/09/20 21:25 Nasopharynx SARS-CoV-2 RdRp Gene Assay - Final Complete 06/09/20 20:45 Blood Blood Culture - Preliminary Staphylococcus Species Resulted 06/09/20 20:30 Nasopharynx Coronavirus COVID-19 PCR (HAO) - Final Complete 06/09/20 20:30 Nasal Nares MRSA Culture - Final Staphylococcus Aureus - Mrsa Complete 06/09/20 20:30 Blood Blood Culture - Preliminary NO GROWTH AFTER 48 HOURS Resulted Laboratory Tests Test 06/11/20 14:10 06/11/20 16:03 06/11/20 20:08 06/12/20 05:15 Vancomycin Level Trough 8.2 ug/mL (5.0-12.0) POC Whole Blood Glucose Pending 111 MG/DL (74-106) H 116 MG/DL (74-106) H Test 06/12/20 05:52 White Blood Count 13.0 K/UL (4.8-10.8) H Red Blood Count 3.72 M/UL (4.70-6.10) L Hemoglobin 11.2 G/DL (14.2-18.0) L Hematocrit 32.7 % (42.0-52.0) L Mean Corpuscular Volume 88 FL (80-99) Mean Corpuscular Hemoglobin 30.0 PG (27.0-31.0) Mean Corpuscular Hemoglobin Concent 34.1 G/DL (32.0-36.0) Red Cell Distribution Width 14.6 % (11.6-14.8) Platelet Count 335 K/UL (150-450) Mean Platelet Volume 5.1 FL (6.5-10.1) L Neutrophils (%) (Auto) 80.7 % (45.0-75.0) H Lymphocytes (%) (Auto) 7.6 % (20.0-45.0) L Monocytes (%) (Auto) 9.7 % (1.0-10.0) Eosinophils (%) (Auto) 0.9 % (0.0-3.0) Basophils (%) (Auto) 1.2 % (0.0-2.0) Sodium Level 135 MMOL/L (136-145) L Potassium Level 4.2 MMOL/L (3.5-5.1) Chloride Level 101 MMOL/L (98-107) Carbon Dioxide Level 32 MMOL/L (21-32) Anion Gap 2 mmol/L (5-15) L Blood Urea Nitrogen 11 mg/dL (7-18) Creatinine 0.6 MG/DL (0.55-1.30) Estimat Glomerular Filtration Rate > 60 mL/min (>60) Glucose Level 112 MG/DL (74-106) H Calcium Level 8.0 MG/DL (8.5-10.1) L Current Medications Medications (Trade) Dose Ordered Sig/Barry Route PRN Reason Start Time Stop Time Status Last Admin Dose Admin Acetaminophen (Tylenol) 650 mg Q4H PRN ORAL FEVER 06/09/20 22:00 07/09/20 21:59 Albuterol/ Ipratropium (Albuterol/ Ipratropium) 3 ml Q4H PRN HHN Shortness of Breath 06/09/20 22:00 06/14/20 21:59 Aripiprazole (Abilify) 5 mg BID ORAL 06/10/20 09:00 07/25/20 08:59 06/11/20 17:18 Cefepime HCl 2 gm/ Dextrose 110 ml @ 220 mls/hr EVERY 12 HOURS IV 06/10/20 09:00 06/17/20 08:59 06/11/20 20:53 Dextrose (Dextrose 50%) 25 ml Q30M PRN IV Hypoglycemia 06/09/20 22:00 09/07/20 21:59 Dextrose (Dextrose 50%) 50 ml Q30M PRN IV Hypoglycemia 06/09/20 22:00 09/07/20 21:59 Heparin Sodium (Porcine) (Heparin 5000 units/ml) 5,000 units EVERY 12 HOURS SUBQ 06/10/20 09:00 07/25/20 08:59 06/11/20 20:54 Insulin Aspart (NovoLOG) BEFORE MEALS AND HS SUBQ 06/10/20 06:30 09/08/20 06:29 06/11/20 17:18 Lorazepam (Ativan 2mg/ml 1ml) 2 mg Q2H PRN IV For Anxiety 06/09/20 22:00 06/16/20 21:59 Metoprolol Tartrate (Lopressor) 12.5 mg EVERY 12 HOURS GT 06/10/20 09:00 09/08/20 08:59 06/11/20 20:53 Ondansetron HCl (Zofran) 4 mg Q6H PRN IVP Nausea & Vomiting 06/09/20 22:00 07/09/20 21:59 Polyethylene Glycol (Miralax) 17 gm DAILYPRN PRN ORAL Constipation 06/09/20 22:00 07/09/20 21:59 Promethazine HCl/ Codeine (Phenergan with Codeine) 5 ml Q4H PRN ORAL For Cough 06/09/20 22:00 07/09/20 21:59 06/11/20 20:59 Risperidone (RisperDAL) 1 mg TWICE A DAY GT 06/10/20 18:00 07/25/20 17:59 06/11/20 17:18 Sodium Chloride 1,000 ml @ 50 mls/hr Q20H IV 06/09/20 23:00 07/09/20 22:59 06/11/20 15:58 Valproic Acid (Depakene) 1,000 mg EVERY 12 HOURS GT 06/11/20 21:00 07/11/20 20:59 06/11/20 20:53 Vancomycin HCl 250 ml @ 166.667 mls/hr Q12HR@1100,2300 IVPB 06/11/20 23:00 06/16/20 22:59 06/11/20 22:47 Vancomycin HCl (Vanco pharmacy to dose) 1 ea DAILY PRN MISC . 06/11/20 15:00 07/11/20 14:59 Nicole Casillas M.D. Jun 12, 2020 08:58
[2020-06-12] MEDS ORDERED: RISPERIDONE2 MG ORAL (10:11)
[2020-06-12] MEDS ORDERED: TRIAMCINOLONE A15 GM TP (10:16)
[2020-06-12] MEDS ORDERED: CEFTRIAXONE1 G1 IM (10:19)
[2020-06-12] MEDS ORDERED: AZITHROMYCIN500 MG ORAL (10:22)
[2020-06-12] MEDS: Heparin 5000 units/ml inj SUBQ SCH ×2 (10:50→21:01)
[2020-06-12] MEDS: Valproic Acid 250mg/5ml Liquid GT SCH ×2 (10:58→21:00)
[2020-06-12] MEDS: Cefepime HCl 2 GM in D5W 110 ML IV SCH ×2 (10:58→21:01)
[2020-06-12] MEDS: Metoprolol Tartrate 12.5mg TAB GT SCH ×2 (10:59→21:05)
--- NOTE | 2020-06-12 11:16 | Consultation ---
Consult Note Consult Note Asked to evaluate for hyponatremia Full note to follow 60-year-old male presents for evaluation. Brought in from [facility] facility for low O2 sat today. Recently diagnosed with pneumonia. O2 sat low. Started on oxygen. Patient has dementia. Limited history provided. No signs of distress on arrival. No reported fevers or chills. Recent Covid negative. No other aggravating relieving factors. 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 COVID-19 Screening: Negative COVID-19 COVID-19 Testing Source: NO 06/02/2020 Past Medical History: DM, COPD, CVA/TIA, dementia Social History: Denies: smoking, alcohol use, drug use Immunizations: UTD Reviewed Nursing Documentation: PMH: Agreed; PSxH: Agreed Past Medical History: No History, Except For Hx Cardiac Problems: No Hx Hypertension: Yes Hx COPD: Yes Hx Diabetes: Yes Hx Neurological Problems: Yes Hx Cerebrovascular Accident: Yes Hx Dementia: Yes Hx Alzheimer's Disease: Yes Hx Seizures: Yes Hx Dysphasia: Yes Hx Weakness: Yes Vital Signs Date Time Temp Pulse Resp B/P (MAP) Pulse Ox O2 Delivery O2 Flow Rate FiO2 06/09/20 20:08 97.9 88 18 102/59 (73) 98 Nasal Cannula 2.0 Physical Exam Gen: NAD, cachectic and thin HEENT: NCAT Pulm: BL chest rise on NC Abd: Soft, NTND Ext: No c/c/e Skin: No visible rashes Neuro: Awake, interactive Labs reviewed Assessment/Plan Impression: Hyponatremia Abnormal electrolytes Pneumonia, COPD Diabetes mellitus, hypertension Dementia, seizure disorder, history of CVA PEG skilled nursing resident Suggestions: Discontinue IV fluid half-normal saline Monitor your electrolytes Keep the blood pressure and blood sugar in check Abnormal electrolytes addressed Orlando Chen MD Jun 12, 2020 11:15
--- NOTE | 2020-06-12 11:50 | Psychiatry Consultation ---
Psychiatry Consultation Psychiatry Consultation Chief Complaint: Dyspnea/Respdistress History of Present Illness: 60yo male continues to be confused and his cognition has declined below base line. Patient has psychomotor agitation and irritability. Allergies: Coded Allergies: NO KNOWN DRUG ALLERGIES (Verified Allergy, Unknown, 05/14/19) Medication History Scheduled Aripiprazole* (Abilify*), 5 MG GT BID, (Reported) Ascorbic Acid* (Vitamin C*), 500 MG GT DAILY, (Reported) Aspirin* (Aspirin*), 81 MG GT DAILY, (Reported) Azithromycin (Azithromycin), 500 MG ORAL BEDTIME, (Reported) Azithromycin* (Zithromax*), 250 MG ORAL DAILY, (Reported) Ceftriaxone Sodium (Ceftriaxone), 1 GM IM DAILY, (Reported) Clonazepam* (Klonopin*), 0.5 MG ORAL Q12H, (Reported) Ferrous Sulfate (Ferrous Sulfate), 330 ML ORAL DAILY, (Reported) Guaifenesin/Dextromethorphan (Robitussin Cough-Chest Dm Liq), 15 ML GT TID, (Reported) Lactobacillus Acidophilus (Acidophilus), 1 EACH GT DAILY, (Reported) Lactulose (Lactulose*), 30 ML GT DAILY, (Reported) Metoprolol Tartrate* (Metoprolol Tartrate*), 12.5 MG GT EVERY 12 HOURS, (Reported) Multivitamin With Minerals (Multivitamins With Minerals*), 1 TAB GT DAILY, (Reported) Pantoprazole Sodium (Pantoprazole Sodium), 40 MG GT DAILY, (Reported) Pioglitazone Hcl* (Actos*), 15 MG GT DAILY, (Reported) Risperidone (Risperidone), 2 MG ORAL BEDTIME, (Reported) Risperidone* (Risperdal*), 1 MG GT DAILY, (Reported) Triamcinolone Acetonide (Triamcinolone Acetonide 0.1% Cream), 15 GM TP DAILY, (Reported) Valproate Sodium (Valproic Acid), 1,000 MG GT BID, (Reported) Scheduled PRN Acetaminophen* (Acetaminophen 325MG Tablet*), 650 MG GT Q4H PRN for Mild Pain (Pain Scale 1-3), (Reported) Acetaminophen* (Acetaminophen 325MG Tablet*), 650 MG GT Q4H PRN for Temp >100.5, (Reported) Ipratropium/Albuterol Sulfate (DuoNeb 0.5-3(2.5)mg/3ml), 3 ML HHN Q4H PRN for Shortness of Breath, (Reported) Sennosides* (Sen-O-Tab*), 17.2 MG ORAL DAILY PRN for Constipation, (Reported) Discontinued Medications Al Hydroxide/mg Hydroxide (Mag-Al Liquid), 30 ML ORAL NEEDED, (Reported) Discontinued Reason: MD discontinued med Bisacodyl (Dulcolax), 10 MG RECTAL NEEDED, (Reported) Discontinued Reason: MD discontinued med Ceftriaxone Sod (Rocephin), 1 MG IM DAILY, (Reported) Discontinued Reason: Prescription changed Docusate Sodium* (Colace*), 100 MG ORAL BEDTIME, (Reported) Discontinued Reason: MD discontinued med Objective Data Height (Feet): 6 Height (Inches): 0.00 Weight (Pounds): 140 Appearance: disheveled Behavior Mannerisms: poor eye contact Affect: labile Mood: depressed, irritable Speech: dysarthric Thought Process: illogical, disorganized Thought Content: other Perceptual Disturbances: auditory Assessment/Plan Assessment/Plan: Will continue to treat the patient with Depakote 1000mg GT BID, Abilify 5mg BID and Risperdal 1 BID. Ativan 1mg as prn anxiety/agittion. 20 minutes of cognitive behavioral therapy to help him identify his automatic thoughts and help him convert his negative thoughts to more positive thoughts to help reduce depression, anxiety and altered mental status. Diagnosis [place]: Schizoaffective Bipolar type Shyla Fleming MD Jun 12, 2020 11:50
[2020-06-12] MEDS: Vancomycin 1.25gm Premix q24h IVPB SCH ×2 (11:57→22:58)
[2020-06-12 12:00] VITALS: BP 115/68
[2020-06-12 12:19] LABS: ALANINE AMINOTRANSFERASE 20 U/L (12-78); ALBUMIN 1.8 G/DL (3.4-5.0); ALKALINE PHOSPHATASE 69 U/L (46-116); ASPARTATE AMINO TRANSFERASE 20 U/L (15-37); BILIRUBIN,DIRECT < 0.1 MG/DL (0.0-0.3); BILIRUBIN,TOTAL 0.1 MG/DL (0.2-1.0); CHOLESTEROL 101 MG/DL (< 200); HDL CHOLESTEROL 20 MG/DL (40-60); TRIGLYCERIDES 66 MG/DL (30-150)
--- NOTE | 2020-06-12 12:25 | Pulmonology Progress Note ---
Subjective ROS Limited/Unobtainable: No Interval Events: comfortable Constitutional: Reports: no symptoms HEENT: Repors: no symptoms Allergies: Coded Allergies: NO KNOWN DRUG ALLERGIES (Verified Allergy, Unknown, 05/14/19) All Systems: reviewed and negative except above Objective Last 24 Hour Vital Signs Date Time Temp Pulse Resp B/P (MAP) Pulse Ox O2 Delivery O2 Flow Rate FiO2 06/12/20 10:59 83 137/73 06/12/20 08:00 97.3 83 18 139/73 (95) 97 83 06/12/20 04:00 98.1 103 20 107/57 (74) 96 06/12/20 00:00 98.4 81 20 149/85 (106) 95 06/11/20 21:00 Nasal Cannula 3.0 06/11/20 20:53 95 133/72 06/11/20 20:00 97.9 90 19 149/85 (106) 94 06/11/20 19:38 77 18 97 Nasal Cannula 3.0 32 06/11/20 16:00 98.1 88 20 112/59 (76) 93 Intake and Output 06/11/20 06/12/20 19:00 07:00 Intake Total 1420 ml 1705.000 ml Output Total 375 ml Balance 1420 ml 1330.000 ml Free Water 270 ml 180 ml IV Total 370 ml 810.000 ml Tube Feeding 780 ml 715 ml Output Urine Total 375 ml # Voids 2 General Appearance: cachetic HEENT: normocephalic, atraumatic Respiratory: chest wall non-tender, rhonchi - left Cardiovascular: normal peripheral pulses, normal rate, regular rhythm, JVD Abdomen: normal bowel sounds, soft, non tender, no organomegaly Genitourinary: normal external genitalia Extremities: no clubbing Skin: no rash Neurologic: shearing machine tender II-XII grossly normal Microbiology Date/Time Source Procedure Growth Status 06/11/20 10:10 Blood Blood Culture - Preliminary Resulted 06/10/20 01:30 Sputum Gram Stain - Final Resulted 06/10/20 01:30 Sputum Culture - Preliminary Gram Positive Cocci Usual Respiratory [place] Resulted 06/09/20 21:25 Nasopharynx SARS-CoV-2 RdRp Gene Assay - Final Complete 06/09/20 20:45 Blood Blood Culture - Preliminary Staphylococcus Species Resulted 06/09/20 20:30 Rectum - Final NO CARBAPENEM-RESISTANT ENTEROBACTERI... Complete 06/09/20 20:30 Nasopharynx Coronavirus COVID-19 PCR (HAO) - Final Complete 06/09/20 20:30 Nasal Nares MRSA Culture - Final Staphylococcus Aureus - Mrsa Complete 06/09/20 20:30 Blood Blood Culture - Preliminary NO GROWTH AFTER 48 HOURS Resulted Laboratory Tests 06/11/20 14:10: Vancomycin Level Trough 8.2 06/11/20 16:03: POC Whole Blood Glucose [Pending] 06/11/20 20:08: POC Whole Blood Glucose 111H 06/12/20 05:15: POC Whole Blood Glucose 116H 06/12/20 05:52: White Blood Count 13.0H, Red Blood Count 3.72L, Hemoglobin 11.2L, Hematocrit 32.7L, Mean Corpuscular Volume 88, Mean Corpuscular Hemoglobin 30.0, Mean Corpuscular Hemoglobin Concent 34.1, Red Cell Distribution Width 14.6, Platelet Count 335, Mean Platelet Volume 5.1L, Neutrophils (%) (Auto) 80.7H, Lymphocytes (%) (Auto) 7.6L, Monocytes (%) (Auto) 9.7, Eosinophils (%) (Auto) 0.9, Basophils (%) (Auto) 1.2, Sodium Level 135L, Potassium Level 4.2, Chloride Level 101, Carbon Dioxide Level 32, Anion Gap 2L, Blood Urea Nitrogen 11, Creatinine 0.6, Estimat Glomerular Filtration Rate > 60, Glucose Level 112H, Osmolality 284L, Uric Acid 2.6, Calcium Level 8.0L, Phosphorus Level 2.0L, Magnesium Level 1.7L, Total Bilirubin 0.1L, Direct Bilirubin < 0.1, Aspartate Amino Transf (AST/SGOT) 20, Alanine Aminotransferase (ALT/SGPT) 20, Alkaline Phosphatase 69, Total Protein 5.5L, Albumin 1.8L, Triglycerides Level 66, Cholesterol Level 101, LDL Cholesterol 73, HDL Cholesterol 20L, Cholesterol/HDL Ratio 5.1H, Thyroid Stimulating Hormone (TSH) 0.050L 06/12/20 12:04: POC Whole Blood Glucose 133H Current Medications Medications (Trade) Dose Ordered Sig/Barry Route PRN Reason Start Time Stop Time Status Last Admin Dose Admin Acetaminophen (Tylenol) 650 mg Q4H PRN ORAL FEVER 06/09/20 22:00 07/09/20 21:59 Albuterol/ Ipratropium (Albuterol/ Ipratropium) 3 ml Q4H PRN HHN Shortness of Breath 06/09/20 22:00 06/14/20 21:59 Aripiprazole (Abilify) 5 mg BID ORAL 06/10/20 09:00 07/25/20 08:59 06/12/20 10:59 Cefepime HCl 2 gm/ Dextrose 110 ml @ 220 mls/hr EVERY 12 HOURS IV 06/10/20 09:00 06/17/20 08:59 06/12/20 10:58 Dextrose (Dextrose 50%) 25 ml Q30M PRN IV Hypoglycemia 06/09/20 22:00 09/07/20 21:59 Dextrose (Dextrose 50%) 50 ml Q30M PRN IV Hypoglycemia 06/09/20 22:00 09/07/20 21:59 Heparin Sodium (Porcine) (Heparin 5000 units/ml) 5,000 units EVERY 12 HOURS SUBQ 06/10/20 09:00 07/25/20 08:59 06/12/20 10:50 Insulin Aspart (NovoLOG) BEFORE MEALS AND HS SUBQ 06/10/20 06:30 09/08/20 06:29 06/11/20 17:18 Lorazepam (Ativan 2mg/ml 1ml) 2 mg Q2H PRN IV For Anxiety 06/09/20 22:00 06/16/20 21:59 Metoprolol Tartrate (Lopressor) 12.5 mg EVERY 12 HOURS GT 06/10/20 09:00 09/08/20 08:59 06/12/20 10:59 Ondansetron HCl (Zofran) 4 mg Q6H PRN IVP Nausea & Vomiting 06/09/20 22:00 07/09/20 21:59 Polyethylene Glycol (Miralax) 17 gm DAILYPRN PRN ORAL Constipation 06/09/20 22:00 07/09/20 21:59 Promethazine HCl/ Codeine (Phenergan with Codeine) 5 ml Q4H PRN ORAL For Cough 06/09/20 22:00 07/09/20 21:59 06/11/20 20:59 Risperidone (RisperDAL) 1 mg TWICE A DAY GT 06/10/20 18:00 07/25/20 17:59 06/12/20 10:58 Sodium Chloride 1,000 ml @ 50 mls/hr Q20H IV 06/09/20 23:00 07/09/20 22:59 06/11/20 15:58 Valproic Acid (Depakene) 1,000 mg EVERY 12 HOURS GT 06/11/20 21:00 07/11/20 20:59 06/12/20 10:58 Vancomycin HCl 250 ml @ 166.667 mls/hr Q12HR@1100,2300 IVPB 06/11/20 23:00 06/16/20 22:59 06/12/20 11:57 Vancomycin HCl (Vanco pharmacy to dose) 1 ea DAILY PRN MISC . 06/11/20 15:00 07/11/20 14:59 Assessment/Plan Problems: (1) Nosocomial pneumonia (2) COPD (chronic obstructive pulmonary disease) (3) Schizophrenia (4) Seizure disorder (5) Diabetes mellitus (6) Feeding by G-tube (7) Alzheimer's dementia Assessment/Plan all reviewed no new complains covid negative times two sputum for c/s iv abx by ID titrate fio2 to sat of 92% sliding scale neuro evaluation to review seizure meds dvt prophylaxis Anusha Richmond MD Jun 12, 2020 12:25
--- NOTE | 2020-06-12 13:44 | General Progress Note ---
Subjective Allergies: Coded Allergies: NO KNOWN DRUG ALLERGIES (Verified Allergy, Unknown, 05/14/19) All Systems: reviewed and negative except above Subjective o2 nc sleepy Objective Last 24 Hour Vital Signs Date Time Temp Pulse Resp B/P (MAP) Pulse Ox O2 Delivery O2 Flow Rate FiO2 06/12/20 10:59 83 137/73 06/12/20 08:00 97.3 83 18 139/73 (95) 97 83 06/12/20 04:00 98.1 103 20 107/57 (74) 96 06/12/20 00:00 98.4 81 20 149/85 (106) 95 06/11/20 21:00 Nasal Cannula 3.0 06/11/20 20:53 95 133/72 06/11/20 20:00 97.9 90 19 149/85 (106) 94 06/11/20 19:38 77 18 97 Nasal Cannula 3.0 32 06/11/20 16:00 98.1 88 20 112/59 (76) 93 Intake and Output 06/11/20 06/12/20 19:00 07:00 Intake Total 1420 ml 1705.000 ml Output Total 375 ml Balance 1420 ml 1330.000 ml Free Water 270 ml 180 ml IV Total 370 ml 810.000 ml Tube Feeding 780 ml 715 ml Output Urine Total 375 ml # Voids 2 Laboratory Tests 06/11/20 14:10: Vancomycin Level Trough 8.2 06/11/20 16:03: POC Whole Blood Glucose [Pending] 06/11/20 20:08: POC Whole Blood Glucose 111H 06/12/20 05:15: POC Whole Blood Glucose 116H 06/12/20 05:52: White Blood Count 13.0H, Red Blood Count 3.72L, Hemoglobin 11.2L, Hematocrit 32.7L, Mean Corpuscular Volume 88, Mean Corpuscular Hemoglobin 30.0, Mean Corpuscular Hemoglobin Concent 34.1, Red Cell Distribution Width 14.6, Platelet Count 335, Mean Platelet Volume 5.1L, Neutrophils (%) (Auto) 80.7H, Lymphocytes (%) (Auto) 7.6L, Monocytes (%) (Auto) 9.7, Eosinophils (%) (Auto) 0.9, Basophils (%) (Auto) 1.2, Sodium Level 135L, Potassium Level 4.2, Chloride Level 101, Carbon Dioxide Level 32, Anion Gap 2L, Blood Urea Nitrogen 11, Creatinine 0.6, Estimat Glomerular Filtration Rate > 60, Glucose Level 112H, Osmolality 284L, Uric Acid 2.6, Calcium Level 8.0L, Phosphorus Level 2.0L, Magnesium Level 1.7L, Total Bilirubin 0.1L, Direct Bilirubin < 0.1, Aspartate Amino Transf (AST/SGOT) 20, Alanine Aminotransferase (ALT/SGPT) 20, Alkaline Phosphatase 69, Total Protein 5.5L, Albumin 1.8L, Triglycerides Level 66, Cholesterol Level 101, LDL Cholesterol 73, HDL Cholesterol 20L, Cholesterol/HDL Ratio 5.1H, Thyroid Stimulating Hormone (TSH) 0.050L 06/12/20 12:04: POC Whole Blood Glucose 133H 06/12/20 12:40: Urine Osmolality 634H, Urine Random Sodium 194H Height (Feet): 6 Height (Inches): 0.00 Weight (Pounds): 140 General Appearance: lethargic EENT: normal ENT inspection Neck: normal alignment Cardiovascular: normal peripheral pulses, normal rate, regular rhythm Respiratory/Chest: chest wall non-tender, lungs clear, normal breath sounds Abdomen: normal bowel sounds, non tender, soft Extremities: normal inspection Edema: no edema noted Arm (L), no edema noted Arm (R), no edema noted Leg (L), no edema noted Leg (R), no edema noted Pedal (L), no edema noted Pedal (R), no edema noted Generalized Neurologic: motor weakness Skin: normal pigmentation, warm/dry Assessment/Plan Problem List: (1) Nosocomial pneumonia ICD Codes: J18.9 - Pneumonia, unspecified organism; Y95 - Nosocomial condition SNOMED: 923694519 (2) Altered mental status (3) Diabetes mellitus ICD Codes: E11.9 - Type 2 diabetes mellitus without complications SNOMED: 18710092 (4) Schizophrenia ICD Codes: F20.9 - Schizophrenia, unspecified SNOMED: 69693633 Qualifiers: Qualified Codes: F20.9 - Schizophrenia, unspecified (5) Seizure disorder ICD Codes: G40.909 - Epilepsy, unspecified, not intractable, without status epilepticus SNOMED: 685798243 (6) COPD (chronic obstructive pulmonary disease) ICD Codes: J44.9 - Chronic obstructive pulmonary disease, unspecified SNOMED: 07901532 (7) Pneumonia ICD Codes: J18.9 - Pneumonia, unspecified organism SNOMED: 350374815 Qualifiers: Qualified Codes: J18.9 - Pneumonia, unspecified organism (8) Fever ICD Codes: R50.9 - Fever, unspecified SNOMED: 124249532 Status: unchanged Assessment/Plan: o2 pulm tx abx pt diet eval cbc bmp in am Silas Samayoa Jun 12, 2020 13:44
[2020-06-12] MEDS ORDERED: Potassium Phosphate 20 MM in NS 275 ML IV ONE (15:00)
[2020-06-12 16:00] VITALS: BP 110/65
--- NOTE | 2020-06-12 17:34 | NUR ---
*-*DISCHARGE PLANNING*-* PATIENT HAS BEEN REFERRED TO: OTIS FLORINARia P: [phone] S/W CLARA, WILL FOLLOW UP AFTER REVIEW. Addendum: 06/16/20 at 0954 by LEONARDO CROCKETT CM NOT ACCEPTING ANY ADMISSION, ON LOCK DOWN
--- NOTE | 2020-06-12 19:25 | NUR ---
NURSE NOTES: Received report from XOCHITL Greenberg. THANIA IV infusing well. VSS. Bed locked and in lowest position, call light within reach, side rails up x2. Pt on 3L O2 via NC, responding to commands, suctioned oral secretions. Glucerna 1.5 running at 65 ml/hr. Potassium phosphate infusing well. Will continue to montor.
--- NOTE | 2020-06-12 19:30 | NUR ---
NURSE HAND-OFF: Important Events on Shift:MG x2 bags given, KPhos x1 started, BCx2 obtained by lab, plans for rehab consult Isi, ELIZABETH dc, BMx2 , 2D echo done Patient Status: stable Diet: TF Glucerna 1.5 chiqui at 65 ml/hr, irrigate with water Pending Orders: labs in AM Pending Results/Labs: CBC BMP 06/13 Pending MD notification:none Latest Vital Signs: Temperature 97.2 , Pulse 81 , B/P 110 /65 , Respiratory Rate 17 , O2 SAT 97 , Nasal Cannula, O2 Flow Rate 3.0 . Vital Sign Comment: none Latest Vargas Fall Score: 75 Fall Risk: High Risk Safety Measures: Call light Within Reach, Bed Alarm Zone 1, Side Rails Side Rails x2, Bed position Low and Locked. Fall Precautions: Yellow Socks Yellow Gown Door Sign Patient Fall Education Report given to Eric LEUNG.
[2020-06-12 20:00] VITALS: BP 122/69
[2020-06-12] MEDS: Promethazine/Codeine 5ml UD ORAL PRN (22:57)
[2020-06-13] VITALS: BP 120/62
[2020-06-13 04:00] VITALS: BP 111/59
[2020-06-13 04:46] LABS: BASOPHILS % (AUTO) 0.4 % (0.0-2.0); EOSINOPHILS % (AUTO) 1.7 % (0.0-3.0); HEMATOCRIT 32.2 % (42.0-52.0); HEMOGLOBIN 11.1 G/DL (14.2-18.0); LYMPHOCYTES % (AUTO) 8.4 % (20.0-45.0); MEAN CORPUSCULAR VOLUME 88 FL (80-99); MONOCYTES % (AUTO) 7.7 % (1.0-10.0); NEUTROPHILS % (AUTO) 81.8 % (45.0-75.0); PLATELET COUNT 325 K/UL (150-450); RED BLOOD COUNT 3.63 M/UL (4.70-6.10); RED CELL DISTRIBUTION WIDTH 14.9 % (11.6-14.8); WHITE BLOOD COUNT 12.8 K/UL (4.8-10.8)
[2020-06-13 05:02] LABS: ANION GAP 1 mmol/L (5-15); BLOOD UREA NITROGEN 12 mg/dL (7-18); CALCIUM 8.3 MG/DL (8.5-10.1); CARBON DIOXIDE 33 MMOL/L (21-32); CHLORIDE 100 MMOL/L (98-107); CREATININE 0.6 MG/DL (0.55-1.30); POTASSIUM 4.5 MMOL/L (3.5-5.1); SODIUM 133 MMOL/L (136-145)
--- NOTE | 2020-06-13 05:45 | NUR ---
NURSE NOTES: Gave patient a bed bath, changed linens and gown, and changed optifoam dressing with triad cream.
[2020-06-13] MEDS: NovoLOG Insulin Flexpen SUBQ SCH ×4 (06:30→21:36)
--- NOTE | 2020-06-13 07:21 | NUR ---
NURSE HAND-OFF: Important Events on Shift:[phenergan given, oral suction frequently, dressing changed on sacrum] Patient Status: [stable] Diet: [Glucerna 1.5@ 65] Pending Orders: [] Pending Results/Labs:[] Pending MD notification:[] Latest Vital Signs: Temperature 97.2 , Pulse 68 , B/P 111 /59 , Respiratory Rate 22 , O2 SAT 96 , Nasal Cannula, O2 Flow Rate 3.0 . Vital Sign Comment: [] Latest Vargas Fall Score: 75 Fall Risk: High Risk Safety Measures: Call light Within Reach, Bed Alarm Zone 1, Side Rails Side Rails x2, Bed position Low and Locked. Fall Precautions: Yellow Socks Yellow Gown Door Sign Patient Fall Education Report given to [Mark Beach RN].
--- NOTE | 2020-06-13 07:42 | NUR ---
NURSE NOTES: Report received from Eric RN, rounds made. Patient seen in bed alert, aphasic, calm. Patient on O2 2LNC, respirations even/unlabored, congested cough noted, oral suction done, oral mouth care provided. TF Glucerna 1.5 chiqui at 65 ml/hr. IV site patent and intact running 1/2 NS at 50 ml/hr to THANIA, site asymptomatic. Condom cath in place. Bilateral wrist restraints on, skin warm, no skin break down noted, pulses palpable. Skin precautions noted. Bed is locked and placeced in lowest position with bed alarm on. Call light within reach. will continue to monitor.
[2020-06-13 08:00] VITALS: BP 115/63
--- NOTE | 2020-06-13 08:59 | General Progress Note ---
Subjective Constitutional: Reports: weakness Allergies: Coded Allergies: NO KNOWN DRUG ALLERGIES (Verified Allergy, Unknown, 05/14/19) All Systems: reviewed and negative except above Subjective sleepy calm Objective Last 24 Hour Vital Signs Date Time Temp Pulse Resp B/P (MAP) Pulse Ox O2 Delivery O2 Flow Rate FiO2 06/13/20 08:00 96.8 74 20 115/63 (80) 95 06/13/20 04:00 97.2 68 22 111/59 (76) 96 06/13/20 00:00 97.7 78 22 120/62 (81) 97 06/12/20 21:05 84 122/69 06/12/20 21:00 Nasal Cannula 3.0 06/12/20 20:44 74 18 95 Nasal Cannula 3.0 32 06/12/20 20:00 97.5 84 22 122/69 (86) 94 06/12/20 16:00 97.2 81 17 110/65 (80) 97 06/12/20 12:00 97.1 69 21 115/68 (84) 95 69 06/12/20 10:59 83 137/73 06/12/20 09:00 Nasal Cannula 3.0 Intake and Output 06/12/20 06/13/20 19:00 07:00 Intake Total 1080 ml 1586.687 ml Output Total 1200 ml 450 ml Balance -120 ml 1136.687 ml Free Water 300 ml 360 ml IV Total 641.687 ml Tube Feeding 780 ml 585 ml Output Urine Total 1200 ml 450 ml # Bowel Movements 4 Laboratory Tests 06/12/20 12:04: POC Whole Blood Glucose 133H 06/12/20 12:40: Urine Osmolality 634H, Urine Random Sodium 194H 06/12/20 16:53: POC Whole Blood Glucose 122H 06/12/20 21:14: POC Whole Blood Glucose [Pending] 06/13/20 04:00: White Blood Count 12.8H, Red Blood Count 3.63L, Hemoglobin 11.1L, Hematocrit 32.2L, Mean Corpuscular Volume 88, Mean Corpuscular Hemoglobin 30.4, Mean Corpuscular Hemoglobin Concent 34.4, Red Cell Distribution Width 14.9H, Platelet Count 325, Mean Platelet Volume 4.4L, Neutrophils (%) (Auto) 81.8H, Lymphocytes (%) (Auto) 8.4L, Monocytes (%) (Auto) 7.7, Eosinophils (%) (Auto) 1.7, Basophils (%) (Auto) 0.4, Sodium Level 133L, Potassium Level 4.5, Chloride Level 100, Carbon Dioxide Level 33H, Anion Gap 1L, Blood Urea Nitrogen 12, Creatinine 0.6, Estimat Glomerular Filtration Rate > 60, Glucose Level 94, Calcium Level 8 .3L Height (Feet): 6 Height (Inches): 0.00 Weight (Pounds): 140 General Appearance: lethargic EENT: normal ENT inspection Neck: normal alignment Cardiovascular: normal peripheral pulses, normal rate, regular rhythm Respiratory/Chest: chest wall non-tender, lungs clear, normal breath sounds Abdomen: normal bowel sounds, non tender, soft Extremities: normal inspection Edema: no edema noted Arm (L), no edema noted Arm (R), no edema noted Leg (L), no edema noted Leg (R), no edema noted Pedal (L), no edema noted Pedal (R), no edema noted Generalized Neurologic: motor weakness Skin: normal pigmentation, warm/dry Assessment/Plan Problem List: (1) Nosocomial pneumonia ICD Codes: J18.9 - Pneumonia, unspecified organism; Y95 - Nosocomial condition SNOMED: 895488821 (2) Altered mental status (3) Diabetes mellitus ICD Codes: E11.9 - Type 2 diabetes mellitus without complications SNOMED: 52034318 (4) Schizophrenia ICD Codes: F20.9 - Schizophrenia, unspecified SNOMED: 77350928 Qualifiers: Qualified Codes: F20.9 - Schizophrenia, unspecified (5) Seizure disorder ICD Codes: G40.909 - Epilepsy, unspecified, not intractable, without status e pilepticus SNOMED: 196813100 (6) COPD (chronic obstructive pulmonary disease) ICD Codes: J44.9 - Chronic obstructive pulmonary disease, unspecified SNOMED: 14319219 (7) Pneumonia ICD Codes: J18.9 - Pneumonia, unspecified organism SNOMED: 000960011 Qualifiers: Qualified Codes: J18.9 - Pneumonia, unspecified organism (8) Fever ICD Codes: R50.9 - Fever, unspecified SNOMED: 992751158 Status: unchanged Assessment/Plan: o2 pulm tx abx pt diet eval cbc bmp in am wendi wheeleru Silas Peterson DO Jun 13, 2020 08:59
[2020-06-13] MEDS: Valproic Acid 250mg/5ml Liquid GT SCH ×2 (09:02→21:03)
[2020-06-13] MEDS: Metoprolol Tartrate 12.5mg TAB GT SCH ×2 (09:03→21:00)
[2020-06-13] MEDS: Cefepime HCl 2 GM in D5W 110 ML IV SCH ×2 (09:03→21:09)
[2020-06-13] MEDS: Heparin 5000 units/ml inj SUBQ SCH ×2 (09:04→21:03)
--- NOTE | 2020-06-13 09:07 | Infectious Diseases Prog Note ---
Assessment/Plan 60yo M with: Afebrile Leukocytosis to 16, improving Lymphopenia Hypoxia on 6L NC MRSA Pneumonia GPC bacteremia, r/o contaminant 06/09 BCx 1/2 +Staph cohnii (skin and hospital colonizer) UA neg Resp cx p COVID rapid test neg, PCR neg MRSA nares p CXR: RUL infiltrate 06/10 Resp cx +MRSA 06/11 BCx 1/2 +Staph species 06/12 BCx x 2 p Bipolar disorder CVA Dementia DM2 CAD Scabies 2012 HTN Seizure disorder COPD Dysphagia s/p GT NH resident Plan: Cont vanco IV #5 for MRSA pneumonia Cont empiric cefepime #5/ F/u TTE report (given CONS in BCx) F/u Repeat BCx 06/12 to ensure neg F/u GPCs in BCx 06/11 Monitor CBC/CMP Monitor temp curve, hemodynamics Monitor resp status D/w RN Thank you for this consult. [facility] will continue to follow. Subjective Allergies: Coded Allergies: NO KNOWN DRUG ALLERGIES (Verified Allergy, Unknown, 05/14/19) AF WBC 12, improving NAD in bed on NC Satting 95% on RA when checked Moving around a lot Objective Last 24 Hour Vital Signs Date Time Temp Pulse Resp B/P (MAP) Pulse Ox O2 Delivery O2 Flow Rate FiO2 06/13/20 09:03 74 115/63 06/13/20 08:00 96.8 74 20 115/63 (80) 95 06/13/20 04:00 97.2 68 22 111/59 (76) 96 06/13/20 00:00 97.7 78 22 120/62 (81) 97 06/12/20 21:05 84 122/69 06/12/20 21:00 Nasal Cannula 3.0 06/12/20 20:44 74 18 95 Nasal Cannula 3.0 32 06/12/20 20:00 97.5 84 22 122/69 (86) 94 06/12/20 16:00 97.2 81 17 110/65 (80) 97 06/12/20 12:00 97.1 69 21 115/68 (84) 95 69 06/12/20 10:59 83 137/73 Height (Feet): 6 Height (Inches): 0.00 Weight (Pounds): 140 Gen: NAD HEENT: NCAT Pulm: BL chest rise Abd: Non-distended Ext: No c/c/e Skin: No visible rashes Neuro: Awake Microbiology Date/Time Source Procedure Growth Status 06/11/20 10:20 Blood Blood Culture - Preliminary NO GROWTH AFTER 24 HOURS Resulted 06/11/20 10:10 Blood Blood Culture - Preliminary Staphylococcus Species Resulted Laboratory Tests Test 06/12/20 12:04 06/12/20 12:40 06/12/20 16:53 06/12/20 21:14 POC Whole Blood Glucose 133 MG/DL (74-106) H 122 MG/DL (74-106) H Pending Urine Osmolality 634 mOsm/kg (429-449) H Urine Random Sodium 194 mmol/L (20-110) H Test 06/13/20 04:00 White Blood Count 12.8 K/UL (4.8-10.8) H Red Blood Count 3.63 M/UL (4.70-6.10) L Hemoglobin 11.1 G/DL (14.2-18.0) L Hematocrit 32.2 % (42.0-52.0) L Mean Corpuscular Volume 88 FL (80-99) Mean Corpuscular Hemoglobin 30.4 PG (27.0-31.0) Mean Corpuscular Hemoglobin Concent 34.4 G/DL (32.0-36.0) Red Cell Distribution Width 14.9 % (11.6-14.8) H Platelet Count 325 K/UL (150-450) Mean Platelet Volume 4.4 FL (6.5-10.1) L Neutrophils (%) (Auto) 81.8 % (45.0-75.0) H Lymphocytes (%) (Auto) 8.4 % (20.0-45.0) L Monocytes (%) (Auto) 7.7 % (1.0-10.0) Eosinophils (%) (Auto) 1.7 % (0.0-3.0) Basophils (%) (Auto) 0.4 % (0.0-2.0) Sodium Level 133 MMOL/L (136-145) L Potassium Level 4.5 MMOL/L (3.5-5.1) Chloride Level 100 MMOL/L (98-107) Carbon Dioxide Level 33 MMOL/L (21-32) H Anion Gap 1 mmol/L (5-15) L Blood Urea Nitrogen 12 mg/dL (7-18) Creatinine 0.6 MG/DL (0.55-1.30) Estimat Glomerular Filtration Rate > 60 mL/min (>60) Glucose Level 94 MG/DL (74-106) Calcium Level 8.3 MG/DL (8.5-10.1) L Current Medications Medications (Trade) Dose Ordered Sig/Barry Route PRN Reason Start Time Stop Time Status Last Admin Dose Admin Acetaminophen (Tylenol) 650 mg Q4H PRN ORAL FEVER 06/09/20 22:00 07/09/20 21:59 Albuterol/ Ipratropium (Albuterol/ Ipratropium) 3 ml Q4H PRN HHN Shortness of Breath 06/09/20 22:00 06/14/20 21:59 Aripiprazole (Abilify) 5 mg BID ORAL 06/10/20 09:00 07/25/20 08:59 06/13/20 09:03 Cefepime HCl 2 gm/ Dextrose 110 ml @ 220 mls/hr EVERY 12 HOURS IV 06/10/20 09:00 06/17/20 08:59 06/13/20 09:03 Dextrose (Dextrose 50%) 25 ml Q30M PRN IV Hypoglycemia 06/09/20 22:00 09/07/20 21:59 Dextrose (Dextrose 50%) 50 ml Q30M PRN IV Hypoglycemia 06/09/20 22:00 09/07/20 21:59 Heparin Sodium (Porcine) (Heparin 5000 units/ml) 5,000 units EVERY 12 HOURS SUBQ 06/10/20 09:00 07/25/20 08:59 06/13/20 09:04 Insulin Aspart (NovoLOG) BEFORE MEALS AND HS SUBQ 06/10/20 06:30 09/08/20 06:29 06/11/20 17:18 Lorazepam (Ativan 2mg/ml 1ml) 2 mg Q2H PRN IV For Anxiety 06/09/20 22:00 06/16/20 21:59 Metoprolol Tartrate (Lopressor) 12.5 mg EVERY 12 HOURS GT 06/10/20 09:00 09/08/20 08:59 06/13/20 09:03 Ondansetron HCl (Zofran) 4 mg Q6H PRN IVP Nausea & Vomiting 06/09/20 22:00 07/09/20 21:59 Polyethylene Glycol (Miralax) 17 gm DAILYPRN PRN ORAL Constipation 06/09/20 22:00 07/09/20 21:59 Promethazine HCl/ Codeine (Phenergan with Codeine) 5 ml Q4H PRN ORAL For Cough 06/09/20 22:00 07/09/20 21:59 06/12/20 22:57 Risperidone (RisperDAL) 1 mg TWICE A DAY GT 06/10/20 18:00 07/25/20 17:59 06/13/20 09:03 Valproic Acid (Depakene) 1,000 mg EVERY 12 HOURS GT 06/11/20 21:00 07/11/20 20:59 06/13/20 09:02 Vancomycin HCl 250 ml @ 166.667 mls/hr Q12HR@1100,2300 IVPB 06/11/20 23:00 06/16/20 22:59 06/12/20 22:58 Vancomycin HCl (Vanco pharmacy to dose) 1 ea DAILY PRN MISC . 06/11/20 15:00 07/11/20 14:59 Nicole Casillas M.D. Jun 13, 2020 09:07
[2020-06-13] MEDS ORDERED: NS 275ml ONE (09:43)
[2020-06-13] MEDS ORDERED: Tubing IV Secondary IV ONE (09:43)
--- NOTE | 2020-06-13 09:53 | NUR ---
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 * Swallowing difficulty r/t dysphagia as evidenced by PEG dep. 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
--- NOTE | 2020-06-13 10:32 | Nephrology Progress Note ---
Assessment/Plan Problem List: (1) Electrolyte imbalance Assessment: Hyponatremia (2) Seizure disorder (3) Alzheimer's dementia (4) Pneumonia (5) Feeding by G-tube Assessment Hyponatremia Abnormal electrolytes Pneumonia, COPD Diabetes mellitus, hypertension Dementia, seizure disorder, history of CVA PEG skilled nursing resident Plan June 13: Will give trial of albumin IV bolus followed by Lasix 20 mg IV push. Continue to monitor electrolytes and renal parameters. Discontinue IV fluid half-normal saline Monitor your electrolytes Keep the blood pressure and blood sugar in check Abnormal electrolytes addressed Objective Objective Last 24 Hour Vital Signs Date Time Temp Pulse Resp B/P (MAP) Pulse Ox O2 Delivery O2 Flow Rate FiO2 06/13/20 09:03 74 115/63 06/13/20 09:00 Nasal Cannula 2.0 06/13/20 08:00 96.8 74 20 115/63 (80) 95 06/13/20 04:00 97.2 68 22 111/59 (76) 96 06/13/20 00:00 97.7 78 22 120/62 (81) 97 06/12/20 21:05 84 122/69 06/12/20 21:00 Nasal Cannula 3.0 06/12/20 20:44 74 18 95 Nasal Cannula 3.0 32 06/12/20 20:00 97.5 84 22 122/69 (86) 94 06/12/20 16:00 97.2 81 17 110/65 (80) 97 06/12/20 12:00 97.1 69 21 115/68 (84) 95 69 06/12/20 10:59 83 137/73 Intake and Output 06/12/20 06/13/20 18:59 06:59 Intake Total 1080 ml 1651.687 ml Output Total 1200 ml 450 ml Balance -120 ml 1201.687 ml Free Water 300 ml 360 ml IV Total 641.687 ml Tube Feeding 780 ml 650 ml Output Urine Total 1200 ml 450 ml # Bowel Movements 4 Laboratory Tests 06/12/20 12:04: POC Whole Blood Glucose 133H 06/12/20 12:40: Urine Osmolality 634H, Urine Random Sodium 194H 06/12/20 16:53: POC Whole Blood Glucose 122H 06/12/20 21:14: POC Whole Blood Glucose [Pending] 06/13/20 04:00: White Blood Count 12.8H, Red Blood Count 3.63L, Hemoglobin 11.1L, Hematocrit 32.2L, Mean Corpuscular Volume 88, Mean Corpuscular Hemoglobin 30.4, Mean Corpuscular Hemoglobin Concent 34.4, Red Cell Distribution Width 14.9H, Platelet Count 325, Mean Platelet Volume 4.4L, Neutrophils (%) (Auto) 81.8H, Lymphocytes (%) (Auto) 8.4L, Monocytes (%) (Auto) 7.7, Eosinophils (%) (Auto) 1.7, Basophils (%) (Auto) 0.4, Sodium Level 133L, Potassium Level 4.5, Chloride Level 100, Carbon Dioxide Level 33H, Anion Gap 1L, Blood Urea Nitrogen 12, Creatinine 0.6, Estimat Glomerular Filtration Rate > 60, Glucose Level 94, Calcium Level 8.3L 06/13/20 10:08: Vancomycin Level Trough [Pending] Height (Feet): 6 Height (Inches): 0.00 Weight (Pounds): 140 General Appearance: no apparent distress, lethargic Cardiovascular: normal rate Respiratory/Chest: decreased breath sounds Abdomen: distended Orlando Chen MD Jun 13, 2020 10:31
--- NOTE | 2020-06-13 11:07 | Psychiatry Consultation ---
Psychiatry Consultation Psychiatry Consultation Chief Complaint: Dyspnea/Respdistress History of Present Illness: 60-year-old male patient patient still has mood lability confusion altered m ental status and declining cognition below his baseline as well as attending is requesting daily psychiatric consultation. Mental status examination: 60-year-old male has appearance disheveled attitude irritable agitated affect constricted intellect poor mood depressed anxious motor activity psychomotor agitation attention span is poor orientation x2 speech is normal and fluent th ought processes organized logical thought Insight and judgment is poor Allergies: Coded Allergies: NO KNOWN DRUG ALLERGIES (Verified Allergy, Unknown, 05/14/19) Medication History Scheduled Aripiprazole* (Abilify*), 5 MG GT BID, (Reported) Ascorbic Acid* (Vitamin C*), 500 MG GT DAILY, (Reported) Aspirin* (Aspirin*), 81 MG GT DAILY, (Reported) Azithromycin (Azithromycin), 500 MG ORAL BEDTIME, (Reported) Azithromycin* (Zithromax*), 250 MG ORAL DAILY, (Reported) Ceftriaxone Sodium (Ceftriaxone), 1 GM IM DAILY, (Reported) Clonazepam* (Klonopin*), 0.5 MG ORAL Q12H, (Reported) Ferrous Sulfate (Ferrous Sulfate), 330 ML ORAL DAILY, (Reported) Guaifenesin/Dextromethorphan (Robitussin Cough-Chest Dm Liq), 15 ML GT TID, (Reported) Lactobacillus Acidophilus (Acidophilus), 1 EACH GT DAILY, (Reported) Lactulose (Lactulose*), 30 ML GT DAILY, (Reported) Metoprolol Tartrate* (Metoprolol Tartrate*), 12.5 MG GT EVERY 12 HOURS, (Reported) Multivitamin With Minerals (Multivitamins With Minerals*), 1 TAB GT DAILY, (Reported) Pantoprazole Sodium (Pantoprazole Sodium), 40 MG GT DAILY, (Reported) Pioglitazone Hcl* (Actos*), 15 MG GT DAILY, (Reported) Risperidone (Risperidone), 2 MG ORAL BEDTIME, (Reported) Risperidone* (Risperdal*), 1 MG GT DAILY, (Reported) Triamcinolone Acetonide (Triamcinolone Acetonide 0.1% Cream), 15 GM TP DAILY, (Reported) Valproate Sodium (Valproic Acid), 1,000 MG GT BID, (Reported) Scheduled PRN Acetaminophen* (Acetaminophen 325MG Tablet*), 650 MG GT Q4H PRN for Mild Pain (Pain Scale 1-3), (Reported) Acetaminophen* (Acetaminophen 325MG Tablet*), 650 MG GT Q4H PRN for Temp >100.5, (Reported) Ipratropium/Albuterol Sulfate (DuoNeb 0.5-3(2.5)mg/3ml), 3 ML HHN Q4H PRN for Shortness of Breath, (Reported) Sennosides* (Sen-O-Tab*), 17.2 MG ORAL DAILY PRN for Constipation, (Reported) Discontinued Medications Al Hydroxide/mg Hydroxide (Mag-Al Liquid), 30 ML ORAL NEEDED, (Reported) Discontinued Reason: MD discontinued med Bisacodyl (Dulcolax), 10 MG RECTAL NEEDED, (Reported) Discontinued Reason: MD discontinued med Ceftriaxone Sod (Rocephin), 1 MG IM DAILY, (Reported) Discontinued Reason: Prescription changed Docusate Sodium* (Colace*), 100 MG ORAL BEDTIME, (Reported) Discontinued Reason: MD discontinued med Objective Data Height (Feet): 6 Height (Inches): 0.00 Weight (Pounds): 140 Assessment/Plan Assessment/Plan: Will continue to treat the patient with Depakote 1000mg GT BID, Abilify 5mg BID and Risperdal 1 BID. Ativan 1mg as prn anxiety/agittion. 20 minutes of cognitive behavioral therapy to help him identify his automatic thoughts and help him convert his negative thoughts to more positive thoughts to help reduce depression, anxiety and altered mental status. Diagnosis [place]: Schizoaffective bipolar type Shyla Fleming MD Jun 13, 2020 11:07
[2020-06-13 12:00] VITALS: BP 111/70
--- NOTE | 2020-06-13 12:09 | Pulmonology Progress Note ---
Subjective ROS Limited/Unobtainable: No Interval Events: comfortable Constitutional: Reports: no symptoms HEENT: Repors: no symptoms Allergies: Coded Allergies: NO KNOWN DRUG ALLERGIES (Verified Allergy, Unknown, 05/14/19) All Systems: reviewed and negative except above Objective Last 24 Hour Vital Signs Date Time Temp Pulse Resp B/P (MAP) Pulse Ox O2 Delivery O2 Flow Rate FiO2 06/13/20 09:03 74 115/63 06/13/20 09:00 Nasal Cannula 2.0 06/13/20 08:00 96.8 74 20 115/63 (80) 95 06/13/20 04:00 97.2 68 22 111/59 (76) 96 06/13/20 00:00 97.7 78 22 120/62 (81) 97 06/12/20 21:05 84 122/69 06/12/20 21:00 Nasal Cannula 3.0 06/12/20 20:44 74 18 95 Nasal Cannula 3.0 32 06/12/20 20:00 97.5 84 22 122/69 (86) 94 06/12/20 16:00 97.2 81 17 110/65 (80) 97 Intake and Output 06/12/20 06/13/20 19:00 07:00 Intake Total 1080 ml 1586.687 ml Output Total 1200 ml 450 ml Balance -120 ml 1136.687 ml Free Water 300 ml 360 ml IV Total 641.687 ml Tube Feeding 780 ml 585 ml Output Urine Total 1200 ml 450 ml # Bowel Movements 4 General Appearance: cachetic HEENT: normocephalic, atraumatic Respiratory: chest wall non-tender, rhonchi - left Cardiovascular: normal peripheral pulses, normal rate, regular rhythm, JVD Abdomen: normal bowel sounds, soft, non tender, no organomegaly Genitourinary: normal external genitalia Extremities: no clubbing Skin: no rash Neurologic: wheel cutter II-XII grossly normal Microbiology Date/Time Source Procedure Growth Status 06/11/20 10:20 Blood Blood Culture - Preliminary NO GROWTH AFTER 24 HOURS Resulted 06/11/20 10:10 Blood Blood Culture - Preliminary Staphylococcus Species Resulted Laboratory Tests 06/12/20 12:40: Urine Osmolality 634H, Urine Random Sodium 194H 06/12/20 16:53: POC Whole Blood Glucose 122H 06/12/20 21:14: POC Whole Blood Glucose [Pending] 06/13/20 04:00: White Blood Count 12.8H, Red Blood Count 3.63L, Hemoglobin 11.1L, Hematocrit 32.2L, Mean Corpuscular Volume 88, Mean Corpuscular Hemoglobin 30.4, Mean Corpuscular Hemoglobin Concent 34.4, Red Cell Distribution Width 14.9H, Platelet Count 325, Mean Platelet Volume 4.4L, Neutrophils (%) (Auto) 81.8H, Lymphocytes (%) (Auto) 8.4L, Monocytes (%) (Auto) 7.7, Eosinophils (%) (Auto) 1.7, B asophils (%) (Auto) 0.4, Sodium Level 133L, Potassium Level 4.5, Chloride Level 100, Carbon Dioxide Level 33H, Anion Gap 1L, Blood Urea Nitrogen 12, Creatinine 0.6, Estimat Glomerular Filtration Rate > 60, Glucose Level 94, Calcium Level 8.3L 06/13/20 10:08: Vancomycin Level Trough 12.9H 06/13/20 11:44: POC Whole Blood Glucose 95 Current Medications Medications (Trade) Dose Ordered Sig/Barry Route PRN Reason Start Time Stop Time Status Last Admin Dose Admin Acetaminophen (Tylenol) 650 mg Q4H PRN ORAL FEVER 06/09/20 22:00 07/09/20 21:59 Albumin Human 100 ml @ 100 mls/hr ONCE IV 06/13/20 10:30 06/13/20 12:30 06/13/20 10:50 Albuterol/ Ipratropium (Albuterol/ Ipratropium) 3 ml Q4H PRN HHN Shortness of Breath 06/09/20 22:00 06/14/20 21:59 Aripiprazole (Abilify) 5 mg BID ORAL 06/10/20 09:00 07/25/20 08:59 06/13/20 09:03 Cefepime HCl 2 gm/ Dextrose 110 ml @ 220 mls/hr EVERY 12 HOURS IV 06/10/20 09:00 06/17/20 08:59 06/13/20 09:03 Dextrose (Dextrose 50%) 25 ml Q30M PRN IV Hypoglycemia 06/09/20 22:00 09/07/20 21:59 Dextrose (Dextrose 50%) 50 ml Q30M PRN IV Hypoglycemia 06/09/20 22:00 09/07/20 21:59 Furosemide (Lasix) 20 mg ONCE IV 06/13/20 10:30 06/13/20 12:30 06/13/20 11:50 Heparin Sodium (Porcine) (Heparin 5000 units/ml) 5,000 units EVERY 12 HOURS SUBQ 06/10/20 09:00 07/25/20 08:59 06/13/20 09:04 Insulin Aspart (NovoLOG) BEFORE MEALS AND HS SUBQ 06/10/20 06:30 09/08/20 06:29 06/11/20 17:18 Lorazepam (Ativan 2mg/ml 1ml) 2 mg Q2H PRN IV For Anxiety 06/09/20 22:00 06/16/20 21:59 Metoprolol Tartrate (Lopressor) 12.5 mg EVERY 12 HOURS GT 06/10/20 09:00 09/08/20 08:59 06/13/20 09:03 Ondansetron HCl (Zofran) 4 mg Q6H PRN IVP Nausea & Vomiting 06/09/20 22:00 07/09/20 21:59 Polyethylene Glycol (Miralax) 17 gm DAILYPRN PRN ORAL Constipation 06/09/20 22:00 07/09/20 21:59 Promethazine HCl/ Codeine (Phenergan with Codeine) 5 ml Q4H PRN ORAL For Cough 06/09/20 22:00 07/09/20 21:59 06/12/20 22:57 Risperidone (RisperDAL) 1 mg TWICE A DAY GT 06/10/20 18:00 07/25/20 17:59 06/13/20 09:03 Valproic Acid (Depakene) 1,000 mg EVERY 12 HOURS GT 06/11/20 21:00 07/11/20 20:59 06/13/20 09:02 Vancomycin HCl 300 ml @ 150 mls/hr Q12HR@0100,1300 IVPB 06/13/20 13:00 06/18/20 12:59 Vancomycin HCl (Vanco pharmacy to dose) 1 ea DAILY PRN MISC . 06/11/20 15:00 07/11/20 14:59 Assessment/Plan Problems: (1) Nosocomial pneumonia (2) COPD (chronic obstructive pulmonary disease) (3) Schizophrenia (4) Seizure disorder (5) Diabetes mellitus (6) Feeding by G-tube (7) Alzheimer's dementia Assessment/Plan doing better all reviewed no new complains covid negative times two sputum for c/s iv abx by ID titrate fio2 to sat of 92% sliding scale neuro evaluation to review seizure meds dvt prophylaxis Anusha Richmond MD Jun 13, 2020 12:08
[2020-06-13] MEDS: Vancomycin 1.5gm/300ml Premix IVPB SCH (12:30)
--- NOTE | 2020-06-13 13:56 | NUR ---
CASE MANAGEMENT:REVIEW SI;PNEUMONIA 96.9 78 22 120/62 95% 2L NC WBC 12.8 NA 133 IS;VANCOMYCIN IV Q12 LASIX IV ONCE ALBUMIN HUMAN IV ONCE DEPAKENE GT Q12 CEFEPIME IV Q12 HEPARIN SQ Q12 MED SURG STATUS DCP;FROM [facility]; NEURO EVEL
[2020-06-13] MEDS: Promethazine/Codeine 5ml UD ORAL PRN ×2 (15:32→21:33)
[2020-06-13 16:00] VITALS: BP 125/68
--- NOTE | 2020-06-13 19:27 | NUR ---
NURSE HAND-OFF: Important Events on Shift: Pulled out IV, albumin human 25% Patient Status: stable Diet: glucerna 1.5 Pending Orders: n/a Pending Results/Labs:n/a Pending MD notification:n/a Latest Vital Signs: Temperature 97.8 , Pulse 70 , B/P 125 /68 , Respiratory Rate 20 , O2 SAT 96 , Nasal Cannula, O2 Flow Rate 2.0 . Vital Sign Comment: stable Latest Vargas Fall Score: 75 Fall Risk: High Risk Safety Measures: Call light Within Reach, Bed Alarm Zone 1, Side Rails Side Rails x2, Bed position Low and Locked. Fall Precautions: Yellow Socks Yellow Gown Door Sign Patient Fall Education Report given to XOCHITL Ellsworth.
--- NOTE | 2020-06-13 19:38 | NUR ---
NURSE NOTES: Patient in bed, awake, nonverbal. On 2L oxygen via nasal cannula with no signs of distress at this time. Suction at bedside. G-tube noted with feeding running as ordered. Condom cath in place. Bilateral wrist restraints in progress; skin intact, pulses palpable. Bed locked and in lowest position, with bed alarm on. Bed alarm on. Call light within reach. Will continue to monitor.
[2020-06-13 20:00] VITALS: BP 109/60
[2020-06-14] VITALS: BP 105/74
[2020-06-14] MEDS: Vancomycin 1.5gm/300ml Premix IVPB SCH ×2 (01:27→12:08)
[2020-06-14 04:00] VITALS: BP 121/72
[2020-06-14] MEDS: NovoLOG Insulin Flexpen SUBQ SCH ×4 (06:30→20:33)
--- NOTE | 2020-06-14 07:09 | NUR ---
NURSE NOTES: Received report from XOCHITL Francois. Patient in bed, AAOX1, with garbled speech. IV site patent and intact. On 2L oxygen via nasal cannula with no signs of distress at this time, patient with weak cough. Suction at bedside. G-tube noted with feeding running as ordered. Condom cath in place. Bilateral wrist restraints in progress; skin intact, pulses palpable. Bed locked and placed in lowest position, with bed alarm on. Call light within reach. Will continue to monitor
--- NOTE | 2020-06-14 07:41 | NUR ---
NURSE HAND-OFF: Important Events on Shift: Suctioning PRN Patient Status: Stable Diet: Glucerna 1.5 Pending Orders: N/A Pending Results/Labs: CMP, Valproic acid, mag, phos, CBC Pending MD notification: N/A Latest Vital Signs: Temperature 97.4 , Pulse 70 , B/P 121 /72 , Respiratory Rate 24 , O2 SAT 98 , Nasal Cannula, O2 Flow Rate 2.0 . Vital Sign Comment: N/A Latest Vargas Fall Score: 75 Fall Risk: High Risk Safety Measures: Call light Within Reach, Bed Alarm Zone 1, Side Rails Side Rails x2, Bed position Low and Locked. Fall Precautions: Yellow Socks Yellow Gown Door Sign Patient Fall Education Report given to XOCHITL Griffith
[2020-06-14 08:00] VITALS: BP 115/76
--- NOTE | 2020-06-14 08:40 | General Progress Note ---
Subjective Constitutional: Reports: weakness Allergies: Coded Allergies: NO KNOWN DRUG ALLERGIES (Verified Allergy, Unknown, 05/14/19) All Systems: reviewed and negative except above Subjective sleepy calm Objective Last 24 Hour Vital Signs Date Time Temp Pulse Resp B/P (MAP) Pulse Ox O2 Delivery O2 Flow Rate FiO2 06/14/20 04:00 97.4 70 24 121/72 (88) 98 06/14/20 00:00 97.7 77 24 105/74 (84) 96 06/13/20 21:00 Nasal Cannula 2.0 06/13/20 21:00 77 109/68 06/13/20 20:11 75 18 96 Nasal Cannula 2.0 28 06/13/20 20:00 97.9 77 20 109/60 (76) 99 06/13/20 16:00 97.8 70 20 125/68 (87) 96 06/13/20 12:00 96.9 68 19 111/70 (84) 95 06/13/20 09:03 74 115/63 06/13/20 09:00 Nasal Cannula 2.0 Intake and Output 06/13/20 06/14/20 19:00 07:00 Intake Total 1055 ml 555 ml Output Total 700 ml Balance 1055 ml -145 ml Free Water 340 ml 360 ml Tube Feeding 715 ml 195 ml Output Urine Total 700 ml Laboratory Tests 06/13/20 10:08: Vancomycin Level Trough 12.9H 06/13/20 11:44: POC Whole Blood Glucose 95 06/13/20 21:35: POC Whole Blood Glucose [Pending] 06/14/20 05:58: POC Whole Blood Glucose 112H Height (Feet): 6 Height (Inches): 0.00 Weight (Pounds): 140 General Appearance: lethargic EENT: normal ENT inspection Neck: normal alignment Cardiovascular: normal peripheral pulses, normal rate, regular rhythm Respiratory/Chest: chest wall non-tender, lungs clear, normal breath sounds Abdomen: normal bowel sounds, non tender, soft Extremities: normal inspection Edema: no edema noted Arm (L), no edema noted Arm (R), no edema noted Leg (L), no edema noted Leg (R), no edema noted Pedal (L), no edema noted Pedal (R), no edema noted Generalized Neurologic: motor weakness Skin: normal pigmentation, warm/dry Assessment/Plan Problem List: (1) Nosocomial pneumonia ICD Codes: J18.9 - Pneumonia, unspecified organism; Y95 - Nosocomial condition SNOMED: 501335573 (2) Altered mental status (3) Diabetes mellitus ICD Codes: E11.9 - Type 2 diabetes mellitus without complications SNOMED: 80798070 (4) Schizophrenia ICD Codes: F20.9 - Schizophrenia, unspecified SNOMED: 05137392 Qualifiers: Qualified Codes: F20.9 - Schizophrenia, unspecified (5) Seizure disorder ICD Codes: G40.909 - Epilepsy, unspecified, not intractable, without status epilepticus SNOMED: 614082842 (6) COPD (chronic obstructive pulmonary disease) ICD Codes: J44.9 - Chronic obstructive pulmonary disease, unspecified SNOMED: 43825972 (7) Pneumonia ICD Codes: J18.9 - Pneumonia, unspecified organism SNOMED: 552209893 Qualifiers: Qualified Codes: J18.9 - Pneumonia, unspecified organism (8) Fever ICD Codes: R50.9 - Fever, unspecified SNOMED: 283399907 Status: unchanged Assessment/Plan: o2 pulm tx abx pt diet eval cbc bmp in am Silas NgNia DO Jun 14, 2020 08:40
[2020-06-14] MEDS: Valproic Acid 250mg/5ml Liquid GT SCH ×2 (08:51→20:30)
[2020-06-14] MEDS: Metoprolol Tartrate 12.5mg TAB GT SCH ×2 (08:52→20:33)
[2020-06-14] MEDS: Heparin 5000 units/ml inj SUBQ SCH ×2 (08:52→20:32)
[2020-06-14] MEDS: Cefepime HCl 2 GM in D5W 110 ML IV SCH ×2 (08:53→20:30)
[2020-06-14 09:13] LABS: EOSINOPHILS % (AUTO) 5.8 % (0.0-3.0); HEMATOCRIT 36.3 % (42.0-52.0); HEMOGLOBIN 12.5 G/DL (14.2-18.0); LYMPHOCYTES % (AUTO) 6.6 % (20.0-45.0); MEAN CORPUSCULAR VOLUME 88 FL (80-99); MONOCYTES % (AUTO) 6.6 % (1.0-10.0); PLATELET COUNT 392 K/UL (150-450); RED BLOOD COUNT 4.13 M/UL (4.70-6.10); WHITE BLOOD COUNT 13.4 K/UL (4.8-10.8)
[2020-06-14 09:56] LABS: PHOSPHORUS 2.7 MG/DL (2.5-4.9)
[2020-06-14 10:13] LABS: ALANINE AMINOTRANSFERASE 22 U/L (12-78); ALBUMIN 1.9 G/DL (3.4-5.0); ALBUMIN/GLOBULIN RATIO 0.4 (1.0-2.7); ALKALINE PHOSPHATASE 74 U/L (46-116); ANION GAP 4 mmol/L (5-15); ASPARTATE AMINO TRANSFERASE 19 U/L (15-37); BILIRUBIN,TOTAL 0.2 MG/DL (0.2-1.0); BLOOD UREA NITROGEN 19 mg/dL (7-18); CALCIUM 8.5 MG/DL (8.5-10.1); CARBON DIOXIDE 35 MMOL/L (21-32); CHLORIDE 97 MMOL/L (98-107); CREATININE 0.7 MG/DL (0.55-1.30); POTASSIUM 4.8 MMOL/L (3.5-5.1); SODIUM 136 MMOL/L (136-145)
--- NOTE | 2020-06-14 11:14 | Psychiatry Consultation ---
Psychiatry Consultation Psychiatry Consultation Chief Complaint: Dyspnea/Respdistress History of Present Illness: This is a 60-year-old male patient confused disorganized has got altered mental status and intermittent psychomotor agitation requiring restraints because his cognition has declined below his baseline his attending has requested daily psychiatric consultation Mental status examination: 60-year-old male whose appearance is disheveled his attitude is irritable agitated affect guarded strictly and to look for mood depressed anxious moderate episode of auditory attention span is poor orientation x2 speech clear thought process organized and logical thought content auditory hallucinations present with paranoid delusions insight and judgment is poor Allergies: Coded Allergies: NO KNOWN DRUG ALLERGIES (Verified Allergy, Unknown, 05/14/19) Medication History Scheduled Aripiprazole* (Abilify*), 5 MG GT BID, (Reported) Ascorbic Acid* (Vitamin C*), 500 MG GT DAILY, (Reported) Aspirin* (Aspirin*), 81 MG GT DAILY, (Reported) Azithromycin (Azithromycin), 500 MG ORAL BEDTIME, (Reported) Azithromycin* (Zithromax*), 250 MG ORAL DAILY, (Reported) Ceftriaxone Sodium (Ceftriaxone), 1 GM IM DAILY, (Reported) Clonazepam* (Klonopin*), 0.5 MG ORAL Q12H, (Reported) Ferrous Sulfate (Ferrous Sulfate), 330 ML ORAL DAILY, (Reported) Guaifenesin/Dextromethorphan (Robitussin Cough-Chest Dm Liq), 15 ML GT TID, (Reported) Lactobacillus Acidophilus (Acidophilus), 1 EACH GT DAILY, (Reported) Lactulose (Lactulose*), 30 ML GT DAILY, (Reported) Metoprolol Tartrate* (Metoprolol Tartrate*), 12.5 MG GT EVERY 12 HOURS, (Reported) Multivitamin With Minerals (Multivitamins With Minerals*), 1 TAB GT DAILY, (Reported) Pantoprazole Sodium (Pantoprazole Sodium), 40 MG GT DAILY, (Reported) Pioglitazone Hcl* (Actos*), 15 MG GT DAILY, (Reported) Risperidone (Risperidone), 2 MG ORAL BEDTIME, (Reported) Risperidone* (Risperdal*), 1 MG GT DAILY, (Reported) Triamcinolone Acetonide (Triamcinolone Acetonide 0.1% Cream), 15 GM TP DAILY, (Reported) Valproate Sodium (Valproic Acid), 1,000 MG GT BID, (Reported) Scheduled PRN Acetaminophen* (Acetaminophen 325MG Tablet*), 650 MG GT Q4H PRN for Mild Pain (Pain Scale 1-3), (Reported) Acetaminophen* (Acetaminophen 325MG Tablet*), 650 MG GT Q4H PRN for Temp >100.5, (Reported) Ipratropium/Albuterol Sulfate (DuoNeb 0.5-3(2.5)mg/3ml), 3 ML HHN Q4H PRN for Shortness of Breath, (Reported) Sennosides* (Sen-O-Tab*), 17.2 MG ORAL DAILY PRN for Constipation, (Reported) Discontinued Medications Al Hydroxide/mg Hydroxide (Mag-Al Liquid), 30 ML ORAL NEEDED, (Reported) Discontinued Reason: MD discontinued med Bisacodyl (Dulcolax), 10 MG RECTAL NEEDED, (Reported) Discontinued Reason: MD discontinued med Ceftriaxone Sod (Rocephin), 1 MG IM DAILY, (Reported) Discontinued Reason: Prescription changed Docusate Sodium* (Colace*), 100 MG ORAL BEDTIME, (Reported) Discontinued Reason: MD discontinued med Objective Data Height (Feet): 6 Height (Inches): 0.00 Weight (Pounds): 140 Assessment/Plan Assessment/Plan: Will continue to treat the patient with Depakote 1000mg GT BID, Abilify 5mg BID and Risperdal 1 BID. Ativan 1mg as prn anxiety/agittion. 20 minutes of cognitive behavioral therapy to help him identify his automatic thoughts and help him convert his negative thoughts to more positive thoughts to help reduce depression, anxiety and altered mental status. Diagnosis [place] I: Schizoaffective bipolar type Shyla Fleming MD Jun 14, 2020 11:14
[2020-06-14 12:00] VITALS: BP 119/78
--- NOTE | 2020-06-14 12:21 | Nephrology Progress Note ---
Assessment/Plan Problem List: (1) Electrolyte imbalance Assessment: Hyponatremia (2) Seizure disorder (3) Alzheimer's dementia (4) Pneumonia (5) Feeding by G-tube Assessment Hyponatremia Abnormal electrolytes Pneumonia, COPD Diabetes mellitus, hypertension Dementia, seizure disorder, history of CVA PEG [facility] resident Plan June 14: Labs reviewed. Renal parameters and electrolytes now stable. Continue per consultants. June 13: Will give trial of albumin IV bolus followed by Lasix 20 mg IV push. Continue to monitor electrolytes and renal parameters. Discontinue IV fluid half-normal saline Monitor your electrolytes Keep the blood pressure and blood sugar in check Abnormal electrolytes addressed Subjective ROS Limited/Unobtainable: Yes Objective Objective Last 24 Hour Vital Signs Date Time Temp Pulse Resp B/P (MAP) Pulse Ox O2 Delivery O2 Flow Rate FiO2 06/14/20 12:00 97.6 77 18 119/78 (92) 98 06/14/20 11:59 Nasal Cannula 2.0 06/14/20 09:00 Nasal Cannula 2.0 06/14/20 08:52 81 115/76 06/14/20 08:00 98.1 81 17 115/76 (89) 98 06/14/20 04:00 97.4 70 24 121/72 (88) 98 06/14/20 00:00 97.7 77 24 105/74 (84) 96 06/13/20 21:00 Nasal Cannula 2.0 06/13/20 21:00 77 109/68 06/13/20 20:11 75 18 96 Nasal Cannula 2.0 28 06/13/20 20:00 97.9 77 20 109/60 (76) 99 06/13/20 16:00 97.8 70 20 125/68 (87) 96 Intake and Output 06/13/20 06/14/20 19:00 07:00 Intake Total 1055 ml 555 ml Output Total 700 ml Balance 1055 ml -145 ml Free Water 340 ml 360 ml Tube Feeding 715 ml 195 ml Output Urine Total 700 ml (1) Pneumonia Laboratory Tests 06/13/20 21:35: POC Whole Blood Glucose [Pending] 06/14/20 05:58: POC Whole Blood Glucose 112H 06/14/20 08:55: White Blood Count 13.4H, Red Blood Count 4.13L, Hemoglobin 12.5L, Hematocrit 36.3L, Mean Corpuscular Volume 88, Mean Corpuscular Hemoglobin 30.3, Mean Corpuscular Hemoglobin Concent 34.5, Red Cell Distribution Width 15.0H, Platelet Count 392, Mean Platelet Volume 5.4L, Neutrophils (%) (Auto) 80.0H, Lymphocytes (%) (Auto) 6.6L, Monocytes (%) (Auto) 6.6, Eosinophils (%) (Auto) 5.8H, Basophils (%) (Auto) 1.0, Sodium Level 136, Potassium Level 4.8, Chloride Level 97L, Carbon Dioxide Level 35H, Anion Gap 4L, Blood Urea Nitrogen 19H, Creatinine 0.7, Estimat Glomerular Filtration Rate > 60, Glucose Level 105, Osmolality 303, Uric Acid 2.7, Calcium Level 8.5, Phosphorus Level 2.7, Magnesium Level 1.9, Total Bilirubin 0.2, Aspartate Amino Transf (AST/SGOT) 19, Alanine Aminotransferase (ALT/SGPT) 22, Alkaline Phosphatase 74, Total Protein 6.9, Albumin 1.9L, Globulin 5.0, Albumin/Globulin Ratio 0.4L, Valproic Acid (Depakene) Level 52 Height (Feet): 6 Height (Inches): 0.00 Weight (Pounds): 140 General Appearance: no apparent distress EENT: other - On nasal cannula Cardiovascular: normal rate Respiratory/Chest: decreased breath sounds Abdomen: distended Orlando Chen MD Jun 14, 2020 12:21
--- NOTE | 2020-06-14 13:46 | Pulmonology Progress Note ---
Subjective ROS Limited/Unobtainable: No Interval Events: comfortable Constitutional: Reports: no symptoms HEENT: Repors: no symptoms Allergies: Coded Allergies: NO KNOWN DRUG ALLERGIES (Verified Allergy, Unknown, 05/14/19) All Systems: reviewed and negative except above Objective Last 24 Hour Vital Signs Date Time Temp Pulse Resp B/P (MAP) Pulse Ox O2 Delivery O2 Flow Rate FiO2 06/14/20 12:00 97.6 77 18 119/78 (92) 98 06/14/20 11:59 Nasal Cannula 2.0 06/14/20 09:00 Nasal Cannula 2.0 06/14/20 08:52 81 115/76 06/14/20 08:00 98.1 81 17 115/76 (89) 98 06/14/20 04:00 97.4 70 24 121/72 (88) 98 06/14/20 00:00 97.7 77 24 105/74 (84) 96 06/13/20 21:00 Nasal Cannula 2.0 06/13/20 21:00 77 109/68 06/13/20 20:11 75 18 96 Nasal Cannula 2.0 28 06/13/20 20:00 97.9 77 20 109/60 (76) 99 06/13/20 16:00 97.8 70 20 125/68 (87) 96 Intake and Output 06/13/20 06/14/20 19:00 07:00 Intake Total 1055 ml 555 ml Output Total 700 ml Balance 1055 ml -145 ml Free Water 340 ml 360 ml Tube Feeding 715 ml 195 ml Output Urine Total 700 ml General Appearance: cachetic HEENT: normocephalic, atraumatic Respiratory: chest wall non-tender, rhonchi - left Cardiovascular: normal peripheral pulses, normal rate, regular rhythm, JVD Abdomen: normal bowel sounds, soft, non tender, no organomegaly Genitourinary: normal external genitalia Extremities: no clubbing Skin: no rash 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 grossly normal Microbiology Date/Time Source Procedure Growth Status 06/12/20 19:18 Blood Blood Culture - Preliminary NO GROWTH AFTER 24 HOURS Resulted 06/12/20 19:03 Blood Blood Culture - Preliminary NO GROWTH AFTER 24 HOURS Resulted Laboratory Tests 06/13/20 21:35: POC Whole Blood Glucose [Pending] 06/14/20 05:58: POC Whole Blood Glucose 112H 06/14/20 08:55: White Blood Count 13.4H, Red Blood Count 4.13L, Hemoglobin 12.5L, Hematocrit 36.3L, Mean Corpuscular Volume 88, Mean Corpuscular Hemoglobin 30.3, Mean Corpuscular Hemoglobin Concent 34.5, Red Cell Distribution Width 15.0H, Platelet Count 392, Mean Platelet Volume 5.4L, Neutrophils (%) (Auto) 80.0H, Lymphocytes (%) (Auto) 6.6L, Monocytes (%) (Auto) 6.6, Eosinophils (%) (Auto) 5.8H, Basophils (%) (Auto) 1.0, Sodium Level 136, Potassium Level 4.8, Chloride Level 97L, Carbon Dioxide Level 35H, Anion Gap 4L, Blood Urea Nitrogen 19H, Creatinine 0.7, Estimat Glomerular Filtration Rate > 60, Glucose Level 105, Osmolality 303, Uric Acid 2.7, Calcium Level 8.5, Phosphorus Level 2.7, Magnesium Level 1.9, Total Bilirubin 0.2, Aspartate Amino Transf (AST/SGOT) 19, Alanine Aminotransferase (ALT/SGPT) 22, Alkaline Phosphatase 74, Total Protein 6.9, Albumin 1.9L, Globulin 5.0, Albumin/Globulin Ratio 0.4L, Valproic Acid (Depakene) Level 52 Current Medications Medications (Trade) Dose Ordered Sig/Barry Route PRN Reason Start Time Stop Time Status Last Admin Dose Admin Acetaminophen (Tylenol) 650 mg Q4H PRN ORAL FEVER 06/09/20 22:00 07/09/20 21:59 Albuterol/ Ipratropium (Albuterol/ Ipratropium) 3 ml Q4H PRN HHN Shortness of Breath 06/09/20 22:00 06/14/20 21:59 Aripiprazole (Abilify) 5 mg BID ORAL 06/10/20 09:00 07/25/20 08:59 06/14/20 08:52 Cefepime HCl 2 gm/ Dextrose 110 ml @ 220 mls/hr EVERY 12 HOURS IV 06/10/20 09:00 06/17/20 08:59 06/14/20 08:53 Dextrose (Dextrose 50%) 25 ml Q30M PRN IV Hypoglycemia 06/09/20 22:00 09/07/20 21:59 Dextrose (Dextrose 50%) 50 ml Q30M PRN IV Hypoglycemia 06/09/20 22:00 09/07/20 21:59 Heparin Sodium (Porcine) (Heparin 5000 units/ml) 5,000 units EVERY 12 HOURS SUBQ 06/10/20 09:00 07/25/20 08:59 06/14/20 08:52 Insulin Aspart (NovoLOG) BEFORE MEALS AND HS SUBQ 06/10/20 06:30 09/08/20 06:29 06/11/20 17:18 Lorazepam (Ativan 2mg/ml 1ml) 2 mg Q2H PRN IV For Anxiety 06/09/20 22:00 06/16/20 21:59 Metoprolol Tartrate (Lopressor) 12.5 mg EVERY 12 HOURS GT 06/10/20 09:00 09/08/20 08:59 06/14/20 08:52 Ondansetron HCl (Zofran) 4 mg Q6H PRN IVP Nausea & Vomiting 06/09/20 22:00 07/09/20 21:59 Polyethylene Glycol (Miralax) 17 gm DAILYPRN PRN ORAL Constipation 06/09/20 22:00 07/09/20 21:59 Promethazine HCl/ Codeine (Phenergan with Codeine) 5 ml Q4H PRN ORAL For Cough 06/09/20 22:00 07/09/20 21:59 06/13/20 21:33 Risperidone (RisperDAL) 1 mg TWICE A DAY GT 06/10/20 18:00 07/25/20 17:59 06/14/20 08:52 Valproic Acid (Depakene) 1,000 mg EVERY 12 HOURS GT 06/11/20 21:00 07/11/20 20:59 06/14/20 08:51 Vancomycin HCl 300 ml @ 150 mls/hr Q12HR@0100,1300 IVPB 06/13/20 13:00 06/21/20 23:59 06/14/20 12:08 Vancomycin HCl (Vanco pharmacy to dose) 1 ea DAILY PRN MISC . 06/11/20 15:00 07/11/20 14:59 Assessment/Plan Problems: (1) Nosocomial pneumonia (2) COPD (chronic obstructive pulmonary disease) (3) Schizophrenia (4) Seizure disorder (5) Diabetes mellitus (6) Feeding by G-tube (7) Alzheimer's dementia Assessment/Plan all reviewed no new complains covid negative times two sputum for c/s iv abx by ID titrate fio2 to sat of 92% sliding scale neuro evaluation to review seizure meds dvt prophylaxis Anusha Richmond MD Jun 14, 2020 13:46
[2020-06-14 16:00] VITALS: BP 125/70
--- NOTE | 2020-06-14 19:17 | NUR ---
NURSE HAND-OFF: Important Events on Shift: SUctioned PRN Patient Status: stable Diet: glucerna 1.5 Pending Orders: n/a Pending Results/Labs:n/a Pending MD notification:n/a Latest Vital Signs: Temperature 97.9 , Pulse 73 , B/P 110 /70 , Respiratory Rate 18 , O2 SAT 96 , Nasal Cannula, O2 Flow Rate 2.0 . Vital Sign Comment: stable Latest Vargas Fall Score: 75 Fall Risk: High Risk Safety Measures: Call light Within Reach, Bed Alarm Zone 1, Side Rails Side Rails x2, Bed position Low and Locked. Fall Precautions: Yellow Socks Yellow Gown Door Sign Patient Fall Education Report given to XOCHITL Luciano.
--- NOTE | 2020-06-14 19:42 | NUR ---
NURSE NOTES: Received patient in bed, alert x1, disoriented, confused, noted with garbled speech, suction prn noted at bedside, IV site is clean dry and intact, has condom catheter, on g tube feeding, tolerating well. Patient has soft bilateral wrist restraints, call light is within reach, bed is lowered, locked, alarm is on, will continue to monitor for comfort and safety.
[2020-06-14 20:00] VITALS: BP 113/70
[2020-06-15] VITALS: BP 125/73
[2020-06-15] MEDS: Vancomycin 1.5gm/300ml Premix IVPB SCH ×2 (00:28→13:56)
[2020-06-15 03:51] LABS: EOSINOPHILS % (AUTO) 5.6 % (0.0-3.0); HEMATOCRIT 36.9 % (42.0-52.0); HEMOGLOBIN 12.5 G/DL (14.2-18.0); MEAN CORPUSCULAR VOLUME 89 FL (80-99); MONOCYTES % (AUTO) 5.5 % (1.0-10.0); NEUTROPHILS % (AUTO) 77.9 % (45.0-75.0); PLATELET COUNT 369 K/UL (150-450); RED BLOOD COUNT 4.16 M/UL (4.70-6.10); RED CELL DISTRIBUTION WIDTH 15.7 % (11.6-14.8); WHITE BLOOD COUNT 12.4 K/UL (4.8-10.8)
[2020-06-15 03:53] LABS: ANION GAP 2 mmol/L (5-15); BLOOD UREA NITROGEN 20 mg/dL (7-18); CALCIUM 8.7 MG/DL (8.5-10.1); CARBON DIOXIDE 36 MMOL/L (21-32); CHLORIDE 98 MMOL/L (98-107); CREATININE 0.7 MG/DL (0.55-1.30); POTASSIUM 5.1 MMOL/L (3.5-5.1); SODIUM 136 MMOL/L (136-145)
[2020-06-15 04:00] VITALS: BP 122/68
[2020-06-15] MEDS: NovoLOG Insulin Flexpen SUBQ SCH ×4 (06:30→20:48)
--- NOTE | 2020-06-15 07:25 | NUR ---
NURSE HAND-OFF: Important Events on Shift: BS 109, otherwise uneventful Patient Status: full Diet: gtube feeding Glucerna 1.5 at 65 continuous. Pending Orders: Pending Results/Labs: Pending MD notification: Latest Vital Signs: Temperature 97.4 , Pulse 73 , B/P 122 /68 , Respiratory Rate 15 , O2 SAT 97 , Nasal Cannula, O2 Flow Rate 2.0 . Vital Sign Comment: Latest Vargas Fall Score: 75 Fall Risk: High Risk Safety Measures: Call light Within Reach, Bed Alarm Zone 1, Side Rails Side Rails x2, Bed position Low and Locked. Fall Precautions: Yellow Socks Yellow Gown Door Sign Patient Fall Education Report given to Yong LEUNG
--- NOTE | 2020-06-15 07:46 | NUR ---
NURSE NOTES: RN received report from Jania. Patient is stable, AAOX1 no respiratory distress, on NC 2 L. Seizure and fall precautions maintained. Padded side rails, suction on bed side. Bed lowest in position and locked, bed alarm on. Call light within reach. IV site asymptomatic, flushed and patent. Plan of care communicated. Will continue to monitor.
[2020-06-15 08:00] VITALS: BP 114/67
--- NOTE | 2020-06-15 08:13 | Psychiatry Consultation ---
Psychiatry Consultation Psychiatry Consultation Chief Complaint: Dyspnea/Respdistress History of Present Illness: 60-year-old male patient confusion [altered mental status patient has no insight very agitated irritable difficult to follow redirections has been redirected multiple times cognition has declined below his baseline as per his attending has requested for daily psychiatric consultation Mental status examination: 60-year-old male appearance disheveled arterial irritable agitated affect current treatment intellect poor mood depressed anxious motor activity ps ychomotor agitation attention span is poor orientation x2 speech is clear thought process disorganized illogical Insight and judgment is poor Allergies: Coded Allergies: NO KNOWN DRUG ALLERGIES (Verified Allergy, Unknown, 05/14/19) Medication History Scheduled Aripiprazole* (Abilify*), 5 MG GT BID, (Reported) Ascorbic Acid* (Vitamin C*), 500 MG GT DAILY, (Reported) Aspirin* (Aspirin*), 81 MG GT DAILY, (Reported) Azithromycin (Azithromycin), 500 MG ORAL BEDTIME, (Reported) Azithromycin* (Zithromax*), 250 MG ORAL DAILY, (Reported) Ceftriaxone Sodium (Ceftriaxone), 1 GM IM DAILY, (Reported) Clonazepam* (Klonopin*), 0.5 MG ORAL Q12H, (Reported) Ferrous Sulfate (Ferrous Sulfate), 330 ML ORAL DAILY, (Reported) Guaifenesin/Dextromethorphan (Robitussin Cough-Chest Dm Liq), 15 ML GT TID, (Reported) Lactobacillus Acidophilus (Acidophilus), 1 EACH GT DAILY, (Reported) Lactulose (Lactulose*), 30 ML GT DAILY, (Reported) Metoprolol Tartrate* (Metoprolol Tartrate*), 12.5 MG GT EVERY 12 HOURS, (Reported) Multivitamin With Minerals (Multivitamins With Minerals*), 1 TAB GT DAILY, (Reported) Pantoprazole Sodium (Pantoprazole Sodium), 40 MG GT DAILY, (Reported) Pioglitazone Hcl* (Actos*), 15 MG GT DAILY, (Reported) Risperidone (Risperidone), 2 MG ORAL BEDTIME, (Reported) Risperidone* (Risperdal*), 1 MG GT DAILY, (Reported) Triamcinolone Acetonide (Triamcinolone Acetonide 0.1% Cream), 15 GM TP DAILY, (Reported) Valproate Sodium (Valproic Acid), 1,000 MG GT BID, (Reported) Scheduled PRN Acetaminophen* (Acetaminophen 325MG Tablet*), 650 MG GT Q4H PRN for Mild Pain (Pain Scale 1-3), (Reported) Acetaminophen* (Acetaminophen 325MG Tablet*), 650 MG GT Q4H PRN for Temp >100.5, (Reported) Ipratropium/Albuterol Sulfate (DuoNeb 0.5-3(2.5)mg/3ml), 3 ML HHN Q4H PRN for Shortness of Breath, (Reported) Sennosides* (Sen-O-Tab*), 17.2 MG ORAL DAILY PRN for Constipation, (Reported) Discontinued Medications Al Hydroxide/mg Hydroxide (Mag-Al Liquid), 30 ML ORAL NEEDED, (Reported) Discontinued Reason: MD discontinued med Bisacodyl (Dulcolax), 10 MG RECTAL NEEDED, (Reported) Discontinued Reason: MD discontinued med Ceftriaxone Sod (Rocephin), 1 MG IM DAILY, (Reported) Discontinued Reason: Prescription changed Docusate Sodium* (Colace*), 100 MG ORAL BEDTIME, (Reported) Discontinued Reason: MD discontinued med Objective Data Height (Feet): 6 Height (Inches): 0.00 Weight (Pounds): 140 Assessment/Plan Assessment/Plan: Will continue to treat the patient with Depakote 1000mg GT BID, Abilify 5mg BID and Risperdal 1 BID. Ativan 1mg as prn anxiety/agittion. 20 minutes of cognitive behavioral therapy to help him identify his automatic thoughts and help him convert his negative thoughts to more positive thoughts to help reduce depression, anxiety and altered mental status. Diagnosis [place] I: Schizoaffective bipolar type Shyla Fleming MD Jun 15, 2020 08:13
[2020-06-15] MEDS: Metoprolol Tartrate 12.5mg TAB GT SCH ×2 (09:03→20:43)
[2020-06-15] MEDS: Valproic Acid 250mg/5ml Liquid GT SCH ×2 (09:03→20:49)
[2020-06-15] MEDS: Heparin 5000 units/ml inj SUBQ SCH ×2 (09:05→20:59)
[2020-06-15] MEDS: Cefepime HCl 2 GM in D5W 110 ML IV SCH (09:07)
--- NOTE | 2020-06-15 09:09 | General Progress Note ---
Subjective Constitutional: Reports: weakness Allergies: Coded Allergies: NO KNOWN DRUG ALLERGIES (Verified Allergy, Unknown, 05/14/19) All Systems: reviewed and negative except above Subjective sleepy calm Objective Last 24 Hour Vital Signs Date Time Temp Pulse Resp B/P (MAP) Pulse Ox O2 Delivery O2 Flow Rate FiO2 06/15/20 09:03 78 114/67 06/15/20 04:00 97.4 73 15 122/68 (86) 97 06/15/20 00:00 97.2 76 17 125/73 (90) 97 76 06/14/20 21:24 Nasal Cannula 2.0 06/14/20 20:33 78 113/74 06/14/20 20:00 97.2 75 15 113/70 (84) 97 75 06/14/20 19:12 73 18 96 Nasal Cannula 2.0 28 06/14/20 16:52 73 18 110/70 97 06/14/20 16:22 77 18 119/78 98 06/14/20 16:00 97.9 75 18 125/70 (88) 97 06/14/20 12:00 97.6 77 18 119/78 (92) 98 06/14/20 11:59 Nasal Cannula 2.0 Intake and Output 06/14/20 06/15/20 19:00 07:00 Intake Total 1020 ml 970 ml Output Total 250 ml 1400 ml Balance 770 ml -430 ml Free Water 240 ml 320 ml Tube Feeding 780 ml 650 ml Output Urine Total 250 ml 1400 ml # Voids 1 Laboratory Tests 06/15/20 03:10: White Blood Count 12.4H, Red Blood Count 4.16L, Hemoglobin 12.5L, Hematocrit 36.9L, Mean Corpuscular Volume 89, Mean Corpuscular Hemoglobin 30.0, Mean Corpuscular Hemoglobin Concent 33.8, Red Cell Distribution Width 15.7H, Platelet Count 369, Mean Platelet Volume 5.5L, Neutrophils (%) (Auto) 77.9H, Lymphocytes (%) (Auto) 10.0L, Monocytes (%) (Auto) 5.5, Eosinophils (%) (Auto) 5.6H, Basophils (%) (Auto) 1.0, Sodium Level 136, Potassium Level 5.1, Chloride Level 98, Carbon Dioxide Level 36H, Anion Gap 2L, Blood Urea Nitrogen 20H, Creatinine 0.7, Estimat Glomerular Filtration Rate > 60, Glucose Level 90, Calcium Level 8.7, Vancomycin Level Trough 14.6H Height (Feet): 6 Height (Inches): 0.00 Weight (Pounds): 140 General Appearance: lethargic EENT: normal ENT inspection Neck: normal alignment Cardiovascular: normal peripheral pulses, normal rate, regular rhythm Respiratory/Chest: chest wall non-tender, lungs clear, normal breath sounds Abdomen: normal bowel sounds, non tender, soft Extremities: normal inspection Edema: no edema noted Arm (L), no edema noted Arm (R), no edema noted Leg (L), no edema noted Leg (R), no edema noted Pedal (L), no edema noted Pedal (R), no edema noted Generalized Neurologic: motor weakness Skin: normal pigmentation, warm/dry Assessment/Plan Problem List: (1) Nosocomial pneumonia ICD Codes: J18.9 - Pneumonia, unspecified organism; Y95 - Nosocomial condition SNOMED: 411020665 (2) Altered mental status (3) Diabetes mellitus ICD Codes: E11.9 - Type 2 diabetes mellitus without complications SNOMED: 39732715 (4) Schizophrenia ICD Codes: F20.9 - Schizophrenia, unspecified SNOMED: 29401623 Qualifiers: Qualified Codes: F20.9 - Schizophrenia, unspecified (5) Seizure disorder ICD Codes: G40.909 - Epilepsy, unspecified, not intractable, without status epilepticus SNOMED: 977338936 (6) COPD (chronic obstructive pulmonary disease) ICD Codes: J44.9 - Chronic obstructive pulmonary disease, unspecified SNOMED: 14705394 (7) Pneumonia ICD Codes: J18.9 - Pneumonia, unspecified organism SNOMED: 532988816 Qualifiers: Qualified Codes: J18.9 - Pneumonia, unspecified organism (8) Fever ICD Codes: R50.9 - Fever, unspecified SNOMED: 784414250 Status: unchanged Assessment/Plan: o2 pulm tx abx pt diet eval cbc bmp in am Silas Ng DO Jun 15, 2020 09:09
--- NOTE | 2020-06-15 10:37 | NUR ---
NURSE NOTES: RN received renewal order from Dr. Ng for continuous disorientation, high fall risk, pulling out IVs. Order carried out.
--- NOTE | 2020-06-15 10:50 | Infectious Diseases Prog Note ---
Assessment/Plan 60yo M with: Afebrile Leukocytosis to 16, improving Lymphopenia Hypoxia on 6L NC MRSA Pneumonia GPC bacteremia, m/lcontaminant 06/09 BCx 1/2 +Staph cohnii (skin and hospital colonizer) UA neg Resp cx p COVID rapid test neg, PCR neg MRSA nares p CXR: RUL infiltrate 06/10 Resp cx +MRSA 06/11 BCx 1/2 +Staph Warreni 06/12 BCx x 2 p Bipolar disorder CVA Dementia DM2 CAD Scabies 2012 HTN Seizure disorder COPD Dysphagia s/p GT [place] resident Plan: Cont vanco IV #01/14 for MRSA pneumonia DC cefepime # 01/07 F/u TTE report (given CONS in BCx) F/u Repeat BCx 06/12 to ensure neg Monitor CBC/CMP Monitor temp curve, hemodynamics Monitor resp status D/w RN Thank you for this consult. [facility] will continue to follow. Subjective Allergies: Coded Allergies: NO KNOWN DRUG ALLERGIES (Verified Allergy, Unknown, 05/14/19) Afebrile Objective Last 24 Hour Vital Signs Date Time Temp Pulse Resp B/P (MAP) Pulse Ox O2 Delivery O2 Flow Rate FiO2 06/15/20 09:03 78 114/67 06/15/20 09:00 Nasal Cannula 2.0 06/15/20 08:00 97.4 73 18 114/67 (83) 96 06/15/20 04:00 97.4 73 15 122/68 (86) 97 06/15/20 00:00 97.2 76 17 125/73 (90) 97 76 06/14/20 21:24 Nasal Cannula 2.0 06/14/20 20:33 78 113/74 06/14/20 20:00 97.2 75 15 113/70 (84) 97 75 06/14/20 19:12 73 18 96 Nasal Cannula 2.0 28 06/14/20 16:52 73 18 110/70 97 06/14/20 16:22 77 18 119/78 98 06/14/20 16:00 97.9 75 18 125/70 (88) 97 06/14/20 12:00 97.6 77 18 119/78 (92) 98 06/14/20 11:59 Nasal Cannula 2.0 Height (Feet): 6 Height (Inches): 0.00 Weight (Pounds): 140 HEENT: atraumatic Respiratory/Chest: lungs clear Cardiovascular: normal rate Abdomen: soft, non tender Microbiology Date/Time Source Procedure Growth Status 06/12/20 19:18 Blood Blood Culture - Preliminary NO GROWTH AFTER 24 HOURS Resulted 06/12/20 19:03 Blood Blood Culture - Preliminary NO GROWTH AFTER 24 HOURS Resulted Laboratory Tests Test 06/15/20 03:10 White Blood Count 12.4 K/UL (4.8-10.8) H Red Blood Count 4.16 M/UL (4.70-6.10) L Hemoglobin 12.5 G/DL (14.2-18.0) L Hematocrit 36.9 % (42.0-52.0) L Mean Corpuscular Volume 89 FL (80-99) Mean Corpuscular Hemoglobin 30.0 PG (27.0-31.0) Mean Corpuscular Hemoglobin Concent 33.8 G/DL (32.0-36.0) Red Cell Distribution Width 15.7 % (11.6-14.8) H Platelet Count 369 K/UL (150-450) Mean Platelet Volume 5.5 FL (6.5-10.1) L Neutrophils (%) (Auto) 77.9 % (45.0-75.0) H Lymphocytes (%) (Auto) 10.0 % (20.0-45.0) L Monocytes (%) (Auto) 5.5 % (1.0-10.0) Eosinophils (%) (Auto) 5.6 % (0.0-3.0) H Basophils (%) (Auto) 1.0 % (0.0-2.0) Sodium Level 136 MMOL/L (136-145) Potassium Level 5.1 MMOL/L (3.5-5.1) Chloride Level 98 MMOL/L (98-107) Carbon Dioxide Level 36 MMOL/L (21-32) H Anion Gap 2 mmol/L (5-15) L Blood Urea Nitrogen 20 mg/dL (7-18) H Creatinine 0.7 MG/DL (0.55-1.30) Estimat Glomerular Filtration Rate > 60 mL/min (>60) Glucose Level 90 MG/DL (74-106) Calcium Level 8.7 MG/DL (8.5-10.1) Vancomycin Level Trough 14.6 ug/mL (5.0-12.0) H Current Medications Medications (Trade) Dose Ordered Sig/Barry Route PRN Reason Start Time Stop Time Status Last Admin Dose Admin Acetaminophen (Tylenol) 650 mg Q4H PRN ORAL FEVER 06/09/20 22:00 07/09/20 21:59 Aripiprazole (Abilify) 5 mg BID ORAL 06/10/20 09:00 07/25/20 08:59 06/15/20 09:03 Cefepime HCl 2 gm/ Dextrose 110 ml @ 220 mls/hr EVERY 12 HOURS IV 06/10/20 09:00 06/17/20 08:59 06/15/20 09:07 Dextrose (Dextrose 50%) 25 ml Q30M PRN IV Hypoglycemia 06/09/20 22:00 09/07/20 21:59 Dextrose (Dextrose 50%) 50 ml Q30M PRN IV Hypoglycemia 06/09/20 22:00 09/07/20 21:59 Heparin Sodium (Porcine) (Heparin 5000 units/ml) 5,000 units EVERY 12 HOURS SUBQ 06/10/20 09:00 07/25/20 08:59 06/15/20 09:05 Insulin Aspart (NovoLOG) BEFORE MEALS AND HS SUBQ 06/10/20 06:30 09/08/20 06:29 06/11/20 17:18 Lorazepam (Ativan 2mg/ml 1ml) 2 mg Q2H PRN IV For Anxiety 06/09/20 22:00 06/16/20 21:59 06/14/20 16:22 Metoprolol Tartrate (Lopressor) 12.5 mg EVERY 12 HOURS GT 06/10/20 09:00 09/08/20 08:59 06/15/20 09:03 Ondansetron HCl (Zofran) 4 mg Q6H PRN IVP Nausea & Vomiting 06/09/20 22:00 07/09/20 21:59 Polyethylene Glycol (Miralax) 17 gm DAILYPRN PRN ORAL Constipation 06/09/20 22:00 07/09/20 21:59 Promethazine HCl/ Codeine (Phenergan with Codeine) 5 ml Q4H PRN ORAL For Cough 06/09/20 22:00 07/09/20 21:59 06/13/20 21:33 Risperidone (RisperDAL) 1 mg TWICE A DAY GT 06/10/20 18:00 07/25/20 17:59 06/15/20 09:03 Valproic Acid (Depakene) 1,000 mg EVERY 12 HOURS GT 06/11/20 21:00 07/11/20 20:59 06/15/20 09:03 Vancomycin HCl 300 ml @ 150 mls/hr Q12HR@0100,1300 IVPB 06/13/20 13:00 06/21/20 23:59 06/15/20 00:28 Vancomycin HCl (Vanco pharmacy to dose) 1 ea DAILY PRN MISC . 06/11/20 15:00 07/11/20 14:59 Antony Berger MD Jun 15, 2020 10:50
[2020-06-15 12:00] VITALS: BP 120/73
[2020-06-15] MEDS: LORazepam Inj 2mg/ml 1ml IV PRN (13:38)
--- NOTE | 2020-06-15 13:50 | NUR ---
NURSE NOTES: Vanco trough 9.4. Pharmacist Jose told RN to give the same dose due now and he will change the dose for the next round.
--- NOTE | 2020-06-15 14:19 | Pulmonology Progress Note ---
Subjective ROS Limited/Unobtainable: No Interval Events: comfortable Constitutional: Reports: no symptoms HEENT: Repors: no symptoms Allergies: Coded Allergies: NO KNOWN DRUG ALLERGIES (Verified Allergy, Unknown, 05/14/19) All Systems: reviewed and negative except above Objective Last 24 Hour Vital Signs Date Time Temp Pulse Resp B/P (MAP) Pulse Ox O2 Delivery O2 Flow Rate FiO2 06/15/20 13:38 73 19 120/73 95 06/15/20 12:00 98.6 73 19 120/73 (89) 95 06/15/20 10:40 72 16 99 Nasal Cannula 2.0 28 06/15/20 10:40 98 Nasal Cannula 2.0 28 06/15/20 09:03 78 114/67 06/15/20 09:00 Nasal Cannula 2.0 06/15/20 08:00 97.4 73 18 114/67 (83) 96 06/15/20 04:00 97.4 73 15 122/68 (86) 97 06/15/20 00:00 97.2 76 17 125/73 (90) 97 76 06/14/20 21:24 Nasal Cannula 2.0 06/14/20 20:33 78 113/74 06/14/20 20:00 97.2 75 15 113/70 (84) 97 75 06/14/20 19:12 73 18 96 Nasal Cannula 2.0 28 06/14/20 16:52 73 18 110/70 97 06/14/20 16:22 77 18 119/78 98 06/14/20 16:00 97.9 75 18 125/70 (88) 97 Intake and Output 06/14/20 06/15/20 19:00 07:00 Intake Total 1020 ml 970 ml Output Total 250 ml 1400 ml Balance 770 ml -430 ml Free Water 240 ml 320 ml Tube Feeding 780 ml 650 ml Output Urine Total 250 ml 1400 ml # Voids 1 General Appearance: cachetic HEENT: normocephalic, atraumatic Respiratory: chest wall non-tender, rhonchi - left Cardiovascular: normal peripheral pulses, normal rate, regular rhythm, JVD Abdomen: normal bowel sounds, soft, non tender, no organomegaly Genitourinary: normal external genitalia Extremities: no clubbing Skin: no rash 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 Microbiology Date/Time Source Procedure Growth Status 06/12/20 19:18 Blood Blood Culture - Preliminary NO GROWTH AFTER 24 HOURS Resulted 06/12/20 19:03 Blood Blood Culture - Preliminary NO GROWTH AFTER 24 HOURS Resulted Laboratory Tests 06/15/20 03:10: White Blood Count 12.4H, Red Blood Count 4.16L, Hemoglobin 12.5L, Hematocrit 36.9L, Mean Corpuscular Volume 89, Mean Corpuscular Hemoglobin 30.0, Mean Corpuscular Hemoglobin Concent 33.8, Red Cell Distribution Width 15.7H, Platelet Count 369, Mean Platelet Volume 5.5L, Neutrophils (%) (Auto) 77.9H, Lymphocytes (%) (Auto) 10.0L, Monocytes (%) (Auto) 5.5, Eosinophils (%) (Auto) 5.6H, Basophils (%) (Auto) 1.0, Sodium Level 136, Potassium Level 5.1, Chloride Level 98, Carbon Dioxide Level 36H, Anion Gap 2L, Blood Urea Nitrogen 20H, Creatinine 0.7, Estimat Glomerular Filtration Rate > 60, Glucose Level 90, Calcium Level 8.7, Vancomycin Level Trough 14.6H 06/15/20 12:04: POC Whole Blood Glucose 102 06/15/20 12:35: Vancomycin Level Trough 9.4 Current Medications Medications (Trade) Dose Ordered Sig/Barry Route PRN Reason Start Time Stop Time Status Last Admin Dose Admin Acetaminophen (Tylenol) 650 mg Q4H PRN ORAL FEVER 06/09/20 22:00 07/09/20 21:59 Aripiprazole (Abilify) 5 mg BID ORAL 06/10/20 09:00 07/25/20 08:59 06/15/20 09:03 Dextrose (Dextrose 50%) 25 ml Q30M PRN IV Hypoglycemia 06/09/20 22:00 09/07/20 21:59 Dextrose (Dextrose 50%) 50 ml Q30M PRN IV Hypoglycemia 06/09/20 22:00 09/07/20 21:59 Heparin Sodium (Porcine) (Heparin 5000 units/ml) 5,000 units EVERY 12 HOURS SUBQ 06/10/20 09:00 07/25/20 08:59 06/15/20 09:05 Insulin Aspart (NovoLOG) BEFORE MEALS AND HS SUBQ 06/10/20 06:30 09/08/20 06:29 06/11/20 17:18 Lorazepam (Ativan 2mg/ml 1ml) 2 mg Q2H PRN IV For Anxiety 06/15/20 12:00 06/22/20 11:59 06/15/20 13:38 Metoprolol Tartrate (Lopressor) 12.5 mg EVERY 12 HOURS GT 06/10/20 09:00 09/08/20 08:59 06/15/20 09:03 Ondansetron HCl (Zofran) 4 mg Q6H PRN IVP Nausea & Vomiting 06/09/20 22:00 07/09/20 21:59 Polyethylene Glycol (Miralax) 17 gm DAILYPRN PRN ORAL Constipation 06/09/20 22:00 07/09/20 21:59 Promethazine HCl/ Codeine (Phenergan with Codeine) 5 ml Q4H PRN ORAL For Cough 06/09/20 22:00 07/09/20 21:59 06/13/20 21:33 Risperidone (RisperDAL) 1 mg TWICE A DAY GT 06/10/20 18:00 07/25/20 17:59 06/15/20 09:03 Valproic Acid (Depakene) 1,000 mg EVERY 12 HOURS GT 06/11/20 21:00 07/11/20 20:59 06/15/20 09:03 Vancomycin HCl 300 ml @ 150 mls/hr Q12HR@0100,1300 IVPB 06/13/20 13:00 06/21/20 23:59 06/15/20 13:56 Vancomycin HCl ([facility] pharmacy to dose) 1 ea DAILY PRN MISC . 06/11/20 15:00 07/11/20 14:59 Assessment/Plan Problems: (1) Nosocomial pneumonia (2) COPD (chronic obstructive pulmonary disease) (3) Schizophrenia (4) Seizure disorder (5) Diabetes mellitus (6) Feeding by G-tube (7) Alzheimer's dementia Assessment/Plan all reviewed no new complains covid negative times two sputum for c/s iv abx by ID titrate fio2 to sat of 92% sliding scale neuro evaluation to review seizure meds dvt prophylaxis Anusha Richmond MD Jun 15, 2020 14:19
[2020-06-15 16:00] VITALS: BP 119/71
--- NOTE | 2020-06-15 17:22 | NUR ---
NURSE NOTES: Patient's BS at 1630 was 86. RN gave cranberry juice through G-tube and it went up to 93. Patient stable and asymptomatic. Will continue to monitor.
--- NOTE | 2020-06-15 17:57 | Nephrology Progress Note ---
Assessment/Plan Problem List: (1) Electrolyte imbalance Assessment: Hyponatremia (2) Seizure disorder (3) Alzheimer's dementia (4) Pneumonia (5) Feeding by G-tube Assessment Hyponatremia Abnormal electrolytes Pneumonia, COPD Diabetes mellitus, hypertension Dementia, seizure disorder, history of CVA PEG long term resident Plan June 15: Lab reviewed. Renal parameters stable. Continue per consultants. June 14: Labs reviewed. Renal parameters and electrolytes now stable. Continue per consultants. June 13: Will give trial of albumin IV bolus followed by Lasix 20 mg IV push. Continue to monitor electrolytes and renal parameters. Discontinue IV fluid half-normal saline Monitor your electrolytes Keep the blood pressure and blood sugar in check Abnormal electrolytes addressed Subjective ROS Limited/Unobtainable: Yes Objective Objective Last 24 Hour Vital Signs Date Time Temp Pulse Resp B/P (MAP) Pulse Ox O2 Delivery O2 Flow Rate FiO2 06/15/20 16:00 97.6 73 19 119/71 (87) 94 06/15/20 14:08 79 19 126/62 97 06/15/20 13:38 73 19 120/73 95 06/15/20 12:00 98.6 73 19 120/73 (89) 95 06/15/20 10:40 72 16 99 Nasal Cannula 2.0 28 06/15/20 10:40 98 Nasal Cannula 2.0 28 06/15/20 09:03 78 114/67 06/15/20 09:00 Nasal Cannula 2.0 06/15/20 08:00 97.4 73 18 114/67 (83) 96 06/15/20 04:00 97.4 73 15 122/68 (86) 97 06/15/20 00:00 97.2 76 17 125/73 (90) 97 76 06/14/20 21:24 Nasal Cannula 2.0 06/14/20 20:33 78 113/74 06/14/20 20:00 97.2 75 15 113/70 (84) 97 75 06/14/20 19:12 73 18 96 Nasal Cannula 2.0 28 Intake and Output 06/14/20 06/15/20 19:00 07:00 Intake Total 1020 ml 970 ml Output Total 250 ml 1400 ml Balance 770 ml -430 ml Free Water 240 ml 320 ml Tube Feeding 780 ml 650 ml Output Urine Total 250 ml 1400 ml # Voids 1 Current Medications Medications (Trade) Dose Ordered Sig/Barry Route PRN Reason Start Time Stop Time Status Last Admin Dose Admin Acetaminophen (Tylenol) 650 mg Q4H PRN ORAL FEVER 06/09/20 22:00 07/09/20 21:59 Aripiprazole (Abilify) 5 mg BID ORAL 06/10/20 09:00 07/25/20 08:59 06/15/20 17:34 Dextrose (Dextrose 50%) 25 ml Q30M PRN IV Hypoglycemia 06/09/20 22:00 09/07/20 21:59 Dextrose (Dextrose 50%) 50 ml Q30M PRN IV Hypoglycemia 06/09/20 22:00 09/07/20 21:59 Heparin Sodium (Porcine) (Heparin 5000 units/ml) 5,000 units EVERY 12 HOURS SUBQ 06/10/20 09:00 07/25/20 08:59 06/15/20 09:05 Insulin Aspart (NovoLOG) BEFORE MEALS AND HS SUBQ 06/10/20 06:30 09/08/20 06:29 06/11/20 17:18 Lorazepam (Ativan 2mg/ml 1ml) 2 mg Q2H PRN IV For Anxiety 06/15/20 12:00 06/22/20 11:59 06/15/20 13:38 Metoprolol Tartrate (Lopressor) 12.5 mg EVERY 12 HOURS GT 06/10/20 09:00 09/08/20 08:59 06/15/20 09:03 Ondansetron HCl (Zofran) 4 mg Q6H PRN IVP Nausea & Vomiting 06/09/20 22:00 07/09/20 21:59 Polyethylene Glycol (Miralax) 17 gm DAILYPRN PRN ORAL Constipation 06/09/20 22:00 07/09/20 21:59 Promethazine HCl/ Codeine (Phenergan with Codeine) 5 ml Q4H PRN ORAL For Cough 06/09/20 22:00 07/09/20 21:59 06/13/20 21:33 Risperidone (RisperDAL) 1 mg TWICE A DAY GT 06/10/20 18:00 07/25/20 17:59 06/15/20 17:34 Valproic Acid (Depakene) 1,000 mg EVERY 12 HOURS GT 06/11/20 21:00 1/8/21 20:59 06/15/20 09:03 Vancomycin HCl 250 ml @ 166.667 mls/hr Q8HR IVPB 06/15/20 22:00 06/20/20 21:59 Vancomycin HCl ([facility] pharmacy to dose) 1 ea DAILY PRN MISC . 06/11/20 15:00 07/11/20 14:59 Laboratory Tests 06/15/20 03:10: White Blood Count 12.4H, Red Blood Count 4.16L, Hemoglobin 12.5L, Hematocrit 36.9L, Mean Corpuscular Volume 89, Mean Corpuscular Hemoglobin 30.0, Mean Corpuscular Hemoglobin Concent 33.8, Red Cell Distribution Width 15.7H, Platelet Count 369, Mean Platelet Volume 5.5L, Neutrophils (%) (Auto) 77.9H, Lymphocytes (%) (Auto) 10.0L, Monocytes (%) (Auto) 5.5, Eosinophils (%) (Auto) 5.6H, Basophils (%) (Auto) 1.0, Sodium Level 136, Potassium Level 5.1, Chloride Level 98, Carbon Dioxide Level 36H, Anion Gap 2L, Blood Urea Nitrogen 20H, Creatinine 0.7, Estimat Glomerular Filtration Rate > 60, Glucose Level 90, Calcium Level 8.7, Vancomycin Level Trough 14.6H 06/15/20 12:04: POC Whole Blood Glucose 102 06/15/20 12:35: Vancomycin Level Trough 9.4 06/15/20 16:31: POC Whole Blood Glucose 86 Height (Feet): 6 Height (Inches): 0.00 Weight (Pounds): 140 General Appearance: no apparent distress Cardiovascular: normal rate Respiratory/Chest: decreased breath sounds Abdomen: soft Orlando Chen MD Jun 15, 2020 17:57
--- NOTE | 2020-06-15 19:15 | NUR ---
NURSE HAND-OFF: Important Events on Shift:[low blood sugar, clogged g-tube tubing] Patient Status: [stable] Diet: [g-tube] Pending Orders: [BMP, CBC, vanco trough] Pending Results/Labs:[n/a] Pending MD notification:[n/a] Latest Vital Signs: Temperature 97.6 , Pulse 73 , B/P 119 /71 , Respiratory Rate 19 , O2 SAT 94 , Nasal Cannula, O2 Flow Rate 2.0 . Vital Sign Comment: [stable] Latest Vargas Fall Score: 75 Fall Risk: High Risk Safety Measures: Call light Within Reach, Bed Alarm Zone 1, Side Rails Side Rails x2, Bed position Low and Locked. Fall Precautions: Yellow Socks Yellow Gown Door Sign Patient Fall Education Report given to [Jodee Francois].
--- NOTE | 2020-06-15 19:20 | NUR ---
NURSE NOTES: Patient in bed, resting. On 2L oxygen via nasal cannula with no signs of distress at this time. Suction at bedside - suctioning performed. G-tube noted with feeding running as ordered. Condom cath in place. Bilateral wrist restraints in progress; skin intact, pulses palpable. Bed locked and in lowest position, with bed alarm on. Bed alarm on. Call light within reach. Will continue to monitor.
[2020-06-15 20:00] VITALS: BP 104/71
[2020-06-15] MEDS: Vancomycin 1.25gm/250ml Premix IVPB SCH (21:01)
[2020-06-16] VITALS: BP 117/66
[2020-06-16 03:56] VITALS: BP 135/80
[2020-06-16] MEDS: Vancomycin 1.25gm/250ml Premix IVPB SCH ×2 (06:21→13:07)
[2020-06-16] MEDS: NovoLOG Insulin Flexpen SUBQ SCH ×4 (06:21→22:17)
[2020-06-16] MEDS: Promethazine/Codeine 5ml UD ORAL PRN ×2 (06:24→22:10)
[2020-06-16 07:06] LABS: BASOPHILS % (AUTO) 0.7 % (0.0-2.0); EOSINOPHILS % (AUTO) 7.2 % (0.0-3.0); HEMATOCRIT 35.3 % (42.0-52.0); LYMPHOCYTES % (AUTO) 10.7 % (20.0-45.0); MEAN CORPUSCULAR VOLUME 91 FL (80-99); MONOCYTES % (AUTO) 6.9 % (1.0-10.0); NEUTROPHILS % (AUTO) 74.6 % (45.0-75.0); PLATELET COUNT 385 K/UL (150-450); RED BLOOD COUNT 3.88 M/UL (4.70-6.10); RED CELL DISTRIBUTION WIDTH 14.2 % (11.6-14.8); WHITE BLOOD COUNT 11.5 K/UL (4.8-10.8)
[2020-06-16 07:48] LABS: ANION GAP 1 mmol/L (5-15); BLOOD UREA NITROGEN 22 mg/dL (7-18); CALCIUM 8.6 MG/DL (8.5-10.1); CARBON DIOXIDE 36 MMOL/L (21-32); CHLORIDE 99 MMOL/L (98-107); CREATININE 0.7 MG/DL (0.55-1.30); POTASSIUM 5.2 MMOL/L (3.5-5.1); SODIUM 136 MMOL/L (136-145)
--- NOTE | 2020-06-16 07:52 | NUR ---
HAND-OFF: Report given to XOCHITL [place].
[2020-06-16 08:00] VITALS: BP 116/67
--- NOTE | 2020-06-16 08:00 | NUR ---
NURSE NOTES: Received report from Jodee LEUNG, pt a/a/o laying in bed with no signs of distress or other issues at this time. O2 in place. pt has bilateral soft wrist restrains. IV on the right upper arm gauge#22 heplock. GT in place running Glucerna @65ml/hr. and to flush with 120ml Q6H. call light within reach bed in lowest position. side rales up x3. I will f/u as needed.
--- NOTE | 2020-06-16 08:37 | Infectious Diseases Prog Note ---
Assessment/Plan 60yo M with: Afebrile Leukocytosis to 16, improving Lymphopenia Hypoxia on 6L NC MRSA Pneumonia GPC bacteremia, m/l contaminant 06/09 BCx 1/2 +Staph cohnii (skin and hospital colonizer) UA neg Resp cx p COVID rapid test neg, PCR neg MRSA nares p CXR: RUL infiltrate TTE - no clear vegetations seen 06/10 Resp cx +MRSA 06/11 BCx 1/2 +Staph warneri (skin colonizer) 06/12 BCx x2 NTD Bipolar disorder CVA Dementia DM2 CAD Scabies 2012 HTN Seizure disorder COPD Dysphagia s/p GT [facility] resident Plan: Cont vanco IV #8/ for MRSA pneumonia 06/15 SP cefepime #7 empiric Monitor CBC/CMP Monitor temp curve, hemodynamics Monitor resp status D/w RN Thank you for this consult. [facility] will continue to follow. Subjective Allergies: Coded Allergies: NO KNOWN DRUG ALLERGIES (Verified Allergy, Unknown, 05/14/19) AF WBC 11.5, improving NAD on 2L NC Objective Last 24 Hour Vital Signs Date Time Temp Pulse Resp B/P (MAP) Pulse Ox O2 Delivery O2 Flow Rate FiO2 06/16/20 03:56 97.0 93 19 135/80 (98) 97 06/16/20 00:00 97.3 84 18 117/66 (83) 96 06/15/20 21:00 Nasal Cannula 2.0 06/15/20 20:43 87 104/71 06/15/20 20:00 97.7 87 18 104/71 (82) 97 06/15/20 20:00 97 Nasal Cannula 2.0 28 06/15/20 16:00 97.6 73 19 119/71 (87) 94 06/15/20 14:08 79 19 126/62 97 06/15/20 13:38 73 19 120/73 95 06/15/20 12:00 98.6 73 19 120/73 (89) 95 06/15/20 10:40 72 16 99 Nasal Cannula 2.0 28 06/15/20 10:40 98 Nasal Cannula 2.0 28 06/15/20 09:03 78 114/67 06/15/20 09:00 Nasal Cannula 2.0 Height (Feet): 6 Height (Inches): 0.00 Weight (Pounds): 140 Gen: NAD HEENT: NCAT Pulm: BL chest rise Abd: Non-distended Ext: No c/c/e Skin: No visible rashes Neuro: Awake Laboratory Tests Test 06/15/20 12:04 06/15/20 12:35 06/15/20 16:31 06/16/20 05:35 POC Whole Blood Glucose 102 MG/DL (74-106) 86 MG/DL (74-106) Vancomycin Level Trough 9.4 ug/mL (5.0-12.0) White Blood Count 11.5 K/UL (4.8-10.8) H Red Blood Count 3.88 M/UL (4.70-6.10) L Hemoglobin 12.0 G/DL (14.2-18.0) L Hematocrit 35.3 % (42.0-52.0) L Mean Corpuscular Volume 91 FL (80-99) Mean Corpuscular Hemoglobin 30.9 PG (27.0-31.0) Mean Corpuscular Hemoglobin Concent 34.0 G/DL (32.0-36.0) Red Cell Distribution Width 14.2 % (11.6-14.8) Platelet Count 385 K/UL (150-450) Mean Platelet Volume 5.5 FL (6.5-10.1) L Neutrophils (%) (Auto) 74.6 % (45.0-75.0) Lymphocytes (%) (Auto) 10.7 % (20.0-45.0) L Monocytes (%) (Auto) 6.9 % (1.0-10.0) Eosinophils (%) (Auto) 7.2 % (0.0-3.0) H Basophils (%) (Auto) 0.7 % (0.0-2.0) Sodium Level 136 MMOL/L (136-145) Potassium Level 5.2 MMOL/L (3.5-5.1) H Chloride Level 99 MMOL/L (98-107) Carbon Dioxide Level 36 MMOL/L (21-32) H Anion Gap 1 mmol/L (5-15) L Blood Urea Nitrogen 22 mg/dL (7-18) H Creatinine 0.7 MG/DL (0.55-1.30) Estimat Glomerular Filtration Rate > 60 mL/min (>60) Glucose Level 99 MG/DL (74-106) Calcium Level 8.6 MG/DL (8.5-10.1) Test 06/16/20 06:18 POC Whole Blood Glucose Pending Current Medications Medications (Trade) Dose Ordered Sig/Barry Route PRN Reason Start Time Stop Time Status Last Admin Dose Admin Acetaminophen (Tylenol) 650 mg Q4H PRN ORAL FEVER 06/09/20 22:00 07/09/20 21:59 Aripiprazole (Abilify) 5 mg BID ORAL 06/10/20 09:00 07/25/20 08:59 06/15/20 17:34 Dextrose (Dextrose 50%) 25 ml Q30M PRN IV Hypoglycemia 06/09/20 22:00 09/07/20 21:59 Dextrose (Dextrose 50%) 50 ml Q30M PRN IV Hypoglycemia 06/09/20 22:00 09/07/20 21:59 Heparin Sodium (Porcine) (Heparin 5000 units/ml) 5,000 units EVERY 12 HOURS SUBQ 06/10/20 09:00 07/25/20 08:59 06/15/20 20:59 Insulin Aspart (NovoLOG) BEFORE MEALS AND HS SUBQ 06/10/20 06:30 09/08/20 06:29 06/11/20 17:18 Lorazepam (Ativan 2mg/ml 1ml) 2 mg Q2H PRN IV For Anxiety 06/15/20 12:00 06/22/20 11:59 06/15/20 13:38 Metoprolol Tartrate (Lopressor) 12.5 mg EVERY 12 HOURS GT 06/10/20 09:00 09/08/20 08:59 06/15/20 09:03 Ondansetron HCl (Zofran) 4 mg Q6H PRN IVP Nausea & Vomiting 06/09/20 22:00 07/09/20 21:59 Polyethylene Glycol (Miralax) 17 gm DAILYPRN PRN ORAL Constipation 06/09/20 22:00 07/09/20 21:59 Promethazine HCl/ Codeine (Phenergan with Codeine) 5 ml Q4H PRN ORAL For Cough 06/09/20 22:00 07/09/20 21:59 06/16/20 06:24 Risperidone (RisperDAL) 1 mg TWICE A DAY GT 06/10/20 18:00 07/25/20 17:59 06/15/20 17:34 Valproic Acid (Depakene) 1,000 mg EVERY 12 HOURS GT 06/11/20 21:00 07/11/20 20:59 06/15/20 20:49 Vancomycin HCl 250 ml @ 166.667 mls/hr Q8HR IVPB 06/15/20 22:00 06/20/20 21:59 06/16/20 06:21 Vancomycin HCl ([facility] pharmacy to dose) 1 ea DAILY PRN MISC . 06/11/20 15:00 07/11/20 14:59 Nicole Casillas M.D. Jun 16, 2020 08:37
--- NOTE | 2020-06-16 09:07 | General Progress Note ---
Subjective Constitutional: Reports: weakness Allergies: Coded Allergies: NO KNOWN DRUG ALLERGIES (Verified Allergy, Unknown, 05/14/19) All Systems: reviewed and negative except above Subjective o2 nc sleepy calm Objective Last 24 Hour Vital Signs Date Time Temp Pulse Resp B/P (MAP) Pulse Ox O2 Delivery O2 Flow Rate FiO2 06/16/20 03:56 97.0 93 19 135/80 (98) 97 06/16/20 00:00 97.3 84 18 117/66 (83) 96 06/15/20 21:00 Nasal Cannula 2.0 06/15/20 20:43 87 104/71 06/15/20 20:00 97.7 87 18 104/71 (82) 97 06/15/20 20:00 97 Nasal Cannula 2.0 28 06/15/20 16:00 97.6 73 19 119/71 (87) 94 06/15/20 14:08 79 19 126/62 97 06/15/20 13:38 73 19 120/73 95 06/15/20 12:00 98.6 73 19 120/73 (89) 95 06/15/20 10:40 72 16 99 Nasal Cannula 2.0 28 06/15/20 10:40 98 Nasal Cannula 2.0 28 Intake and Output 06/15/20 06/16/20 19:02 07:02 Intake Total 1605 ml Output Total 900 ml Balance 1605 ml -900 ml Free Water 480 ml IV Total 410 ml Tube Feeding 715 ml Output Urine Total 900 ml Laboratory Tests 06/15/20 12:04: POC Whole Blood Glucose 102 06/15/20 12:35: Vancomycin Level Trough 9.4 06/15/20 16:31: POC Whole Blood Glucose 86 06/16/20 05:35: White Blood Count 11.5H, Red Blood Count 3.88L, Hemoglobin 12.0L, Hematocrit 35.3L, Mean Corpuscular Volume 91, Mean Corpuscular Hemoglobin 30.9, Mean Corpuscular Hemoglobin Concent 34.0, Red Cell Distribution Width 14.2, Platelet Count 385, Mean Platelet Volume 5.5L, Neutrophils (%) (Auto) 74.6, Lymphocytes (%) (Auto) 10.7L, Monocytes (%) (Auto) 6.9, Eosinophils (%) (Auto) 7.2H, Basophils (%) (Auto) 0.7, Sodium Level 136, Potassium Level 5.2H, Chloride Level 99, Carbon Dioxide Level 36H, Anion Gap 1L, Blood Urea Nitrogen 22H, Creatinine 0.7, Estimat Glomerular Filtration Rate > 60, Glucose Level 99, Calcium Level 8.6 06/16/20 06:18: POC Whole Blood Glucose [Pending] Height (Feet): 6 Height (Inches): 0.00 Weight (Pounds): 140 General Appearance: lethargic EENT: normal ENT inspection Neck: normal alignment Cardiovascular: normal peripheral pulses, normal rate, regular rhythm Respiratory/Chest: chest wall non-tender, lungs clear, normal breath sounds Abdomen: normal bowel sounds, non tender, soft Extremities: normal inspection Edema: no edema noted Arm (L), no edema noted Arm (R), no edema noted Leg (L), no edema noted Leg (R), no edema noted Pedal (L), no edema noted Pedal (R), no edema noted Generalized Neurologic: motor weakness Skin: normal pigmentation, warm/dry Assessment/Plan Problem List: (1) Nosocomial pneumonia ICD Codes: J18.9 - Pneumonia, unspecified organism; Y95 - Nosocomial condition SNOMED: 706215299 (2) Altered mental status (3) Diabetes mellitus ICD Codes: E11.9 - Type 2 diabetes mellitus without complications SNOMED: 07972821 (4) Schizophrenia ICD Codes: F20.9 - Schizophrenia, unspecified SNOMED: 43577372 Qualifiers: Qualified Codes: F20.9 - Schizophrenia, unspecified (5) Seizure disorder ICD Codes: G40.909 - Epilepsy, unspecified, not intractable, without status epilepticus SNOMED: 631539190 (6) COPD (chronic obstructive pulmonary disease) ICD Codes: J44.9 - Chronic obstructive pulmonary disease, unspecified SNOMED: 50441678 (7) Pneumonia ICD Codes: J18.9 - Pneumonia, unspecified organism SNOMED: 014627543 Qualifiers: Qualified Codes: J18.9 - Pneumonia, unspecified organism (8) Fever ICD Codes: R50.9 - Fever, unspecified SNOMED: 174135546 Status: unchanged Assessment/Plan: o2 pulm tx abx pt diet eval cbc bmp in am Silas Ng DO Jun 16, 2020 09:07
[2020-06-16] MEDS: Metoprolol Tartrate 12.5mg TAB GT SCH ×2 (09:16→22:09)
[2020-06-16] MEDS: Valproic Acid 250mg/5ml Liquid GT SCH ×2 (09:17→22:09)
[2020-06-16] MEDS: Heparin 5000 units/ml inj SUBQ SCH ×2 (09:17→22:09)
[2020-06-16 12:00] VITALS: BP 106/52
--- NOTE | 2020-06-16 15:19 | NUR ---
CASE MANAGEMENT:REVIEW SI;PNEUMONIA 97.8 93 22 135/80 95% 2L NC WBC 11.5 K+ 5.2 BUN 22 IS;VANCOMYCIN IV Q8 DEPAKENE GT Q12 LOPRESSOR GT Q12 PHENERGAN W/CODEINE GT Q4 PRN HEPARIN SQ Q12 MED SURG STATUS DCP;FROM [facility] ([facility] CURRENTLY ON [place] UNABLE TO READMIT PATIENTS AT THIS TIME DC PLANNING FOR SNF PLACEMENT
[2020-06-16 16:00] VITALS: BP 102/64
--- NOTE | 2020-06-16 16:48 | Nephrology Progress Note ---
Assessment/Plan Problem List: (1) Electrolyte imbalance Assessment: Hyponatremia (2) Seizure disorder (3) Alzheimer's dementia (4) Pneumonia (5) Feeding by G-tube Assessment Hyponatremia Abnormal electrolytes Pneumonia, COPD Diabetes mellitus, hypertension Dementia, seizure disorder, history of CVA PEG long term resident Plan June 16: Labs reviewed. Renal parameters continues to be stable. Continue per consultants. June 15: Lab reviewed. Renal parameters stable. Continue per consultants. June 14: Labs reviewed. Renal parameters and electrolytes now stable. Continue per consultants. June 13: Will give trial of albumin IV bolus followed by Lasix 20 mg IV push. Continue to monitor electrolytes and renal parameters. Discontinue IV fluid half-normal saline Monitor your electrolytes Keep the blood pressure and blood sugar in check Abnormal electrolytes addressed Subjective ROS Limited/Unobtainable: Yes Objective Objective Last 24 Hour Vital Signs Date Time Temp Pulse Resp B/P (MAP) Pulse Ox O2 Delivery O2 Flow Rate FiO2 06/16/20 16:00 98.2 83 20 102/64 (77) 94 06/16/20 12:00 97.6 79 22 106/52 (70) 95 06/16/20 09:16 84 116/67 06/16/20 09:00 Nasal Cannula 2.0 06/16/20 08:00 97.8 84 22 116/67 (83) 96 06/16/20 03:56 97.0 93 19 135/80 (98) 97 06/16/20 00:00 97.3 84 18 117/66 (83) 96 06/15/20 21:00 Nasal Cannula 2.0 06/15/20 20:43 87 104/71 06/15/20 20:00 97.7 87 18 104/71 (82) 97 06/15/20 20:00 97 Nasal Cannula 2.0 28 Intake and Output 06/15/20 06/16/20 19:00 07:00 Intake Total 1605 ml Output Total 900 ml Balance 1605 ml -900 ml Free Water 480 ml IV Total 410 ml Tube Feeding 715 ml Output Urine Total 900 ml Current Medications Medications (Trade) Dose Ordered Sig/Barry Route PRN Reason Start Time Stop Time Status Last Admin Dose Admin Acetaminophen (Tylenol) 650 mg Q4H PRN ORAL FEVER 06/09/20 22:00 07/09/20 21:59 Aripiprazole (Abilify) 5 mg BID ORAL 06/10/20 09:00 07/25/20 08:59 06/16/20 09:16 Dextrose (Dextrose 50%) 25 ml Q30M PRN IV Hypoglycemia 06/09/20 22:00 09/07/20 21:59 Dextrose (Dextrose 50%) 50 ml Q30M PRN IV Hypoglycemia 06/09/20 22:00 09/07/20 21:59 Heparin Sodium (Porcine) (Heparin 5000 units/ml) 5,000 units EVERY 12 HOURS SUBQ 06/10/20 09:00 07/25/20 08:59 06/16/20 09:17 Insulin Aspart (NovoLOG) BEFORE MEALS AND HS SUBQ 06/10/20 06:30 09/08/20 06:29 06/11/20 17:18 Lorazepam (Ativan 2mg/ml 1ml) 2 mg Q2H PRN IV For Anxiety 06/15/20 12:00 06/22/20 11:59 06/15/20 13:38 Metoprolol Tartrate (Lopressor) 12.5 mg EVERY 12 HOURS GT 06/10/20 09:00 09/08/20 08:59 06/16/20 09:16 Ondansetron HCl (Zofran) 4 mg Q6H PRN IVP Nausea & Vomiting 06/09/20 22:00 07/09/20 21:59 Polyethylene Glycol (Miralax) 17 gm DAILYPRN PRN ORAL Constipation 06/09/20 22:00 07/09/20 21:59 Promethazine HCl/ Codeine (Phenergan with Codeine) 5 ml Q4H PRN ORAL For Cough 06/09/20 22:00 07/09/20 21:59 06/16/20 06:24 Risperidone (RisperDAL) 1 mg TWICE A DAY GT 06/10/20 18:00 07/25/20 17:59 06/16/20 09:17 Valproic Acid (Depakene) 1,000 mg EVERY 12 HOURS GT 06/11/20 21:00 07/11/20 20:59 06/16/20 09:17 Vancomycin HCl 250 ml @ 166.667 mls/hr Q8HR IVPB 06/15/20 22:00 06/20/20 21:59 06/16/20 13:07 Vancomycin HCl (Vanco pharmacy to dose) 1 ea DAILY PRN MISC . 06/11/20 15:00 07/11/20 14:59 Laboratory Tests 06/15/20 17:12: POC Whole Blood Glucose 89 06/15/20 17:18: POC Whole Blood Glucose 93 06/16/20 05:35: White Blood Count 11.5H, Red Blood Count 3.88L, Hemoglobin 12.0L, Hematocrit 35.3L, Mean Corpuscular Volume 91, Mean Corpuscular Hemoglobin 30.9, Mean Corpuscular Hemoglobin Concent 34.0, Red Cell Distribution Width 14.2, Platelet Count 385, Mean Platelet Volume 5.5L, Neutrophils (%) (Auto) 74.6, Lymphocytes (%) (Auto) 10.7L, Monocytes (%) (Auto) 6.9, Eosinophils (%) (Auto) 7.2H, Basophils (%) (Auto) 0.7, Sodium Level 136, Potassium Level 5.2H, Chloride Level 99, Carbon Dioxide Level 36H, Anion Gap 1L, Blood Urea Nitrogen 22H, Creatinine 0.7, Estimat Glomerular Filtration Rate > 60, Glucose Level 99, Calcium Level 8.6 06/16/20 06:18: POC Whole Blood Glucose [Pending] 06/16/20 12:23: POC Whole Blood Glucose 96 Height (Feet): 6 Height (Inches): 0.00 Weight (Pounds): 140 General Appearance: no apparent distress Cardiovascular: tachycardia Respiratory/Chest: decreased breath sounds Abdomen: distended Orlando Chen MD Jun 16, 2020 16:48
--- NOTE | 2020-06-16 17:35 | Pulmonology Progress Note ---
Subjective ROS Limited/Unobtainable: Yes Interval Events: comfortable Constitutional: Reports: no symptoms HEENT: Repors: no symptoms Allergies: Coded Allergies: NO KNOWN DRUG ALLERGIES (Verified Allergy, Unknown, 05/14/19) All Systems: reviewed and negative except above Objective Last 24 Hour Vital Signs Date Time Temp Pulse Resp B/P (MAP) Pulse Ox O2 Delivery O2 Flow Rate FiO2 06/16/20 16:00 98.2 83 20 102/64 (77) 94 06/16/20 12:00 97.6 79 22 106/52 (70) 95 06/16/20 09:16 84 116/67 06/16/20 09:00 Nasal Cannula 2.0 06/16/20 08:00 97.8 84 22 116/67 (83) 96 06/16/20 03:56 97.0 93 19 135/80 (98) 97 06/16/20 00:00 97.3 84 18 117/66 (83) 96 06/15/20 21:00 Nasal Cannula 2.0 06/15/20 20:43 87 104/71 06/15/20 20:00 97.7 87 18 104/71 (82) 97 06/15/20 20:00 97 Nasal Cannula 2.0 28 Intake and Output 06/15/20 06/16/20 19:00 07:00 Intake Total 1605 ml Output Total 900 ml Balance 1605 ml -900 ml Free Water 480 ml IV Total 410 ml Tube Feeding 715 ml Output Urine Total 900 ml General Appearance: cachetic HEENT: normocephalic, atraumatic Respiratory: chest wall non-tender, rhonchi - left Cardiovascular: normal peripheral pulses, normal rate, regular rhythm, JVD Abdomen: normal bowel sounds, soft, non tender, no organomegaly Genitourinary: normal external genitalia Extremities: no clubbing Skin: no rash 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 Laboratory Tests 06/16/20 05:35: White Blood Count 11.5H, Red Blood Count 3.88L, Hemoglobin 12.0L, Hematocrit 35.3L, Mean Corpuscular Volume 91, Mean Corpuscular Hemoglobin 30.9, Mean Corpuscular Hemoglobin Concent 34.0, Red Cell Distribution Width 14.2, Platelet Count 385, Mean Platelet Volume 5.5L, Neutrophils (%) (Auto) 74.6, Lymphocytes (%) (Auto) 10.7L, Monocytes (%) (Auto) 6.9, Eosinophils (%) (Auto) 7.2H, Basophils (%) (Auto) 0.7, Sodium Level 136, Potassium Level 5.2H, Chloride Level 99, Carbon Dioxide Level 36H, Anion Gap 1L, Blood Urea Nitrogen 22H, Creatinine 0.7, Estimat Glomerular Filtration Rate > 60, Glucose Level 99, Calcium Level 8.6 06/16/20 06:18: POC Whole Blood Glucose [Pending] 06/16/20 12:23: POC Whole Blood Glucose 96 Current Medications Medications (Trade) Dose Ordered Sig/Barry Route PRN Reason Start Time Stop Time Status Last Admin Dose Admin Acetaminophen (Tylenol) 650 mg Q4H PRN ORAL FEVER 06/09/20 22:00 07/09/20 21:59 Aripiprazole (Abilify) 5 mg BID ORAL 06/10/20 09:00 07/25/20 08:59 06/16/20 17:24 Dextrose (Dextrose 50%) 25 ml Q30M PRN IV Hypoglycemia 06/09/20 22:00 09/07/20 21:59 Dextrose (Dextrose 50%) 50 ml Q30M PRN IV Hypoglycemia 06/09/20 22:00 09/07/20 21:59 Heparin Sodium (Porcine) (Heparin 5000 units/ml) 5,000 units EVERY 12 HOURS SUBQ 06/10/20 09:00 07/25/20 08:59 06/16/20 09:17 Insulin Aspart (NovoLOG) BEFORE MEALS AND HS SUBQ 06/10/20 06:30 09/08/20 06:29 06/11/20 17:18 Lorazepam (Ativan 2mg/ml 1ml) 2 mg Q2H PRN IV For Anxiety 06/15/20 12:00 06/22/20 11:59 06/15/20 13:38 Metoprolol Tartrate (Lopressor) 12.5 mg EVERY 12 HOURS GT 06/10/20 09:00 09/08/20 08:59 06/16/20 09:16 Ondansetron HCl (Zofran) 4 mg Q6H PRN IVP Nausea & Vomiting 06/09/20 22:00 07/09/20 21:59 Polyethylene Glycol (Miralax) 17 gm DAILYPRN PRN ORAL Constipation 06/09/20 22:00 07/09/20 21:59 Promethazine HCl/ Codeine (Phenergan with Codeine) 5 ml Q4H PRN ORAL For Cough 06/09/20 22:00 07/09/20 21:59 06/16/20 06:24 Risperidone (RisperDAL) 1 mg TWICE A DAY GT 06/10/20 18:00 07/25/20 17:59 06/16/20 17:24 Valproic Acid (Depakene) 1,000 mg EVERY 12 HOURS GT 06/11/20 21:00 07/11/20 20:59 06/16/20 09:17 Vancomycin HCl 250 ml @ 166.667 mls/hr Q8HR IVPB 06/15/20 22:00 06/20/20 21:59 06/16/20 13:07 Vancomycin HCl ([facility] pharmacy to dose) 1 ea DAILY PRN MISC . 06/11/20 15:00 07/11/20 14:59 Assessment/Plan Problems: (1) Nosocomial pneumonia (2) COPD (chronic obstructive pulmonary disease) (3) Schizophrenia (4) Seizure disorder (5) Diabetes mellitus (6) Feeding by G-tube (7) Alzheimer's dementia Assessment/Plan all reviewed no new complains covid negative times two sputum for c/s iv abx by ID titrate fio2 to sat of 92% sliding scale neuro evaluation to review seizure meds dvt prophylaxis Anusha Richmond MD Jun 16, 2020 17:35
--- NOTE | 2020-06-16 19:49 | NUR ---
NURSE HAND-OFF: Important Events on Shift: Patient Status: stable/ full code Diet: NPO Pending Orders: [] Pending Results/Labs:[] Pending MD notification:[] Latest Vital Signs: Temperature 98.2 , Pulse 83 , B/P 102 /64 , Respiratory Rate 20 , O2 SAT 94 , Nasal Cannula, O2 Flow Rate 2.0 . Vital Sign Comment: stable Latest Vargas Fall Score: 75 Fall Risk: High Risk Safety Measures: Call light Within Reach, Bed Alarm Zone 1, Side Rails Side Rails x2, Bed position Low and Locked. Fall Precautions: yes, soft restrains Yellow Socks Yellow Gown Door Sign Patient Fall Education Report given to Jodee RN, pt instable condition. - plan to transfer tomorrow to a SNF
[2020-06-16 20:00] VITALS: BP 107/62
--- NOTE | 2020-06-16 20:01 | NUR ---
NURSE NOTES: Patient in bed, resting. On 2L oxygen via nasal cannula with no signs of distress at this time. Patient very restless, legs out of bed. Patient kicking legs. No IV at this time. Will re-insert later. Suction at bedside. G-tube noted with feeding running as ordered. Condom cath re-applied. Bilateral wrist restraints in progress; skin intact, pulses palpable. Bed locked and in lowest position, with bed alarm on. Bed alarm on. Call light within reach. Will continue to monitor.
--- NOTE | 2020-06-16 23:08 | Psychiatry Consultation ---
Psychiatry Consultation Psychiatry Consultation Chief Complaint: Dyspnea/Respdistress History of Present Illness: 60 yo male who is confused and disorganized and his cognition continues to d ecline below baseline. He has no insight and hasd psychomotor agitation. Allergies: Coded Allergies: NO KNOWN DRUG ALLERGIES (Verified Allergy, Unknown, 05/14/19) Medication History Scheduled Aripiprazole* (Abilify*), 5 MG GT BID, (Reported) Ascorbic Acid* (Vitamin C*), 500 MG GT DAILY, (Reported) Aspirin* (Aspirin*), 81 MG GT DAILY, (Reported) Azithromycin (Azithromycin), 500 MG ORAL BEDTIME, (Reported) Azithromycin* (Zithromax*), 250 MG ORAL DAILY, (Reported) Ceftriaxone Sodium (Ceftriaxone), 1 GM IM DAILY, (Reported) Clonazepam* (Klonopin*), 0.5 MG ORAL Q12H, (Reported) Ferrous Sulfate (Ferrous Sulfate), 330 ML ORAL DAILY, (Reported) Guaifenesin/Dextromethorphan (Robitussin Cough-Chest Dm Liq), 15 ML GT TID, (Reported) Lactobacillus Acidophilus (Acidophilus), 1 EACH GT DAILY, (Reported) Lactulose (Lactulose*), 30 ML GT DAILY, (Reported) Metoprolol Tartrate* (Metoprolol Tartrate*), 12.5 MG GT EVERY 12 HOURS, (Reported) Multivitamin With Minerals (Multivitamins With Minerals*), 1 TAB GT DAILY, (Reported) Pantoprazole Sodium (Pantoprazole Sodium), 40 MG GT DAILY, (Reported) Pioglitazone Hcl* (Actos*), 15 MG GT DAILY, (Reported) Risperidone (Risperidone), 2 MG ORAL BEDTIME, (Reported) Risperidone* (Risperdal*), 1 MG GT DAILY, (Reported) Triamcinolone Acetonide (Triamcinolone Acetonide 0.1% Cream), 15 GM TP DAILY, (Reported) Valproate Sodium (Valproic Acid), 1,000 MG GT BID, (Reported) Scheduled PRN Acetaminophen* (Acetaminophen 325MG Tablet*), 650 MG GT Q4H PRN for Mild Pain (Pain Scale 1-3), (Reported) Acetaminophen* (Acetaminophen 325MG Tablet*), 650 MG GT Q4H PRN for Temp >100.5, (Reported) Ipratropium/Albuterol Sulfate (DuoNeb 0.5-3(2.5)mg/3ml), 3 ML HHN Q4H PRN for Shortness of Breath, (Reported) Sennosides* (Sen-O-Tab*), 17.2 MG ORAL DAILY PRN for Constipation, (Reported) Discontinued Medications Al Hydroxide/mg Hydroxide (Mag-Al Liquid), 30 ML ORAL NEEDED, (Reported) Discontinued Reason: MD discontinued med Bisacodyl (Dulcolax), 10 MG RECTAL NEEDED, (Reported) Discontinued Reason: MD discontinued med Ceftriaxone Sod (Rocephin), 1 MG IM DAILY, (Reported) Discontinued Reason: Prescription changed Docusate Sodium* (Colace*), 100 MG ORAL BEDTIME, (Reported) Discontinued Reason: MD discontinued med Objective Data Height (Feet): 6 Height (Inches): 0.00 Weight (Pounds): 140 Appearance: disheveled Affect: constricted Mood: depressed Speech: dysarthric Thought Process: disorganized Thought Content: delusions of grandiosity Perceptual Disturbances: auditory Suicidal Ideation: no plan Assessment/Plan Assessment/Plan: Will continue to treat the patient with Depakote 1000mg GT BID, Abilify 5mg BID and Risperdal 1 BID. Ativan 1mg as prn anxiety/agittion. 20 minutes of cognitive behavioral therapy to help him identify his automatic thoughts and help him convert his negative thoughts to more positive thoughts to help reduce depression, anxiety and altered mental status. Shyla Fleming MD Jun 16, 2020 23:08
[2020-06-17] VITALS: BP 116/68
[2020-06-17] MEDS: Vancomycin 1gm/D5W 275ml IVPB SCH ×6 (03:00→17:31)
[2020-06-17 04:00] VITALS: BP 112/77
[2020-06-17] MEDS: NovoLOG Insulin Flexpen SUBQ SCH ×4 (06:30→21:00)
--- NOTE | 2020-06-17 06:59 | NUR ---
NURSE NOTES: Stage 2 noted on the sacrum. Admitted with sacral redness. Charge nurse made aware. Will update wound care protocol orders.
--- NOTE | 2020-06-17 07:16 | Psychiatry Consultation ---
Psychiatry Consultation Psychiatry Consultation Chief Complaint: Dyspnea/Respdistress History of Present Illness: He has a 60-year-old male with shortness of breath fever pneumonia that is c ausing him to have altered mental status confusion declining cognition plus baseline as well as attending has requested daily psychiatric consultation to reduce his psychomotor agitation and altered mental status as his cognition has declined below his baseline he was seen and assessed at bedside still confused disorganized and mood labile Mental status examination: This is a 60-year-old male whose appearance is disheveled his attitude irritable agitated affect guarded restricted intellect poor mood depressed anxious motor activity psychomotor rotation attention plans poor orientation x2 speech is nonsensical thought process disorganized logical thought content paranoid delusions perceptions ported paranoid delusions abstract reasoning is poor because he does not understand proverbs and is currently taking Insight is poor as he has not recognize having a psych disorder judgment is poor because he is except consequences for his actions no signs of any suicidal homicidal thoughts short-term memory 0-3 out of 3 because of poor short-term memory long-term memory is poor because he is in recall long-term events his life either no signs of any suicidal homicidal thoughts Allergies: Coded Allergies: NO KNOWN DRUG ALLERGIES (Verified Allergy, Unknown, 05/14/19) Medication History Scheduled Aripiprazole* (Abilify*), 5 MG GT BID, (Reported) Ascorbic Acid* (Vitamin C*), 500 MG GT DAILY, (Reported) Aspirin* (Aspirin*), 81 MG GT DAILY, (Reported) Azithromycin (Azithromycin), 500 MG ORAL BEDTIME, (Reported) Azithromycin* (Zithromax*), 250 MG ORAL DAILY, (Reported) Ceftriaxone Sodium (Ceftriaxone), 1 GM IM DAILY, (Reported) Clonazepam* (Klonopin*), 0.5 MG ORAL Q12H, (Reported) Ferrous Sulfate (Ferrous Sulfate), 330 ML ORAL DAILY, (Reported) Guaifenesin/Dextromethorphan (Robitussin Cough-Chest Dm Liq), 15 ML GT TID, ( Reported) Lactobacillus Acidophilus (Acidophilus), 1 EACH GT DAILY, (Reported) Lactulose (Lactulose*), 30 ML GT DAILY, (Reported) Metoprolol Tartrate* (Metoprolol Tartrate*), 12.5 MG GT EVERY 12 HOURS, (Reported) Multivitamin With Minerals (Multivitamins With Minerals*), 1 TAB GT DAILY, (Reported) Pantoprazole Sodium (Pantoprazole Sodium), 40 MG GT DAILY, (Reported) Pioglitazone Hcl* (Actos*), 15 MG GT DAILY, (Reported) Risperidone (Risperidone), 2 MG ORAL BEDTIME, (Reported) Risperidone* (Risperdal*), 1 MG GT DAILY, (Reported) Triamcinolone Acetonide (Triamcinolone Acetonide 0.1% Cream), 15 GM TP DAILY, (Reported) Valproate Sodium (Valproic Acid), 1,000 MG GT BID, (Reported) Scheduled PRN Acetaminophen* (Acetaminophen 325MG Tablet*), 650 MG GT Q4H PRN for Mild Pain (Pain Scale 1-3), (Reported) Acetaminophen* (Acetaminophen 325MG Tablet*), 650 MG GT Q4H PRN for Temp >100.5, (Reported) Ipratropium/Albuterol Sulfate (DuoNeb 0.5-3(2.5)mg/3ml), 3 ML HHN Q4H PRN for Shortness of Breath, (Reported) Sennosides* (Sen-O-Tab*), 17.2 MG ORAL DAILY PRN for Constipation, (Reported) Discontinued Medications Ceftriaxone Sod (Rocephin), 1 MG IM DAILY, (Reported) Discontinued Reason: Prescription changed Objective Data Height (Feet): 6 Height (Inches): 0.00 Weight (Pounds): 140 Assessment/Plan Assessment/Plan: Will continue to treat the patient with Depakote 1000mg GT BID, Abilify 5mg BID and Risperdal 1 BID. Ativan 1mg as prn anxiety/agittion. 20 minutes of cognitive behavioral therapy to help him identify his automatic thoughts and help him convert his negative thoughts to more positive thoughts to help reduce depression, anxiety and altered mental status. Diagnosis [place] I: Schizoaffective bipolar type Shyla Fleming MD Jun 17, 2020 07:16
--- NOTE | 2020-06-17 07:40 | Infectious Diseases Prog Note ---
Assessment/Plan 60yo M with: Afebrile Leukocytosis to 16, improving Lymphopenia Hypoxia on 6L NC MRSA Pneumonia GPC bacteremia, m/l contaminant 06/09 BCx 1/2 +Staph cohnii (skin and hospital colonizer) UA neg COVID rapid test neg, PCR neg CXR: RUL infiltrate TTE - no clear vegetations seen 06/10 Resp cx +MRSA 06/11 BCx 1/2 +Staph warneri (skin colonizer) 06/12 BCx x2 NTD 06/16 COVID rapid test neg Bipolar disorder CVA Dementia DM2 CAD Scabies 2012 HTN Seizure disorder COPD Dysphagia s/p GT NH resident Plan: Cont vanco IV #03/17 for MRSA pneumonia (asked Pharmacy if they can change dose from q8 to q12 hrs to assist in discharge planning, they will look into this) On discharge, can alternatively transition to linezolid 600mg IV or PO to complete rest of course (5 more days) 06/15 SP cefepime #7 empiric Monitor CBC/CMP Monitor temp curve, hemodynamics Monitor resp status D/w RN and pharmacy Thank you for this consult. [facility] will continue to follow. Subjective Allergies: Coded Allergies: NO KNOWN DRUG ALLERGIES (Verified Allergy, Unknown, 05/14/19) AF NAD on 2L NC WBC 9.8 Objective Last 24 Hour Vital Signs Date Time Temp Pulse Resp B/P (MAP) Pulse Ox O2 Delivery O2 Flow Rate FiO2 06/17/20 00:00 97.5 79 18 116/68 (84) 99 06/16/20 22:09 78 107/62 06/16/20 21:00 Nasal Cannula 2.0 06/16/20 20:00 97.4 78 17 107/62 (77) 96 06/16/20 16:00 98.2 83 20 102/64 (77) 94 06/16/20 12:00 97.6 79 22 106/52 (70) 95 06/16/20 09:16 84 116/67 06/16/20 09:00 Nasal Cannula 2.0 06/16/20 08:00 97.8 84 22 116/67 (83) 96 Height (Feet): 6 Height (Inches): 0.00 Weight (Pounds): 140 Gen: NAD HEENT: NCAT Pulm: BL chest rise Abd: Non-distended Ext: No c/c/e Skin: No visible rashes Neuro: Awake Microbiology Date/Time Source Procedure Growth Status 06/16/20 17:05 Nasopharynx SARS-CoV-2 RdRp Gene Assay - Final Complete Laboratory Tests Test 06/16/20 12:23 06/16/20 21:09 06/17/20 07:00 POC Whole Blood Glucose 96 MG/DL (74-106) Vancomycin Level Trough 23.0 ug/mL (5.0-12.0) H White Blood Count Pending Red Blood Count Pending Hemoglobin Pending Hematocrit Pending Mean Corpuscular Volume Pending Mean Corpuscular Hemoglobin Pending Mean Corpuscular Hemoglobin Concent Pending Red Cell Distribution Width Pending Platelet Count Pending Mean Platelet Volume Pending Neutrophils (%) (Auto) Pending Lymphocytes (%) (Auto) Pending Monocytes (%) (Auto) Pending Eosinophils (%) (Auto) Pending Basophils (%) (Auto) Pending Sodium Level Pending Potassium Level Pending Chloride Level Pending Carbon Dioxide Level Pending Blood Urea Nitrogen Pending Creatinine Pending Estimat Glomerular Filtration Rate Pending Glucose Level Pending Uric Acid Pending Calcium Level Pending Phosphorus Level Pending Magnesium Level Pending Total Bilirubin Pending Aspartate Amino Transf (AST/SGOT) Pending Alanine Aminotransferase (ALT/SGPT) Pending Alkaline Phosphatase Pending C-Reactive Protein, Quantitative Pending Pro-B-Type Natriuretic Peptide Pending Total Protein Pending Albumin Pending Globulin Pending Current Medications Medications (Trade) Dose Ordered Sig/Barry Route PRN Reason Start Time Stop Time Status Last Admin Dose Admin Acetaminophen (Tylenol) 650 mg Q4H PRN ORAL FEVER 06/09/20 22:00 07/09/20 21:59 Aripiprazole (Abilify) 5 mg BID ORAL 06/10/20 09:00 07/25/20 08:59 06/16/20 17:24 Dextrose (Dextrose 50%) 25 ml Q30M PRN IV Hypoglycemia 06/09/20 22:00 09/07/20 21:59 Dextrose (Dextrose 50%) 50 ml Q30M PRN IV Hypoglycemia 06/09/20 22:00 09/07/20 21:59 Heparin Sodium (Porcine) (Heparin 5000 units/ml) 5,000 units EVERY 12 HOURS SUBQ 06/10/20 09:00 07/25/20 08:59 06/16/20 22:09 Insulin Aspart (NovoLOG) BEFORE MEALS AND HS SUBQ 06/10/20 06:30 09/08/20 06:29 06/11/20 17:18 Lorazepam (Ativan 2mg/ml 1ml) 2 mg Q2H PRN IV For Anxiety 06/15/20 12:00 06/22/20 11:59 06/15/20 13:38 Metoprolol Tartrate (Lopressor) 12.5 mg EVERY 12 HOURS GT 06/10/20 09:00 09/08/20 08:59 06/16/20 09:16 Ondansetron HCl (Zofran) 4 mg Q6H PRN IVP Nausea & Vomiting 06/09/20 22:00 07/09/20 21:59 Polyethylene Glycol (Miralax) 17 gm DAILYPRN PRN ORAL Constipation 06/09/20 22:00 07/09/20 21:59 Promethazine HCl/ Codeine (Phenergan with Codeine) 5 ml Q4H PRN ORAL For Cough 06/09/20 22:00 07/09/20 21:59 06/16/20 22:10 Risperidone (RisperDAL) 1 mg TWICE A DAY GT 06/10/20 18:00 07/25/20 17:59 06/16/20 17:24 Valproic Acid (Depakene) 1,000 mg EVERY 12 HOURS GT 06/11/20 21:00 07/11/20 20:59 06/16/20 22:09 Vancomycin HCl (Vanco pharmacy to dose) 1 ea DAILY PRN MISC . 06/11/20 15:00 07/11/20 14:59 Vancomycin HCl 1 gm/Dextrose 275 ml @ 183.708 mls/hr Q8H IVPB 06/17/20 02:00 06/22/20 01:59 06/17/20 03:00 Nicole Casillas M.D. Jun 17, 2020 07:40
--- NOTE | 2020-06-17 07:53 | NUR ---
NURSE NOTES: Patient alert x1, confused; on Nasal Cannula 2 Liters, no sing of distress and shortness of breath; IV LAC TKO; Glucerna 1.5 running at 65cc, no residual, flushes well; head of the bed elevated, side rails padded for seizure percussion, bed at lowest position, breaks engaged; call light within reach; will keep monitoring; Condom cath in place; will keep monitoring.
--- NOTE | 2020-06-17 07:57 | NUR ---
NURSE HAND-OFF: Important Events on Shift: Stage 2 sacral wound noted Patient Status: Stable Diet: Glucerna 1.5 Pending Orders: Pending Results/Labs: Pending MD notification: Latest Vital Signs: Temperature 97.4 , Pulse 68 , B/P 112 /77 , Respiratory Rate 17 , O2 SAT 95 , Nasal Cannula, O2 Flow Rate 2.0 . Vital Sign Comment: Latest Vargas Fall Score: 75 Fall Risk: High Risk Safety Measures: Call light Within Reach, Bed Alarm Zone 1, Side Rails Side Rails x2, Bed position Low and Locked. Fall Precautions: Yellow Socks Yellow Gown Door Sign Patient Fall Education Report given to XOCHITL Frazier.
[2020-06-17 08:00] VITALS: BP 105/62
[2020-06-17 08:06] LABS: BASOPHILS % (AUTO) 1.3 % (0.0-2.0); EOSINOPHILS % (AUTO) 5.9 % (0.0-3.0); HEMATOCRIT 36.7 % (42.0-52.0); HEMOGLOBIN 12.3 G/DL (14.2-18.0); LYMPHOCYTES % (AUTO) 15.7 % (20.0-45.0); MEAN CORPUSCULAR VOLUME 90 FL (80-99); MONOCYTES % (AUTO) 6.9 % (1.0-10.0); NEUTROPHILS % (AUTO) 70.2 % (45.0-75.0); PLATELET COUNT 375 K/UL (150-450); RED BLOOD COUNT 4.06 M/UL (4.70-6.10); RED CELL DISTRIBUTION WIDTH 14.2 % (11.6-14.8); WHITE BLOOD COUNT 9.8 K/UL (4.8-10.8)
--- NOTE | 2020-06-17 08:15 | NUR ---
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 * Swallowing difficulty r/t dysphagia as evidenced by PEG dep. 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 - Rec goal of 55ml/hr x24 hrs to provide: 1320ml, 2376 kcal, 107g pro, 960ml free H2o. - Add GAGAN in 4oz water BID via PEG for wound care. ADDITIONAL RECOMMENDATIONS: 1) Maintain calibrated bedscale wt Monitor wt trend to assess adequacy of TF- h/o wt loss 2) Per SNF: HT=5'7" 3) WC eval for sacral wound photo/ TF @ goal provides 100% RDI Per RN, stage 2: add GAGAN BID via GT 4) Monitor lytes, replete as needed (K elevated) 5) Check A1C for eval of BG control .
[2020-06-17 08:37] LABS: ALANINE AMINOTRANSFERASE 20 U/L (12-78); ALBUMIN/GLOBULIN RATIO 0.4 (1.0-2.7); ALKALINE PHOSPHATASE 72 U/L (46-116); ANION GAP 1 mmol/L (5-15); ASPARTATE AMINO TRANSFERASE 26 U/L (15-37); BILIRUBIN,TOTAL 0.3 MG/DL (0.2-1.0); BLOOD UREA NITROGEN 21 mg/dL (7-18); CALCIUM 8.3 MG/DL (8.5-10.1); CARBON DIOXIDE 36 MMOL/L (21-32); CHLORIDE 100 MMOL/L (98-107); CREATININE 0.6 MG/DL (0.55-1.30); PHOSPHORUS 2.6 MG/DL (2.5-4.9); SODIUM 137 MMOL/L (136-145)
[2020-06-17] MEDS: Metoprolol Tartrate 12.5mg TAB GT SCH ×2 (09:21→21:10)
[2020-06-17] MEDS: Valproic Acid 250mg/5ml Liquid GT SCH ×2 (09:21→21:10)
[2020-06-17] MEDS: Heparin 5000 units/ml inj SUBQ SCH ×2 (09:22→21:11)
[2020-06-17] MEDS: LORazepam Inj 2mg/ml 1ml IV PRN ×3 (09:32→21:11)
--- NOTE | 2020-06-17 11:09 | Nephrology Progress Note ---
Assessment/Plan Problem List: (1) Electrolyte imbalance Assessment: Hyponatremia (2) Seizure disorder (3) Alzheimer's dementia (4) Pneumonia (5) Feeding by G-tube Assessment Hyponatremia Abnormal electrolytes Pneumonia, COPD Diabetes mellitus, hypertension Dementia, seizure disorder, history of CVA PEG detention resident Plan June 17: Labs reviewed. Renal parameters are stable. Continue per consultants. June 16: Labs reviewed. Renal parameters continues to be stable. Continue per consultants. June 15: Lab reviewed. Renal parameters stable. Continue per consultants. June 14: Labs reviewed. Renal parameters and electrolytes now stable. Continue per consultants. June 13: Will give trial of albumin IV bolus followed by Lasix 20 mg IV pu sh. Continue to monitor electrolytes and renal parameters. Discontinue IV fluid half-normal saline Monitor your electrolytes Keep the blood pressure and blood sugar in check Abnormal electrolytes addressed Subjective ROS Limited/Unobtainable: Yes Objective Objective Last 24 Hour Vital Signs Date Time Temp Pulse Resp B/P (MAP) Pulse Ox O2 Delivery O2 Flow Rate FiO2 06/17/20 09:49 8 Nasal Cannula 2.0 28 06/17/20 09:32 69 17 105/62 100 06/17/20 09:21 69 105/62 06/17/20 08:00 97.3 69 17 105/62 (76) 100 06/17/20 06:40 Nasal Cannula 2.0 06/17/20 04:00 97.4 68 17 112/77 (89) 95 06/17/20 00:00 97.5 79 18 116/68 (84) 99 06/16/20 22:09 78 107/62 06/16/20 21:00 Nasal Cannula 2.0 06/16/20 20:00 97.4 78 17 107/62 (77) 96 06/16/20 16:00 98.2 83 20 102/64 (77) 94 06/16/20 12:00 97.6 79 22 106/52 (70) 95 Intake and Output 06/16/20 06/17/20 19:00 07:00 Intake Total 185 ml Output Total 450 ml Balance 185 ml -450 ml Free Water 120 ml Tube Feeding 65 ml Output Urine Total 450 ml Laboratory Tests 06/16/20 12:23: POC Whole Blood Glucose 96 06/16/20 21:09: Vancomycin Level Trough 23.0H 06/17/20 07:00: White Blood Count 9.8, Red Blood Count 4.06L, Hemoglobin 12.3L, Hematocrit 36.7L , Mean Corpuscular Volume 90, Mean Corpuscular Hemoglobin 30.2, Mean Corpuscular Hemoglobin Concent 33.4, Red Cell Distribution Width 14.2, Platelet Count 375, Mean Platelet Volume 5.7L, Neutrophils (%) (Auto) 70.2, Lymphocytes (%) (Auto) 15.7L, Monocytes (%) (Auto) 6.9, Eosinophils (%) (Auto) 5.9H, Basophils (%) (Auto) 1.3, Sodium Level 137, Potassium Level 5.0, Chloride Level 100, Carbon Dioxide Level 36H, Anion Gap 1L, Blood Urea Nitrogen 21H, Creatinine 0.6, Estimat Glomerular Filtration Rate > 60, Glucose Level 93, Uric Acid 3.0, Calcium Level 8.3L, Phosphorus Level 2.6, Magnesium Level 1.8, Total Bilirubin 0.3, Aspartate Amino Transf (AST/SGOT) 26, Alanine Aminotransferase (ALT/SGPT) 20, Alkaline Phosphatase 72, C-Reactive Protein, Quantitative 2.6H, Pro-B-Type Natriuretic Peptide [Pending], Total Protein 6.8, Albumin 2.0L, Globulin 4.8, Albumin/Globulin Ratio 0.4L Height (Feet): 6 Height (Inches): 0.00 Weight (Pounds): 140 Cardiovascular: normal rate Respiratory/Chest: decreased breath sounds Abdomen: soft Orlando Chen MD Jun 17, 2020 11:09
[2020-06-17 12:00] VITALS: BP 125/56
--- NOTE | 2020-06-17 12:03 | Pulmonology Progress Note ---
Subjective ROS Limited/Unobtainable: Yes Interval Events: comfortable Constitutional: Reports: no symptoms HEENT: Repors: no symptoms Respiratory: Reports: no symptoms Allergies: Coded Allergies: NO KNOWN DRUG ALLERGIES (Verified Allergy, Unknown, 05/14/19) All Systems: reviewed and negative except above Objective Last 24 Hour Vital Signs Date Time Temp Pulse Resp B/P (MAP) Pulse Ox O2 Delivery O2 Flow Rate FiO2 06/17/20 10:02 69 17 105/62 8 06/17/20 09:49 8 Nasal Cannula 2.0 28 06/17/20 09:32 69 17 105/62 100 06/17/20 09:21 69 105/62 06/17/20 08:00 97.3 69 17 105/62 (76) 100 06/17/20 06:40 Nasal Cannula 2.0 06/17/20 04:00 97.4 68 17 112/77 (89) 95 06/17/20 00:00 97.5 79 18 116/68 (84) 99 06/16/20 22:09 78 107/62 06/16/20 21:00 Nasal Cannula 2.0 06/16/20 20:00 97.4 78 17 107/62 (77) 96 06/16/20 16:00 98.2 83 20 102/64 (77) 94 Intake and Output 06/16/20 06/17/20 19:00 07:00 Intake Total 185 ml Output Total 450 ml Balance 185 ml -450 ml Free Water 120 ml Tube Feeding 65 ml Output Urine Total 450 ml General Appearance: cachetic HEENT: normocephalic, atraumatic Respiratory: chest wall non-tender, rhonchi - left Cardiovascular: normal peripheral pulses, normal rate, regular rhythm, JVD Abdomen: normal bowel sounds, soft, non tender, no organomegaly Genitourinary: normal external genitalia Extremities: no clubbing Skin: no rash Neurologic: mult au matic operator II-XII grossly normal Microbiology Date/Time Source Procedure Growth Status 06/16/20 17:05 Nasopharynx SARS-CoV-2 RdRp Gene Assay - Final Complete Laboratory Tests 06/16/20 12:23: POC Whole Blood Glucose 96 06/16/20 21:09: Vancomycin Level Trough 23.0H 06/17/20 07:00: White Blood Count 9.8, Red Blood Count 4.06L, Hemoglobin 12.3L, Hematocrit 36.7L , Mean Corpuscular Volume 90, Mean Corpuscular Hemoglobin 30.2, Mean Corpuscular Hemoglobin Concent 33.4, Red Cell Distribution Width 14.2, Platelet Count 375, Mean Platelet Volume 5.7L, Neutrophils (%) (Auto) 70.2, Lymphocytes (%) (Auto) 15.7L, Monocytes (%) (Auto) 6.9, Eosinophils (%) (Auto) 5.9H, Basophils (%) (Auto) 1.3, Sodium Level 137, Potassium Level 5.0, Chloride Level 100, Carbon Dioxide Level 36H, Anion Gap 1L, Blood Urea Nitrogen 21H, Creatinine 0.6, Estimat Glomerular Filtration Rate > 60, Glucose Level 93, Uric Acid 3.0, Calcium Level 8.3L, Phosphorus Level 2.6, Magnesium Level 1.8, Total Bilirubin 0.3, Aspartate Amino Transf (AST/SGOT) 26, Alanine Aminotransferase (ALT/SGPT) 20, Alkaline Phosphatase 72, C-Reactive Protein, Quantitative 2.6H, Pro-B-Type Natriuretic Peptide [Pending], Total Protein 6.8, Albumin 2.0L, Globulin 4.8, Albumin/Globulin Ratio 0.4L Current Medications Medications (Trade) Dose Ordered Sig/Barry Route PRN Reason Start Time Stop Time Status Last Admin Dose Admin Acetaminophen (Tylenol) 650 mg Q4H PRN ORAL FEVER 06/09/20 22:00 07/09/20 21:59 Aripiprazole (Abilify) 5 mg BID ORAL 06/10/20 09:00 07/25/20 08:59 06/17/20 09:21 Dextrose (Dextrose 50%) 25 ml Q30M PRN IV Hypoglycemia 06/09/20 22:00 09/07/20 21:59 Dextrose (Dextrose 50%) 50 ml Q30M PRN IV Hypoglycemia 06/09/20 22:00 09/07/20 21:59 Heparin Sodium (Porcine) (Heparin 5000 units/ml) 5,000 units EVERY 12 HOURS SUBQ 06/10/20 09:00 07/25/20 08:59 06/17/20 09:22 Insulin Aspart (NovoLOG) BEFORE MEALS AND HS SUBQ 06/10/20 06:30 09/08/20 06:29 06/11/20 17:18 Lorazepam (Ativan 2mg/ml 1ml) 2 mg Q2H PRN IV For Anxiety 06/15/20 12:00 06/22/20 11:59 06/17/20 09:32 Metoprolol Tartrate (Lopressor) 12.5 mg EVERY 12 HOURS GT 06/10/20 09:00 09/08/20 08:59 06/17/20 09:21 Ondansetron HCl (Zofran) 4 mg Q6H PRN IVP Nausea & Vomiting 06/09/20 22:00 07/09/20 21:59 Polyethylene Glycol (Miralax) 17 gm DAILYPRN PRN ORAL Constipation 06/09/20 22:00 07/09/20 21:59 Promethazine HCl/ Codeine (Phenergan with Codeine) 5 ml Q4H PRN ORAL For Cough 06/09/20 22:00 07/09/20 21:59 06/16/20 22:10 Risperidone (RisperDAL) 1 mg TWICE A DAY GT 06/10/20 18:00 07/25/20 17:59 06/17/20 09:21 Valproic Acid (Depakene) 1,000 mg EVERY 12 HOURS GT 06/11/20 21:00 07/11/20 20:59 06/17/20 09:21 Vancomycin HCl (Vanco pharmacy to dose) 1 ea DAILY PRN MISC . 06/11/20 15:00 07/11/20 14:59 Vancomycin HCl 1 gm/Dextrose 275 ml @ 183.708 mls/hr Q8H IVPB 06/17/20 02:00 06/22/20 01:59 06/17/20 09:32 Assessment/Plan Problems: (1) Nosocomial pneumonia (2) COPD (chronic obstructive pulmonary disease) (3) Schizophrenia (4) Seizure disorder (5) Diabetes mellitus (6) Feeding by G-tube (7) Alzheimer's dementia Assessment/Plan wbc normal now repeat CXR today all reviewed no new complains covid negative times two sputum for c/s titrate fio2 to sat of 92% sliding scale neuro evaluation to review seizure meds dvt prophylaxis Anusha Richmond MD Jun 17, 2020 12:03
--- NOTE | 2020-06-17 13:27 | NUR ---
NURSE NOTES: Reported by wound care nurses that patient has rashes on bilateral armpits, back, abdomen, bilateral groin area and ex's. chair mender also checked. RN spoke to Dr. Vinny NAYLOR and received order to apply permethrin creamx1. Endorsed to the primary nurse.
[2020-06-17 16:00] VITALS: BP 114/54
--- NOTE | 2020-06-17 19:40 | NUR ---
NURSE NOTES: Received report from wilbur mcmullen. patient on bed, awake. with nasal cannula at 2lpm. no sob. no moaning or facial grimacing noted.with gt feeding as ordered. 15 ml of residual. kept head of bed elevated. noted with iv access on the left ac, saline lock.noted with bilateral soft wrist restraints. no injury noted.with condom catheter connected to urinary bag. bed locked and in lowest position. call light and light button within easy reach. will continue plan of care.
--- NOTE | 2020-06-17 19:47 | NUR ---
HAND-OFF: Report given to XOCHITL Jimenez.
[2020-06-17 20:00] VITALS: BP 120/84
--- NOTE | 2020-06-17 21:07 | General Progress Note ---
Subjective ROS Limited/Unobtainable: Yes Allergies: Coded Allergies: NO KNOWN DRUG ALLERGIES (Verified Allergy, Unknown, 05/14/19) Objective Last 24 Hour Vital Signs Date Time Temp Pulse Resp B/P (MAP) Pulse Ox O2 Delivery O2 Flow Rate FiO2 06/17/20 19:30 97 Nasal Cannula 2.0 28 06/17/20 16:00 98.0 75 17 114/54 (74) 96 06/17/20 14:59 69 17 105/62 8 06/17/20 14:29 69 17 105/62 8 06/17/20 12:00 97.0 72 17 125/56 (79) 95 06/17/20 10:02 69 17 105/62 8 06/17/20 09:49 8 Nasal Cannula 2.0 28 06/17/20 09:32 69 17 105/62 100 06/17/20 09:21 69 105/62 06/17/20 08:00 97.3 69 17 105/62 (76) 100 06/17/20 06:40 Nasal Cannula 2.0 06/17/20 04:00 97.4 68 17 112/77 (89) 95 06/17/20 00:00 97.5 79 18 116/68 (84) 99 06/16/20 22:09 78 107/62 Intake and Output 06/16/20 06/17/20 19:00 07:00 Intake Total 185 ml 185 ml Output Total 450 ml Balance 185 ml -265 ml Free Water 120 ml 120 ml Tube Feeding 65 ml 65 ml Output Urine Total 450 ml Laboratory Tests 06/16/20 21:09: Vancomycin Level Trough 23.0H 06/17/20 07:00: White Blood Count 9.8, Red Blood Count 4.06L, Hemoglobin 12.3L, Hematocrit 36.7L , Mean Corpuscular Volume 90, Mean Corpuscular Hemoglobin 30.2, Mean Corpuscular Hemoglobin Concent 33.4, Red Cell Distribution Width 14.2, Platelet Count 375, Mean Platelet Volume 5.7L, Neutrophils (%) (Auto) 70.2, Lymphocytes (%) (Auto) 15.7L, Monocytes (%) (Auto) 6.9, Eosinophils (%) (Auto) 5.9H, Basophils (%) (Auto) 1.3, Sodium Level 137, Potassium Level 5.0, Chloride Level 100, Carbon Dioxide Level 36H, Anion Gap 1L, Blood Urea Nitrogen 21H, Creatinine 0.6, Estimat Glomerular Filtration Rate > 60, Glucose Level 93, Uric Acid 3.0, Calcium Level 8.3L, Phosphorus Level 2.6, Magnesium Level 1.8, Total Bilirubin 0.3, Aspartate Amino Transf (AST/SGOT) 26, Alanine Aminotransferase (ALT/SGPT) 20, Alkaline Phosphatase 72, C-Reactive Protein, Quantitative 2.6H, Pro-B-Type Natriuretic Peptide [Pending], Total Protein 6.8, Albumin 2.0L, Globulin 4.8, Albumin/Globulin Ratio 0.4L 06/17/20 20:18: POC Whole Blood Glucose 84 Height (Feet): 6 Height (Inches): 0.00 Weight (Pounds): 140 Assessment/Plan Problem List: (1) Electrolyte imbalance ICD Codes: E87.8 - Other disorders of electrolyte and fluid balance, not elsewhere classified SNOMED: 019458790 (2) Altered mental status (3) Feeding by G-tube ICD Codes: Z93.1 - Gastrostomy status SNOMED: 109897277, 105644270, 211296618 (4) Diabetes mellitus ICD Codes: E11.9 - Type 2 diabetes mellitus without complications SNOMED: 66286787 (5) Schizophrenia ICD Codes: F20.9 - Schizophrenia, unspecified SNOMED: 05089379 Qualifiers: Qualified Codes: F20.9 - Schizophrenia, unspecified (6) Seizure disorder ICD Codes: G40.909 - Epilepsy, unspecified, not intractable, without status epilepticus SNOMED: 701283039 (7) Alzheimer's dementia ICD Codes: G30.9 - Alzheimer's disease, unspecified; F02.80 - Dementia in other diseases classified elsewhere without behavioral disturbance SNOMED: 94396339 (8) CAD (coronary artery disease) ICD Codes: I25.10 - Atherosclerotic heart disease of kaw coronary artery without angina pectoris SNOMED: 65003533 (9) Pneumonia ICD Codes: J18.9 - Pneumonia, unspecified organism SNOMED: 088537757 Qualifiers: Qualified Codes: J18.9 - Pneumonia, unspecified organism (10) COPD (chronic obstructive pulmonary disease) ICD Codes: J44.9 - Chronic obstructive pulmonary disease, unspecified SNOMED: 73403297 Status: progressing, unchanged Assessment/Plan: copd cad sob resp insuff pna ams dm seizure afebrile reviewed chart and labs Adis Diaz MD Jun 17, 2020 21:07
[2020-06-18] VITALS: BP 135/76
--- NOTE | 2020-06-18 01:49 | NUR ---
NURSE NOTES: spoke to shelia [facility](celestine) to continue current order for vanco.
[2020-06-18] MEDS: Vancomycin 1gm/D5W 275ml IVPB SCH ×2 (01:53)
[2020-06-18] MEDS: LORazepam Inj 2mg/ml 1ml IV PRN (03:27)
[2020-06-18 04:00] VITALS: BP 115/65
[2020-06-18] MEDS: NovoLOG Insulin Flexpen SUBQ SCH ×3 (05:33→17:21)
--- NOTE | 2020-06-18 06:34 | NUR ---
NURSE HAND-OFF: Important Events on Shift: episodes of restlessness; Patient Status: stable Diet: tube feeding Pending Orders: chestxray 1v Pending Results/Labs: Pending MD notification: Latest Vital Signs: Temperature 97.5 , Pulse 89 , B/P 115 /65 , Respiratory Rate 20 , O2 SAT 96 , Nasal Cannula, O2 Flow Rate 2.0 . Vital Sign Comment: Latest Vargas Fall Score: 75 Fall Risk: High Risk Safety Measures: Call light Within Reach, Bed Alarm Zone 1, Side Rails Side Rails x2, Bed position Low and Locked. Fall Precautions: Yellow Socks Yellow Gown Door Sign Patient Fall Education Addendum: 06/18/20 at 0720 by Laura Jimenez RN HAND-OFF: Report given to wilbur marie.
--- NOTE | 2020-06-18 07:33 | NUR ---
NURSE NOTES: Patient awake, alert x1, non verbal; on Nasal Cannula, no sing of distress and shortness of breath; no sing of chest pain; IV Left AC TKO; Bilateral Soft Wrist Restrain in place, skin warm to touch, good circulation; G-Tube Glucerna 1.5 running at 65cc running, no residual, head of the bed elevated for aspiration percussion, side rails up x2 and padded for seizure percussion, bed at lowest position, breaks engaged, bed alarm on; call light within reach; will keep monitoring.
--- NOTE | 2020-06-18 07:51 | Psychiatry Consultation ---
Psychiatry Consultation Psychiatry Consultation Chief Complaint: Dyspnea/Respdistress History of Present Illness: 60-year-old male patient who has shortness of breath and some respiratory de ficiency he also has some confusion from start and stop potassium tomorrow debility altered mental status and overall his cognition has declined below his baseline also has mood lability and tachycardia modification of worsening attending is requested daily psychiatric consultation help stabilize patient's mood reduce psychomotor agitation and overly bring his cognition closer to his baseline Mental status examination: 60-year-old male appearance disheveled attitude irritable agitated affect labile intellect poor mood depressed anxious motor activity psychomotor agitation attention span is poor orientation x1 speech nonsensical thought process disorganized and illogical Insight and judgment is poor Allergies: Coded Allergies: NO KNOWN DRUG ALLERGIES (Verified Allergy, Unknown, 05/14/19) Medication History Scheduled Aripiprazole* (Abilify*), 5 MG GT BID, (Reported) Ascorbic Acid* (Vitamin C*), 500 MG GT DAILY, (Reported) Aspirin* (Aspirin*), 81 MG GT DAILY, (Reported) Azithromycin (Azithromycin), 500 MG ORAL BEDTIME, (Reported) Azithromycin* (Zithromax*), 250 MG ORAL DAILY, (Reported) Ceftriaxone Sodium (Ceftriaxone), 1 GM IM DAILY, (Reported) Clonazepam* (Klonopin*), 0.5 MG ORAL Q12H, (Reported) Ferrous Sulfate (Ferrous Sulfate), 330 ML ORAL DAILY, (Reported) Guaifenesin/Dextromethorphan (Robitussin Cough-Chest Dm Liq), 15 ML GT TID, (Reported) Lactobacillus Acidophilus (Acidophilus), 1 EACH GT DAILY, (Reported) Lactulose (Lactulose*), 30 ML GT DAILY, (Reported) Metoprolol Tartrate* (Metoprolol Tartrate*), 12.5 MG GT EVERY 12 HOURS, (Reported) Multivitamin With Minerals (Multivitamins With Minerals*), 1 TAB GT DAILY, (Reported) Pantoprazole Sodium (Pantoprazole Sodium), 40 MG GT DAILY, (Reported) Pioglitazone Hcl* (Actos*), 15 MG GT DAILY, (Reported) Risperidone (Risperidone), 2 MG ORAL BEDTIME, (Reported) Risperidone* (Risperdal*), 1 MG GT DAILY, (Reported) Triamcinolone Acetonide (Triamcinolone Acetonide 0.1% Cream), 15 GM TP DAILY, (Reported) Valproate Sodium (Valproic Acid), 1,000 MG GT BID, (Reported) Scheduled PRN Acetaminophen* (Acetaminophen 325MG Tablet*), 650 MG GT Q4H PRN for Mild Pain (Pain Scale 1-3), (Reported) Acetaminophen* (Acetaminophen 325MG Tablet*), 650 MG GT Q4H PRN for Temp >100.5, (Reported) Ipratropium/Albuterol Sulfate (DuoNeb 0.5-3(2.5)mg/3ml), 3 ML HHN Q4H PRN for Shortness of Breath, (Reported) Sennosides* (Sen-O-Tab*), 17.2 MG ORAL DAILY PRN for Constipation, (Reported) Discontinued Medications Ceftriaxone Sod (Rocephin), 1 MG IM DAILY, (Reported) Discontinued Reason: Prescription changed Objective Data Height (Feet): 6 Height (Inches): 0.00 Weight (Pounds): 140 Assessment/Plan Assessment/Plan: Will continue to treat the patient with Depakote 1000mg GT BID, Abilify 5mg BID and Risperdal 1 BID. Ativan 1mg as prn anxiety/agittion. 20 minutes of cognitive behavioral therapy to help him identify his automatic thoughts and help him convert his negative thoughts to more positive thoughts to help reduce depression, anxiety and altered mental status. Diagnosis [place] I: Schizoaffective bipolar type Shyla Fleming MD Jun 18, 2020 07:51
[2020-06-18 08:00] VITALS: BP 111/65
--- NOTE | 2020-06-18 08:22 | Infectious Diseases Prog Note ---
Assessment/Plan 60yo M with: Afebrile Leukocytosis to 16, improving Lymphopenia Hypoxia on 6L NC MRSA Pneumonia GPC bacteremia, m/l contaminant 06/09 BCx 1/2 +Staph cohnii (skin and hospital colonizer) UA neg COVID rapid test neg, PCR neg CXR: RUL infiltrate TTE - no clear vegetations seen 06/10 Resp cx +MRSA 06/11 BCx 1/2 +Staph warneri (skin colonizer) 06/12 BCx x2 NTD 06/16 COVID rapid test neg Body rash 06/17 SP empiric tx for Scabies Bipolar disorder CVA Dementia DM2 CAD Scabies 2012 HTN Seizure disorder COPD Dysphagia s/p GT NH resident Plan: Cont vanco IV #04/16 for MRSA pneumonia - dosing is now q12hrs to assist in discharge On discharge, can alternatively transition to linezolid 600mg IV or PO to complete rest of course (5 more days) 06/17 SP Permethrin empiric for Scabies 06/15 SP cefepime #7 empiric Monitor CBC/CMP Monitor temp curve, hemodynamics Monitor resp status D/w RN and pharmacy Thank you for this consult. [facility] will continue to follow. Subjective Allergies: Coded Allergies: NO KNOWN DRUG ALLERGIES (Verified Allergy, Unknown, 05/14/19) AF NAD on 2L NC Body rash, treated empirically for scabies Objective Last 24 Hour Vital Signs Date Time Temp Pulse Resp B/P (MAP) Pulse Ox O2 Delivery O2 Flow Rate FiO2 06/18/20 04:00 97.5 89 20 115/65 (82) 96 06/18/20 03:57 85 20 124/76 96 06/18/20 03:27 83 20 120/86 95 06/18/20 00:00 97.8 86 20 135/76 (95) 95 06/17/20 21:41 85 19 118/65 99 06/17/20 21:11 84 19 120/68 98 06/17/20 21:10 84 120/60 06/17/20 21:00 Nasal Cannula 2.0 06/17/20 20:00 97.6 84 19 120/84 (96) 97 06/17/20 19:30 97 Nasal Cannula 2.0 28 06/17/20 16:00 98.0 75 17 114/54 (74) 96 06/17/20 14:59 69 17 105/62 8 06/17/20 14:29 69 17 105/62 8 06/17/20 12:00 97.0 72 17 125/56 (79) 95 06/17/20 10:02 69 17 105/62 8 06/17/20 09:49 8 Nasal Cannula 2.0 28 06/17/20 09:32 69 17 105/62 100 06/17/20 09:21 69 105/62 Height (Feet): 6 Height (Inches): 0.00 Weight (Pounds): 140 Gen: NAD HEENT: NCAT Pulm: BL chest rise Abd: Non-distended Ext: No c/c/e Skin: No visible rashes Neuro: Awake Microbiology Date/Time Source Procedure Growth Status 06/16/20 17:05 Nasopharynx SARS-CoV-2 RdRp Gene Assay - Final Complete Laboratory Tests Test 06/17/20 20:18 06/18/20 01:11 06/18/20 05:12 POC Whole Blood Glucose 84 MG/DL (74-106) 111 MG/DL (74-106) H Vancomycin Level Trough 17.7 ug/mL (5.0-12.0) H Current Medications Medications (Trade) Dose Ordered Sig/Barry Route PRN Reason Start Time Stop Time Status Last Admin Dose Admin Acetaminophen (Tylenol) 650 mg Q4H PRN ORAL FEVER 06/09/20 22:00 07/09/20 21:59 Aripiprazole (Abilify) 5 mg BID ORAL 06/10/20 09:00 07/25/20 08:59 06/17/20 17:31 Dextrose (Dextrose 50%) 25 ml Q30M PRN IV Hypoglycemia 06/09/20 22:00 09/07/20 21:59 Dextrose (Dextrose 50%) 50 ml Q30M PRN IV Hypoglycemia 06/09/20 22:00 09/07/20 21:59 Heparin Sodium (Porcine) (Heparin 5000 units/ml) 5,000 units EVERY 12 HOURS SUBQ 06/10/20 09:00 07/25/20 08:59 06/17/20 21:11 Insulin Aspart (NovoLOG) BEFORE MEALS AND HS SUBQ 06/10/20 06:30 09/08/20 06:29 06/11/20 17:18 Lorazepam (Ativan 2mg/ml 1ml) 2 mg Q2H PRN IV For Anxiety 06/15/20 12:00 06/22/20 11:59 06/18/20 03:27 Metoprolol Tartrate (Lopressor) 12.5 mg EVERY 12 HOURS GT 06/10/20 09:00 09/08/20 08:59 06/17/20 21:10 Ondansetron HCl (Zofran) 4 mg Q6H PRN IVP Nausea & Vomiting 06/09/20 22:00 07/09/20 21:59 Polyethylene Glycol (Miralax) 17 gm DAILYPRN PRN ORAL Constipation 06/09/20 22:00 07/09/20 21:59 Promethazine HCl/ Codeine (Phenergan with Codeine) 5 ml Q4H PRN ORAL For Cough 06/09/20 22:00 07/09/20 21:59 06/16/20 22:10 Risperidone (RisperDAL) 1 mg TWICE A DAY GT 06/10/20 18:00 07/25/20 17:59 06/17/20 17:31 Valproic Acid (Depakene) 1,000 mg EVERY 12 HOURS GT 06/11/20 21:00 07/11/20 20:59 06/17/20 21:10 Vancomycin HCl (Vanco pharmacy to dose) 1 ea DAILY PRN MISC . 06/11/20 15:00 07/11/20 14:59 Vancomycin HCl 1 gm/Dextrose 275 ml @ 183.708 mls/hr Q8H IVPB 06/17/20 02:00 06/22/20 01:59 06/18/20 01:53 Nicole Casillas M.D. Jun 18, 2020 08:22
--- NOTE | 2020-06-18 08:56 | NUR ---
RADIOLOGY DEPT., CHEST X-RAY DONE.-P.DYE
[2020-06-18] MEDS: Heparin 5000 units/ml inj SUBQ SCH (09:15)
[2020-06-18] MEDS: Valproic Acid 250mg/5ml Liquid GT SCH (09:20)
[2020-06-18] MEDS: Metoprolol Tartrate 12.5mg TAB GT SCH (09:20)
--- NOTE | 2020-06-18 09:35 | NUR ---
*-*DISCHARGE PLANNING*-* PATIENT HAS BEEN ACCEPTED TO: [facility] P: [phone] ROOM# 116.[facility] SET FOR WILL CALL [phone] ~~~~~~~~~~~PENDING CLEARANCE~~~~~~~~
--- NOTE | 2020-06-18 10:22 | NUR ---
*-*DISCHARGE PLANNED*-* PATIENT HAS BEEN ACCEPTED AND WILL BE DISCHARGED TO: [facility]/ [facility] P: [phone] ROOM# 116.[facility] SET FOR 11:30PM S/W MAXINE [id number] PLACED A CALL TO PATIENTS FAMILY, IOANA MELGAR, NO ANSWER, LEFT A VOICE MESSAGE IN REGARDS TO DISCHARGED PLAN.
[2020-06-18] MEDS ORDERED: ZYVOX600 MG ORAL (10:46)
[2020-06-18] MEDS ORDERED: LINEZOLID600 MG PO (10:48)
[2020-06-18] MEDS ORDERED: Vancomycin 1.5gm/300ml Premix IVPB SCH (11:00)
--- NOTE | 2020-06-18 11:51 | NUR ---
NURSE NOTES: I communicated MD Richmond for clearance for discharge; waiting for .
[2020-06-18 12:00] VITALS: BP 98/63
--- NOTE | 2020-06-18 12:07 | Pulmonology Progress Note ---
Subjective ROS Limited/Unobtainable: Yes Interval Events: comfortable Constitutional: Reports: no symptoms HEENT: Repors: no symptoms Respiratory: Reports: no symptoms Allergies: Coded Allergies: NO KNOWN DRUG ALLERGIES (Verified Allergy, Unknown, 05/14/19) All Systems: reviewed and negative except above Objective Last 24 Hour Vital Signs Date Time Temp Pulse Resp B/P (MAP) Pulse Ox O2 Delivery O2 Flow Rate FiO2 06/18/20 09:20 83 111/65 06/18/20 09:00 Nasal Cannula 2.0 06/18/20 08:00 97.3 83 18 111/65 (80) 98 06/18/20 04:00 97.5 89 20 115/65 (82) 96 06/18/20 03:57 85 20 124/76 96 06/18/20 03:27 83 20 120/86 95 06/18/20 00:00 97.8 86 20 135/76 (95) 95 06/17/20 21:41 85 19 118/65 99 06/17/20 21:11 84 19 120/68 98 06/17/20 21:10 84 120/60 06/17/20 21:00 Nasal Cannula 2.0 06/17/20 20:00 97.6 84 19 120/84 (96) 97 06/17/20 19:30 97 Nasal Cannula 2.0 28 06/17/20 16:00 98.0 75 17 114/54 (74) 96 06/17/20 14:59 69 17 105/62 8 06/17/20 14:29 69 17 105/62 8 Intake and Output 06/17/20 06/18/20 19:00 07:00 Intake Total 1506.124 ml 1888.708 ml Output Total 500 ml Balance 1506.124 ml 1388.708 ml Free Water 240 ml 600 ml IV Total 551.124 ml 183.708 ml Tube Feeding 715 ml 1105 ml Output Urine Total 500 ml General Appearance: cachetic HEENT: normocephalic, atraumatic Respiratory: chest wall non-tender, rhonchi - left Cardiovascular: normal peripheral pulses, normal rate, regular rhythm, JVD Abdomen: normal bowel sounds, soft, non tender, no organomegaly Genitourinary: normal external genitalia Extremities: no clubbing Skin: no rash 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 grossly normal Lymphatic: no neck adenopathy Microbiology Date/Time Source Procedure Growth Status 06/16/20 17:05 Nasopharynx SARS-CoV-2 RdRp Gene Assay - Final Complete Laboratory Tests 06/17/20 20:18: POC Whole Blood Glucose 84 06/18/20 01:11: Vancomycin Level Trough 17.7H 06/18/20 05:12: POC Whole Blood Glucose 111H Current Medications Medications (Trade) Dose Ordered Sig/Barry Route PRN Reason Start Time Stop Time Status Last Admin Dose Admin Acetaminophen (Tylenol) 650 mg Q4H PRN ORAL FEVER 06/09/20 22:00 07/09/20 21:59 Aripiprazole (Abilify) 5 mg BID ORAL 06/10/20 09:00 07/25/20 08:59 06/18/20 09:14 Dextrose (Dextrose 50%) 25 ml Q30M PRN IV Hypoglycemia 06/09/20 22:00 09/07/20 21:59 Dextrose (Dextrose 50%) 50 ml Q30M PRN IV Hypoglycemia 06/09/20 22:00 09/07/20 21:59 Heparin Sodium (Porcine) (Heparin 5000 units/ml) 5,000 units EVERY 12 HOURS SUBQ 06/10/20 09:00 07/25/20 08:59 06/18/20 09:15 Insulin Aspart (NovoLOG) BEFORE MEALS AND HS SUBQ 06/10/20 06:30 09/08/20 06:29 06/11/20 17:18 Lorazepam (Ativan 2mg/ml 1ml) 2 mg Q2H PRN IV For Anxiety 06/15/20 12:00 06/22/20 11:59 06/18/20 03:27 Metoprolol Tartrate (Lopressor) 12.5 mg EVERY 12 HOURS GT 06/10/20 09:00 09/08/20 08:59 06/18/20 09:20 Ondansetron HCl (Zofran) 4 mg Q6H PRN IVP Nausea & Vomiting 06/09/20 22:00 07/09/20 21:59 Polyethylene Glycol (Miralax) 17 gm DAILYPRN PRN ORAL Constipation 06/09/20 22:00 07/09/20 21:59 Promethazine HCl/ Codeine (Phenergan with Codeine) 5 ml Q4H PRN ORAL For Cough 06/09/20 22:00 07/09/20 21:59 06/16/20 22:10 Risperidone (RisperDAL) 1 mg TWICE A DAY GT 06/10/20 18:00 07/25/20 17:59 06/18/20 09:14 Valproic Acid (Depakene) 1,000 mg EVERY 12 HOURS GT 06/11/20 21:00 07/11/20 20:59 06/18/20 09:20 Vancomycin HCl 300 ml @ 150 mls/hr Q12H IVPB 06/18/20 11:00 06/23/20 10:59 Vancomycin HCl (Vanco pharmacy to dose) 1 ea DAILY PRN MISC . 06/11/20 15:00 07/11/20 14:59 Assessment/Plan Problems: (1) Nosocomial pneumonia (2) COPD (chronic obstructive pulmonary disease) (3) Schizophrenia (4) Seizure disorder (5) Diabetes mellitus (6) Feeding by G-tube (7) Alzheimer's dementia Assessment/Plan wbc normal now improving, can go to senior living with PO Linezolid covid negative times two titrate fio2 to sat of 92% sliding scale dvt prophylaxis Anusha Richmond MD Jun 18, 2020 12:07
--- NOTE | 2020-06-18 12:25 | NUR ---
PT WEEKLY PROGRESS NOTES Patient has been participating with inpatient PT for ther exercises, bed mobility and transfer training. Patient requires mod assist for bed mobility and max assist for standing at bedside with FWW. Patient will benefit from continued PT intervention to increase strength and improve level of functional mobility and safety.
--- NOTE | 2020-06-18 13:33 | NUR ---
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
--- NOTE | 2020-06-18 13:44 | Diagnostic Imaging Report ---
Indication: Dyspnea Technique: One view of the chest Comparison: 06/09/2020 Findings: Right upper lobe infiltrate appears slightly less dense. There may be a patchy opacity developing at the right lung base, not evident previously. The left lung and bilateral pleural spaces are clear. Impression: Slightly improved but persistent right upper lobe infiltrate
[2020-06-18 16:00] VITALS: BP 98/61
--- NOTE | 2020-06-18 16:56 | NUR ---
NURSE NOTES: I called [facility] to followup with the picking up of this patient; I spoke with Nayda, she said there going to be a delay to pick this patient; per Nadya, [facility] ambulance personnel going to be here is 30 minutes;
--- NOTE | 2020-06-18 18:22 | Nephrology Progress Note ---
Assessment/Plan Problem List: (1) Electrolyte imbalance Assessment: Hyponatremia (2) Seizure disorder (3) Alzheimer's dementia (4) Pneumonia (5) Feeding by G-tube Assessment Hyponatremia Abnormal electrolytes Pneumonia, COPD Diabetes mellitus, hypertension Dementia, seizure disorder, history of CVA [facility] Plan June 18: Labs reviewed. Renal parameters stable. June 17: Labs reviewed. Renal parameters are stable. Continue per consultants. June 16: Labs reviewed. Renal parameters continues to be stable. Continue per consultants. June 15: Lab reviewed. Renal parameters stable. Continue per consultants. June 14: Labs reviewed. Renal parameters and electrolytes now stable. Continue per consultants. June 13: Will give trial of albumin IV bolus followed by Lasix 20 mg IV push. Continue to monitor electrolytes and renal parameters. Discontinue IV fluid half-normal saline Monitor your electrolytes Keep the blood pressure and blood sugar in check Abnormal electrolytes addressed Subjective ROS Limited/Unobtainable: Yes Objective Objective Last 24 Hour Vital Signs Date Time Temp Pulse Resp B/P (MAP) Pulse Ox O2 Delivery O2 Flow Rate FiO2 06/18/20 16:00 97.0 84 20 98/61 (73) 96 06/18/20 12:00 97.5 74 18 98/63 (75) 98 06/18/20 09:20 83 111/65 06/18/20 09:00 Nasal Cannula 2.0 06/18/20 08:00 97.3 83 18 111/65 (80) 98 06/18/20 04:00 97.5 89 20 115/65 (82) 96 06/18/20 03:57 85 20 124/76 96 06/18/20 03:27 83 20 120/86 95 06/18/20 00:00 97.8 86 20 135/76 (95) 95 06/17/20 21:41 85 19 118/65 99 06/17/20 21:11 84 19 120/68 98 06/17/20 21:10 84 120/60 06/17/20 21:00 Nasal Cannula 2.0 06/17/20 20:00 97.6 84 19 120/84 (96) 97 06/17/20 19:30 97 Nasal Cannula 2.0 28 Intake and Output 06/17/20 06/18/20 19:00 07:00 Intake Total 1506.124 ml 1888.708 ml Output Total 500 ml Balance 1506.124 ml 1388.708 ml Free Water 240 ml 600 ml IV Total 551.124 ml 183.708 ml Tube Feeding 715 ml 1105 ml Output Urine Total 500 ml Laboratory Tests 06/17/20 20:18: POC Whole Blood Glucose 84 06/18/20 01:11: Vancomycin Level Trough 17.7H 06/18/20 05:12: POC Whole Blood Glucose 111H Height (Feet): 6 Height (Inches): 0.00 Weight (Pounds): 140 General Appearance: no apparent distress EENT: other - Nasal cannula Cardiovascular: tachycardia Respiratory/Chest: decreased breath sounds Abdomen: distended Orlando Chen MD Jun 18, 2020 18:22
--- NOTE | 2020-06-18 19:40 | NUR ---
HAND-OFF: Report given to XOCHITL Larson.Printed discharge paper given to the incoming nurse;
--- NOTE | 2020-06-18 20:13 | NUR ---
NURSE NOTES: IV access removed. Given report and packet to [facility] staff. Discharged @20:13. Patient going to [facility] with [facility].
--- NOTE | 2020-06-19 11:37 | Discharge Summary ---
Discharge Summary Discharge Summary _ DATE OF ADMISSION: 06/09/2020 DATE OF DISCHARGE: 06/18/2020 DISCHARGED BY: Dr. Ng REASON FOR ADMISSION: 60 years old male resident of [facility] facility, with past medical history of diabetes mellitus, hypertension, COPD, CVA, dementia, was brought from the [facility] for hypoxemia. Patient was recently diagnosed with pneumonia. Patient required supplemental oxygen Upon evaluation patient noted to have leukocytosis. Troponin was negative. Lactic acid within normal limits . Stable electrolytes Stable hemoglobin hematocrit. Chest x-ray revealed right lower lobe infiltrate. EKG revealed sinus rhythm , no acute ischemic changes. Rapid COVID-19 was negative. Septic work-up initiated , patient pancultured, received empiric antibiotic and admitted for further management. CONSULTANTS: pulmonary/critical care ID specialist Dr. Casillas structures mechanic Dr. Chen psychiatrist Dr. Fleming [facility] COURSE: Patient admitted and started on empiric antibiotic as per ID specialist recommendation. Supplemental oxygen provided and titrated to keep pulse oximetry above 92% . Pulmonary toilet provided. Antitussive provided as needed. Patient with follow-up with a chest x-ray Blood sugar was managed with sliding scale of insulin. DVT prophylaxis provided. Sputum culture revealed MRSA. Blood culture revealed Staph Warneri , likely contaminant as per ID specialist recommendation. Echocardiogram revealed no clear vegetation. Patient was on IV vancomycin while int he hospital and switched to oral Zyvox to complete the course for total of 14 days at the facility. Leukocytosis resolved , no fevers . Pulse oximetry was stable on 2 L of oxygen via nasal cannula upon discharge. Follow-up chest x-ray revealed some improvement of the right upper lobe infiltrate. Strict aspiration precaution maintained. G-tube feeding with tube feeding formula and goal rate provided as per registered dietitian recommendations. Renal parameters and electrolytes were closely monitored. Electrolytes corrected as needed. Nephrotoxic's were avoided. Seizure precaution maintained. No evidence of seizure activity while in the hospital. Blood pressure was managed with beta-batsheva. Patient noted to have body rash. Patient had a prior history of scabies. Patient was treated empirically for scabies. Rash was improving. Psychiatric medication regimen was optimized as per psychiatrist recommendations. Patient received cognitive behavioral therapy. Supportive care provided. Patient clinically stabilized and was ready for transfer back to [facility] for continuation of care. FINAL DIAGNOSES: MRSA pneumonia Body rash , status post empiric treatment for scabies COPD Dysphagia, feeding by G-tube History of CVA Hypertension Seizure disorder Diabetes mellitus Schizoaffective, bipolar type Alzheimer dementia DISCHARGE MEDICATIONS: See Medication Reconciliation list. DISCHARGE INSTRUCTIONS: Patient was discharged to the [facility] facility. Follow up with medical doctor at the facility. I have been assigned to dictate discharge summary for this account. I was not involved in the patient's management. Radha Lerma NP Jun 19, 2020 11:37
== END 2020-06-18 20:20 | DRG 190 ==
LOC: EDBD 20:15 → EMR 20:52 → 4E 21:08 → EDBEDREQSVC 22:57 → EDBEDREQ 06-10 00:29
DX: J44.0 Chronic obstructive pulmonary disease with (acute) lower respiratory infection (principal); J15.212 Pneumonia due to Methicillin resistant Staphylococcus aureus; E46 Unspecified protein-calorie malnutrition; Z68.1 Body mass index [BMI] 19.9 or less, adult; E87.1 Hypo-osmolality and hyponatremia; Z43.1 Encounter for attention to gastrostomy; Y95 Nosocomial condition; R09.02 Hypoxemia; I10 Essential (primary) hypertension; E11.9 Type 2 diabetes mellitus without complications; G62.9 Polyneuropathy, unspecified; K21.9 Gastro-esophageal reflux disease without esophagitis; Z79.4 Long term (current) use of insulin; R21 Rash and other nonspecific skin eruption; Z86.73 Personal history of transient ischemic attack (TIA), and cerebral infarction without residual deficits; F25.0 Schizoaffective disorder, bipolar type; G30.9 Alzheimer's disease, unspecified; F02.80 Dementia in other diseases classified elsewhere, unspecified severity, without behavioral disturbance, psychotic disturbance, mood disturbance, and anxiety; I25.10 Atherosclerotic heart disease of native coronary artery without angina pectoris; R13.10 Dysphagia, unspecified; R56.9 Unspecified convulsions; G40.909 Epilepsy, unspecified, not intractable, without status epilepticus
CPT/HCPCS: 36415; 71045; 80048; 80053; 80061; 80069; 80076; 80164; 80202; 81003; 82728; 82962; 83605; 83615; 83690; 83735; 83880; 83930; 83935; 84100; 84300; 84443; 84484; 84550; 85007; 85025; 85379; 85610; 85730; 86140; 87040; 87070; 87081; 87181; 87205; 93005; 93306; 94664; 96361; 96365; 96367; 99291; J1815; J7030; U0002

== ENCOUNTER 2020-08-22 04:44 | Emergency (ER) | payer MEDICARE, OTHER ==
[~2020-08-22] VITALS: Ht 170.2 cm; Wt 65.8 kg
[~2020-08-22 04:44] MED LIST changes: +ACETAMINOPHEN325 M1 GT; +AZITHROMYCIN500 MG ORAL; +CEFTRIAXONE1 G1 IM; +LINEZOLID600 MG PO; +MULTIVITAMINS1 EAC8 GT; +PANTOPRAZOLE SO40 M2 GT; +RISPERIDONE2 MG ORAL; +ROBITUSSIN COU237 M2 GT; +ROCEPHIN250 MG IM; +TRIAMCINOLONE A15 G2 TP; +TRIAMCINOLONE A15 GM TP; +VALPROIC A250 MG/5 M GT; +VITAMIN C500 M1 GT; +ZITHROMAX250 MG ORAL; +ZYVOX600 MG ORAL
--- NOTE | 2020-08-22 05:00 | NUR ---
ED Nurse Note: Patient was BIBA from [facility]. It is reported that patient fell face down after he stood up from his wheelchair attempting to use the restroom. Patient has a lacerationt to his left eyebrow, bleeding is mild. Patient is awake, disoriented, with slurred speech ( speech is his baseline, per ambulance personnel) Blood glucose 80 upon arrival. Vital signs stable. BP 117/78, HR 83, O2 sat 100% on room air, 18 RR.
[2020-08-22] MEDS ORDERED: HUMULIN R100 UNIT/1 SUBQ (05:10)
[2020-08-22] MEDS ORDERED: DEPAKOTE250 MG GT (05:10)
[2020-08-22] MEDS ORDERED: ABILIFY10 MG GT (05:10)
--- NOTE | 2020-08-22 05:14 | NUR ---
Spoke with Caterina at [facility], aware of patient going back. Spoke with Imagcyln-XPA-4:15-6:30.
--- NOTE | 2020-08-22 05:20 | Emergency Room Report ---
History of Present Illness General Chief Complaint: Multiple Trauma/Fall Source: Medical Record Present Illness HPI 60-year-old male from [facility]. He has a history diabetes, Alzheimer, schizophrenia. He presents with chief complaint of head injury. Was found down next to the wheelchair. He sustained a laceration to the left eyebrow area. Not witnessed. History is limited on this patient because of his baseline medical condition. According to [facility] staff he is at baseline. 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 COVID-19 Screening: Negative COVID-19 COVID-19 Testing Source: nasal Patient History Past Medical History: see triage record, old chart reviewed Past Surgical History: other Pertinent Family History: none Social History: Denies: smoking Immunizations: UTD Reviewed Nursing Documentation: PMH: Agreed; PSxH: Agreed Nursing Documentation-PMH Past Medical History: No History, Except For Hx Cardiac Problems: Yes - ATHEROSCLEROTIC HEART DISEASE, ANEMIA Hx Hypertension: Yes Hx Asthma: Yes Hx COPD: Yes Hx Diabetes: Yes Hx Cancer: No Hx Cerebrovascular Accident: Yes Hx Dementia: Yes Hx Alzheimer's Disease: Yes Hx Seizures: Yes Hx Epilepsy: Yes Hx Dysphasia: Yes Hx Weakness: Yes Review of Systems All Other Systems: limited - Secondary to mental status Physical Exam Vital Signs Date Time Temp Pulse Resp B/P (MAP) Pulse Ox O2 Delivery O2 Flow Rate FiO2 08/22/20 04:46 97.9 74 16 117/77 (90) 99 Room Air Vitals normal Sp02 EP Interpretation: reviewed, normal General Appearance: well appearing, no apparent distress, alert Head: normocephalic, other - Stellate laceration of 3 cm to the left eyebrow. No foreign body. Eyes: bilateral eye PERRL, bilateral eye EOMI ENT: hearing grossly normal, normal pharynx Neck: full range of motion, supple, no meningismus Respiratory: chest non-tender, lungs clear, normal breath sounds Cardiovascular #1: regular rate, rhythm, no murmur Gastrointestinal: normal bowel sounds, non tender, no mass, no organomegaly, no bruit, non-distended Musculoskeletal: back normal, normal range of motion Psychiatric: mood/affect normal Procedures Laceration/Wound Repair Laceration/Wound Repair : Consent: Verbal Wound Location: head Wound's Depth, Shape: into muscle, irregular, flap, stellate Wound Length (cm): 3 Wound Explored: clean Irrigated w/ Saline (ccs): 500 Anesthesia: 1% Lidocaine Volume Anesthetic (ccs): 2 Wound Repaired With: sutures Suture Size/Type: 5:0, other - chromic Number of Sutures: 5 Sterile Dressing Applied?: Yes Patient Tolerated: Well Complications: None Medical Decision Making Diagnostic Impression: Primary Impression: Head injury, acute Qualified Codes: S09.90XA - Unspecified injury of head, initial encounter Additional Impression: Laceration of eyebrow, left Qualified Codes: S01.112A - Laceration without foreign body of left eyelid and periocular area, initial encounter ER Course This patient presents with head injury and laceration. No intracranial bleed or skull fracture. Will discharge home. CT/MRI/US Diagnostic Results CT/MRI/US Diagnostic Results : Imaging Test Ordered: CT head Impression Read by radiologist. encephalamalcia. Negative. Last Vital Signs Date Time Temp Pulse Resp B/P (MAP) Pulse Ox O2 Delivery O2 Flow Rate FiO2 08/22/20 04:46 97.9 74 16 117/77 (90) 99 Room Air Status: improved Disposition: SNF Condition: Stable Referrals: Silas Ng DO (PCP) Additional Instructions: Follow-up with your doctor in 7 days. Return if symptoms worsen. Sutures will fall off on its own. Lionel Schmidt MD Aug 22, 2020 05:20
--- NOTE | 2020-08-22 05:29 | NUR ---
Laceration repair done by Dr. Schmidt, well tolerated. Patient taken to CT, stable condition.
[2020-08-22 05:30] VITALS: BP 117/78
--- NOTE | 2020-08-22 05:50 | NUR ---
Patient returned from CT- BP 104/76, HR82, O2 sat 97% room air, denies pain.
--- NOTE | 2020-08-22 06:05 | Diagnostic Imaging Report ---
EXAM: CT Head Without Intravenous Contrast CLINICAL HISTORY: TRAUMA TECHNIQUE: Axial computed tomography images of the head/brain without intravenous contrast. CTDI is 53.4 mGy and DLP is 1232.5 mGy-cm. One or more of the following dose reduction techniques were used: automated exposure control, adjustment of the mA and/or kV according to patient size, use of iterative reconstruction technique. COMPARISON: Head CT March 14, 2020. FINDINGS: No acute intracranial hemorrhage. No midline shift or mass effect. Encephalomalacia in the left frontal lobe consistent with old infarct. Associated, ex-vacuo dilatation of the left frontal horn. Age-related cerebral volume loss. Periventricular and subcortical white matter hypoattenuation, consistent with chronic microangiopathy. Mild disconjugate gaze. The calvarium is intact. The visualized paranasal sinuses and mastoid air cells are grossly clear. IMPRESSION: No acute intracranial hemorrhage, midline shift, or mass effect. Old left frontal lobe infarct.
--- NOTE | 2020-08-22 06:16 | NUR ---
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 Patient is stable.
--- NOTE | 2020-08-22 06:25 | NUR ---
ER DISCHARGE NOTE: Patient is cleared to be discharged per ERMD, pt is aox2, on room air, with stable vital signs. pt's tranporters from [facility] was given dc instructions, pt id band removed. Belongings sent with patient.
== END 2020-08-22 06:25 ==
LOC: EDBD 04:44 → EMR 05:06
DX: S01.112A Laceration without foreign body of left eyelid and periocular area, initial encounter (principal); S09.90XA Unspecified injury of head, initial encounter; I25.10 Atherosclerotic heart disease of native coronary artery without angina pectoris; I10 Essential (primary) hypertension; J44.9 Chronic obstructive pulmonary disease, unspecified; J45.909 Unspecified asthma, uncomplicated; E11.9 Type 2 diabetes mellitus without complications; G40.909 Epilepsy, unspecified, not intractable, without status epilepticus; G30.9 Alzheimer's disease, unspecified; F02.80 Dementia in other diseases classified elsewhere, unspecified severity, without behavioral disturbance, psychotic disturbance, mood disturbance, and anxiety; W05.0XXA Fall from non-moving wheelchair, initial encounter; Y93.9 Activity, unspecified; Y92.129 Unspecified place in nursing home as the place of occurrence of the external cause; Z86.73 Personal history of transient ischemic attack (TIA), and cerebral infarction without residual deficits; Z79.4 Long term (current) use of insulin; Z79.1 Long term (current) use of non-steroidal anti-inflammatories (NSAID); Z79.899 Other long term (current) drug therapy
CPT/HCPCS: 70450; 99284